=== PATIENT | female | born 1965 ===

== ENCOUNTER 2020-08-29 13:46 | Outpatient (REF) | payer OTHER, SELFPAY | END 2020-08-29 13:47 | disposition home or self-care (01) | LOC: HO.LNP 13:46 | PROVIDERS: PCP Internal Medicine Medical Oncology; Referring Provider Internal Medicine Medical Oncology; Visit Provider Advanced Practice Midwife | DX: Z01.419 Encounter for gynecological examination (general) (routine) without abnormal findings (principal); R30.0 Dysuria; N84.1 Polyp of cervix uteri | CPT/HCPCS: 87086; 87088; 87186; 99386 ==

== ENCOUNTER 2020-10-16 08:29 | Outpatient (REF) | payer OTHER, SELFPAY | END 2020-10-16 08:30 | disposition home or self-care (01) | LOC: HO.LAB 08:29 | PROVIDERS: Visit Provider Obstetrics & Gynecology | DX: N84.1 Polyp of cervix uteri (principal) | CPT/HCPCS: 88305 ==

== ENCOUNTER 2020-11-04 08:03 | Outpatient (REF) | payer OTHER, SELFPAY | END 2020-11-04 08:04 | disposition home or self-care (01) | LOC: HO.LAB 08:03 | PROVIDERS: Visit Provider Internal Medicine | DX: Z20.828 Contact with and (suspected) exposure to other viral communicable diseases (principal) | CPT/HCPCS: C9803; U0003 ==

== ENCOUNTER → 2020-12-04 15:37 | Outpatient (BNVA) | payer OTHER, SELFPAY | PROVIDERS: PCP Internal Medicine; Visit Provider Obstetrics & Gynecology ==

== ENCOUNTER 2020-12-14 10:27 | Outpatient (REF) | payer OTHER, SELFPAY ==
[2020-12-14 11:16] LABS: Hematocrit 33.6 % (37-47); Hemoglobin 10.4 g/dl (12.0-16.0); Mean Corpuscular Hemoglobin 25.5 pg (27.0-33.0); Mean Corpuscular Volume 82.4 fL (80-98); Mean Platelet Volume 11.9 fL (9.4-12.3); Platelet Count 207 X10*3/uL (160-400); Red Blood Count 4.08 X10*6/uL (4.20-5.50); Red Cell Distribution Width 15.3 % (11.0-16.0); White Blood Count 5.1 X10*3/uL (4.8-10.8)
[2020-12-14 12:02] LABS: HCG Quantitative < 2 mIU/mL; Thyroid Stimulating Hormone 0.76 uIU/mL (0.32-4.0)
[2020-12-15 09:32] LABS: Follicle Stimulating Hormone 42.5 mIU/mL; Lutenizing Hormone 24.9 mIU/mL
== END 2020-12-14 10:28 | disposition home or self-care (01) ==
LOC: HO.LAB 10:27
PROVIDERS: PCP Internal Medicine Medical Oncology; Visit Provider Obstetrics & Gynecology
DX: N92.0 Excessive and frequent menstruation with regular cycle (principal)
CPT/HCPCS: 36415; 83001; 83002; 84443; 84702; 85027

== ENCOUNTER 2020-12-16 12:44 | Outpatient (REF) | payer OTHER, SELFPAY ==
--- NOTE | 2020-12-16 12:48 | US_ITS ---
EXAMINATION: ULTRASOUND PELVIS COMPLETE CLINICAL INFORMATION: Excessive and frequent menses with regular cycle. COMPARISON: None TECHNIQUE: Transabdominal and transvaginal ultrasound of the pelvis is performed. FINDINGS: The uterus is anteverted, anteflexed measuring 7.7 cm in length, 4.2 cm in AP and 5.0 cm in transverse dimension. Endometrial thickness measures 0.44 cm. The cervix is unremarkable. The right ovary measures 2.0 x 1.1 x 1.1 cm and volume 1.3 mL. It appears unremarkable. The left ovary measures 2.8 x 1.1 x 2.0 cm and volume 3.2 mL. There is no free fluid in the cul-de-sac. US/US transvaginal IMPRESSION: Unremarkable uterus and ovaries.
--- NOTE | 2020-12-16 12:48 | US_ITS ---
EXAMINATION: ULTRASOUND PELVIS COMPLETE CLINICAL INFORMATION: Excessive and frequent menses with regular cycle. COMPARISON: None TECHNIQUE: Transabdominal and transvaginal ultrasound of the pelvis is performed. FINDINGS: The uterus is anteverted, anteflexed measuring 7.7 cm in length, 4.2 cm in AP and 5.0 cm in transverse dimension. Endometrial thickness measures 0.44 cm. The cervix is unremarkable. The right ovary measures 2.0 x 1.1 x 1.1 cm and volume 1.3 mL. It appears unremarkable. The left ovary measures 2.8 x 1.1 x 2.0 cm and volume 3.2 mL. There is no free fluid in the cul-de-sac. US/US pelvic complete IMPRESSION: Unremarkable uterus and ovaries.
== END 2020-12-16 12:45 | disposition home or self-care (01) ==
LOC: HO.US 12:44
PROVIDERS: Visit Provider Obstetrics & Gynecology
DX: N92.0 Excessive and frequent menstruation with regular cycle (principal)
CPT/HCPCS: 76830; 76856

== ENCOUNTER 2020-12-19 14:51 | Emergency (ER) | payer OTHER, SELFPAY ==
[2020-12-19 14:58] VITALS: BP 141/75; PULSE 114; RESP 20; TEMP 37.7; O2SAT 96; BMI 26.7
--- NOTE | 2020-12-19 15:01 | ECG_ITS ---
Test Reason : PALPITATIONS Blood Pressure : / mmHG Vent. Rate : 106 BPM Atrial Rate : 106 BPM P-R Int : 130 ms QRS Dur : 072 ms QT Int : 320 ms P-R-T Axes : 070 028 010 degrees QTc Int : 425 ms Sinus tachycardia Possible Left atrial enlargement Left ventricular hypertrophy with repolarization abnormality Abnormal ECG No previous ECGs available Referred By: Ange Coley Electronically Signed By:RICHARDSON MAHMOOD
--- NOTE | 2020-12-19 15:07 | ED.ARRPALP ---
HPI - Arrhythmia/Palpitations General Chief Complaint: Arrhythmia/Palpitations Stated Complaint: palpitations Time Seen by Provider: 12/19/20 15:01 Source: patient Mode of arrival: ambulatory Limitations: no limitations History of Present Illness HPI narrative: 55 y/o female with no known cardiac history presenting with intermittent palpitations that stated last night when she was laying down. She states last night she felt her chest pounding for about 1 hour. She was anxious, nervous and sweaty at the time. It resolved on its own and she was able to sleep normally. Today she went to work and was having recurrent episodes of palpitations along with new onset central chest pain that also comes and goes. This started this morning. Pain is non-radiating and aching in nature. She admits to new dry cough and headache. No N/V, abdominal pain, fever, chills or known COVID exposure. HR 100-110's on arrival with low grade temp of 99.9. Related Data Home Medications Medication Instructions Recorded Confirmed No Known Home Meds 10/16/20 10/16/20 Allergies Allergy/AdvReac Type Severity Reaction Status Date / Time amoxicillin [Amoxicillin] Allergy Mild SWELLING/VOMITING, Verified 12/04/20 15:38 syncope, stomach burning clavulanic acid Allergy Mild SWELLING/VO Verified 12/04/20 15:38 [From Augmentin] MITING doxycycline Allergy Unknown vomiting Verified 12/04/20 15:38 lightheadness loss of vision Penicillin Allergy Unknown burned Uncoded 10/16/20 08:34 stomach with vomiting Review of Systems Review of Systems: Constitutional: No Fever, No Chills ENT/Mouth: No sore throat Cardiovascular: + Chest Pain, No SOB, No Orthopnea, No Edema Respiratory: + Cough, No Sputum, No Wheezing, No dyspnea Gastrointestinal: No Nausea, No Vomiting, No Diarrhea, No abdominal Pain Genitourinary: No Dysuria, No Urinary Frequency, No Hematuria Musculoskeletal: No joint pain, No Myalgias Skin: No Skin Lesions, No rash Neuro: No Weakness, No Numbness, No Dizziness, No Headache Psych: + Anxiety/Panic, No Depression Heme/Lymph: No Bruising, No Lymphadenopathy Endocrine: No Polyuria, No Polydipsia PMFSH Past Medical History Medical History Hx of cyst of breast Family History Family History Paternal Uncle Prostate [place] Social History Social History (Updated 10/16/20 @ 08:36 by LORENE Granado) Alcohol intake: never Smoking Status: Never smoker Use of substances other than those prescribed or required for medical reasons: No Advance Directives: No Advance Directives Information Provided: Yes Current occupational status: employed 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 Oriented X3. No acute distress. Eyes: Pupils equal, round and reactive to light. ENT: Pharynx normal. Neck: Normal inspection. Neck supple. CVS: rapid rate, regular rhythm. no appreciable murmur. Pulses normal. Respiratory: No respiratory distress. Breath sounds normal. Abdomen: Soft and nontender. +BS x4 Skin: Skin warm and dry. Normal skin color. Normal skin turgor. No rashes. Extremities: No lower extremity edema. Negative Ran's sign. Neuro: Oriented X 3. No motor deficit. No sensory deficit. Course Course Course Narrative: 55 y/o female presenting with intermittent palpitations and chest pain. Sinus tachycardia on arrival with low grade fever, headache and cough. Concern for possible COVID-19. Will panculture, give Tylenol and IVF Reevaluation(s) Reevaluation #1: 15:50 - patients HR improved to 90's with IVF and Tylenol. Palpitations resolved. DDIMER and CXR are negative. Will continue to await medical workup. Suspect anxiety driving factor. Reevaluation #2: 16:16 - troponin and BNP are negative as well with normal electrolytes. Awaiting Viral PCR and UA. Anticipate d/c home once resulted. Patient is already feeling much better. Reevaluation #3: 16:40 - patient found to be COVID positive. She was counseled on her diagnosis and management. Warning signs and symptoms to return to the ER were discussed. Stable for discharge. MDM - Arrhythmia/Palpitations Differential Diagnosis Differential diagnosis: Likely palpitations, anxiety, sinus tachycardia, artial fibrillation, artial flutter, ventricular premature beats and supraventricular tachycardia Medical Records Attestation: I reviewed the patient's medical records. Lab Data Attestation: I reviewed the patient's lab results. Result diagrams: 12/19/20 15:16 12/19/20 15:16 Labs: Lab Results 12/19/20 12/19/20 12/19/20 Range/Units 15:16 15:16 15:16 WBC 5.3 (4.8-10.8) X10*3/uL RBC 4.22 (4.20-5.50) X10*6/uL Hgb 11.1 L (12.0-16.0) g/dl Hct 34.0 L (37-47) % MCV 80.6 (80-98) fL MCH 26.3 L (27.0-33.0) pg MCHC 32.6 (31.0-35.0) g/dl RDW 15.7 (11.0-16.0) % Plt Count 162 (160-400) X10*3/uL MPV 11.8 (9.4-12.3) fL Immature Gran % (Auto) 0.2 (0.0-0.4) % Neut % (Auto) 64.2 (45-73) % Lymph % (Auto) 26.4 (20-40) % [place] % (Auto) 8.6 (2-11) % Eos % (Auto) 0.4 (0-4) % Baso % (Auto) 0.2 (0-2) % Lymph # (Auto) 1.4 (1.2-4.9) X10*3/uL [place] # (Auto) 0.5 (0.1-1.2) X10*3/uL Eos # (Auto) 0.0 (0.0-0.4) X10*3/uL Baso # (Auto) 0.0 (0.0-0.2) X10*3/uL Abs Immat Gran (auto) 0.01 (0.00-0.03) X10*3/uL Absolute Neuts (auto) 3.4 (2.0-8.3) X10*3/uL Absolute Nucleated RBC 0.000 (0.0-0.012) X10*3/uL Nucleated RBC % (auto) 0.0 (0.0-0.2) /100WBC D-Dimer < 200 NG/ML Hold Blue Top SEE NOTE Sodium 135 (135-145) mmol/L Potassium 3.8 (3.3-5.1) mmol/l Chloride 99 (96-108) mmol/L Carbon Dioxide 26 (22-29) mmol/L Anion Gap 14 (12-20) BUN 10 (9-16) mg/dL Creatinine 0.84 (0.5-1.4) mg/dL Estim Creat Clear Calc 74.7 Estimated GFR > 60 Random Glucose 122 H (60-115) mg/dL Lactic Acid (0.5-2.0) mmol/L Calcium 8.9 (8.4-10.2) mg/dL Magnesium 1.7 (1.6-2.6) mg/dL Total Bilirubin 0.2 (0.0-1.0) mg/dL Direct Bilirubin < 0.2 (0.0-0.5) mg/dL AST 28 (5-31) U/L ALT 32 H (0-31) U/L Alkaline Phosphatase 68 (39-117) U/L Troponin I High Sens (<3.5-17.0) ng/L B-Natriuretic Peptide (<100) pg/mL Total Protein 7.8 (6.5-8.0) g/dL Albumin 4.5 (3.5-5.0) g/dL TSH 0.82 (0.32-4.0) mIU/mL Ethyl Alcohol mg/dL Coronavirus (PCR) (Negative) Influenza Type A (PCR) (Negative) Influenza Type B (PCR) (Negative) RSV RNA Qual (PCR) (Negative) 12/19/20 12/19/20 12/19/20 Range/Units 15:16 15:16 15:16 WBC (4.8-10.8) X10*3/uL RBC (4.20-5.50) X10*6/uL Hgb (12.0-16.0) g/dl Hct (37-47) % MCV (80-98) fL MCH (27.0-33.0) pg MCHC (31.0-35.0) g/dl RDW (11.0-16.0) % Plt Count (160-400) X10*3/uL MPV (9.4-12.3) fL Immature Gran % (Auto) (0.0-0.4) % Neut % (Auto) (45-73) % Lymph % (Auto) (20-40) % [place] % (Auto) (2-11) % Eos % (Auto) (0-4) % Baso % (Auto) (0-2) % Lymph # (Auto) (1.2-4.9) X10*3/uL [place] # (Auto) (0.1-1.2) X10*3/uL Eos # (Auto) (0.0-0.4) X10*3/uL Baso # (Auto) (0.0-0.2) X10*3/uL Abs Immat Gran (auto) (0.00-0.03) X10*3/uL Absolute Neuts (auto) (2.0-8.3) X10*3/uL Absolute Nucleated RBC (0.0-0.012) X10*3/uL Nucleated RBC % (auto) (0.0-0.2) /100WBC D-Dimer NG/ML Hold Blue Top Sodium (135-145) mmol/L Potassium (3.3-5.1) mmol/l Chloride (96-108) mmol/L Carbon Dioxide (22-29) mmol/L Anion Gap (12-20) BUN (9-16) mg/dL Creatinine (0.5-1.4) mg/dL Estim Creat Clear Calc Estimated GFR Random Glucose (60-115) mg/dL Lactic Acid (0.5-2.0) mmol/L Calcium (8.4-10.2) mg/dL Magnesium (1.6-2.6) mg/dL Total Bilirubin (0.0-1.0) mg/dL Direct Bilirubin (0.0-0.5) mg/dL AST (5-31) U/L ALT (0-31) U/L Alkaline Phosphatase (39-117) U/L Troponin I High Sens < 3.5 (<3.5-17.0) ng/L B-Natriuretic Peptide < 10 (<100) pg/mL Total Protein (6.5-8.0) g/dL Albumin (3.5-5.0) g/dL TSH Cancelled (0.32-4.0) mIU/mL Ethyl Alcohol < 10 mg/dL Coronavirus (PCR) (Negative) Influenza Type A (PCR) (Negative) Influenza Type B (PCR) (Negative) RSV RNA Qual (PCR) (Negative) 12/19/20 12/19/20 Range/Units 15:19 15:30 WBC (4.8-10.8) X10*3/uL RBC (4.20-5.50) X10*6/uL Hgb (12.0-16.0) g/dl Hct (37-47) % MCV (80-98) fL MCH (27.0-33.0) pg MCHC (31.0-35.0) g/dl RDW (11.0-16.0) % Plt Count (160-400) X10*3/uL MPV (9.4-12.3) fL Immature Gran % (Auto) (0.0-0.4) % Neut % (Auto) (45-73) % Lymph % (Auto) (20-40) % [place] % (Auto) (2-11) % Eos % (Auto) (0-4) % Baso % (Auto) (0-2) % Lymph # (Auto) (1.2-4.9) X10*3/uL [place] # (Auto) (0.1-1.2) X10*3/uL Eos # (Auto) (0.0-0.4) X10*3/uL Baso # (Auto) (0.0-0.2) X10*3/uL Abs Immat Gran (auto) (0.00-0.03) X10*3/uL Absolute Neuts (auto) (2.0-8.3) X10*3/uL Absolute Nucleated RBC (0.0-0.012) X10*3/uL Nucleated RBC % (auto) (0.0-0.2) /100WBC D-Dimer NG/ML Hold Blue Top Sodium (135-145) mmol/L Potassium (3.3-5.1) mmol/l Chloride (96-108) mmol/L Carbon Dioxide (22-29) mmol/L Anion Gap (12-20) BUN (9-16) mg/dL Creatinine (0.5-1.4) mg/dL Estim Creat Clear Calc Estimated GFR Random Glucose (60-115) mg/dL Lactic Acid 0.9 (0.5-2.0) mmol/L Calcium (8.4-10.2) mg/dL Magnesium (1.6-2.6) mg/dL Total Bilirubin (0.0-1.0) mg/dL Direct Bilirubin (0.0-0.5) mg/dL AST (5-31) U/L ALT (0-31) U/L Alkaline Phosphatase (39-117) U/L Troponin I High Sens (<3.5-17.0) ng/L B-Natriuretic Peptide (<100) pg/mL Total Protein (6.5-8.0) g/dL Albumin (3.5-5.0) g/dL TSH (0.32-4.0) mIU/mL Ethyl Alcohol mg/dL Coronavirus (PCR) POSITIVE A (Negative) Influenza Type A (PCR) NEGATIVE (Negative) Influenza Type B (PCR) NEGATIVE (Negative) RSV RNA Qual (PCR) NEGATIVE (Negative) ECG Data Attestation: I personally reviewed and interpreted this ECG as follows: Prior ECG tracings: not available for review Interpretation: sinus tachycardia, HR 106 bpm, normal NV interval, normal QTc, isolated t-wave inversion in lead V1 [place]ores [place] PE Heart rate > 100 p/min: 1.5 Score: 1.5 2-tier Risk: unlikely risk (5%) 3-tier Risk: low risk (3.4%) Critical Care Time Critical Care Time Critical Care Time: No Discharge Plan Discharge Clinical Impression: Palpitations Patient Disposition: Home, Self-Care Instructions: Heart Palpitations (ED), COVID-19 (Coronavirus Disease 2019) (ED) Additional Instructions: You were found to be COVID-19 POSITIVE today. Your chest x-ray and oxygen levels were normal. Your EKG and lab workup today were unremarkable. Rest. Drink plenty of fluids. Do not go out in public for the next 10-14 days. Take over the counter cold/flu medications as needed for your symptoms. Take Tylenol and/or Motrin as needed for fevers and body aches. Follow up with your doctor this week. If you shortness of breath worsens , if you develop difficulty breathing or any other concerning symptom come back to the ER for further evaluation. Recommend following up with your doctor. If you have recurrent palpitations and chest pain come back to the ER for further evaluation. Prescriptions: No Action No Known Home Meds RF: 0 Stand Alone Forms: Work/School Release
--- NOTE | 2020-12-19 15:12 | XR_ITS ---
EXAMINATION: XR CHEST CLINICAL INFORMATION: Cough, low-grade fever COMPARISON: Chest radiographs 05/09/2019 TECHNIQUE: Portable upright AP view of the chest was obtained. FINDINGS: The lungs are clear and there is no interval airspace consolidation or groundglass opacity or effusion. Linear density right apex possibly osseous is stable. The costophrenic sulci are clear. The heart is normal in size and the hilar and mediastinal contours are normal. No acute bony abnormality. XR/XR chest 1V IMPRESSION: Unremarkable examination.
[2020-12-19 15:25] LABS: MANUAL DIFF FLAG NO
[2020-12-19] MEDS: 0.9 % Sodium Chloride 1,000 ML 999 ML IVCONT (15:34)
[2020-12-19 15:39] LABS: Basophils Percent Auto 0.2 % (0-2); Eosinophils Percent Auto 0.4 % (0-4); Hemoglobin 11.1 g/dl (12.0-16.0); Imm Gran Abs Auto 0.01 X10*3/uL (0.00-0.03); Imm Gran Pct Auto 0.2 % (0.0-0.4); Lymphocytes Absolute Auto 1.4 X10*3/uL (1.2-4.9); Lymphocytes Percent Auto 26.4 % (20-40); Mean Corpuscular HGB Conc 32.6 g/dl (31.0-35.0); Mean Corpuscular Hemoglobin 26.3 pg (27.0-33.0); Mean Corpuscular Volume 80.6 fL (80-98); Mean Platelet Volume 11.8 fL (9.4-12.3); Monocytes Absolute Auto 0.5 X10*3/uL (0.1-1.2); Monocytes Percent Auto 8.6 % (2-11); Neutrophils Absolute Auto 3.4 X10*3/uL (2.0-8.3); Neutrophils Percent Auto 64.2 % (45-73); Platelet Count 162 X10*3/uL (160-400); Red Blood Count 4.22 X10*6/uL (4.20-5.50); Red Cell Distribution Width 15.7 % (11.0-16.0); White Blood Count 5.3 X10*3/uL (4.8-10.8)
[2020-12-19] MEDS: Acetaminophen 325 MG TABLET 975 MG PO (15:43)
[2020-12-19 15:47] LABS: D Dimer < 200 NG/ML
[2020-12-19 15:52] LABS: Lactic Acid 0.9 mmol/L (0.5-2.0)
[2020-12-19 15:54] LABS: Ethanol < 10 mg/dL
--- NOTE | 2020-12-19 15:54 | PC.NURSE ---
PT RESTING IN THE STRETCHER, NOT FEELING WELL THAT STARTED TODAY SOME DRY COUGH AND CHEST PAIN, NS ON THE MONITOR, LS CLEAR.
[2020-12-19 16:03] LABS: B Type Natriuretic Peptide < 10 pg/mL (<100); Troponin-I High Sensitivity < 3.5 ng/L (<3.5-17.0)
[2020-12-19 16:15] LABS: Alanine Aminotransferase 32 U/L (0-31); Albumin Level 4.5 g/dL (3.5-5.0); Alkaline Phosphatase 68 U/L (39-117); Anion Gap 14 (12-20); Aspartate Amino Transferase 28 U/L (5-31); Bilirubin Direct < 0.2 mg/dL (0.0-0.5); Bilirubin Total 0.2 mg/dL (0.0-1.0); Blood Urea Nitrogen 10 mg/dL (9-16); Calcium 8.9 mg/dL (8.4-10.2); Carbon Dioxide 26 mmol/L (22-29); Chloride 99 mmol/L (96-108); Creatinine Clr Calc Pharmacy 74.7; Estimated Glomerular Filt Rate > 60; Glucose Random 122 mg/dL (60-115); Magnesium 1.7 mg/dL (1.6-2.6); Potassium 3.8 mmol/l (3.3-5.1); Sodium 135 mmol/L (135-145); Total Protein 7.8 g/dL (6.5-8.0)
[2020-12-19 16:34] LABS: Influenza A PCR NEGATIVE (Negative); Influenza B PCR NEGATIVE (Negative); Resp Syncy Virus RNA Qual PCR NEGATIVE (Negative); SARS COV2 PCR INHOUSE POSITIVE (Negative)
[2020-12-19 16:35] LABS: TSH reflex Free T4 0.82 mIU/mL (0.32-4.0)
[2020-12-19 17:19] LABS: Glucose Urine UA NEG (NEG); Leukocyte Esterase Urine NEG (NEG); Nitrite Urine NEG (NEG); PH 6.5 (5.0-8.0); Specific Gravity - Urine <= 1.005 (1.005-1.025); Urine Blood NEG (NEG); Urine Ketones NEG (NEG); Urine Protein NEG (NEG-TRACE)
[2020-12-19 17:21] LABS: Appearance Urine CLEAR; Color Urine YELLOW
[2020-12-19 17:54] LABS: Amphetamine Screen Urine Not Detected (Not Detect); Barbiturates, Urine Not Detected (Not Detect); Benzodiazepines Screen Urine Not Detected (Not Detect); Cannabinoid Screen Urine Not Detected (Not Detect); Cocaine Screen Urine Not Detected (Not Detect); Opiate Screen Urine Not Detected (Not Detect); Phencyclidine Screen Urine Not Detected (Not Detect)
== END 2020-12-19 17:40 | disposition home or self-care (01) ==
PROVIDERS: Physician Assistant; Emergency Provider Emergency Medicine Emergency Medical Services; PCP Internal Medicine Medical Oncology
DX: R00.2 Palpitations (principal); R05 Cough; R51.9 Headache, unspecified; Z20.822 Contact with and (suspected) exposure to COVID-19
CPT/HCPCS: 0241U; 36415; 71045; 80048; 80076; 80307; 80320; 81003; 83605; 83735; 83880; 84443; 84484; 85025; 85379; 87040; 93005; 96360; 99284

== ENCOUNTER 2021-01-04 07:58 | Outpatient (REF) | payer OTHER, SELFPAY | END 2021-01-04 07:59 | disposition home or self-care (01) | LOC: HO.LAB 07:58 | PROVIDERS: Visit Provider Internal Medicine | DX: Z20.822 Contact with and (suspected) exposure to COVID-19 (principal) | CPT/HCPCS: 36415; C9803; U0003; U0005 ==

== ENCOUNTER 2021-01-21 15:22 | Outpatient (REF) | payer OTHER, SELFPAY | END 2021-01-21 15:23 | disposition home or self-care (01) | LOC: HO.LAB 15:22 | PROVIDERS: PCP Internal Medicine Medical Oncology; Visit Provider Internal Medicine | DX: Z20.822 Contact with and (suspected) exposure to COVID-19 (principal) | CPT/HCPCS: 36415; C9803; U0003; U0005 ==

== ENCOUNTER 2021-02-04 08:33 | Outpatient (REF) | payer OTHER, SELFPAY ==
[2021-02-06 19:12] LABS: HPV mRNA E6/E7 rflx Not Detected (Not Detected)
== END 2021-02-04 08:34 | disposition home or self-care (01) ==
LOC: HO.LAB 08:33
PROVIDERS: PCP Internal Medicine Medical Oncology; Visit Provider Obstetrics & Gynecology
DX: Z01.419 Encounter for gynecological examination (general) (routine) without abnormal findings (principal); Z11.51 Encounter for screening for human papillomavirus (HPV); N92.0 Excessive and frequent menstruation with regular cycle
CPT/HCPCS: 36415; 58100; 87624; 88142; 88305

== ENCOUNTER 2021-02-10 07:49 | Outpatient (REF) | payer OTHER, SELFPAY ==
[2021-02-10 08:09] LABS: MANUAL DIFF FLAG NO
[2021-02-10 08:19] LABS: Basophils Percent Auto 0.5 % (0-2); Eosinophils Absolute Auto 0.1 X10*3/uL (0.0-0.4); Eosinophils Percent Auto 1.6 % (0-4); Hematocrit 35.5 % (37-47); Hemoglobin 11.1 g/dl (12.0-16.0); Imm Gran Abs Auto 0.01 X10*3/uL (0.00-0.03); Imm Gran Pct Auto 0.2 % (0.0-0.4); Lymphocytes Absolute Auto 2.4 X10*3/uL (1.2-4.9); Lymphocytes Percent Auto 38.6 % (20-40); Mean Corpuscular HGB Conc 31.3 g/dl (31.0-35.0); Mean Corpuscular Hemoglobin 26.4 pg (27.0-33.0); Mean Corpuscular Volume 84.3 fL (80-98); Mean Platelet Volume 11.6 fL (9.4-12.3); Monocytes Absolute Auto 0.5 X10*3/uL (0.1-1.2); Monocytes Percent Auto 8.7 % (2-11); Neutrophils Absolute Auto 3.1 X10*3/uL (2.0-8.3); Neutrophils Percent Auto 50.4 % (45-73); Platelet Count 191 X10*3/uL (160-400); Red Blood Count 4.21 X10*6/uL (4.20-5.50); Red Cell Distribution Width 17.2 % (11.0-16.0); White Blood Count 6.2 X10*3/uL (4.8-10.8)
[2021-02-10 08:44] LABS: Alanine Aminotransferase 25 U/L (0-31); Albumin Level 4.3 g/dL (3.5-5.0); Alkaline Phosphatase 61 U/L (39-117); Anion Gap 11 (12-20); Aspartate Amino Transferase 22 U/L (5-31); Bilirubin Total 0.6 mg/dL (0.0-1.0); Blood Urea Nitrogen 12 mg/dL (9-16); Calcium 8.8 mg/dL (8.4-10.2); Carbon Dioxide 27 mmol/L (22-29); Chloride 105 mmol/L (96-108); Cholesterol 148 mg/dL; Estimated Glomerular Filt Rate > 60; Glucose Fasting 101 mg/dL (60-99); HDL Cholesterol 52 mg/dL; LDL Cholesterol Calculated 80 mg/dl; Potassium 4.3 mmol/L (3.3-5.1); Sodium 139 mmol/L (135-145); Total Protein 7.3 g/dL (6.5-8.0); Triglycerides 82 mg/dL
[2021-02-10 10:15] LABS: Erythrocyte Sedimentation Rate 14 MM/HR (0-20)
== END 2021-02-10 07:50 | disposition home or self-care (01) ==
LOC: HO.LAB 07:49
PROVIDERS: PCP Internal Medicine Medical Oncology; Visit Provider Internal Medicine Medical Oncology
DX: E66.3 Overweight (principal)
CPT/HCPCS: 36415; 80053; 80061; 85025; 85652

== ENCOUNTER → 2021-02-18 11:15 | Outpatient (BNVA) | payer OTHER, SELFPAY | PROVIDERS: PCP Internal Medicine Medical Oncology; Visit Provider Obstetrics & Gynecology ==

== ENCOUNTER 2021-04-02 13:37 | Outpatient (REF) | payer OTHER, SELFPAY ==
[2021-04-02 13:49] LABS: Glucose Urine UA NEG (NEG); Leukocyte Esterase Urine 1+ (NEG); Nitrite Urine NEG (NEG); UACC Culture Trigger YES; Urine Blood 3+ (NEG); Urine Ketones NEG (NEG); Urine Protein NEG (NEG-TRACE)
[2021-04-02 13:51] LABS: Appearance Urine HAZY; Color Urine YELLOW
[2021-04-02 14:27] LABS: Bacteria Urine 1+ /LPF; Mucus Urine 2+ /LPF; RBC Urine TNTC /HPF (0); Squamous Epithelial Cell Urine 2+ /LPF; UACC CULT YES
== END 2021-04-02 13:38 | disposition home or self-care (01) ==
LOC: HO.LNP 13:37
PROVIDERS: Visit Provider Internal Medicine Medical Oncology
DX: N39.0 Urinary tract infection, site not specified (principal); N39.9 Disorder of urinary system, unspecified
CPT/HCPCS: 81001; 87086; 87088; 87186

== ENCOUNTER 2021-04-02 13:44 | Outpatient (REF) | payer OTHER, SELFPAY ==
[2021-04-02 14:28] LABS: MANUAL DIFF FLAG NO
[2021-04-02 14:36] LABS: Basophils Percent Auto 0.6 % (0-2); Eosinophils Absolute Auto 0.1 X10*3/uL (0.0-0.4); Eosinophils Percent Auto 0.7 % (0-4); Hematocrit 35.1 % (37-47); Imm Gran Abs Auto 0.01 X10*3/uL (0.00-0.03); Imm Gran Pct Auto 0.1 % (0.0-0.4); Lymphocytes Absolute Auto 2.6 X10*3/uL (1.2-4.9); Lymphocytes Percent Auto 36.2 % (20-40); Mean Corpuscular HGB Conc 31.3 g/dl (31.0-35.0); Mean Corpuscular Hemoglobin 26.5 pg (27.0-33.0); Mean Corpuscular Volume 84.6 fL (80-98); Mean Platelet Volume 11.9 fL (9.4-12.3); Monocytes Absolute Auto 0.5 X10*3/uL (0.1-1.2); Monocytes Percent Auto 6.4 % (2-11); Neutrophils Absolute Auto 3.9 X10*3/uL (2.0-8.3); Platelet Count 194 X10*3/uL (160-400); Red Blood Count 4.15 X10*6/uL (4.20-5.50); Red Cell Distribution Width 15.8 % (11.0-16.0)
[2021-04-02 15:01] LABS: Alanine Aminotransferase 35 U/L (0-31); Albumin Level 4.4 g/dL (3.5-5.0); Alkaline Phosphatase 64 U/L (39-117); Anion Gap 11 (12-20); Aspartate Amino Transferase 30 U/L (5-31); Bilirubin Total 0.5 mg/dL (0.0-1.0); Blood Urea Nitrogen 11 mg/dL (9-16); Calcium 9.1 mg/dL (8.4-10.2); Carbon Dioxide 26 mmol/L (22-29); Chloride 107 mmol/L (96-108); Estimated Glomerular Filt Rate > 60; Glucose Random 90 mg/dL (60-115); Potassium 4.3 mmol/L (3.3-5.1); Sodium 140 mmol/L (135-145); Total Protein 7.5 g/dL (6.5-8.0)
[2021-04-02 15:21] LABS: HCG Quantitative < 2 mIU/mL; Thyroid Stimulating Hormone 1.02 uIU/mL (0.32-4.0)
[2021-04-02 15:30] LABS: Erythrocyte Sedimentation Rate 18 MM/HR (0-20)
[2021-04-03 05:12] LABS: Follicle Stimulating Hormone 13.2 mIU/mL; Lutenizing Hormone 9.7 mIU/mL
== END 2021-04-02 13:45 | disposition home or self-care (01) ==
LOC: HO.LAB 13:44
PROVIDERS: Obstetrics & Gynecology; PCP Internal Medicine Medical Oncology; Visit Provider Internal Medicine Medical Oncology
DX: R10.32 Left lower quadrant pain (principal); N92.0 Excessive and frequent menstruation with regular cycle; R39.9 Unspecified symptoms and signs involving the genitourinary system; N39.0 Urinary tract infection, site not specified; R30.0 Dysuria
CPT/HCPCS: 36415; 80053; 83001; 83002; 84443; 84702; 85025; 85652

== ENCOUNTER 2021-04-03 10:48 | Emergency (ER) | payer OTHER, SELFPAY ==
--- NOTE | ~2021-04-03 | CT_ITS ---
EXAMINATION: CT ABDOMEN AND PELVIS WITH CONTRAST CLINICAL INFORMATION: Left flank pain COMPARISON: May 15, 2012 TECHNIQUE: Multidetector volumetric images were obtained from the superior aspect of the liver through the pubic symphysis following administration 85 mL of Omnipaque 350 intravenous contrast. Sagittal and coronal reformatted images were obtained on the technologist's workstation. Oral contrast: No This CT examination was performed using dose optimization techniques as appropriate, variously including the following: *Automated exposure control *Adjustment of mA and/or kV according to patient size (this includes techniques or standardized protocols for targeted exams where dose is matched to indication/reason for exam; i.e. extremities or head) *Use of iterative reconstruction technique DLP: 536 mGy-cm FINDINGS: LUNG BASES: The visualized lung bases are unremarkable. No pleural or pericardial effusion. LIVER, GALLBLADDER, AND BILIARY TREE: The liver is normal in size, shape, and attenuation. No focal hepatic lesion or biliary ductal dilatation is present. The gallbladder is unremarkable with no evidence of radiopaque gallstones, gallbladder wall thickening, or obvious pericholecystic inflammatory changes. PANCREAS: Unremarkable. SPLEEN: Unremarkable. ADRENAL GLANDS: Unremarkable. KIDNEYS AND URETERS: The right kidney is normal in size, shape, and attenuation. No hydronephrosis, hydroureter, or calculi seen. No perinephric stranding. There is mild left hydronephrosis and hydroureter down to a 6 mm partially obstructing mid left ureteral calculus. BLADDER: Unremarkable. GASTROINTESTINAL TRACT: No dilated loops of large or small bowel are evident. No free air is identified. There is minimal free fluid. No pericolonic inflammatory change. The appendix appears unremarkable. ABDOMINAL WALL: No significant hernia is appreciated. LYMPH NODES: No lymphadenopathy appreciated. VASCULAR: Unremarkable. PELVIC VISCERA: There are bilateral adnexal cysts present the largest on the right measuring 3 cm in diameter. About the left perineum there is there is a 1.8 x 1.4 cm cyst. No inflammatory changes seen surrounding this. OSSEOUS STRUCTURES: No suspicious bony lesion identified. CT/CT abdomen pelvis w con IMPRESSION: Partial obstructing 6 mm mid left ureteral calculus with mild left hydronephrosis. Left perineum cyst.
[2021-04-03 11:11] VITALS: BP 137/50; PULSE 58; RESP 18; TEMP 36.8; O2SAT 98; BMI 28.8
--- NOTE | 2021-04-03 11:12 | ED_ITS ---
HPI - Abdominal Pain General Chief Complaint: Abdominal Pain Stated Complaint: abdominal pain Time Seen by Provider: 04/03/21 11:11 Source: patient Mode of arrival: ambulatory Limitations: no limitations History of Present Illness MD elicited complaint: flank pain Pertinent past history: kidney stones Onset (ago): day(s) (2) Pain Consistency: constant Location: L flank Severity: severe Quality: stabbing Radiation: LLQ Migration to: no migration Exacerbating factors: nothing Relieving factors: nothing Context: history of similar episodes Associated symptoms: nausea and vomiting Treatments prior to arrival: other (doctor started cipro yesterday) Related Data Home Medications Medication Instructions Recorded Confirmed cholecalciferol (vitamin D3) 50 50 mcg PO DAILY 02/04/21 02/18/21 mcg (2,000 unit) capsule Previous Rx's Medication Instructions Recorded ondansetron 4 mg PO Q8H PRN #20 tab 04/03/21 oxycodone 10 mg PO Q6H PRN #20 tab 04/03/21 prednisone 40 mg PO DAILY 4 Days #8 tab 04/03/21 tamsulosin 0.4 mg PO DAILY 5 Days #5 cap 04/03/21 Allergies Allergy/AdvReac Type Severity Reaction Status Date / Time amoxicillin [Amoxicillin] Allergy Mild SWELLING/VOMITING, Verified 02/18/21 11:16 syncope, stomach burning clavulanic acid Allergy Mild SWELLING/VO Verified 02/18/21 11:16 [From Augmentin] MITING doxycycline Allergy Unknown vomiting Verified 02/18/21 11:16 lightheadness loss of vision Penicillin Allergy Unknown burned Uncoded 10/16/20 08:34 stomach with vomiting Review of Systems Review of Systems Constitutional : No Fever, No Chills ENT/Mouth : No sore throat Eyes: No Eye Pain, No Swelling, No Redness Cardiovascular : No Chest Pain, No SOB Respiratory : No Cough, No Sputum, No Wheezing Gastrointestinal : positive Nausea, positive Vomiting, No Diarrhea, positive abdominal pain Genitourinary : positive Dysuria, positive urinary frequency, positive Hematuria, positive Flank Pain, positive hesitancy Musculoskeletal : No joint pain, No Myalgias Skin : No Skin Lesions, No rash Neuro : No Weakness, No Numbness, No Headache Psych : No Anxiety/Panic, No Depression Heme/Lymph: No Bruising, No Lymphadenopathy Endocrine : No Polyuria, No Polydipsia All other systems reviewed and are negative Physical Exam Vital Signs: Vital Signs: Last Vital Signs Temp 98.7 F 04/03/21 15: Pulse 77 04/03/21 15:26 Resp 18 04/03/21 15:28 BP 138/56 L 04/03/21 15:26 Pulse Ox 97 04/03/21 15:26 Body Mass Index 28.8 Appearance: Alert. Oriented X3. No acute distress. vomiting Eyes: Pupils equal, round and reactive to light. ENT: Pharynx normal. Neck: Normal inspection. Neck supple. CVS: Normal heart rate and rhythm. Pulses normal. Respiratory: No respiratory distress. Breath sounds normal. Abdomen: Soft and L sided flank pain noted Skin: Skin warm and dry. Normal skin color. Normal skin turgor. Extremities: No lower extremity edema. No calf ttp Neuro: Oriented X 3. No motor deficit. No sensory deficit. Course Course Course Narrative: urine negative able to tolerate PO, pain well controlled feels stable for outpatient management MDM - Abdominal Pain MDM Narrative Medical decision making narrative: 55 yo female with L flank pain started on cipro by PCP for possible UTI yesterday comes in with L flank pain n/v hx of stones at this time labs, CT scan for renal colic, IV morphine for pain ordered, dispo per results and findings. Lab Data Result diagrams: 04/03/21 12:03 04/03/21 12:03 Labs: Lab Results 04/03/21 04/03/21 04/03/21 Range/Units 12:03 12:03 12:03 WBC 8.1 (4.8-10.8) X10*3/uL RBC 4.03 L (4.20-5.50) X10*6/uL Hgb 10.8 L (12.0-16.0) g/dl Hct 34.0 L (37-47) % MCV 84.4 (80-98) fL MCH 26.8 L (27.0-33.0) pg MCHC 31.8 (31.0-35.0) g/dl RDW 15.4 (11.0-16.0) % Plt Count 174 (160-400) X10*3/uL MPV 11.4 (9.4-12.3) fL Immature Gran % (Auto) 0.4 (0.0-0.4) % Neut % (Auto) 72.4 (45-73) % Lymph % (Auto) 21.0 (20-40) % [place] % (Auto) 5.3 (2-11) % Eos % (Auto) 0.4 (0-4) % Baso % (Auto) 0.5 (0-2) % Lymph # (Auto) 1.7 (1.2-4.9) X10*3/uL [place] # (Auto) 0.4 (0.1-1.2) X10*3/uL Eos # (Auto) 0.0 (0.0-0.4) X10*3/uL Baso # (Auto) 0.0 (0.0-0.2) X10*3/uL Abs Immat Gran (auto) 0.03 (0.00-0.03) X10*3/uL Absolute Neuts (auto) 5.8 (2.0-8.3) X10*3/uL Absolute Nucleated RBC 0.000 (0.0-0.012) X10*3/uL Nucleated RBC % (auto) 0.0 (0.0-0.2) /100WBC Hold Blue Top SEE NOTE Sodium 140 (135-145) mmol/L Potassium 4.4 (3.3-5.1) mmol/L Chloride 105 (96-108) mmol/L Carbon Dioxide 27 (22-29) mmol/L Anion Gap 12 (12-20) BUN 11 (9-16) mg/dL Creatinine 0.76 (0.5-1.4) mg/dL Estim Creat Clear Calc 85.5 Estimated GFR > 60 Random Glucose 127 H D (60-115) mg/dL Calcium 9.3 (8.4-10.2) mg/dL Magnesium (1.6-2.6) mg/dL Total Bilirubin (0.0-1.0) mg/dL Direct Bilirubin (0.0-0.5) mg/dL AST (5-31) U/L ALT (0-31) U/L Alkaline Phosphatase (39-117) U/L Total Protein (6.5-8.0) g/dL Albumin (3.5-5.0) g/dL Lipase (8-78) U/L Urine Color Urine Appearance Urine pH (5.0-8.0) Ur Specific [place] (1.005-1.025) Urine Protein (NEG-TRACE) MG/DL Urine Glucose (UA) (NEG) MG/DL Urine Ketones (NEG) MG/DL Urine Blood (NEG) Urine Nitrite (NEG) Ur Leukocyte Esterase (NEG) Urine RBC (0) /HPF Urine WBC (0-4) /HPF Ur Squamous Epith Cells /LPF Urine Bacteria /LPF 04/03/21 04/03/21 Range/Units 12:03 15:29 WBC (4.8-10.8) X10*3/uL RBC (4.20-5.50) X10*6/uL Hgb (12.0-16.0) g/dl Hct (37-47) % MCV (80-98) fL MCH (27.0-33.0) pg MCHC (31.0-35.0) g/dl RDW (11.0-16.0) % Plt Count (160-400) X10*3/uL MPV (9.4-12.3) fL Immature Gran % (Auto) (0.0-0.4) % Neut % (Auto) (45-73) % Lymph % (Auto) (20-40) % [place] % (Auto) (2-11) % Eos % (Auto) (0-4) % Baso % (Auto) (0-2) % Lymph # (Auto) (1.2-4.9) X10*3/uL [place] # (Auto) (0.1-1.2) X10*3/uL Eos # (Auto) (0.0-0.4) X10*3/uL Baso # (Auto) (0.0-0.2) X10*3/uL Abs Immat Gran (auto) (0.00-0.03) X10*3/uL Absolute Neuts (auto) (2.0-8.3) X10*3/uL Absolute Nucleated RBC (0.0-0.012) X10*3/uL Nucleated RBC % (auto) (0.0-0.2) /100WBC Hold Blue Top Sodium (135-145) mmol/L Potassium (3.3-5.1) mmol/L Chloride (96-108) mmol/L Carbon Dioxide (22-29) mmol/L Anion Gap (12-20) BUN (9-16) mg/dL Creatinine (0.5-1.4) mg/dL Estim Creat Clear Calc Estimated GFR Random Glucose (60-115) mg/dL Calcium (8.4-10.2) mg/dL Magnesium 1.9 (1.6-2.6) mg/dL Total Bilirubin 0.6 (0.0-1.0) mg/dL Direct Bilirubin 0.2 (0.0-0.5) mg/dL AST 30 (5-31) U/L ALT 35 H (0-31) U/L Alkaline Phosphatase 62 (39-117) U/L Total Protein 7.3 (6.5-8.0) g/dL Albumin 4.3 (3.5-5.0) g/dL Lipase 11 (8-78) U/L Urine Color YELLOW Urine Appearance HAZY Urine pH 6.5 (5.0-8.0) Ur Specific [place] <= 1.005 (1.005-1.025) Urine Protein NEG (NEG-TRACE) MG/DL Urine Glucose (UA) NEG (NEG) MG/DL Urine Ketones 5 (NEG) MG/DL Urine Blood 3+ H (NEG) Urine Nitrite NEG (NEG) Ur Leukocyte Esterase NEG (NEG) Urine RBC TNTC H (0) /HPF Urine WBC 0-2 (0-4) /HPF Ur Squamous Epith Cells 2+ /LPF Urine Bacteria NONE /LPF Discharge Plan Discharge Clinical Impression: Ureterolithiasis Vomiting Qualifiers: Vomiting type: unspecified Vomiting Intractability: non-intractable Nausea presence: with nausea Qualified Code(s): R11.2 - Nausea with vomiting, unspecified Patient Disposition: Home, Self-Care Instructions: Ureteral Stones (ED) Additional Instructions: return to ED for any worsening symptoms or concerns Prescriptions: New prednisone 20 mg tablet 40 mg PO DAILY 4 Days Qty: 8 RF: 0 tamsulosin 0.4 mg capsule 0.4 mg PO DAILY 5 Days Qty: 5 RF: 0 ondansetron 4 mg tablet,disintegrating 4 mg PO Q8H PRN (Reason: nausea and vomiting) Qty: 20 RF: 0 oxycodone 10 mg tablet 10 mg PO Q6H PRN (Reason: pain) Qty: 20 RF: 0 No Action cholecalciferol (vitamin D3) 50 mcg (2,000 unit) capsule 50 mcg PO DAILY RF: 0 Referrals: Jules Chapman MD [Physician] - 2 days (if not better) Stand Alone Forms: Work/School Release [facility] Past Medical History Attestation statement: The following information was validated with the patient. 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
[2021-04-03 12:04] VITALS: RESP 20
[2021-04-03] MEDS: Ketorolac Tromethamine 30 MG/ML VIAL IVPUSH (12:04)
[2021-04-03] MEDS: Morphine Sulfate 4 MG/ML CARTRIDGE IVPUSH ×2 (12:04→15:28)
[2021-04-03] MEDS: 0.9 % Sodium Chloride 1,000 ML 999 ML IVCONT (12:04)
[2021-04-03] MEDS: ondansetron HCL 4 MG/2 ML VIAL IVPUSH (12:04)
[2021-04-03 12:12] LABS: MANUAL DIFF FLAG NO
[2021-04-03 12:18] LABS: Basophils Percent Auto 0.5 % (0-2); Eosinophils Percent Auto 0.4 % (0-4); Hemoglobin 10.8 g/dl (12.0-16.0); Imm Gran Abs Auto 0.03 X10*3/uL (0.00-0.03); Imm Gran Pct Auto 0.4 % (0.0-0.4); Lymphocytes Absolute Auto 1.7 X10*3/uL (1.2-4.9); Mean Corpuscular HGB Conc 31.8 g/dl (31.0-35.0); Mean Corpuscular Hemoglobin 26.8 pg (27.0-33.0); Mean Corpuscular Volume 84.4 fL (80-98); Mean Platelet Volume 11.4 fL (9.4-12.3); Monocytes Absolute Auto 0.4 X10*3/uL (0.1-1.2); Monocytes Percent Auto 5.3 % (2-11); Neutrophils Absolute Auto 5.8 X10*3/uL (2.0-8.3); Neutrophils Percent Auto 72.4 % (45-73); Platelet Count 174 X10*3/uL (160-400); Red Blood Count 4.03 X10*6/uL (4.20-5.50); Red Cell Distribution Width 15.4 % (11.0-16.0); White Blood Count 8.1 X10*3/uL (4.8-10.8)
[2021-04-03 12:37] LABS: Anion Gap 12 (12-20); Blood Urea Nitrogen 11 mg/dL (9-16); Calcium 9.3 mg/dL (8.4-10.2); Carbon Dioxide 27 mmol/L (22-29); Chloride 105 mmol/L (96-108); Creatinine Clr Calc Pharmacy 85.5; Estimated Glomerular Filt Rate > 60; Glucose Random 127 mg/dL (60-115); Potassium 4.4 mmol/L (3.3-5.1); Sodium 140 mmol/L (135-145)
[2021-04-03 12:41] LABS: Alanine Aminotransferase 35 U/L (0-31); Albumin Level 4.3 g/dL (3.5-5.0); Alkaline Phosphatase 62 U/L (39-117); Aspartate Amino Transferase 30 U/L (5-31); Bilirubin Direct 0.2 mg/dL (0.0-0.5); Bilirubin Total 0.6 mg/dL (0.0-1.0); Lipase 11 U/L (8-78); Magnesium 1.9 mg/dL (1.6-2.6); Total Protein 7.3 g/dL (6.5-8.0)
[2021-04-03] MEDS: iohexoL 350 MG/ML 100 ML INFUS..BTL IV (13:38)
[2021-04-03 15:26] VITALS: BP 138/56; PULSE 77; RESP 16; TEMP 37.1; O2SAT 97
[2021-04-03 15:28] VITALS: RESP 18
[2021-04-03] MEDS: methylPREDNISolone Sod Succ 125 MG/2 ML VIAL 60 MG IVPUSH (15:28)
[2021-04-03] MEDS: Tamsulosin HCL 0.4 MG CAPSULE PO (15:28)
[2021-04-03 15:47] LABS: Glucose Urine UA NEG (NEG); Leukocyte Esterase Urine NEG (NEG); Nitrite Urine NEG (NEG); PH 6.5 (5.0-8.0); Specific Gravity - Urine <= 1.005 (1.005-1.025); Urine Blood 3+ (NEG); Urine Ketones 5 MG/DL (NEG); Urine Protein NEG (NEG-TRACE)
[2021-04-03 15:49] LABS: Appearance Urine HAZY; Color Urine YELLOW
[2021-04-03 15:54] LABS: RBC Urine TNTC /HPF (0); Squamous Epithelial Cell Urine 2+ /LPF; WBC Urine 0-2 /HPF (0-4)
== END 2021-04-03 16:39 | disposition home or self-care (01) ==
PROVIDERS: Emergency Provider Emergency Medicine; PCP Internal Medicine Medical Oncology
DX: N20.1 Calculus of ureter (principal); R10.32 Left lower quadrant pain; R11.2 Nausea with vomiting, unspecified; Z79.899 Other long term (current) drug therapy
CPT/HCPCS: 36415; 74177; 80048; 80076; 81001; 83690; 83735; 85025; 96365; 96375; 99283; 99284; J1885; J2270; J2405; J2930; Q9967

== ENCOUNTER 2021-04-17 13:49 | Outpatient (REF) | payer OTHER, SELFPAY ==
--- NOTE | ~2021-04-17 | MM_ITS ---
EXAMINATION: MM DIAGNOSTIC DIGITAL BREAST TOMOSYNTHESIS, BILATERAL. CLINICAL INFORMATION: Right breast lump 6 o'clock position. The examination was originally scheduled as a screening study and ultrasound was not scheduled. The lifetime risk of breast cancer based on the Tyrer-Cuzick Model is 7.9%. COMPARISON: Mammography: 06/26/2020 and studies dating back to 10/06/2016. TECHNIQUE: Digital breast tomosynthesis is performed in both the craniocaudal and mediolateral oblique views along with computer-aided detection (CAD). Synthesized 2D images are generated from the tomosynthesis. FINDINGS: The breasts are extremely dense, which lowers the sensitivity of mammography (ACR BI-RADS breast composition Category d). There are innumerable calcifications seen bilaterally. No definite new more suspicious grouping of calcifications identified. Evaluation is limited to the very dense breast parenchyma present. No definite new abnormal dominant mass is seen. Stable circumscribed density seen about the lateral aspect of the left breast. Targeted ultrasound evaluation was not performed at this time due to scheduling issues. Results are provided to the patient at time of visit by the technologist. MM/MM tomosynthesis diagnostic BI IMPRESSION: Very dense breast parenchyma with no mammographic findings to suggest malignancy. Targeted right breast ultrasound to be performed. ASSESSMENT: BI-RADS 0: Incomplete - Need Additional Imaging Evaluation RECOMMENDATION: Right breast diagnostic ultrasound.
== END 2021-04-17 13:50 | disposition home or self-care (01) ==
LOC: HO.MAMMO 13:49
PROVIDERS: PCP Internal Medicine Medical Oncology; Visit Provider Internal Medicine Medical Oncology
DX: N63.15 Unspecified lump in the right breast, overlapping quadrants (principal)
CPT/HCPCS: 77062; 77066

== ENCOUNTER 2021-04-22 14:40 | Outpatient (REF) | payer OTHER, SELFPAY ==
--- NOTE | ~2021-04-22 | US_ITS ---
EXAMINATION: US DIAGNOSTIC ULTRASOUND BREAST, RIGHT CLINICAL INFORMATION: Breast lump 6:00 position. COMPARISON: Mammography of April 17, 2021 and breast ultrasound of June 26, 2020. TECHNIQUE: Ultrasound of the breast is performed with real-time harkins scale imaging and color Doppler. FINDINGS: There are numerous simple appearing cysts present. At the region of palpable abnormality 6:00 location 3 cm from the nipple there is a large cyst measuring approximately 3.2 x 2.3 x 1.2 cm in size with increased through sound transmission and smooth back wall and no internal vascularity. The cyst is wider than it is tall. There is no solid mass, architectural abnormality, duct ectasia, or edema in the soft tissue planes. Results are discussed with the patient at time of visit. US/US breast RT limited IMPRESSION: Palpable abnormality of the right breast corresponds to a simple cyst. ASSESSMENT: BI-RADS 2: Benign RECOMMENDATION: Routine annual mammography screening due in 12 months. This patient's information was entered into a reminder system with a target due date for their next mammogram.
== END 2021-04-22 14:41 | disposition home or self-care (01) ==
LOC: HO.MAMMO 14:40
PROVIDERS: Visit Provider Internal Medicine Medical Oncology
DX: N63.10 Unspecified lump in the right breast, unspecified quadrant (principal)
CPT/HCPCS: 76642

== ENCOUNTER → 2021-04-23 08:42 | Outpatient (BNVA) | payer OTHER, SELFPAY | PROVIDERS: PCP Internal Medicine Medical Oncology; Visit Provider Urology | DX: N23 Unspecified renal colic (principal) | CPT/HCPCS: 99202 ==

== ENCOUNTER → 2021-05-29 14:23 | Outpatient (BNVA) | payer OTHER, SELFPAY | PROVIDERS: PCP Internal Medicine Medical Oncology; Visit Provider Obstetrics & Gynecology | DX: N92.0 Excessive and frequent menstruation with regular cycle (principal) | CPT/HCPCS: 99212 ==

== ENCOUNTER 2021-06-03 14:09 | Outpatient (REF) | payer OTHER, SELFPAY ==
--- NOTE | ~2021-06-03 | XR_ITS ---
EXAMINATION: XR LUMBAR SPINE XR SACRUM COCCYX CLINICAL INFORMATION: Acute low back pain COMPARISON: CT abdomen and pelvis with contrast 04/03/2021. TECHNIQUE: The lumbar spine is imaged in 3 views. The sacrum and coccyx are imaged in 3 views. There are a total of 6 views. FINDINGS: There is normal lumbar segmentation with 5 nonrib-bearing lumbar vertebrae of normal height and lumbar lordosis. There is no lumbar vertebral compression, spondylolisthesis, or destructive process. No focal disc narrowing or erosive changes. There is borderline anterior vertebral spurring L4 and L5. The sacrum and coccyx show normal bony mineralization. There is no destructive process or periostitis. The SI joints show no subchondral sclerosis or erosive changes or ankylosis. XR/XR lumbar spine 2-3V IMPRESSION: Unremarkable lumbar spine, sacrum, and coccyx.
--- NOTE | ~2021-06-03 | XR_ITS ---
EXAMINATION: XR LUMBAR SPINE XR SACRUM COCCYX CLINICAL INFORMATION: Acute low back pain COMPARISON: CT abdomen and pelvis with contrast 04/03/2021. TECHNIQUE: The lumbar spine is imaged in 3 views. The sacrum and coccyx are imaged in 3 views. There are a total of 6 views. FINDINGS: There is normal lumbar segmentation with 5 nonrib-bearing lumbar vertebrae of normal height and lumbar lordosis. There is no lumbar vertebral compression, spondylolisthesis, or destructive process. No focal disc narrowing or erosive changes. There is borderline anterior vertebral spurring L4 and L5. The sacrum and coccyx show normal bony mineralization. There is no destructive process or periostitis. The SI joints show no subchondral sclerosis or erosive changes or ankylosis. XR/XR sacrum coccyx min 2V IMPRESSION: Unremarkable lumbar spine, sacrum, and coccyx.
== END 2021-06-03 14:10 | disposition home or self-care (01) ==
LOC: HO.XRAY 14:09
PROVIDERS: PCP Internal Medicine Medical Oncology; Visit Provider Internal Medicine Medical Oncology
DX: M54.5 Low back pain (principal)
CPT/HCPCS: 72100; 72220

== ENCOUNTER 2021-06-21 07:23 | Outpatient (REF) | payer OTHER, SELFPAY ==
[2021-06-21 07:48] LABS: MANUAL DIFF FLAG NO
[2021-06-21 07:50] LABS: Basophils Percent Auto 0.3 % (0-2); Hematocrit 36.2 % (37-47); Hemoglobin 11.4 g/dl (12.0-16.0); Imm Gran Abs Auto 0.03 X10*3/uL (0.00-0.03); Imm Gran Pct Auto 0.4 % (0.0-0.4); Lymphocytes Absolute Auto 1.2 X10*3/uL (1.2-4.9); Lymphocytes Percent Auto 15.7 % (20-40); Mean Corpuscular HGB Conc 31.5 g/dl (31.0-35.0); Mean Corpuscular Hemoglobin 26.1 pg (27.0-33.0); Mean Platelet Volume 10.8 fL (9.4-12.3); Monocytes Absolute Auto 0.4 X10*3/uL (0.1-1.2); Monocytes Percent Auto 5.1 % (2-11); Neutrophils Absolute Auto 6.2 X10*3/uL (2.0-8.3); Neutrophils Percent Auto 78.5 % (45-73); Platelet Count 202 X10*3/uL (160-400); Red Blood Count 4.36 X10*6/uL (4.20-5.50); White Blood Count 7.9 X10*3/uL (4.8-10.8)
[2021-06-21 08:16] LABS: Alanine Aminotransferase 49 U/L (0-31); Albumin Level 4.4 g/dL (3.5-5.0); Alkaline Phosphatase 59 U/L (39-117); Anion Gap 13 (12-20); Aspartate Amino Transferase 28 U/L (5-31); Bilirubin Total 0.3 mg/dL (0.0-1.0); Blood Urea Nitrogen 11 mg/dL (9-16); Calcium 9.7 mg/dL (8.4-10.2); Carbon Dioxide 26 mmol/L (22-29); Chloride 105 mmol/L (96-108); Cholesterol 155 mg/dL; Estimated Glomerular Filt Rate > 60; Glucose Fasting 130 mg/dL (60-99); HDL Cholesterol 50 mg/dL; LDL Cholesterol Calculated 92 mg/dl; Magnesium 1.9 mg/dL (1.6-2.6); Potassium 4.7 mmol/L (3.3-5.1); Sodium 139 mmol/L (135-145); Total Protein 7.3 g/dL (6.5-8.0); Triglycerides 69 mg/dL
== END 2021-06-21 07:24 | disposition home or self-care (01) ==
LOC: HO.LAB 07:23
PROVIDERS: PCP Internal Medicine Medical Oncology; Visit Provider Internal Medicine Medical Oncology
DX: R00.2 Palpitations (principal); I10 Essential (primary) hypertension
CPT/HCPCS: 36415; 80053; 80061; 83735; 85025

== ENCOUNTER 2021-06-24 13:40 | Outpatient (REF) | payer OTHER, SELFPAY ==
[2021-06-26 21:26] LABS: TS Negative Control Passed; TS Panel A 0; TS Panel B 0; TS Positive Control Passed; TSpotTB Negative (SeeBelow)
== END 2021-06-24 13:41 | disposition home or self-care (01) ==
LOC: HO.LAB 13:40
PROVIDERS: PCP Internal Medicine Medical Oncology; Visit Provider Internal Medicine Medical Oncology
DX: Z11.1 Encounter for screening for respiratory tuberculosis (principal)
CPT/HCPCS: 36415; 86481

== ENCOUNTER → 2021-07-02 13:51 | Outpatient (REF) | payer OTHER, SELFPAY ==
--- NOTE | 2021-07-02 14:00 | ECG_ITS ---
Hook-up date: 2021-07-02 14:04:00 Duration: 41:57:00 Test Indications: PALPITATIONS, VERTIGO Medications: [id number] QRS complexes 1 Ventricular ectopics which represent <1 % of total QRS comp. 102 Supraventricular ectopics which represent <1 % of total QRS comp. * Paced QRS complexs which represent % of total QRS comp. VENTRICULAR ECTOPY 1 Isolated 0 Bigeminal Cycles 0 Couplets 0 Runs 0 Beats in Runs * Beats LONGEST at * BPM at :: -- * Beats FASTEST at * BPM at :: -- SUPRAVENTRICULAR ECTOPY 98 Isolated 2 Couplets 0 Runs 0 Beats in Runs * Beats LONGEST at * BPM at :: -- * Beats FASTEST at * BPM at :: -- HEART RATES 57 MIN at 03:40:30 2021-07-03 89 AVG 149 MAX at 12:06:22 2021-07-03 LONGEST RR 1.2000 secs at 21:33:16 2021-07-02 S-T LEVELS Channel 1 - 128 mm at 14:04:00 2021-07-02 - 128 mm at 14:04:00 2021-07-02 Channel 2 - 128 mm at 14:04:00 2021-07-02 - 128 mm at 14:04:00 2021-07-02 Channel 3 - 128 mm at 03:32:31 -- - 128 mm at 03:32:31 Underlying rhythm is sinus; Average ventricular rate 89/min; range 57-149/min; About 35% of the time, ventricular rate>100/min (sinus tachycardia); Rare Premature atrial complexes ; Patient did not report any symptoms in the diary Referred By: Nguyễn Hallman Overread By: RICHARDSON MAHMOOD
== END ==
LOC: HO.CARD 13:51
PROVIDERS: Visit Provider Internal Medicine Medical Oncology
DX: R00.2 Palpitations (principal); R42 Dizziness and giddiness; I10 Essential (primary) hypertension
CPT/HCPCS: 93225; 93226

== ENCOUNTER 2021-09-02 14:37 | Outpatient (REF) | payer OTHER, SELFPAY ==
--- NOTE | ~2021-09-02 | XR_ITS ---
EXAMINATION: XR HAND, RIGHT CLINICAL INFORMATION: Right hand and thumb pain. COMPARISON: None TECHNIQUE: PA, lateral, and oblique views of the right hand. FINDINGS: The bones and soft tissues are normal. No fracture. Alignment is anatomic. Joint spaces are maintained. No erosions or soft tissue calcifications. XR/XR hand RT min 3V IMPRESSION: Normal right hand.
== END 2021-09-02 14:38 | disposition home or self-care (01) ==
LOC: HO.XRAY 14:37
PROVIDERS: PCP Internal Medicine Medical Oncology; Visit Provider Internal Medicine Medical Oncology
DX: M79.641 Pain in right hand (principal)
CPT/HCPCS: 73130

== ENCOUNTER 2021-09-12 08:17 | Outpatient (REF) | payer OTHER, SELFPAY ==
--- NOTE | ~2021-09-12 | MM_ITS ---
EXAMINATION: MM DIAGNOSTIC DIGITAL BREAST TOMOSYNTHESIS, RIGHT US DIAGNOSTIC ULTRASOUND BREAST, RIGHT CLINICAL INFORMATION: Palpable fullness lower inner right breast with right breast pain. The lifetime risk of breast cancer based on the Tyrer-Cuzick Model is 8%. COMPARISON: Mammography: 04/17/2021, 06/26/2020, 11/18/2018; right breast ultrasound 04/22/2021 TECHNIQUE: Digital breast tomosynthesis is performed in both the craniocaudal and mediolateral oblique views along with computer-aided detection (CAD). Synthesized 2D images are generated from the tomosynthesis. Ultrasound right breast is targeted to the lower and inner quadrants. Grayscale imaging and color Doppler are performed without and with harmonics. FINDINGS: The breasts are extremely dense, which lowers the sensitivity of mammography (ACR BI-RADS breast composition Category d). Parenchymal pattern is similar to prior exam. There is a oval smooth mass 6:00 position mid depth corresponding to the large cyst on prior and current ultrasound. There are no interval architectural changes. Again, there are diffuse scattered punctate calcifications. The axilla and skin contours are unremarkable. No skin thickening or coarsening of the Ja's ligaments. Ultrasound right breast demonstrates simple cyst 6:00 position 3 cm from nipple corresponding to the mass on mammography and measuring approximately 2.8 x 2.6 x 1.9 cm. Prior ultrasound measurements are 3.2 x 2.3 x 1.2 cm. There is also a simple cyst 3:00 position 5 cm from nipple corresponding to the palpable concern and tenderness medial breast and measuring 3.5 x 3.2 x 2.1 cm. There is no solid mass or architectural abnormality. Results are discussed with the patient at time of visit. Patient inquired about cyst aspiration. The largest cyst in area of palpable concern would be amenable to ultrasound-guided aspiration for symptomatic relief if clinically indicated. Results are called to medical affairs specialist (Mark) for Dr. Hallman on 09/12/2021. MM/MM tomosynthesis diagnostic RT IMPRESSION: Large simple cysts right breast 3:00 position 3.5 cm and 6:00 position 2.8 cm, respectively. ASSESSMENT: BI-RADS 2: Benign RECOMMENDATION: 1. Routine annual mammography screening. 2. If clinically indicated, the cyst(s) would be amenable to therapeutic ultrasound-guided aspiration for potential symptomatic relief. This patient's information was entered into a reminder system with a target due date for their next mammogram.
== END 2021-09-12 08:18 | disposition home or self-care (01) ==
LOC: HO.MAMMO 08:17
PROVIDERS: Visit Provider Internal Medicine Medical Oncology
DX: N64.4 Mastodynia (principal); N63.14 Unspecified lump in the right breast, lower inner quadrant; R42 Dizziness and giddiness
CPT/HCPCS: 76642; 77061; 77065

== ENCOUNTER 2021-09-15 07:41 | Outpatient (REF) | payer OTHER, SELFPAY ==
--- NOTE | ~2021-09-15 | US_ITS ---
EXAMINATION: ULTRASOUND GUIDED CYST ASPIRATION BREAST (2 SITES), RIGHT CLINICAL INFORMATION: 55-year-old with right breast pain. Dominant cyst on recent imaging 3:00 and 6:00 position for symptomatic aspiration. COMPARISON: Mammography and right breast ultrasound 09/12/2021 FINDINGS: Proper informed consent is obtained from the patient after discussion of the procedure, potential risks and complications, and alternatives. Patient was given an opportunity for questions. The patient appeared to understand. The patient consented to the procedure and signed the consent form. Hospital provided home energy consultant assisted in consent and during procedure. RIGHT BREAST CYST ASPIRATION: LOCATION: Right breast 3:00 GUIDANCE: Ultrasound-guided; aseptic technique. LESION: Simple cyst 3.5 cm. APPROACH: Caudal cranial. ANESTHESIA: 1.5 mL carbonated 1% lidocaine. NEEDLE: 23-gauge straight needle The anesthesia needle was used to puncture the cyst. The cyst resolved on puncture and aspiration. Approximately 16 mL non-viscous light harkins fluid aspirated and discarded as per local practice. RIGHT BREAST CYST ASPIRATION: LOCATION: Right breast 6:00 GUIDANCE: Ultrasound-guided; aseptic technique. LESION: Simple cyst 2.8 cm. APPROACH: Lateral medial. ANESTHESIA: 1.5 mL carbonated 1% lidocaine. NEEDLE: 21-gauge straight needle The anesthesia needle was used to puncture the cyst. The cyst resolved on puncture and aspiration. Approximately 6 ML nonviscous yellow fluid aspirated and discarded as per local practice. The patient tolerated the procedure well. No immediate complications. Home instructions reviewed with the patient. US/US breast cyst asp ea add IMPRESSION: Status post ultrasound-guided cyst aspiration right breast, 2 sites for trial of symptomatic relief. ASSESSMENT: BI-RADS 2: Benign RECOMMENDATION: 1. Patient may be followed and managed clinically as needed. 2. Otherwise, routine annual mammography screening. This patient's information was entered into a reminder system with a target due date for their next mammogram.
--- NOTE | ~2021-09-15 | US_ITS ---
EXAMINATION: ULTRASOUND GUIDED CYST ASPIRATION BREAST (2 SITES), RIGHT CLINICAL INFORMATION: 55-year-old with right breast pain. Dominant cyst on recent imaging 3:00 and 6:00 position for symptomatic aspiration. COMPARISON: Mammography and right breast ultrasound 09/12/2021 FINDINGS: Proper informed consent is obtained from the patient after discussion of the procedure, potential risks and complications, and alternatives. Patient was given an opportunity for questions. The patient appeared to understand. The patient consented to the procedure and signed the consent form. Hospital provided seismic interpreter assisted in consent and during procedure. RIGHT BREAST CYST ASPIRATION: LOCATION: Right breast 3:00 GUIDANCE: Ultrasound-guided; aseptic technique. LESION: Simple cyst 3.5 cm. APPROACH: Caudal cranial. ANESTHESIA: 1.5 mL carbonated 1% lidocaine. NEEDLE: 23-gauge straight needle The anesthesia needle was used to puncture the cyst. The cyst resolved on puncture and aspiration. Approximately 16 mL non-viscous light harkins fluid aspirated and discarded as per local practice. RIGHT BREAST CYST ASPIRATION: LOCATION: Right breast 6:00 GUIDANCE: Ultrasound-guided; aseptic technique. LESION: Simple cyst 2.8 cm. APPROACH: Lateral medial. ANESTHESIA: 1.5 mL carbonated 1% lidocaine. NEEDLE: 21-gauge straight needle The anesthesia needle was used to puncture the cyst. The cyst resolved on puncture and aspiration. Approximately 6 ML nonviscous yellow fluid aspirated and discarded as per local practice. The patient tolerated the procedure well. No immediate complications. Home instructions reviewed with the patient. US/US breast cyst asp RT IMPRESSION: Status post ultrasound-guided cyst aspiration right breast, 2 sites for trial of symptomatic relief. ASSESSMENT: BI-RADS 2: Benign RECOMMENDATION: 1. Patient may be followed and managed clinically as needed. 2. Otherwise, routine annual mammography screening. This patient's information was entered into a reminder system with a target due date for their next mammogram.
== END 2021-09-15 07:42 | disposition home or self-care (01) ==
LOC: HO.MAMMO 07:41
PROVIDERS: Visit Provider Internal Medicine Medical Oncology
DX: N60.01 Solitary cyst of right breast (principal)
CPT/HCPCS: 19000; 19001

== ENCOUNTER 2021-09-29 09:36 | Outpatient (REF) | payer OTHER, SELFPAY ==
[2021-09-29 14:40] LABS: CT PCR NOT DETECTED (Not Detect.); NG PCR NOT DETECTED (Not Detect.)
[2021-09-30 11:11] LABS: BV Int Neg Control Negative (Negative); BV Int Pos Control Positive (Positive)
== END 2021-09-29 09:37 | disposition home or self-care (01) ==
LOC: HO.LAB 09:36
PROVIDERS: PCP Internal Medicine Medical Oncology; Visit Provider Obstetrics & Gynecology
DX: B37.3 Candidiasis of vulva and vagina (principal); N95.0 Postmenopausal bleeding; Z87.891 Personal history of nicotine dependence
CPT/HCPCS: 87480; 87491; 87510; 87591; 87660; 99212

== ENCOUNTER 2021-10-14 13:14 | Outpatient (REF) | payer OTHER, SELFPAY ==
--- NOTE | ~2021-10-14 | US_ITS ---
EXAMINATION: US PELVIS US TRANSVAGINAL CLINICAL INFORMATION: Postmenopausal bleeding. COMPARISON: CT abdomen and pelvis 04/17/2021. TECHNIQUE: Ultrasound of the pelvis is performed using both transabdominal and transvaginal transducers along with Doppler. Transvaginal imaging is performed due to inadequate visualization transabdominally. FINDINGS: Uterus: The uterus is anteverted and measures 8.9 x 3.8 x 5.2 cm. The double wall endometrial thickness is 0.4 mm. The uterus is smooth in contour and has normal myometrial echogenicity. No visible fibroid. A nabothian cyst is present in the cervix. Adnexa: Both ovaries are visualized. There is normal color flow to the adnexa. There is no ovarian torsion. There is no pelvic ascites or fluid collection. Right ovary measures 2.3 x 1.7 x 1.4 cm for a volume of 2.9 mL. Left ovary measures 2.5 x 2.1 x 1.3 cm for a volume of 3.6 mL. This includes a complex 1.1 cm cyst. US/US pelvic and transvaginal IMPRESSION: Anteverted slightly heterogeneous uterus without discrete masses. Small 1 cm complex left ovarian cyst needs no further follow up.
--- NOTE | ~2021-10-14 | US_ITS ---
EXAMINATION: US RETROPERITONEAL LIMITED (RENAL ONLY) CLINICAL INFORMATION: Calculus of kidney. COMPARISON: Ultrasound abdomen 09/27/2019. CT abdomen and pelvis 04/03/2021. TECHNIQUE: Real-time imaging of the kidneys. FINDINGS: RIGHT KIDNEY: 11.0 x 3.9 x 5.9 cm (SAG x AP x TRV). The kidney is normal in size, contour, and echogenicity. Renal cortical thickness is normal. No calculi or focal parenchymal lesions. No hydronephrosis. LEFT KIDNEY: 12.2 x 5.9 x 4.6 cm (SAG x AP x TRV). The kidney is normal in size, contour, and echogenicity. Renal cortical thickness is normal. There is a 3 mm echogenic density in the midpole suggestive of a stone. No focal parenchymal lesions or hydronephrosis. The liver is echogenic probably representing fatty infiltration. US/US renal BI IMPRESSION: Small left renal stone. Normal right kidney.
== END 2021-10-14 13:15 | disposition home or self-care (01) ==
LOC: HO.US 13:14
PROVIDERS: PCP Internal Medicine Medical Oncology; Visit Provider Urology
DX: N20.0 Calculus of kidney (principal); N95.0 Postmenopausal bleeding
CPT/HCPCS: 76775; 76830; 76856

== ENCOUNTER 2021-10-28 09:43 | Outpatient (REF) | payer OTHER, SELFPAY ==
[2021-10-30 04:46] LABS: CA-125 8 U/mL (<35)
== END 2021-10-28 09:44 | disposition home or self-care (01) ==
LOC: HO.LAB 09:43
PROVIDERS: PCP Internal Medicine Medical Oncology; Visit Provider Obstetrics & Gynecology
DX: N83.299 Other ovarian cyst, unspecified side (principal); N95.0 Postmenopausal bleeding
CPT/HCPCS: 36415; 86304; 99212

== ENCOUNTER → 2021-11-04 13:46 | Outpatient (BNVA) | payer OTHER, SELFPAY | PROVIDERS: PCP Internal Medicine Medical Oncology ==

== ENCOUNTER 2022-01-17 08:43 | Outpatient (REF) | payer OTHER, SELFPAY ==
--- NOTE | ~2022-01-17 | XR_ITS ---
EXAMINATION: XR LUMBOSACRAL SPINE CLINICAL INFORMATION: Back pain COMPARISON: Previous x-ray May 2021 TECHNIQUE: Three views of the lumbosacral spine. FINDINGS: The vertebral bodies and posterior elements are normal. The disc spaces are preserved and the vertebral alignment is normal. The paraspinal soft tissues are normal. XR/XR lumbar spine 2-3V IMPRESSION: Unremarkable examination.
== END 2022-01-17 08:44 | disposition home or self-care (01) ==
LOC: HO.XRAY 08:43
PROVIDERS: PCP Internal Medicine Medical Oncology; Visit Provider Internal Medicine Medical Oncology
DX: M54.50 Low back pain, unspecified (principal)
CPT/HCPCS: 72100

== ENCOUNTER 2022-01-22 12:41 | Outpatient (REF) | payer OTHER, SELFPAY ==
--- NOTE | ~2022-01-22 | US_ITS ---
EXAMINATION: US PELVIS CLINICAL INFORMATION: Ovarian cyst. Cervical polyp removed 11/17/2020. COMPARISON: None TECHNIQUE: Ultrasound of the pelvis is performed using both transabdominal and transvaginal transducers along with Doppler. Transvaginal imaging is performed due to inadequate visualization transabdominally. FINDINGS: UTERUS: The uterus is anteverted, anteflexed and measures 7.7 x 4.0 x 4.5 cm. The double wall endometrial thickness is 0.3 cm. The uterus is smooth in contour and heterogeneous-appearing myometrium. No visible fibroid. There are small nabothian cysts. ADNEXA: Both ovaries are visualized. There is normal color flow to the adnexa. There is no ovarian torsion. There is no pelvic ascites or fluid collection. Right ovary measures 2.2 x 1.3 x 1.2 and volume 1.8 mL. Left ovary measures 1.9 x 1.1 x 1.3 cm and volume 1.4 mL. There is mild left adnexal fullness. No free fluid seen in the cul-de-sac. US/US pelvic and transvaginal IMPRESSION: Unremarkable uterus. Small nabothian cysts in the cervix. Unremarkable ovaries. Mild left adnexal fullness.
== END 2022-01-22 12:42 | disposition home or self-care (01) ==
LOC: HO.US 12:41
PROVIDERS: PCP Internal Medicine Medical Oncology; Visit Provider Obstetrics & Gynecology
DX: N83.299 Other ovarian cyst, unspecified side (principal)
CPT/HCPCS: 76830; 76856

== ENCOUNTER → 2022-02-03 13:36 | Outpatient (BNVA) | payer OTHER, SELFPAY | PROVIDERS: PCP Internal Medicine Medical Oncology ==

== ENCOUNTER → 2022-02-10 14:28 | Outpatient (BNVA) | payer OTHER, SELFPAY | PROVIDERS: PCP Internal Medicine Medical Oncology; Visit Provider Obstetrics & Gynecology | DX: Z13.89 Encounter for screening for other disorder (principal) ==

== ENCOUNTER 2022-02-21 11:13 | Emergency (ER) | payer OTHER, SELFPAY ==
[2022-02-21 11:16] VITALS: BP 158/80; PULSE 100; RESP 19; TEMP 36.6; O2SAT 98; BMI 28.5
--- NOTE | 2022-02-21 11:21 | ED.BACK ---
HPI - Back Pain/Injury General Chief Complaint: Back Pain/Injury Stated Complaint: Back pain Time Seen by Provider: 02/21/22 11:21 Source: patient Mode of arrival: ambulatory Limitations: no limitations History of Present Illness HPI Narrative: 56 y/o female presents to the ER for evaluation of left upper back pain for the last 4 days. She states the pain is sharp and comes and goes. It is worse with movement, laying the wrong way and worst when touch it. 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 She has been taking Tylenol with minimal relief. She denies SOB, chest pain, N/V/D or abdominal pain. The pain does not radiate. MD elicited complaint: back pain Onset (ago): day(s) (4) Timing: intermittent Severity: severe Pain scale (0-10): 9 Similar Symptoms Previously: No Quality: sharp, aching and spasming Location: left upper back Radiation: none Exacerbating factors: movement and other (palpation) Relieving factors: none Context: unknown Associated symptoms: denies other symptoms Treatments prior to arrival: acetaminophen Related Data Home Medications Medication Instructions Recorded Confirmed cholecalciferol (vitamin D3) 50 50 mcg PO DAILY 02/04/21 02/18/21 mcg (2,000 unit) capsule polyvinyl alcohol 1.4 % eye drops 1 drp OPHTHALMIC (EYE) TID 04/23/21 minocycline 50 mg capsule 0 mg PO BEDTIME 11/04/21 tacrolimus 0.1 % topical ointment 1 appl TOPICAL BID 11/04/21 (Protopic) Previous Rx's Medication Instructions Recorded clotrimazole-betamethasone 1 1 appl TOPICAL BID 5 Days #45 g 09/29/21 %-0.05 % topical cream terconazole 0.8 % vaginal cream 1 appful VAGINAL BEDTIME 3 Days 09/29/21 #20 g pyridoxine (vitamin B6) 100 mg 100 mg PO DAILY 90 Days #90 tab 02/03/22 tablet tolterodine 4 mg capsule,extended 4 mg PO DAILY #90 cap 02/13/22 release 24 hr cyclobenzaprine 10 mg tablet 10 mg PO TID PRN #10 tab 02/21/22 ibuprofen 600 mg tablet 600 mg PO Q8H PRN #10 tab 02/21/22 lidocaine 5 % topical patch 1 patch TOPICAL DAILY #15 ea 02/21/22 Allergies Allergy/AdvReac Type Severity Reaction Status Date / Time amoxicillin [Amoxicillin] Allergy Mild SWELLING/VOMITING, Verified 02/10/22 14:45 syncope, stomach burning clavulanic acid Allergy Mild SWELLING/VO Verified 02/03/22 13:37 [From Augmentin] MITING doxycycline Allergy Unknown vomiting Verified 02/03/22 13:37 lightheadness loss of vision Penicillin Allergy Unknown burned Uncoded 11/04/21 13:47 stomach with vomiting Review of Systems Review of Systems: Constitutional: No Fever, No Chills Cardiovascular: No Chest Pain, No SOB, No Orthopnea, No Edema Respiratory: No Cough, No Sputum, No Wheezing, No dyspnea Gastrointestinal: No Nausea, No Vomiting, No abdominal Pain Musculoskeletal: No joint pain, + Myalgias Skin: No Skin Lesions, No rash Neuro: No Weakness, No Numbness, No Dizziness, No Headache Psych: No Anxiety/Panic, No Depression Heme/Lymph: No Bruising, No Lymphadenopathy PMFSH Past Medical History Medical History Hx of cyst of breast OAB (overactive bladder) Renal calculi Renal colic Family History Family History Paternal Uncle Prostate [place] Social History Social History Alcohol intake: never Patient Tobacco Use Status: Former Tobacco user Advance Directives: No Advance Directives Information Provided: No Patient : No Current occupational status: employed 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 Oriented X3. No acute distress. HEENT: normal inspection CVS: Normal heart rate and rhythm. Pulses normal. Respiratory: No respiratory distress. Skin: Skin warm and dry. Normal skin color. Normal skin turgor. No rashes. Back: normal inspection. significant soft tissue tenderness and palpable spasm medial to the left scapula. no midline tenderness. normal spinal ROM Extremities: normal inspection x4, atraumatic, normal ROM Neuro: Oriented X 3. No motor deficit. No sensory deficit. Course Course Course Narrative: 56 y/o female presenting with atraumatic left upper back pain with tenderness and palpable spasm medial to the scapula. No cardiac symptoms or risk factors. Will treat for muscle spasm and have her follow up with her PCP for further management. Stable for d/c home. Critical Care Time Critical Care Time Critical Care Time: No Discharge Plan Discharge Clinical Impression: Acute left-sided thoracic back pain Patient Disposition: Home, Self-Care Instructions: Back Pain (ED) Additional Instructions: Your pain is due to muscle spasms. No bending, lifting or twisting. Use ice several times per day for 20 minutes at a time for the next 48 hours and then change to heat. Take medications as prescribed to help with pain and discomfort. Follow up with your Primary Care Doctor this week. If you develop new or worsening symptoms call 911 or come back to the ER for further evaluation. Prescriptions: New cyclobenzaprine 10 mg tablet 10 mg PO TID PRN (Reason: muscle spasm) Qty: 10 0RF lidocaine 5 % adhesive patch,medicated 1 patch topical DAILY Qty: 15 0RF Rx Instructions: leave on most painful area for up to 12 hrs ibuprofen 600 mg tablet 600 mg PO Q8H PRN (Reason: pain) Qty: 10 0RF No Action tolterodine 4 mg capsule,extended release 24hr 4 mg PO DAILY Qty: 90 1RF polyvinyl alcohol 1.4 % drops 1 drp ophthalmic (eye) TID 0RF cholecalciferol (vitamin D3) 50 mcg (2,000 unit) capsule 50 mcg PO DAILY 0RF minocycline 50 mg capsule 0 mg PO BEDTIME 0RF tacrolimus [Protopic] 0.1 % ointment 1 appl topical BID 0RF terconazole 0.8 % cream 1 appful vaginal BEDTIME 3 Days Qty: 20 0RF clotrimazole-betamethasone 1-0.05 % cream 1 appl topical BID 5 Days Qty: 45 0RF pyridoxine (vitamin B6) 100 mg tablet 100 mg PO DAILY 90 Days Qty: 90 1RF Referrals: Nguyễn Hallman MD [Primary Care Provider] - 5 days (follow up thoracic back pain and spasm) Stand Alone Forms: Work/School Release
[2022-02-21] MEDS: HYDROcodone Bit/Acetam 5/325 TABLET 1 TAB PO (11:36)
[2022-02-21] MEDS: Ketorolac Tromethamine 30 MG/ML VIAL IM (11:38)
[2022-02-21] MEDS: Lidocaine 4 % Patch ADH..PATCH 1 PATCH TRANSDERMA (11:38)
== END 2022-02-21 11:49 | disposition home or self-care (01) ==
PROVIDERS: Emergency Provider Emergency Medicine; PCP Internal Medicine Medical Oncology
DX: M54.6 Pain in thoracic spine (principal)
CPT/HCPCS: 96372; 99284; J1885

== ENCOUNTER 2022-04-21 14:45 | Outpatient (REF) | payer OTHER, SELFPAY ==
--- NOTE | ~2022-04-21 | US_ITS ---
EXAMINATION: US RETROPERITONEAL LIMITED (RENAL ONLY) CLINICAL INFORMATION: Calculus of kidney. COMPARISON: Renal ultrasound 10/14/2021. CT abdomen and pelvis 04/03/2021. Ultrasound abdomen complete 09/27/2019. TECHNIQUE: Real-time imaging of the kidneys. FINDINGS: RIGHT KIDNEY: 10.8 x 4.1 x 5.0 cm (SAG x AP x TRV). The kidney is normal in size, contour, and echogenicity. Renal cortical thickness is normal. No calculi or focal parenchymal lesions. No hydronephrosis. LEFT KIDNEY: 12.7 x 5.1 x 4.6 cm (SAG x AP x TRV). The kidney is normal in size, contour, and echogenicity. Renal cortical thickness is normal. No focal parenchymal lesions or hydronephrosis. There are echogenic non-obstructive stones, one in the upper pole measuring 0.5 x 0.4 cm and one in the midpole measuring 0.3 cm. US/US renal BI IMPRESSION: Two nonobstructive echogenic stones upper and midpole left kidney. The right kidney is unremarkable..
== END 2022-04-21 14:46 | disposition home or self-care (01) ==
LOC: HO.US 14:45
PROVIDERS: Visit Provider Urology
DX: N20.0 Calculus of kidney (principal)
CPT/HCPCS: 76775

== ENCOUNTER 2022-04-23 07:36 | Outpatient (REF) | payer OTHER, SELFPAY ==
--- NOTE | ~2022-04-23 | MM_ITS ---
EXAMINATION: MM SCREENING DIGITAL BREAST TOMOSYNTHESIS, BILATERAL CLINICAL INFORMATION: Screening. Asymptomatic. The lifetime risk of breast cancer based on the Tyrer-Cuzick Model is 7.1%. COMPARISON: Mammography: September 12, 2021 and studies dating back to October 06, 2016 TECHNIQUE: Digital breast tomosynthesis is performed in both the craniocaudal and mediolateral oblique views along with computer-aided detection (CAD). Synthesized 2D images are generated from the tomosynthesis. FINDINGS: The breasts are extremely dense, which lowers the sensitivity of mammography (ACR BI-RADS breast composition Category d). There are no significant masses, abnormal calcifications, or other abnormalities. There is multiplicity and bilaterality of scattered and grouped calcifications. MM/MM tomosynthesis screening BI IMPRESSION: There are no significant changes from prior study. ASSESSMENT: BI-RADS 1: Negative RECOMMENDATION: Routine annual mammography screening. This patient's information was entered into a reminder system with a target due date for their next mammogram.
== END 2022-04-23 07:37 | disposition home or self-care (01) ==
LOC: HO.MAMMO 07:36
PROVIDERS: PCP Internal Medicine Medical Oncology; Visit Provider Internal Medicine Medical Oncology
DX: Z12.31 Encounter for screening mammogram for malignant neoplasm of breast (principal)
CPT/HCPCS: 77063; 77067

== ENCOUNTER 2022-05-07 15:26 | Outpatient (REF) | payer OTHER, SELFPAY ==
[2022-05-07 18:44] LABS: CT PCR NOT DETECTED (Not Detect.); NG PCR NOT DETECTED (Not Detect.)
== END 2022-05-07 15:27 | disposition home or self-care (01) ==
LOC: HO.LAB 15:26
PROVIDERS: Visit Provider Obstetrics & Gynecology
DX: Z11.3 Encounter for screening for infections with a predominantly sexual mode of transmission (principal); N95.0 Postmenopausal bleeding
CPT/HCPCS: 87491; 87591; 99212

== ENCOUNTER 2022-05-28 06:56 | Outpatient (REF) | payer OTHER, SELFPAY ==
[2022-05-28 07:02] LABS: MANUAL DIFF FLAG NO
[2022-05-28 08:51] LABS: Basophils Percent Auto 0.7 % (0-2); Eosinophils Absolute Auto 0.1 X10*3/uL (0.0-0.4); Eosinophils Percent Auto 1.2 % (0-4); Hematocrit 38.3 % (37.0-47.0); Hemoglobin 12.3 g/dl (12.0-16.0); Imm Gran Abs Auto 0.02 X10*3/uL (0.00-0.03); Imm Gran Pct Auto 0.3 % (0.0-0.4); Lymphocytes Absolute Auto 2.4 X10*3/uL (1.2-4.9); Lymphocytes Percent Auto 40.4 % (20-40); Mean Corpuscular HGB Conc 32.1 g/dl (31.0-35.0); Mean Corpuscular Hemoglobin 27.5 pg (27.0-33.0); Mean Corpuscular Volume 85.7 fL (80.0-98.0); Mean Platelet Volume 12.5 fL (9.4-12.3); Monocytes Absolute Auto 0.5 X10*3/uL (0.1-1.2); Monocytes Percent Auto 7.7 % (2-11); Neutrophils Percent Auto 49.7 % (45-73); Platelet Count 186 X10*3/uL (160-400); Red Blood Count 4.47 X10*6/uL (4.20-5.50); Red Cell Distribution Width 14.2 % (11.0-16.0)
[2022-05-28 09:33] LABS: Erythrocyte Sedimentation Rate 9 MM/HR (0-20)
[2022-05-28 10:06] LABS: Alanine Aminotransferase 55 U/L (0-31); Albumin Level 4.2 g/dL (3.5-5.0); Alkaline Phosphatase 78 U/L (39-117); Anion Gap 12 (12-20); Aspartate Amino Transferase 42 U/L (5-31); Bilirubin Total 0.4 mg/dL (0.0-1.0); Blood Urea Nitrogen 12 mg/dL (9-16); Carbon Dioxide 25 mmol/L (22-29); Chloride 105 mmol/L (96-108); Cholesterol 140 mg/dL; Estimated Glomerular Filt Rate > 60; Glucose Random 94 mg/dL (60-115); HDL Cholesterol 40 mg/dL; LDL Cholesterol Calculated 78 mg/dl; Potassium 4.4 mmol/L (3.3-5.1); Sodium 138 mmol/L (135-145); Triglycerides 112 mg/dL
[2022-06-02 13:57] LABS: TS Negative Control Passed; TS Panel A 0; TS Panel B 4; TS Positive Control Passed; TSpotTB Negative (Negative)
== END 2022-05-28 06:57 | disposition home or self-care (01) ==
LOC: HO.LAB 06:56
PROVIDERS: PCP Internal Medicine Medical Oncology; Visit Provider Internal Medicine Medical Oncology
DX: E66.3 Overweight (principal); I10 Essential (primary) hypertension; Z11.1 Encounter for screening for respiratory tuberculosis
CPT/HCPCS: 36415; 80053; 80061; 85025; 85652; 86481

== ENCOUNTER 2022-06-05 05:49 | Day surgery (SDC) | payer OTHER, SELFPAY ==
--- NOTE | 2022-06-03 12:29 | P.CONAN_ITS ---
Documented by User: Cindy Delarosa NP 06/03/22 12:30 HPI - Anesthesia Eval Consult details Narrative: 56yo F for D&C Hysteroscopy PMFSH Active Problems Active Problems: All Active Problems (Updated 02/22/22 @ 00:01 by Mauricio Louis) OAB (overactive bladder) (Acute) Renal calculi (Acute) Complex ovarian cyst (Acute) Postmenopausal bleeding (Acute) Candidal vulvovaginitis (Acute) Renal colic (Acute) Screening mammogram, encounter for (Acute) Well woman exam (Acute) COVID-19 (Acute) Menorrhagia (Acute) Cervical polyp (Acute) Well woman exam with routine gynecological exam (Acute) Dysuria (Acute) Past Medical History Medical History Hx of cyst of breast OAB (overactive bladder) Renal calculi Renal colic Family History Family History Paternal Uncle Prostate CA Surgical History Surgical History H/O foot surgery Social History Social History Alcohol intake: never Patient Tobacco Use Status: Former Tobacco user Second Hand Smoke Exposure: No Use of substances other than those prescribed or required for medical reasons: No Are you DNR?: No Advance Directives: No Advance Directives Information Provided: Yes Advance Directives on File: No Current occupational status: employed 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 Sexual orientation: Straight/Heterosexual Gender identity: Female Meds Allergies Allergy/AdvReac Type Severity Reaction Status Date / Time amoxicillin [Amoxicillin] Allergy Mild SWELLING/VOMITING, Verified 05/07/22 15:03 syncope, stomach burning clavulanic acid Allergy Mild SWELLING/VO Verified 05/07/22 15:03 [From Augmentin] MITING doxycycline Allergy Unknown vomiting Verified 05/07/22 15:03 lightheadness loss of vision Penicillin Allergy Unknown burned Uncoded 05/07/22 11:15 stomach with vomiting Home Medications Medication Instructions Recorded Confirmed Last Taken Type cholecalciferol (vitamin D3) 50 50 mcg PO DAILY 02/04/21 05/07/22 Unknown History mcg (2,000 unit) capsule polyvinyl alcohol 1.4 % eye drops 1 drp ophthalmic (eye) TID 04/23/21 05/07/22 Unknown History minocycline 50 mg capsule 0 mg PO BEDTIME 11/04/21 05/07/22 Unknown History tacrolimus 0.1 % topical ointment 1 appl topical BID 11/04/21 05/07/22 Unknown History (Protopic) Exam Exam Date and Time: June 03, 2022 1229 Pertinent Lab Results Pertinent Lab Results: Laboratory Tests 05/28/22 05/28/22 07:01 07:01 WBC 6.0 Hgb 12.3 Hct 38.3 Plt Count 186 Sodium 138 Potassium 4.4 Chloride 105 Carbon Dioxide 25 BUN 12 Creatinine 0.73 Narrative Narrative: 2 Day Holter 06/2021 Underlying rhythm is sinus; Average ventricular rate 89/min; range 57-149/min; About 35% of the time, ventricular rate>100/min (sinus tachycardia); Rare Premature atrial complexes ; Patient did not report any symptoms in the diary Assessment and Plan Assessment Anesthesia Assessment: Chart Reviewed Documented by User: Antonia Hyatt MD 06/05/22 08:15 [facility] Active Problems Active Problems: All Active Problems (Updated 02/22/22 @ 00:01 by Background Missy) OAB (overactive bladder) (Acute) Renal calculi (Acute) Complex ovarian cyst (Acute) Postmenopausal bleeding (Acute) Candidal vulvovaginitis (Acute) Renal colic (Acute) Screening mammogram, encounter for (Acute) Well woman exam (Acute) COVID-19 (Acute) Menorrhagia (Acute) Cervical polyp (Acute) Well woman exam with routine gynecological exam (Acute) Dysuria (Acute) H/o palpitations Past Medical History Medical History Hx of cyst of breast OAB (overactive bladder) Renal calculi Renal colic Family History Family History Paternal Uncle Prostate CA Family history of problems with anesthesia: No Surgical History Surgical History H/O foot surgery History of Problems with Anesthesia: No Social History Social History Alcohol intake: never Patient Tobacco Use Status: Former Tobacco user Second Hand Smoke Exposure: No Use of substances other than those prescribed or required for medical reasons: No Are you DNR?: No Advance Directives: No Advance Directives Information Provided: Yes Advance Directives on File: No Current occupational status: employed 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 Sexual orientation: Straight/Heterosexual Gender identity: Female Meds Allergies Allergy/AdvReac Type Severity Reaction Status Date / Time amoxicillin [Amoxicillin] Allergy Mild SWELLING/VOMITING, Verified 05/07/22 15:03 syncope, stomach burning clavulanic acid Allergy Mild SWELLING/VO Verified 05/07/22 15:03 [From Augmentin] MITING doxycycline Allergy Unknown vomiting Verified 05/07/22 15:03 lightheadness loss of vision Penicillin Allergy Unknown burned Uncoded 05/07/22 11:15 stomach with vomiting Home Medications Medication Instructions Recorded Confirmed Last Taken Type cholecalciferol (vitamin D3) 50 50 mcg PO DAILY 02/04/21 05/07/22 Unknown History mcg (2,000 unit) capsule polyvinyl alcohol 1.4 % eye drops 1 drp ophthalmic (eye) TID 04/23/21 05/07/22 Unknown History minocycline 50 mg capsule 0 mg PO BEDTIME 11/04/21 05/07/22 Unknown History tacrolimus 0.1 % topical ointment 1 appl topical BID 11/04/21 05/07/22 Unknown History (Protopic) Exam Height,Weight and Vital Signs: Height 5 ft 4 in Weight 75.75 kg Vital Signs Temp Pulse Resp BP Pulse Ox O2 Del Method 06/05/22 06:22 97.0 F 62 16 147/66 H 98 Room Air Airway Mallampati Class: II TM Dist: >3cm Neck ROM: Full Loose/Missing/Broken Teeth: Yes (1 missing) Heart: RRR Lungs: CTAB Assessment and Plan Assessment Anesthesia Assessment: Anesthesia Plan Discussed Final Anesthetic Review Family History of Problems with Anesthesia: No History of Problems with Anesthesia: No NPO: Yes ASA Class: II Final Preanesthetic Review: No Changes in Pt Med Stat, Meds/Allgs Chart Reviewe d, Consent Obtained/Reviewed and Anes Risks/Benef Reviewed Patient Risk: Low Procedure Risk: Low Assessment/Block/Sedation in SS: Assess/Block/Sedation-SS Anesthetic Plan Anesthetic Plan: GA Disposition: Standard PACU
[2022-06-05] VITALS (11 sets, daily range): BP systolic 130–152; BP diastolic 66–83; PULSE 62–74; RESP 16–18; TEMP 36.1–36.7; O2SAT 94–100; BMI 28.6
[2022-06-05] MEDS: Lactated Ringers 1,000 ML 100 ML IVCONT (06:28)
--- NOTE | 2022-06-05 07:40 | MHC.SHP ---
Pre-Procedural Eval Section A Date of Service: 06/05/22 The patient is an INPATIENT: No Changes since office visit: No Cold of Flu in the past 2 weeks, No New Medical Problems, No Changes in Medication and No Patient answered all questions The History & Physical has been completed within 30 days and I have reviewed it.: Yes Section B Chief Complaint: bleeding Allergies: Allergies Allergy/AdvReac Type Severity Reaction Status Date / Time amoxicillin [Amoxicillin] Allergy Mild SWELLING/VOMITING, Verified 05/07/22 15:03 syncope, stomach burning clavulanic acid Allergy Mild SWELLING/VO Verified 05/07/22 15:03 [From Augmentin] MITING doxycycline Allergy Unknown vomiting Verified 05/07/22 15:03 lightheadness loss of vision Penicillin Allergy Unknown burned Uncoded 05/07/22 11:15 stomach with vomiting Plan Diagnosis/Plan: Unchanged I have reviewed the history and physical and performed a pertinent physical examination on my patient. No changes have occurred unless specified.
--- NOTE | 2022-06-05 08:30 | PM.OP ---
Brief Operative Note Date of Service: 06/05/22 Pre-op diagnosis: Postmenopausal bleeding Post-op diagnosis: same Procedure: Hysteroscopy D&C Surgeon: Deondre Chi MD Anesthesia: GLMA Was an Machine Maintenance Repairer used for this Procedure?: No Estimated blood loss (mL): 0 Pathology: other (Endometrial Scrapping) Condition: stable Disposition: PACU
--- NOTE | 2022-06-05 08:31 | P.OP_ITS ---
Operative Note Operative Note Date of Service: 06/05/22 Narrative: Preop Diagnosis: Post Menopausal bleeding Operation: Diagnostic Hysteroscopy, Dilataion & Curettage Post Op Diagnosis: Normal endometrial cavity QBL: Minimal Anesthesia: General LMA Surgeon: Deondre Chi MD Workers Compensation Analyst: None Complication: None Pathology: Endometrial Scrapings Procedure: The patient was put in the dorsal lithotomy position, scrubbed, and draped in the usual manner. A sterile speculum was inserted in the patient's vagina. The anterior lip of the cervix was grasped with a single tooth tenaculum. The cervix was dilated up to 5 mm, then the diagnostic hysteroscope was inserted in the patient's uterus. Inspection revealed Normal endometrial cavity. At the end of the procedure, all instruments were taken out of the patient uterine and vaginal cavity. The single tooth tenaculum was removed and homeostasis was assured using pressure,. The patient tolerated the procedure well and was transferred to the PACU in a stable condition.
[2022-06-05] MEDS: oxyCODONE HCl Immed Release 5 MG TABLET PO (08:46)
[2022-06-05] MEDS: Acetaminophen 325 MG TABLET 650 MG PO (08:46)
[2022-06-05] MEDS: fentaNYL citrate/PF 100 MCG/2 ML VIAL 25 MCG IVPUSH ×4 (08:46→09:01)
== END 2022-06-05 10:25 | disposition home or self-care (01) ==
PROVIDERS: PCP Internal Medicine Medical Oncology; Visit Provider Obstetrics & Gynecology
PROC: 0UDB8ZZ Extraction of Endometrium, Via Natural or Artificial Opening Endoscopic (ICD-10-PCS; CPT 58558; principal; 2022-06-05 07:30)
DX: N95.0 Postmenopausal bleeding (principal); N32.81 Overactive bladder; Z87.442 Personal history of urinary calculi; Z88.1 Allergy status to other antibiotic agents; Z87.891 Personal history of nicotine dependence; Z88.0 Allergy status to penicillin
CPT/HCPCS: 58558; 88305; J1100; J1885; J2405; J3010

== ENCOUNTER → 2022-06-18 11:14 | Outpatient (BNVA) | payer OTHER, SELFPAY | PROVIDERS: PCP Internal Medicine Medical Oncology; Visit Provider Obstetrics & Gynecology | DX: N95.0 Postmenopausal bleeding (principal); Z98.890 Other specified postprocedural states | CPT/HCPCS: 99212 ==

== ENCOUNTER 2022-06-23 13:57 | Outpatient (REF) | payer OTHER, SELFPAY ==
--- NOTE | ~2022-06-23 | XR_ITS ---
EXAMINATION: XR LUMBOSACRAL SPINE CLINICAL INFORMATION: Back pain COMPARISON: 01/17/2022 TECHNIQUE: Three views of the lumbosacral spine. FINDINGS: No fracture or subluxation. Vertebral body height and alignment maintained. Disc spaces are maintained. Tiny endplate osteophytes at the lower lumbar spine with mild facet arthropathy. The sacroiliac joints are symmetric. The visualized sacrum is intact. Normal bowel gas pattern. XR/XR lumbar spine 2-3V IMPRESSION: Mild degenerative change at the lower lumbar spine.
== END 2022-06-23 13:58 | disposition home or self-care (01) ==
LOC: HO.XRAY 13:57
PROVIDERS: PCP Internal Medicine Medical Oncology; Visit Provider Internal Medicine Medical Oncology
DX: M54.50 Low back pain, unspecified (principal)
CPT/HCPCS: 72100

== ENCOUNTER 2022-09-23 08:13 | Outpatient (REF) | payer OTHER, SELFPAY ==
--- NOTE | ~2022-09-23 | MM_ITS ---
EXAMINATION: MM DIAGNOSTIC DIGITAL BREAST TOMOSYNTHESIS, LEFT US TARGETED BREAST ULTRASOUND, LEFT CLINICAL INFORMATION: Left breast mass 2 cm above nipple. COMPARISON: Mammography: 04/23/2022 and studies dating back to 10/06/2016. TECHNIQUE: Digital breast tomosynthesis is performed in both the craniocaudal and mediolateral oblique views along with computer-aided detection (CAD). Synthesized 2D images are generated from the tomosynthesis. Targeted left breast ultrasound. FINDINGS: The breasts are extremely dense, which lowers the sensitivity of mammography (ACR BI-RADS breast composition Category d). There are no new significant masses, abnormal calcifications, or other abnormalities. Numerous scattered calcifications again seen. Targeted left breast ultrasound demonstrated at the 12 o'clock position approximately 3 cm from the nipple, an anechoic smoothly marginated structure with smooth back wall and increased through sound transmission representing a simple cyst. This measures approximately 2.1 x 2.4 x 1.9 cm in size. Results are discussed with the patient at time of visit. MM/MM tomosynthesis diagnostic LT IMPRESSION: Palpable abnormality of the left breast corresponds to a simple cyst. ASSESSMENT: BI-RADS 2: Benign. RECOMMENDATION: Routine annual mammography screening. This patient's information was entered into a reminder system with a target due date for their next mammogram.
== END 2022-09-23 08:14 | disposition home or self-care (01) ==
LOC: HO.MAMMO 08:13
PROVIDERS: PCP Internal Medicine Medical Oncology; Visit Provider Internal Medicine Medical Oncology
DX: N63.42 Unspecified lump in left breast, subareolar (principal)
CPT/HCPCS: 76642; 77061; 77065

== ENCOUNTER 2022-10-29 16:04 | Outpatient (REF) | payer OTHER, SELFPAY ==
--- NOTE | ~2022-10-29 | US_ITS ---
EXAMINATION: US RETROPERITONEAL LIMITED (RENAL ONLY) CLINICAL INFORMATION: Calculus of kidney. COMPARISON: Renal ultrasound 04/21/2022 and 10/14/2021. CT abdomen and pelvis 04/03/2021. TECHNIQUE: Real-time imaging of the kidneys. FINDINGS: RIGHT KIDNEY: 10.9 x 3.6 x 4.8 cm (SAG x AP x TRV). The kidney is normal in size, contour, and echogenicity. Renal cortical thickness is normal. No calculi or focal parenchymal lesions. No hydronephrosis. LEFT KIDNEY: 10.0 x 5.9 x 4.6 cm (SAG x AP x TRV). The kidney is normal in size, contour, and echogenicity. Renal cortical thickness is normal. 2 echogenic densities with artifact measuring 4 x 5 mm in the upper pole and 4 mm in the midpole suggestive of stones. No focal parenchymal lesions or hydronephrosis. US/US renal BI IMPRESSION: Small left renal stones..
== END 2022-10-29 16:05 | disposition home or self-care (01) ==
LOC: HO.US 16:04
DX: N20.0 Calculus of kidney (principal)
CPT/HCPCS: 76775

== ENCOUNTER → 2022-11-03 15:46 | Outpatient (REF) | payer OTHER, SELFPAY | LOC: HO.SL 15:46 | PROVIDERS: PCP Internal Medicine Medical Oncology; Visit Provider Internal Medicine Medical Oncology | DX: G47.33 Obstructive sleep apnea (adult) (pediatric) (principal) | CPT/HCPCS: 95806 ==

== ENCOUNTER 2022-11-19 15:22 | Outpatient (REF) | payer OTHER, SELFPAY ==
[2022-11-19 17:38] LABS: Urine Cytology See Pathology rpt
== END 2022-11-19 15:23 | disposition home or self-care (01) ==
LOC: HO.LAB 15:22
PROVIDERS: PCP Internal Medicine Medical Oncology; Visit Provider Nurse Practitioner Family
DX: R31.29 Other microscopic hematuria (principal); N39.0 Urinary tract infection, site not specified
CPT/HCPCS: 51798; 87086; 88112; 99212

== ENCOUNTER 2022-12-15 09:34 | Outpatient (REF) | payer OTHER, SELFPAY ==
--- NOTE | ~2022-12-15 | US_ITS ---
EXAMINATION: US ULTRASOUND-GUIDED CYST ASPIRATION BREAST, LEFT CLINICAL INFORMATION: Anterior left breast pain in the area of simple cyst. Request aspiration for symptomatic relief. COMPARISON: Mammography and left breast ultrasound 09/23/2022 FINDINGS: Proper informed consent is obtained from the patient after discussion of the procedure, potential risks and complications, and alternatives. Patient was given an opportunity for questions. The patient appeared to understand. The patient consented to the procedure and signed the consent form. LOCATION: Anterior 12:00 left breast GUIDANCE: Ultrasound-guided; aseptic technique. LESION: Simple cyst measuring 2.4 x 1.9 x 2.1 cm. APPROACH: Lateral medial ANESTHESIA: 5 mL carbonated 1% lidocaine NEEDLE: 21-gauge straight needle. ASPIRATION: 7 mL transparent nonviscous straw-colored fluid aspirated with prompt collapse of the cyst. Fluid discarded as per local practice. Pulmonary obstruction is reviewed with the patient. Patient to receive clinical follow-up with her PCP as needed. US/US breast cyst asp LT IMPRESSION: Status post left breast simple cyst aspiration for symptomatic relief mastodynia.
[2022-12-15] MEDS: Lidocaine HCl 1 % 20 ML VIAL 9 ML SUBCUT (10:47)
[2022-12-15] MEDS: Sodium Bicarbonate 8.4% 50 MEQ/50 ML VIAL SUBCUT (10:48)
== END 2022-12-15 09:35 | disposition home or self-care (01) ==
LOC: HO.MAMMO 09:34
PROVIDERS: Visit Provider Internal Medicine Medical Oncology
DX: N60.01 Solitary cyst of right breast (principal)
CPT/HCPCS: 19000

== ENCOUNTER → 2022-12-17 14:05 | Outpatient (BNVA) | payer OTHER, SELFPAY | PROVIDERS: PCP Internal Medicine Medical Oncology; Visit Provider Internal Medicine | DX: G47.33 Obstructive sleep apnea (adult) (pediatric) (principal); R06.83 Snoring; R40.0 Somnolence; R06.02 Shortness of breath | CPT/HCPCS: 99202 ==

== ENCOUNTER 2023-01-11 16:27 | Outpatient (REF) | payer OTHER, SELFPAY ==
--- NOTE | ~2023-01-11 | XR_ITS ---
EXAMINATION: XR SHOULDER, RIGHT CLINICAL INFORMATION: Right shoulder pain. COMPARISON: None TECHNIQUE: Three views of the right shoulder. FINDINGS: There is no evidence of acute fracture or dislocation of the right shoulder. Glenohumeral joint appears unremarkable. No subluxation of the humeral head is seen. No calcific tendinitis. Minimal spurring about the acromioclavicular joint is seen. No widening of the coracoclavicular space is seen. XR/XR shoulder RT min 2V IMPRESSION: No significant bony abnormality of the right shoulder identified.
== END 2023-01-11 16:28 | disposition home or self-care (01) ==
LOC: HO.HOSX 16:27
PROVIDERS: Visit Provider Physician Assistant
DX: M54.12 Radiculopathy, cervical region (principal)
CPT/HCPCS: 73030; 99212

== ENCOUNTER 2023-01-24 10:35 | Emergency (ER) | payer OTHER, SELFPAY ==
--- NOTE | ~2023-01-24 | US_ITS ---
EXAMINATION:US pelvic and transvaginal CLINICAL INFORMATION: Reason for Exam vaginal bleeding and pain, postmenopausal COMPARISON: Prior ultrasound from 2020 LMP: 01/22/2022 FINDINGS: UTERUS: The uterus is anteverted. Size: 7.5 x 3.4 x 4.8 cm. Uterine mass: There is no uterine mass. Cervix: There are nabothian cysts otherwise Grossly unremarkable. Endometrium: Endometrium is borderline thickened 4.5 mm not significantly changed from prior ultrasound of 2020. ADNEXA: Prominent vessel in the left adnexa probably varices. Right ovary: Normal in size. Left ovary: Normal in size. Exophytic structure probably dominant follicle 1.6 x 1.3 x 1.5 cm. Doppler exam: Normal Doppler flow identified in both ovaries. FREE FLUID: Trace amount of free fluid. OTHER FINDINGS: None US/US pelvic and transvaginal IMPRESSION: * Borderline thickened endometrium 4.5 mm, unchanged from prior ultrasound of 2020. * Prominent vessels in the left adnexa probably varices. Cannot rule out pelvic congestion. Please correlate clinically. * Dominant follicle left ovary 1.6 cm.
[2023-01-24 10:40] VITALS: BP 143/74; PULSE 72; RESP 18; TEMP 36.6; O2SAT 97; BMI 27.9
[2023-01-24 10:53] LABS: MANUAL DIFF FLAG NO
[2023-01-24 10:55] LABS: Basophils Absolute Auto 0.1 X10*3/uL (0.0-0.2); Eosinophils Absolute Auto 0.2 X10*3/uL (0.0-0.4); Eosinophils Percent Auto 3.1 % (0-4); Hematocrit 38.6 % (37.0-47.0); Hemoglobin 12.7 g/dl (12.0-16.0); Lymphocytes Absolute Auto 2.3 X10*3/uL (1.2-4.9); Lymphocytes Percent Auto 37.6 % (20-40); Mean Corpuscular HGB Conc 32.9 g/dl (31.0-35.0); Mean Corpuscular Hemoglobin 27.4 pg (27.0-33.0); Mean Corpuscular Volume 83.2 fL (80.0-98.0); Mean Platelet Volume 11.2 fL (9.4-12.3); Monocytes Absolute Auto 0.3 X10*3/uL (0.1-1.2); Monocytes Percent Auto 5.5 % (2-11); Neutrophils Absolute Auto 3.3 x10*3/uL (2.0-8.3); Neutrophils Percent Auto 52.8 % (45-73); Platelet Count 194 X10*3/uL (160-400); Red Blood Count 4.64 X10*6/uL (4.20-5.50); Red Cell Distribution Width 14.3 % (11.0-16.0); White Blood Count 6.2 X10*3/uL (4.8-10.8)
[2023-01-24 11:11] LABS: Alanine Aminotransferase 36 U/L (0-31); Albumin Level 4.2 g/dL (3.5-5.0); Alkaline Phosphatase 101 U/L (39-117); Anion Gap 10 (12-20); Aspartate Amino Transferase 28 U/L (5-31); Bilirubin Total 0.4 mg/dL (0.0-1.0); Blood Urea Nitrogen 9 mg/dL (9-16); Calcium 9.2 mg/dL (8.4-10.2); Carbon Dioxide 27 mmol/L (22-29); Chloride 107 mmol/L (96-108); Creatinine Clr Calc Pharmacy 85.8; Estimated Glomerular Filt Rate > 60; Glucose Fasting 106 mg/dL (60-99); Sodium 140 mmol/L (135-145); Total Protein 6.8 g/dL (6.5-8.0)
--- NOTE | 2023-01-24 11:36 | ED_ITS ---
HPI - Female Genitourinary General Chief complaint: Vaginal Bleeding Stated complaint: Vaginal bleeding Time Seen by Provider: 01/24/23 11:35 Source: patient Mode of arrival: ambulatory Limitations: no limitations History of Present Illness HPI Narrative: Cramping and bleeding for 2 days. No period for 1.5 years. No urinary symptoms. Patient with postmenopausal bleeding and menorrhagia in the past MD elicited complaint: vaginal bleeding Onset (ago): day(s) Quality of pain: cramping Vaginal bleeding: other (like a period) Related Data Home Medications Medication Instructions Recorded Confirmed cholecalciferol (vitamin D3) 50 50 mcg PO DAILY 02/04/21 11/19/22 mcg (2,000 unit) capsule polyvinyl alcohol 1.4 % eye drops 1 drp ophthalmic (eye) TID 04/23/21 11/19/22 minocycline 50 mg capsule 0 mg PO BEDTIME 11/04/21 11/19/22 tacrolimus 0.1 % topical ointment 1 appl topical BID 11/04/21 11/19/22 (Protopic) gabapentin 300 mg capsule 300 mg PO TID 12/17/22 Previous Rx's Medication Instructions Recorded clotrimazole-betamethasone 1 1 appl topical BID 5 days #45 grams 09/29/21 %-0.05 % topical cream cyclobenzaprine 10 mg tablet 10 mg PO TID PRN muscle spasm #10 02/21/22 tabs ibuprofen 600 mg tablet 600 mg PO Q8H PRN pain #10 tabs 02/21/22 lidocaine 5 % topical patch 1 patch topical DAILY #15 ea 02/21/22 tolterodine 4 mg capsule,extended 4 mg PO DAILY #90 caps 05/28/22 release 24 hr estradiol 0.01% (0.1 mg/gram) See Rx Instructions .Route DAILY 11/20/22 vaginal cream (Estrace) complicated uti 30 days #42.5 grams naproxen 500 mg tablet (Naprosyn) 500 mg PO BID #20 tabs 01/24/23 Allergies Allergy/AdvReac Type Severity Reaction Status Date / Time amoxicillin [Amoxicillin] Allergy Mild SWELLING/VOMITING, Verified 01/11/23 14:24 syncope, stomach burning clavulanic acid Allergy Mild SWELLING/VO Verified 01/11/23 14:24 [From Augmentin] MITING doxycycline Allergy Unknown vomiting Verified 01/11/23 14:24 lightheadness loss of vision Penicillin Allergy Unknown burned Uncoded 12/17/22 15:06 stomach with vomiting Review of Systems Neurologic: Denies Sensory deficit (Neuro) [facility] Past Medical History Medical History (Updated 01/24/23 @ 14:40 by Hector Martinez MD) Hx of cyst of breast OAB (overactive bladder) SHASHANK (obstructive sleep apnea) Renal calculi Renal colic Surgical History H/O foot surgery Family History Family History Paternal Uncle Prostate CA Social History Social History (Updated 12/17/22 @ 14:27 by LORENE Macias) Alcohol intake: never Patient Tobacco Use Status: Former Tobacco user Second Hand Smoke Exposure: No Advance Directives: No Advance Directives Information Provided: Yes Current occupational status: employed 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 Sexual orientation: Straight/Heterosexual Gender identity: Female Physical Exam Vital Signs: Vital Signs: Last Vital Signs Temp 97.0 F 01/24/23 11:50 Pulse 75 01/24/23 11:50 Resp 15 01/24/23 11:50 BP 145/61 H 01/24/23 11:50 Pulse Ox 98 01/24/23 11:50 O2 Del Method 01/24/23 11:50 BMI result Body Mass Index 27.9 Const: General: healthy appearing Nutritional Appearance: average body habitus Orientation/consciousness: oriented to person and patient oriented x3 Limitations: no limitations HEENT: Head: Yes normal to inspection Ears: external ears normal General nose exam: Normal external nose present Mouth: Normal oral and palatal mucosa present and oropharynx normal Throat: Yes posterior oropharynx normal Eyes: General: appearance normal, both eyes and all related structures Neck: Other: supple Neck: Yes normal visual inspection Chest: Chest palpation & inspection: normal inspection of the chest Resp: Auscultation: clear to auscultation bilaterally Cardio: Jugular venous distension: no JVD Rate: regular rate Rhythm: regular rhythm Heart sounds: S1 normal heart sound present and S2 normal heart sound present GI: Inspection: Yes normal to inspection Palpation (GI): Soft to palpation, nontender and No hepatosplenomegaly present Auscultation: normal bowel sounds : General: Yes no CVA tenderness Back/Spine/Pelvis: Back: no CVA tenderness Skin: General skin exam: no rashes or lesions noted Neuro: General: oriented to person and patient oriented x3 Cranial nerves: Yes CN's II-XII intact bilaterally Motor exam (neuro): 5/5 motor strength present throughout Sensory Exam: No Sensory deficit (Neuro) Extrem: General: Yes normal to inspection Psych: Appearance: grossly normal Course Reevaluation(s) Reevaluation #1: ultrasound show minimal thickness of endometrium, will dc on nsaids and have her follow up with tori Time: 14:33 Reevaluation #2: urine is contaminated will not treat Time: 14:37 Medications Administered Discontinued Medications Generic Name Dose Route Start Last Admin Trade Name Freq PRN Reason Stop Dose Admin Ketorolac Tromethamine 60 mg 01/24/23 12:01 01/24/23 12:25 Ketorolac Tromethamine 60 Mg/2 Ml Vial IM 01/24/23 12:02 60 mg ONCE ONE Administration Medical Decision Making Differential Diagnosis Differential Diagnoses: The differential diagnosis associated with the presentation includes (menorhagia, dysfunctional uterine bleeding, endometrial CA) Admission/Observation Consideration of admission/observation: Escalation of care including admission/observation considered (In a post menopausal female with vaginal bleeding admission was considered) Lab Data MDM Lab Attestation statement: I reviewed the patient's lab results. 01/24/23 10:48 01/24/23 10:48 Labs: Lab Results 01/24/23 01/24/23 01/24/23 Range/Units 10:48 10:48 12:02 WBC 6.2 (4.8-10.8) X10*3/uL RBC 4.64 (4.20-5.50) X10*6/uL Hgb 12.7 (12.0-16.0) g/dl Hct 38.6 (37.0-47.0) % MCV 83.2 (80.0-98.0) fL MCH 27.4 (27.0-33.0) pg MCHC 32.9 (31.0-35.0) g/dl RDW 14.3 (11.0-16.0) % Plt Count 194 (160-400) X10*3/uL MPV 11.2 (9.4-12.3) fL Immature Gran % (Auto) 0.0 (0.0-0.4) % Neut % (Auto) 52.8 (45-73) % Lymph % (Auto) 37.6 (20-40) % [place] % (Auto) 5.5 (2-11) % Eos % (Auto) 3.1 (0-4) % Baso % (Auto) 1.0 (0-2) % Lymph # (Auto) 2.3 (1.2-4.9) X10*3/uL [place] # (Auto) 0.3 (0.1-1.2) X10*3/uL Eos # (Auto) 0.2 (0.0-0.4) X10*3/uL Baso # (Auto) 0.1 (0.0-0.2) X10*3/uL Abs Immat Gran (auto) 0.00 (0.00-0.03) X10*3/uL Absolute Neuts (auto) 3.3 (2.0-8.3) x10*3/uL Absolute Nucleated RBC 0.000 (0.0-0.012) X10*3/uL Nucleated RBC % (auto) 0.0 (0.0-0.2) /100WBC Sodium 140 (135-145) mmol/L Potassium 4.0 (3.3-5.1) mmol/L Chloride 107 (96-108) mmol/L Carbon Dioxide 27 (22-29) mmol/L Anion Gap 10 L (12-20) BUN 9 (9-16) mg/dL Creatinine 0.73 (0.5-1.4) mg/dL Estim Creat Clear Calc 85.8 Estimated GFR > 60 Fasting Glucose 106 H (60-99) mg/dL Calcium 9.2 (8.4-10.2) mg/dL Total Bilirubin 0.4 (0.0-1.0) mg/dL AST 28 (5-31) U/L ALT 36 H (0-31) U/L Alkaline Phosphatase 101 (39-117) U/L Total Protein 6.8 (6.5-8.0) g/dL Albumin 4.2 (3.5-5.0) g/dL Urine Color Yellow Urine Appearance Clear Urine pH 6.5 (5.0-9.0) Ur Specific [place] <= 1.005 (1.005-1.025) Urine Protein Negative (Neg-Trace) mg/dL Urine Glucose (UA) Negative (Negative) mg/dL Urine Ketones Negative (Negative) mg/dL Urine Blood Large (3+) H (Negative) Urine Nitrite Negative (Negative) Ur Leukocyte Esterase Trace H (Negative) Urine RBC 3-5 H (0-2) /HPF Urine WBC 6-10 H (0-5) /HPF Ur Squamous Epith Cells 6-10 (0-2) /HPF Urine Bacteria None Seen (None Seen) Hyaline Casts 0-2 (0-2) /LPF Discharge Plan Discharge Clinical Impression: Dysfunctional uterine bleeding Patient Disposition: Home, Self-Care Instructions: Dysfunctional Uterine Bleeding (ED) Prescriptions: New naproxen [Naprosyn] 500 mg tablet 500 mg PO BID Qty: 20 0RF No Action tolterodine 4 mg capsule,extended release 24hr 4 mg PO DAILY Qty: 90 3RF estradiol [Estrace] 0.01 % (0.1 mg/gram) cream See Rx Instructions .Route DAILY 30 Days Qty: 42.5 1RF Rx Instructions: pea sized amount per urethra daily; cyclobenzaprine 10 mg tablet 10 mg PO TID PRN (Reason: muscle spasm) Qty: 10 0RF lidocaine 5 % adhesive patch,medicated 1 patch topical DAILY Qty: 15 0RF Rx Instructions: leave on most painful area for up to 12 hrs ibuprofen 600 mg tablet 600 mg PO Q8H PRN (Reason: pain) Qty: 10 0RF polyvinyl alcohol 1.4 % drops 1 drp ophthalmic (eye) TID cholecalciferol (vitamin D3) 50 mcg (2,000 unit) capsule 50 mcg PO DAILY minocycline 50 mg capsule 0 mg PO BEDTIME tacrolimus [Protopic] 0.1 % ointment 1 appl topical BID clotrimazole-betamethasone 1-0.05 % cream 1 appl topical BID 5 Days Qty: 45 0RF gabapentin 300 mg capsule 300 mg PO TID Referrals: Deondre Chi MD [Physician] - 5 days
[2023-01-24 11:50] VITALS: BP 145/61; PULSE 75; RESP 15; TEMP 36.1; O2SAT 98
[2023-01-24] MEDS: Ketorolac Tromethamine 60 MG/2 ML VIAL IM (12:25)
[2023-01-24 12:26] LABS: Appearance Urine Clear; Color Urine Yellow; Glucose Urine UA Negative (Negative); Leukocyte Esterase Urine Trace (Negative); Nitrite Urine Negative (Negative); PH 6.5 (5.0-9.0); Specific Gravity - Urine <= 1.005 (1.005-1.025); UMIC TRIGGER UACC YES; Urine Blood Large (3+) (Negative); Urine Ketones Negative (Negative); Urine Protein Negative (Neg-Trace)
--- NOTE | 2023-01-24 12:26 | PC.NURSE ---
pt a&ox3, vss, medicated per provider order for 9 pelvic pain, pt reports bleeding and cramping pain for 3 days. pt pending u/s.
[2023-01-24 12:42] LABS: Bacteria Urine None Seen (None Seen); Hyaline Casts Urine 0-2 /LPF (0-2); UACC Culture Trigger YES
== END 2023-01-24 15:23 | disposition home or self-care (01) ==
PROVIDERS: Emergency Provider Emergency Medicine; PCP Internal Medicine Medical Oncology
DX: N93.8 Other specified abnormal uterine and vaginal bleeding (principal); N95.0 Postmenopausal bleeding; R10.2 Pelvic and perineal pain; Z87.891 Personal history of nicotine dependence; Z79.899 Other long term (current) drug therapy
CPT/HCPCS: 36415; 76830; 76856; 80053; 81001; 85025; 87086; 96372; 99284; J1885

== ENCOUNTER 2023-02-02 14:02 | Outpatient (REF) | payer OTHER, SELFPAY | END 2023-02-02 14:03 | disposition home or self-care (01) | LOC: HO.LNP 14:02 | PROVIDERS: PCP Internal Medicine Medical Oncology; Visit Provider Obstetrics & Gynecology | DX: N95.0 Postmenopausal bleeding (principal); K52.9 Noninfective gastroenteritis and colitis, unspecified; R10.9 Unspecified abdominal pain | CPT/HCPCS: 58100; 88305; 99212 ==

== ENCOUNTER → 2023-04-06 07:55 | Outpatient (BNVA) | payer OTHER, SELFPAY | PROVIDERS: PCP Internal Medicine Medical Oncology; Visit Provider Obstetrics & Gynecology | DX: N95.0 Postmenopausal bleeding (principal) | CPT/HCPCS: 99212 ==

== ENCOUNTER → 2023-04-21 13:39 | Outpatient (BNVA) | payer OTHER, SELFPAY | PROVIDERS: PCP Internal Medicine Medical Oncology; Visit Provider Orthopaedic Surgery | DX: M77.12 Lateral epicondylitis, left elbow (principal); R20.0 Anesthesia of skin; R20.2 Paresthesia of skin | CPT/HCPCS: 20550; 20551; 99202; J1100 ==

== ENCOUNTER 2023-04-29 07:33 | Outpatient (REF) | payer OTHER, SELFPAY ==
--- NOTE | ~2023-04-29 | MM_ITS ---
EXAMINATION: MM SCREENING DIGITAL BREAST TOMOSYNTHESIS, BILATERAL CLINICAL INFORMATION: Screening. Asymptomatic. The lifetime risk of breast cancer based on the Tyrer-Cuzick Model is 7%. COMPARISON: Mammography: 09/23/2022, 04/23/2022, 09/12/2021, 04/07/2021, 06/26/2020; left breast ultrasound 09/23/2022; right breast ultrasound 09/15/2021, 09/12/2021. TECHNIQUE: Digital breast tomosynthesis is performed in both the craniocaudal and mediolateral oblique views along with computer-aided detection (CAD). Synthesized 2D images are generated from the tomosynthesis. Additional left CC view is provided. FINDINGS: The breasts are heterogeneously dense, which may obscure small masses (ACR BI-RADS breast composition Category c). There are no significant masses, abnormal calcifications, or other abnormalities. No developing density or architectural abnormality. Again, there are diffuse bilateral random punctate round calcifications. The bilateral axilla and skin contours are unremarkable. MM/MM tomosynthesis screening BI IMPRESSION: No mammographic evidence of malignancy. ASSESSMENT: BI-RADS 2: Benign RECOMMENDATION: Routine annual mammography screening. This patient's information was entered into a reminder system with a target due date for their next mammogram.
== END 2023-04-29 07:34 | disposition home or self-care (01) ==
LOC: HO.MAMMO 07:33
PROVIDERS: PCP Internal Medicine Medical Oncology; Visit Provider Internal Medicine Medical Oncology
DX: Z12.31 Encounter for screening mammogram for malignant neoplasm of breast (principal)
CPT/HCPCS: 77063; 77067

== ENCOUNTER 2023-05-06 07:50 | Outpatient (REF) | payer OTHER, SELFPAY ==
--- NOTE | 2023-05-06 | EMG_ITS ---
Left median and ulnar motor and sensory studies were performed. Left radial sensory study was performed and paraspinal muscles were tested with a needle. IMPRESSION: Mild to moderate left median neuropathy across carpal tunnel. MD CECILIA Alvarado/CLEMENTINA / [id number]
== END 2023-05-06 07:51 | disposition home or self-care (01) ==
LOC: HO.NEURO 07:50
PROVIDERS: PCP Internal Medicine Medical Oncology; Visit Provider Orthopaedic Surgery
DX: R20.2 Paresthesia of skin (principal); R20.0 Anesthesia of skin
CPT/HCPCS: 95886; 95909

== ENCOUNTER 2023-05-06 20:26 | Emergency (ER) | payer OTHER, SELFPAY ==
--- NOTE | ~2023-05-06 | XR_ITS ---
EXAMINATION: XR CHEST CLINICAL INFORMATION: Back pain. COMPARISON: Chest radiograph from 12/19/2020. TECHNIQUE: 2 views of the chest were obtained (PA and lateral). FINDINGS: The lungs are well expanded. No evidence of focal consolidation, pleural effusion, pulmonary edema, or pneumothorax. The cardiomediastinal silhouette is within normal limits. No acute osseous abnormalities. 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 Mild right convex curvature of the midthoracic spine. XR/XR chest 2V IMPRESSION: No radiographic evidence of acute pulmonary abnormalities.
[2023-05-06 21:29] VITALS: BP 154/70; PULSE 81; RESP 16; TEMP 36.7; O2SAT 98; BMI 27.8
--- NOTE | 2023-05-06 21:34 | ECG_ITS ---
Test Reason : Chest Pain Blood Pressure : / mmHG Vent. Rate : 076 BPM Atrial Rate : 076 BPM P-R Int : 146 ms QRS Dur : 074 ms QT Int : 392 ms P-R-T Axes : 063 005 023 degrees QTc Int : 441 ms Normal sinus rhythm Normal ECG When compared with ECG of 19-DEC-2020 15:06, No significant change was found Referred By: Generic ED Physician Electronically Signed By:Rj Gill
[2023-05-06 23:01] VITALS: BP 135/69; PULSE 59; RESP 17; TEMP 36.9; O2SAT 98
--- NOTE | 2023-05-06 23:59 | ED_ITS ---
HPI - General Adult General Chief complaint: General Medical Stated complaint: Back/spine pain Time Seen by Provider: 05/06/23 23:40 Source: patient Mode of arrival: ambulatory Limitations: no limitations History of Present Illness HPI narrative: 57 yold female with pmh of Shingles presents to the Right sided back burning pain that is similiar to pain when she had shingles on left side. Patient states right sided back pain for 2 days. patient states when she had shingles on the lefts side she had burning sensation for 4 days before rash appeared. patient denies any chest pain, shortness of breath, pleurisy, calf pain, fever, chills, nausea, vomitting, chest pain radiating to back, recent trauma, IV drug use, or urinary/bowel incontinence Related Data Home Medications Medication Instructions Recorded Confirmed cholecalciferol (vitamin D3) 50 50 mcg PO DAILY 02/04/21 11/19/22 mcg (2,000 unit) capsule polyvinyl alcohol 1.4 % eye drops 1 drp ophthalmic (eye) TID 04/23/21 11/19/22 minocycline 50 mg capsule 0 mg PO BEDTIME 11/04/21 11/19/22 tacrolimus 0.1 % topical ointment 1 appl topical BID 11/04/21 11/19/22 (Protopic) gabapentin 300 mg capsule 300 mg PO TID 12/17/22 Previous Rx's Medication Instructions Recorded clotrimazole-betamethasone 1 1 appl topical BID 5 days #45 grams 09/29/21 %-0.05 % topical cream ibuprofen 600 mg tablet 600 mg PO Q8H PRN pain #10 tabs 02/21/22 lidocaine 5 % topical patch 1 patch topical DAILY #15 ea 02/21/22 tolterodine 4 mg capsule,extended 4 mg PO DAILY #90 caps 05/28/22 release 24 hr estradiol 0.01% (0.1 mg/gram) See Rx Instructions .Route DAILY 11/20/22 vaginal cream (Estrace) complicated uti 30 days #42.5 grams naproxen 500 mg tablet (Naprosyn) 500 mg PO BID #20 tabs 01/24/23 oxycodone 5 mg capsule 5 mg PO TID PRN pain 3 days #9 caps 05/07/23 valacyclovir 1 gram tablet 1,000 mg PO TID 7 days #21 tabs 05/07/23 Allergies Allergy/AdvReac Type Severity Reaction Status Date / Time amoxicillin [Amoxicillin] Allergy Mild SWELLING/VOMITING, Verified 04/21/23 14:15 syncope, stomach burning clavulanic acid Allergy Mild SWELLING/VO Verified 04/21/23 14:15 [From Augmentin] MITING doxycycline Allergy Unknown vomiting Verified 04/21/23 14:15 lightheadness loss of vision Penicillin Allergy Unknown burned Uncoded 04/21/23 14:15 stomach with vomiting Review of Systems Review of Systems: right sided back pain Yes all other systems are reviewed and are negative [facility] Past Medical History Medical History Hx of cyst of breast OAB (overactive bladder) SHASHANK (obstructive sleep apnea) Renal calculi Renal colic Surgical History H/O foot surgery Family History Family History Paternal Uncle Prostate CA Social History Social History Alcohol intake: never Patient Tobacco Use Status: Former Tobacco user Second Hand Smoke Exposure: No Advance Directives: No Advance Directives Information Provided: Yes Current occupational status: employed 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 Sexual orientation: Straight/Heterosexual Gender identity: Female Physical Exam ED Vital Signs: Vital Signs - 24 hr 05/06/23 21:29 05/06/23 23:01 Temperature 98.1 F 98.4 F Pulse Rate 81 59 Respiratory Rate 16 17 Blood Pressure 154/70 H 135/69 Pulse Oximetry 98 98 Oxygen Delivery Method Room Air Room Air BMI result Body Mass Index 27.8 Const General: cooperative, healthy appearing, comfortable, no acute distress, well developed, alert, awake and Physically active Orientation/consciousness: oriented to person, oriented to place, oriented to time and patient oriented x3 HENMT Head: Yes normal to inspection, Yes No palpable skull fracture present, Yes normocephalic, Yes atraumatic and No abrasion Eyes General: appearance normal, both eyes and all related structures Neck Neck: Yes normal visual inspection, Yes full ROM, Yes no lymphadenopathy, Yes no meningeal signs, Yes trachea midline, Yes supple, No anterior neck swelling and No tender Chest Chest palpation & inspection: normal inspection of the chest and normal palpation of entire chest wall Resp Effort & Inspection: normal respiratory effort and able to speak in complete sentences Auscultation: clear to auscultation bilaterally Cardio Jugular venous distension: no JVD Heart sounds: S1 normal heart sound present and S2 normal heart sound present GI Inspection: Yes normal to inspection and No abdominal wall ecchymosis Palpation (GI): Soft to palpation, not firm, nontender, no guarding and not rigid Back/Spine/Pelvis Back/spine/pelvis image: 1. tenderness on palpation, but negative for any rash. Patient states pain is similiar to shingles in the past Skin General skin exam: no rashes or lesions noted and elasticity normal Neuro General: oriented to person, oriented to place, oriented to time, patient oriented x3, gait normal, tone normal, moves all extremities, Normal light touch and pain sensation, no meningeal signs, no focal motor deficits, CN's II-XI intact bilaterally and normal sensation to monofilament Extrem General: Yes normal to inspection and Yes full ROM Psych Appearance: grossly normal, well kempt and not disheveled Course Course Course Narrative: EKG and chest xray ordered in triage that was normal. due to age and EKG ordered cardiac labs were done althoug patient denies chest pain. History& physical exam mostl liekly shows early shingles. Medications Administered Discontinued Medications Generic Name Dose Route Start Last Admin Trade Name Freq PRN Reason Stop Dose Admin Oxycodone HCl 5 mg 05/06/23 23:55 05/07/23 00:08 Oxycodone Hcl Immed Release 5 Mg Tablet PO 05/06/23 23:56 5 mg ONCE ONE Administration Medical Decision Making Medical Decision Making [facility] Narrative: 57 yold female presents to the ED nerve shingles like pain on right back dermatome pattern without rash. patient denies any chest pain, chest pain radiating to the back, pleurisy, leg swelling, calf pain, recent long travel, recent surgery, or any recent trauma. Chest xray and EKG ordered from [employer] and are normal. Cardia work up normal. not suspecting PE, Spinal abscess, spinal fracure, scapula fracture, MD, Aortic dissection,. Differential Diagnosis Differential Diagnoses: The differential diagnosis associated with the presentation includes (shingles, spine radiculopathy, pneumonia, muscluar back pain, MD, PE, Aortic dissection) Admission/Observation Consideration of admission/observation: Escalation of care including admission/observation considered Lab Data MDM Lab Attestation statement: I reviewed the patient's lab results. 05/07/23 00:00 05/07/23 00:00 Labs: Lab Results 05/07/23 05/07/23 05/07/23 Range/Units 00:00 00:00 00:00 WBC 8.6 (4.8-10.8) X10*3/uL RBC 4.49 (4.20-5.50) X10*6/uL Hgb 12.6 (12.0-16.0) g/dl Hct 37.8 (37.0-47.0) % MCV 84.2 (80.0-98.0) fL MCH 28.1 (27.0-33.0) pg MCHC 33.3 (31.0-35.0) g/dl RDW 14.2 (11.0-16.0) % Plt Count 188 (160-400) X10*3/uL MPV 10.5 (9.4-12.3) fL Immature Gran % (Auto) 0.2 (0.0-0.4) % Neut % (Auto) 50.1 (45-73) % Lymph % (Auto) 40.6 H (20-40) % [place] % (Auto) 6.6 (2-11) % Eos % (Auto) 2.2 (0-4) % Baso % (Auto) 0.3 (0-2) % Lymph # (Auto) 3.5 (1.2-4.9) X10*3/uL [place] # (Auto) 0.6 (0.1-1.2) X10*3/uL Eos # (Auto) 0.2 (0.0-0.4) X10*3/uL Baso # (Auto) 0.0 (0.0-0.2) X10*3/uL Abs Immat Gran (auto) 0.02 (0.00-0.03) X10*3/uL Absolute Neuts (auto) 4.3 (2.0-8.3) x10*3/uL Absolute Nucleated RBC 0.000 (0.0-0.012) X10*3/uL Nucleated RBC % (auto) 0.0 (0.0-0.2) /100WBC PT 10.5 (10.0-13.1) SEC INR 0.9 (0.9-1.1) APTT 33.0 (26.0-36.4) SEC Sodium 140 (135-145) mmol/L Potassium 4.3 (3.3-5.1) mmol/L Chloride 105 (96-108) mmol/L Carbon Dioxide 27 (22-29) mmol/L Anion Gap 12 (12-20) BUN 13 (9-16) mg/dL Creatinine 0.78 (0.5-1.4) mg/dL Estim Creat Clear Calc 80.1 Estimated GFR > 60 Random Glucose 105 (60-115) mg/dL Calcium 9.6 (8.4-10.2) mg/dL Total Bilirubin 0.6 (0.0-1.0) mg/dL AST 24 (5-31) U/L ALT 45 H (0-31) U/L Alkaline Phosphatase 97 (39-117) U/L Troponin I High Sens (<3.5-17.0) ng/L Total Protein 6.8 (6.5-8.0) g/dL Albumin 4.0 (3.5-5.0) g/dL 05/07/23 Range/Units 00:00 WBC (4.8-10.8) X10*3/uL RBC (4.20-5.50) X10*6/uL Hgb (12.0-16.0) g/dl Hct (37.0-47.0) % MCV (80.0-98.0) fL MCH (27.0-33.0) pg MCHC (31.0-35.0) g/dl RDW (11.0-16.0) % Plt Count (160-400) X10*3/uL MPV (9.4-12.3) fL Immature Gran % (Auto) (0.0-0.4) % Neut % (Auto) (45-73) % Lymph % (Auto) (20-40) % [place] % (Auto) (2-11) % Eos % (Auto) (0-4) % Baso % (Auto) (0-2) % Lymph # (Auto) (1.2-4.9) X10*3/uL [place] # (Auto) (0.1-1.2) X10*3/uL Eos # (Auto) (0.0-0.4) X10*3/uL Baso # (Auto) (0.0-0.2) X10*3/uL Abs Immat Gran (auto) (0.00-0.03) X10*3/uL Absolute Neuts (auto) (2.0-8.3) x10*3/uL Absolute Nucleated RBC (0.0-0.012) X10*3/uL Nucleated RBC % (auto) (0.0-0.2) /100WBC PT (10.0-13.1) SEC INR (0.9-1.1) APTT (26.0-36.4) SEC Sodium (135-145) mmol/L Potassium (3.3-5.1) mmol/L Chloride (96-108) mmol/L Carbon Dioxide (22-29) mmol/L Anion Gap (12-20) BUN (9-16) mg/dL Creatinine (0.5-1.4) mg/dL Estim Creat Clear Calc Estimated GFR Random Glucose (60-115) mg/dL Calcium (8.4-10.2) mg/dL Total Bilirubin (0.0-1.0) mg/dL AST (5-31) U/L ALT (0-31) U/L Alkaline Phosphatase (39-117) U/L Troponin I High Sens < 2.7 (<3.5-17.0) ng/L Total Protein (6.5-8.0) g/dL Albumin (3.5-5.0) g/dL Independent Interpretation I performed an independent interpretation of an: EKG (normal sinus rhythm. VEnt rate 76, SC interval 146, QRS 74, and QTC 441. negative STEMI) and Plain X-Ray Radiology Impression Discussion of test interpretation with radiology: I have reviewed the radiologist's reading. Prescription Management I considered prescription management with: Pain Medication (valcyovir, oxycodone) Discharge Plan Discharge Clinical Impression: Neuralgia, Shingles Patient Disposition: Home, Self-Care Instructions: Shingles (ED), Paresthesia (ED) Additional Instructions: EKG, chest xray and labs normal. Early Shingles diagnosis. PLease follow up with PCP for re-evluation. Return to the ED for any fever, chills, nausea, vomtting, rash, chest pain, shortness of breath, chest pain radiating to back,chest pain on inspiraiton, leg swelling, calf pain, rash on nose/face, hea dache, vision changes, back pain, urinary/bowel incontinence or any other concerning symptoms. Please follow up with PCP. Prescriptions: New oxycodone 5 mg capsule 5 mg PO TID PRN (Reason: pain) 3 Days Qty: 9 0RF Rx Instructions: Partial Fill upon patient request. valacyclovir 1 gram tablet 1,000 mg PO TID 7 Days Qty: 21 0RF No Action tolterodine 4 mg capsule,extended release 24hr 4 mg PO DAILY Qty: 90 3RF estradiol [Estrace] 0.01 % (0.1 mg/gram) cream See Rx Instructions .Route DAILY 30 Days Qty: 42.5 1RF Rx Instructions: pea sized amount per urethra daily; lidocaine 5 % adhesive patch,medicated 1 patch topical DAILY Qty: 15 0RF Rx Instructions: leave on most painful area for up to 12 hrs ibuprofen 600 mg tablet 600 mg PO Q8H PRN (Reason: pain) Qty: 10 0RF naproxen [Naprosyn] 500 mg tablet 500 mg PO BID Qty: 20 0RF polyvinyl alcohol 1.4 % drops 1 drp ophthalmic (eye) TID cholecalciferol (vitamin D3) 50 mcg (2,000 unit) capsule 50 mcg PO DAILY minocycline 50 mg capsule 0 mg PO BEDTIME tacrolimus [Protopic] 0.1 % ointment 1 appl topical BID clotrimazole-betamethasone 1-0.05 % cream 1 appl topical BID 5 Days Qty: 45 0RF gabapentin 300 mg capsule 300 mg PO TID Stand Alone Forms: Work/School Release Interventions: ED Discharge Assessment Last Done: 05/07/23 01:47 Discharge Date/Time: 05/07/23 01:48 Print Language: Luxembourgish
[2023-05-07 00:06] LABS: MANUAL DIFF FLAG NO
[2023-05-07 00:07] LABS: Basophils Percent Auto 0.3 % (0-2); Eosinophils Absolute Auto 0.2 X10*3/uL (0.0-0.4); Eosinophils Percent Auto 2.2 % (0-4); Hematocrit 37.8 % (37.0-47.0); Hemoglobin 12.6 g/dl (12.0-16.0); Imm Gran Abs Auto 0.02 X10*3/uL (0.00-0.03); Imm Gran Pct Auto 0.2 % (0.0-0.4); Lymphocytes Absolute Auto 3.5 X10*3/uL (1.2-4.9); Lymphocytes Percent Auto 40.6 % (20-40); Mean Corpuscular HGB Conc 33.3 g/dl (31.0-35.0); Mean Corpuscular Hemoglobin 28.1 pg (27.0-33.0); Mean Corpuscular Volume 84.2 fL (80.0-98.0); Mean Platelet Volume 10.5 fL (9.4-12.3); Monocytes Absolute Auto 0.6 X10*3/uL (0.1-1.2); Monocytes Percent Auto 6.6 % (2-11); Neutrophils Absolute Auto 4.3 x10*3/uL (2.0-8.3); Neutrophils Percent Auto 50.1 % (45-73); Platelet Count 188 X10*3/uL (160-400); Red Blood Count 4.49 X10*6/uL (4.20-5.50); Red Cell Distribution Width 14.2 % (11.0-16.0); White Blood Count 8.6 X10*3/uL (4.8-10.8)
[2023-05-07] MEDS: oxyCODONE HCl Immed Release 5 MG TABLET PO (00:08)
[2023-05-07 00:12] LABS: INTERNATIONAL NORM RATIO 0.9 (0.9-1.1); Prothrombin Time 10.5 SEC (10.0-13.1)
[2023-05-07 00:27] LABS: Alanine Aminotransferase 45 U/L (0-31); Alkaline Phosphatase 97 U/L (39-117); Anion Gap 12 (12-20); Aspartate Amino Transferase 24 U/L (5-31); Bilirubin Total 0.6 mg/dL (0.0-1.0); Blood Urea Nitrogen 13 mg/dL (9-16); Calcium 9.6 mg/dL (8.4-10.2); Carbon Dioxide 27 mmol/L (22-29); Chloride 105 mmol/L (96-108); Creatinine Clr Calc Pharmacy 80.1; Estimated Glomerular Filt Rate > 60; Glucose Random 105 mg/dL (60-115); Potassium 4.3 mmol/L (3.3-5.1); Sodium 140 mmol/L (135-145); Total Protein 6.8 g/dL (6.5-8.0)
[2023-05-07 00:34] LABS: Troponin-I High Sensitivity < 2.7 ng/L (<3.5-17.0)
[2023-05-07 01:31] VITALS: BP 153/79; PULSE 80; RESP 18; O2SAT 95
== END 2023-05-07 01:48 | disposition home or self-care (01) ==
PROVIDERS: Physician Assistant; Emergency Provider Internal Medicine
DX: B02.29 Other postherpetic nervous system involvement (principal)
CPT/HCPCS: 36415; 71046; 80053; 84484; 85025; 85610; 85730; 93005; 99283; 99284

== ENCOUNTER 2023-05-11 13:47 | Outpatient (REF) | payer OTHER, SELFPAY ==
--- NOTE | ~2023-05-11 | US_ITS ---
EXAMINATION: US RETROPERITONEAL LIMITED (RENAL ONLY) CLINICAL INFORMATION: Unspecified renal colic. COMPARISON: Ultrasound retroperitoneal limited (renal only) 10/29/2022 and 04/21/2022. CT abdomen and pelvis with contrast 04/03/2021. TECHNIQUE: Real-time imaging of the kidneys. FINDINGS: RIGHT KIDNEY: 10.8 x 4.1 x 5.3 cm (SAG x AP x TRV). The kidney is normal in size, contour, and echogenicity. Renal cortical thickness is normal. No calculi or focal parenchymal lesions. No hydronephrosis. LEFT KIDNEY: 11.1 x 5.3 x 5.2 cm (SAG x AP x TRV). The kidney is normal in size, contour, and echogenicity. Renal cortical thickness is normal. No calculi or focal parenchymal lesions. No hydronephrosis. Couple midpole echogenic nonshadowing foci are seen. On previous study, 5 mm upper and 4 mm mid pole calculi were questioned. US/US renal BI IMPRESSION: No hydronephrosis bilaterally. Question nonobstructing, nonshadowing left midpole renal calculi.
== END 2023-05-11 13:48 | disposition home or self-care (01) ==
LOC: HO.US 13:47
PROVIDERS: PCP Internal Medicine Medical Oncology; Visit Provider Nurse Practitioner Family
DX: N23 Unspecified renal colic (principal); N20.0 Calculus of kidney
CPT/HCPCS: 76775

== ENCOUNTER 2023-05-13 09:01 | Outpatient (REF) | payer OTHER, SELFPAY ==
--- NOTE | ~2023-05-13 | FL_ITS ---
EXAMINATION: XR GI SERIES CLINICAL INFORMATION: Gastric pain. COMPARISON: None available. TECHNIQUE: Routine upper GI air-contrast study was performed. FINDINGS: Following oral administration of thick barium and effervescent granules, there is normal propagation of bolus from the oral cavity through the pharynx, esophagus into stomach. There is indentation of posterior upper thoracic esophageal wall is most likely from aberrant left subclavian artery. There is no obstruction. On placing patient supine and prone lying the course, caliber and peristalsis of the stomach, duodenal bulb and the sweep is normal. The mucosal pattern of the stomach and the duodenum is normal. FLUOROSCOPY TIME: 1.8 minute DOSE AREA PRODUCT: 22.307 uGy-m2 (microgray-meter squared) FL/FL upper GI series IMPRESSION: 1. There is indentation of posterior upper thoracic esophageal wall most likely from aberrant left subclavian artery. There is no obstruction. 2. Unremarkable stomach and duodenum.
== END 2023-05-13 09:02 | disposition home or self-care (01) ==
LOC: HO.XRAY 09:01
PROVIDERS: PCP Internal Medicine Medical Oncology; Visit Provider Internal Medicine Medical Oncology
DX: R10.9 Unspecified abdominal pain (principal); K25.9 Gastric ulcer, unspecified as acute or chronic, without hemorrhage or perforation; N75.0 Cyst of Bartholin's gland
CPT/HCPCS: 56420; 74240; 99212

== ENCOUNTER → 2023-05-20 14:07 | Outpatient (BNVA) | payer OTHER, SELFPAY | PROVIDERS: PCP Internal Medicine Medical Oncology; Visit Provider Nurse Practitioner Family | DX: N20.0 Calculus of kidney (principal); N32.81 Overactive bladder | CPT/HCPCS: 51798; 99212 ==

== ENCOUNTER 2023-06-29 08:42 | Outpatient (REF) | payer OTHER, SELFPAY ==
--- NOTE | ~2023-06-29 | MR_ITS ---
EXAMINATION: MR LUMBAR SPINE WITHOUT CONTRAST CLINICAL INFORMATION: Lower back pain. COMPARISON: Plain films of the lumbar spine 06/23/2022. CT scan of the abdomen and pelvis 04/03/2021. TECHNIQUE: MRI of the lumbar spine was obtained using routine sequences without contrast. FINDINGS: VERTEBRAL BODIES AND PARASPINAL STRUCTURES: There is anatomic alignment of the vertebral bodies. There is loss of signal from the discs at the levels of L4 on L5 and L5-S1 with mild loss of intervertebral disc height posteriorly at L5-S1. The vertebral bodies have normal height and contour, and no fractures are demonstrated. There are mild degenerative endplate contour changes with minimal edematous signal toward the right at L5-S1. Overall, marrow signal is homogenous. The visualized retroperitoneal structures are unremarkable. There is a 2.4 cm right adnexal cyst, which was present on prior imaging. Findings are overwhelmingly likely to represent a benign functional cyst and no followup imaging is recommended. CONUS MEDULLARIS AND CAUDA EQUINA: Normal, terminating at the level of L1. The lower thoracic spinal cord appears normal. The cauda equina nerve roots and filum terminale appear normal. SPINAL LEVELS: T12-L1: The facet joints appear normal bilaterally. Disc contour is normal. There is no central stenosis or foraminal narrowing. L1-L2: The facet joints appear normal bilaterally. Disc contour is normal. There is no central stenosis or foraminal narrowing. L2-L3: There is mild bilateral facet arthropathy. Disc contour is normal. There is no central stenosis or foraminal narrowing. L3-L4: There is mild to moderate bilateral facet arthropathy. There is a diffuse disc bulge with small inferior foraminal disc protrusions without exiting nerve root impingement. There is no central stenosis. L4-L5: There is moderate bilateral facet arthropathy with ligamenta flava hypertrophy and right greater than left facet joint effusions. There is a broad-based posterior disc protrusion with an annular fissure which is most prominent on the left and there is mild narrowing of the left subarticular recess. There is no central stenosis. There is no foraminal nerve root impingement. L5-S1: There is mild to moderate bilateral facet arthropathy. There is a central disc protrusion which is slightly more prominent on the left but there is no significant narrowing of the subarticular recesses, and there is no central stenosis. There is no foraminal nerve root impingement. MR/MR lumbar spine wo con IMPRESSION: 1. At L4-L5 there is moderate facet arthropathy and there is a broad-based posterior disc protrusion. There is mild narrowing of the left subarticular recess. There is no central stenosis or foraminal nerve root impingement. 2. At L5-S1 there is facet arthropathy and there is a central disc protrusion without significant narrowing of the subarticular recesses. There is no central stenosis or foraminal nerve root impingement. 3. Milder spondylitic and facet arthropathic changes are demonstrated at other levels as described above.
== END 2023-06-29 08:43 | disposition home or self-care (01) ==
LOC: HO.MRI 08:42
PROVIDERS: Visit Provider Internal Medicine Medical Oncology
DX: M54.59 Other low back pain (principal)
CPT/HCPCS: 72148

== ENCOUNTER 2023-08-17 15:28 | Outpatient (REF) | payer OTHER, SELFPAY | END 2023-08-17 15:29 | disposition home or self-care (01) | LOC: HO.LNP 15:28 | PROVIDERS: Visit Provider Obstetrics & Gynecology | DX: N39.0 Urinary tract infection, site not specified (principal); N75.0 Cyst of Bartholin's gland; N83.209 Unspecified ovarian cyst, unspecified side | CPT/HCPCS: 81002; 87086; 99212 ==

== ENCOUNTER 2023-08-17 15:28 | Outpatient (AMB) | payer OTHER, SELFPAY ==
--- NOTE | 2023-08-17 15:30 | A.OFFVIS_ITS ---
Intake Vital Signs 08/17/23 15:36 Height 5 ft 4 in Weight 160 lb 14.999 oz BMI 27.6 BP 148/92 H Intake Visit Reasons: bartholin cyst/catheter check follow up/DO NO RS Allergies amoxicillin [Amoxicillin] Allergy (Mild, Verified 05/20/23 14:28) SWELLING/VOMITING, syncope, stomach burning clavulanic acid [From Augmentin] Allergy (Mild, Verified 05/20/23 14:28) SWELLING/VOMITING doxycycline Allergy (Unknown, Verified 05/20/23 14:28) vomiting lightheadness loss of vision Penicillin Allergy (Unknown, Uncoded 05/20/23 14:28) burned stomach with vomiting HPI HPI Comments History of Present Illness Details Presenting for follow-up from I&D in word catheter insertion, the Word catheter fell off on its own since then the patient is doing well with no complaints , her Bartholin's gland cyst/enlargement has completely resolved with no additional concerns . The patient has been complaining over the last few days of burning on urination with urinary frequency The patient had a simple 1.6 cm ovarian cyst on ultrasound in 01/21. 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 Sexual orientation: Straight/Heterosexual Gender identity: Female Female Reproductive History Menstrual Age of Menarche: 14 Review of Systems Const All systems reviewed & are unremarkable except as noted in HPI and below Physical Exam Vital Signs: Last Vital Signs BP 148/92 H 08/17/23 15:36 BMI result Body Mass Index 27.6 General: Yes no CVA tenderness External Female Exam: normal external appearance and normal appearance of the urethra Speculum Exam - Vagina: normal appearance of the vagina, normal palpation, no lesions and no masses Speculum Exam - Cervix: normal appearance of the cervix, normal palpation, no lesions, no masses and nontender Bimanual exam- vagina & uterus: normal bimanual exam, normal palpation, uterine size normal, normal palpation, uterine shape normal, No Cervical tenderness present and non-tender Bimanual Exam- Adnexa, other: normal adnexae Back/Spine/Pelvis Back: no CVA tenderness Assessment & Plan Assessment & Plan (1) Bartholin's gland cyst: Code(s): N75.0 - Cyst of Bartholin's gland Plan: Urine dip done in the office was positive for leukocytes only, will send urine for culture. Instructions given the patient to call in case symptoms not improve within 48 hours, fever above 100.4, flank pain, nausea or vomiting. All questions answered, the patient verbalized understanding Discussed with the patient the finding on physical exam, normal bilateral Bartholin's gland with no evidence of enlargement. The patient was reassured. Instructions given the patient to call in case of recurrence of her Bartholin's gland (2) Ovarian cyst: Code(s): N83.209 - Unspecified ovarian cyst, unspecified side Plan: Will order a repeat ultrasound to follow on previous simple ovarian cyst seen in 01/21. Instructions given the patient to schedule a follow-up ultrasound appointment. Orders: Orders Urine Culture Today N39.0 - Urinary tract infection, site not specified US pelvic and transvaginal Today N83.209 - Unspecified ovarian cyst, unspecified side Coding Level of Care Code Est Pt Level 3 (18587) Diagnoses Bartholin's gland cyst N75.0 Ovarian cyst N83.209
[2023-08-17 15:36] VITALS: BP 148/92; BMI 27.6
== END 2023-08-17 15:58 | disposition home or self-care (01) ==
PROVIDERS: Visit Provider Obstetrics & Gynecology
DX: N75.0 Cyst of Bartholin's gland (principal); N83.209 Unspecified ovarian cyst, unspecified side; N39.0 Urinary tract infection, site not specified
CPT/HCPCS: 99213

== ENCOUNTER 2023-09-28 11:14 | Outpatient (REF) | payer OTHER, SELFPAY ==
--- NOTE | ~2023-09-28 | XR_ITS ---
EXAMINATION: XR SHOULDER, LEFT CLINICAL INFORMATION: Pain COMPARISON: None available. TECHNIQUE: Three views of the left shoulder. FINDINGS: No acute visible fracture or dislocation. 1 mm ossific focus along the superior margin of the greater tuberosity which may represent an element of calcific tendinosis of the supraspinatus tendon. Joint space alignment are otherwise maintained. Soft tissues are unremarkable. Visualized portions of the left chest are unremarkable. XR/XR shoulder LT min 2V IMPRESSION: 1. No acute visible fracture or dislocation. 2. 1 mm ossific focus along the superior margin of the greater tuberosity which may represent an element of calcific tendinosis of the supraspinatus tendon.
== END 2023-09-28 11:15 | disposition home or self-care (01) ==
LOC: HO.HOSX 11:14
PROVIDERS: Visit Provider Physician Assistant
DX: M77.12 Lateral epicondylitis, left elbow (principal); G56.02 Carpal tunnel syndrome, left upper limb; G56.22 Lesion of ulnar nerve, left upper limb
CPT/HCPCS: 73030; 99212

== ENCOUNTER 2023-09-28 15:14 | Outpatient (AMB) | payer OTHER, SELFPAY ==
--- NOTE | 2023-09-28 15:18 | A.OFFVIS_ITS ---
Intake Vital Signs 09/28/23 15:27 Height 5 ft 4 in Weight 160 lb BMI 27.5 Handedness Right Intake Visit Reasons: Pain on my left shoulder, down to my elbow. Intake Note: Yasmin is a 57 year old right hand dominant female who presents today for a evaluation of her left shoulder pain. No previous treatments to the shoulder. Patient reports her pain has been getting worse since last May. No hx of PT. Allergies amoxicillin [Amoxicillin] Allergy (Mild, Verified 09/28/23 15:24) SWELLING/VOMITING, syncope, stomach burning clavulanic acid [From Augmentin] Allergy (Mild, Verified 09/28/23 15:24) SWELLING/VOMITING doxycycline Allergy (Unknown, Verified 09/28/23 15:24) vomiting lightheadness loss of vision Penicillin Allergy (Unknown, Uncoded 05/20/23 14:28) burned stomach with vomiting HPI Pain on my left shoulder, down to my elbow. HPI Details 57-year-old right hand dominant female miryam adame presents in the office today for a follow up of left shoulder pain. While in the office today the patient reports she has had no prior treatment for her left shoulder. She claims her pain has increased since 05/2023. She denies participating in physical therapy. The patient mainly presents with a complaint of left elbow pain. She reports numbness, tingling, weakness, and tremoring in the bilateral upper extremities. She was given cortisone injection in the left elbow about 2 months ago and received a tennis elbow brace. 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 Sexual orientation: Straight/Heterosexual Gender identity: Female Female Reproductive History Menstrual Age of Menarche: 14 Review of Systems Const All systems reviewed & are unremarkable except as noted in HPI and below Physical Exam Vital Signs: BMI result Body Mass Index 27.5 Const General: cooperative, healthy appearing and no acute distress Resp Effort & Inspection: normal respiratory effort and able to speak in complete sentences Cardio Rate: regular rate Peripheral pulses: Peripheral pulses 2+ throughout GI Palpation (GI): Soft to palpation Skin Lesions: no lesions Rashes: no rashes Extrem Other: Left elbow: Normal to inspection. No ecchymosis, erythema, or edema. Tenderness to palpation lateral epicondyle. Pain with resisted wrist extension. NVI. Reports numbness, tingling, weakness, and tremoring in the bilateral upper extremities. Assessment & Plan Assessment & Plan (1) Left lateral epicondylitis: Code(s): M77.12 - Lateral epicondylitis, left elbow (2) Left carpal tunnel syndrome: Code(s): G56.02 - Carpal tunnel syndrome, left upper limb (3) Cubital tunnel syndrome on left: Code(s): G56.22 - Lesion of ulnar nerve, left upper limb Plan Ms. Acosta is a 57-year-old right hand dominant female who presents in the office today for a follow up of left shoulder pain. While in the office today the patient reports she has had no prior treatment for her left shoulder. She claims her pain has increased since 05/2023. She denies participating in physical therapy. The patient mainly presents with a complaint of left elbow pain. She reports numbness, tingling, weakness, and tremoring in the bilateral upper extremities. She was given cortisone injection in the left elbow about 2 months ago and received a tennis elbow brace. The patient reports numbness, tingling, weakness, and tremoring in the bilateral upper extremities. She had a nerve conduction study, which was significant for mild carpal and cubital tunnel of the left upper extremity. A referral was placed for the patient to follow up with Physiatry for further evaluation and treatment. Follow up with orthopedics will be PRN, or sooner if needed. X-rays of the left shoulder which were obtained while in the office today and were reviewed by me, Mely Bhat PA-C, revealed no acute fracture or disloca tion. Demonstrated mild calcific tendonitis. Orders: Orders XR shoulder LT min 2V 09/28/23 M25.519 - Pain in unspecified shoulder Patient Instructions: Scribed for Mely Bhat PA-C by Ange Hunter medical office technology instructor, on 09/28/2023 at 3:19 pm, EST. Coding Level of Care Code Est Pt Level 3 (96154) Diagnoses Left lateral epicondylitis M77.12 Left carpal tunnel syndrome G56.02 Cubital tunnel syndrome on left G56.22
[2023-09-28 15:27] VITALS: BMI 27.5
== END 2023-09-28 15:55 | disposition home or self-care (01) ==
PROVIDERS: PCP Internal Medicine Medical Oncology; Visit Provider Physician Assistant
DX: M77.12 Lateral epicondylitis, left elbow (principal); G56.02 Carpal tunnel syndrome, left upper limb; G56.22 Lesion of ulnar nerve, left upper limb
CPT/HCPCS: 99213

== ENCOUNTER 2023-11-02 14:17 | Outpatient (REF) | payer OTHER, SELFPAY ==
--- NOTE | ~2023-11-02 | US_ITS ---
EXAMINATION: US RETROPERITONEAL LIMITED (RENAL ONLY) CLINICAL INFORMATION: Calculus of kidney. COMPARISON: Ultrasound kidneys 05/11/2023 and 10/29/2022. CT abdomen and pelvis with contrast 04/03/2021. TECHNIQUE: Real-time imaging of the kidneys. FINDINGS: RIGHT KIDNEY: 9.7 x 4.0 x 5.3 cm (SAG x AP x TRV). The kidney is normal in size, contour, and echogenicity. Renal cortical thickness is normal. No calculi or focal parenchymal lesions. No hydronephrosis. LEFT KIDNEY: 11.4 x 4.7 x 5.0 cm (SAG x AP x TRV). The kidney is normal in size, contour, and echogenicity. Renal cortical thickness is normal. No calculi or focal parenchymal lesions. No hydronephrosis. US/US renal BI IMPRESSION: Normal renal ultrasound. No nephrolithiasis or hydronephrosis.
== END 2023-11-02 14:18 | disposition home or self-care (01) ==
LOC: HO.US 14:17
PROVIDERS: PCP Internal Medicine Medical Oncology; Visit Provider Nurse Practitioner Family
DX: N20.0 Calculus of kidney (principal)
CPT/HCPCS: 76775

== ENCOUNTER 2023-11-04 08:45 | Outpatient (AMB) | payer OTHER, SELFPAY ==
--- NOTE | 2023-11-04 08:52 | A.OFFVIS_ITS ---
Intake Vital Signs 11/04/23 09:02 Height 5 ft 4 in Weight 160 lb BMI 27.5 Intake Visit Reasons: Ov- Left upper extremity weakness Intake Note: Yasmin 58 yr old male presents today for a follow up visit for her Left lateral epicondylitis pain and bilateral CTS left currently worse than her right. Last seen with Mathew Boone. Hx of left elbow injection on 04/21/[address] Perrin and reports injection has helped improved her pain along with use of an elbow brace. EMG done. Allergies amoxicillin [Amoxicillin] Allergy (Mild, Verified 11/04/23 09:01) SWELLING/VOMITING, syncope, stomach burning clavulanic acid [From Augmentin] Allergy (Mild, Verified 11/04/23 09:01) SWELLING/VOMITING doxycycline Allergy (Unknown, Verified 11/04/23 09:01) vomiting lightheadness loss of vision Penicillin Allergy (Unknown, Uncoded 11/04/23 09:01) burned stomach with vomiting Medication List - Last Reconciled 11/04/23 by Mar Alvarado MD cholecalciferol (vitamin D3) 50 mcg PO DAILY estradiol 0.01%(0.1mg/gram) vaginally 3 times a week; pea sized amount to urethra 3 times a week 30 days ibuprofen 600 mg PO Q8H PRN polyvinyl alcohol 1.4% 1 drp ophthalmic (eye) TID pyridoxine (vitamin B6) 100 mg PO DAILY 90 days tolterodine ER 4 mg PO DAILY HPI HPI Comments History of Present Illness Details Numbness on tips of fingers, middle ones worse. Left elbow pain, thinks comes from the shoulder, goes to the fingers. Fingers on left feel swollen. Feels like a burning sensation. Fingers/hand feel shaky especially when carrying something or repetitive motion like scrubbing. This can also wake her up at night. No neck pain. On right side, just a little pain on right wrist. Also has left finger numbness as above. Treatment done so far: counterforce brace - wears when she has pain injection - left elbow 2-3 months No wrist surgery. Not sure if she want surgery for CTS due to work. [facility] Medical History (Updated 11/04/23 @ 09:26 by Mar Alvarado MD) Carpal tunnel syndrome of right wrist SHASHANK (obstructive sleep apnea) OAB (overactive bladder) Renal calculi Renal colic Hx of cyst of breast Surgical History H/O foot surgery Family History Paternal Uncle Prostate [place] Social History Alcohol intake: never Patient Tobacco Use Status: Former Tobacco user Second Hand Smoke Exposure: No Current occupational status: employed Current occupation: [employer] Sexual orientation: Straight/Heterosexual Gender identity: Female Female Reproductive History Menstrual Age of Menarche: 14 Review of Systems Const All systems reviewed & are unremarkable except as noted in HPI and below Physical Exam Vital Signs: BMI result Body Mass Index 27.5 Constitutional: Patient appears to be in no acute distress, well nourished and well developed. MSK: Inspection reveals appropriate head and neck positioning. No pain with palpation over the neck musculature. Cervical ROM was full. Spurling's sign negative. Bilateral shoulder ROM WNL. No ligamentous laxity or crepitance. No increased effusion. Hawkin's test is negative. Tender on left lateral epicondyle. Tender along left extensor tendons. Increased pain with resisted wrist extension. No tenderness on medial epicondyle. No intrinsic hand weakness noted. No atrophy noted. Aaliyah test negative. Carpal compression test positive bilateral. Tinel sign negative. Strength is 5/5 in all muscle groups tested. No increased tone noted. Neurological: Neurologic examination of the upper and lower extremities was nonfocal with intact sensation, muscle stretch reflexes and without focal motor deficits . Gonzalez?s negative bilaterally. Gait is non-antalgic without loss of balance. Results Reviewed Results Reviewed: I independently reviewed the results of the following: EMG done by Dr. Kumar 05/06/2023 showed at least a left moderate Carpal Tunnel Syndrome. Right side not done. I reviewed records from the following: Ortho Assessment & Plan Assessment & Plan (1) Left lateral epicondylitis: Code(s): M77.12 - Lateral epicondylitis, left elbow (2) Tennis elbow: Code(s): M77.10 - Lateral epicondylitis, unspecified elbow Qualifiers: Laterality: left Qualified Code(s): M77.12 - Lateral epicondylitis, left elbow (3) Left carpal tunnel syndrome: Code(s): G56.02 - Carpal tunnel syndrome, left upper limb (4) Numbness of right hand: Code(s): R20.0 - Anesthesia of skin Plan Left lateral epicondylitis/tennis elbow, chronic recurrent. Left Carpal Tunnel Syndrome seen on EMG. Hand numbness on right side most likely Carpal Tunnel Syndrome as well. For left elbow pain, we could repeat injection. Would prefer to do this on a day she does not have to do heavy lifting. We will schedule. Continue to wear a counterforce brace during the day. For left Carpal Tunnel Syndrome, patient does not think she can go for surgery at this time. We will give her wrist braces to wear at night. For right hand numbness, we will schedule for EMG. Also wear wrist braces at night. Assessment and plan discussed with patient, and patient was agreeable. All questions were answered thoroughly. Mar Alvarado MD, TIMA Board Certified, [place] Board of Physical Medicine and Rehabilitation (ABPMR) Board Certified, [place] Board of Electrodiagnostic Medicine (ABEM) Orders: Orders NE electromyogram (EMG) Today R20.0 - Anesthesia of skin NE nerve conduction velocity Today R20.0 - Anesthesia of skin Coding Level of Care Code New Pt Level 4 (26732) Diagnoses Left lateral epicondylitis M77.12 Lateral epicondylitis of left elbow M77.12 Laterality: left Left carpal tunnel syndrome G56.02 Numbness of right hand R20.0
[2023-11-04 09:02] VITALS: BMI 27.5
== END 2023-11-04 09:38 | disposition home or self-care (01) ==
PROVIDERS: Visit Provider Physical Medicine & Rehabilitation
DX: M77.12 Lateral epicondylitis, left elbow (principal); G56.02 Carpal tunnel syndrome, left upper limb; R20.0 Anesthesia of skin
CPT/HCPCS: 99204

== ENCOUNTER → 2023-11-04 08:45 | Outpatient (BNVA) | payer OTHER, SELFPAY | PROVIDERS: Visit Provider Physical Medicine & Rehabilitation | DX: M77.12 Lateral epicondylitis, left elbow (principal); G56.02 Carpal tunnel syndrome, left upper limb; R20.0 Anesthesia of skin | CPT/HCPCS: 99202 ==

== ENCOUNTER 2023-11-18 14:14 | Outpatient (REF) | payer OTHER, SELFPAY ==
--- NOTE | ~2023-11-18 | US_ITS ---
EXAMINATION: US PELVIS CLINICAL INFORMATION: Unspecified ovarian cysts, unspecified side Postmenopausal COMPARISON: Pelvic ultrasound 01/24/2023 TECHNIQUE: Ultrasound of the pelvis is performed using both transabdominal and transvaginal transducers along with Doppler. Transvaginal imaging is performed due to inadequate visualization transabdominally. FINDINGS: Uterus: The uterus is anteverted and measures 7.2 x 3.4 x 4.1 cm. No focal fibroid. The endometrial thickness is 0.3 cm. The uterus is smooth in contour and has normal myometrial echogenicity. No visible fibroid. Adnexa: Both ovaries are visualized. There is normal color flow to the adnexa. There is no ovarian torsion. Right ovary measures 1.6 x 0.8 x 1.1 cm. Volume 0.7 mL. The right ovary is normal in appearance. Left ovary measures 2.2 x 1.4 x 1.2 cm. Volume 1.9 mL. 1.5 x 0.7 x 0.8 cm simple left adnexal cyst is seen. This previously measured 1.6 x 1.3 x 1.5 cm. This could represent a paraovarian cyst. There is prominence of the vessels in the left adnexa which could represent pelvic congestion syndrome. US/US pelvic and transvaginal IMPRESSION: 1. Normal uterus and ovaries. 2. 1.5 cm simple left adnexal cyst may represent a paraovarian cyst. This is decreased in size since the prior study. 3. Question of pelvic congestion syndrome on the left.
== END 2023-11-18 14:15 | disposition home or self-care (01) ==
LOC: HO.US 14:14
PROVIDERS: Visit Provider Obstetrics & Gynecology
DX: N83.209 Unspecified ovarian cyst, unspecified side (principal)
CPT/HCPCS: 76830; 76856

== ENCOUNTER 2023-11-19 12:11 | Outpatient (AMB) | payer OTHER, SELFPAY ==
--- NOTE | 2023-11-19 12:24 | MHC.OFFVIS ---
Intake Vital Signs 11/19/23 12:28 Height 5 ft 4 in Weight 160 lb BMI 27.5 Intake Visit Reasons: OV, Injection Left elbow injection Intake Note: Yasmin 58 yr old female presents today for her left elbow injection. Consent signed. Allergies amoxicillin [Amoxicillin] Allergy (Mild, Verified 11/19/23 12:28) SWELLING/VOMITING, syncope, stomach burning clavulanic acid [From Augmentin] Allergy (Mild, Verified 11/19/23 12:28) SWELLING/VOMITING doxycycline Allergy (Unknown, Verified 11/19/23 12:28) vomiting lightheadness loss of vision Penicillin Allergy (Unknown, Uncoded 11/19/23 12:28) burned stomach with vomiting Medication List - Last Reconciled 11/19/23 by Mar Alvarado MD cholecalciferol (vitamin D3) 50 mcg PO DAILY estradiol 0.01%(0.1mg/gram) vaginally 3 times a week; pea sized amount to urethra 3 times a week 30 days ibuprofen 600 mg PO Q8H PRN polyvinyl alcohol 1.4% 1 drp ophthalmic (eye) TID pyridoxine (vitamin B6) 100 mg PO DAILY 90 days tolterodine ER 4 mg PO DAILY HPI HPI Comments History of Present Illness Details Here for scheduled injection PFSH Medical History (Updated 11/04/23 @ 09:26 by Mar Alvarado MD) Carpal tunnel syndrome of right wrist SHASHANK (obstructive sleep apnea) OAB (overactive bladder) Renal calculi Renal colic Hx of cyst of breast Surgical History H/O foot surgery Family History Paternal Uncle Prostate [place] Social History Alcohol intake: never Patient Tobacco Use Status: Former Tobacco user Second Hand Smoke Exposure: No Current occupational status: employed 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 Patient sits with supported left elbow on the table at right angle and forearm supinated. Tender area along common extensor tendon slightly distal to lateral epicondyle identified. Area prepped in sterile manner. 25 gauge 0.5 in. needle inserted at tender area, injecting solution containing 10 mg Kenalog and 0.75 mL 2% lidocaine. Patient tolerated procedure well without complications. [id number] Tendon Origin/Insertion Injection All charges added?: Procedure code (CPT) selection complete Assessment & Plan Assessment & Plan (1) Left lateral epicondylitis: Code(s): M77.12 - Lateral epicondylitis, left elbow Plan: Patient tolerated procedure well. Post injection instructions given. Assessment and plan discussed with patient, and patient was agreeable. All questions were answered thoroughly. Mar Alvarado MD, TIMA Board Certified, [place] [employer] and Rehabilitation (ABPMR) Board Certified, [place] Board [employer] Electrodiagnostic [employer] (ABEM) Orders: Orders AMB Injection-Tendon Today M77.12 - Lateral epicondylitis, left elbow Coding Level of Care Code Procedure Only Diagnoses Left lateral epicondylitis M77.12 CPT Codes Tendon Injection - Tendon Injection 2: [id number] Tendon Origin/Insertion Injection ([id number])
[2023-11-19 12:28] VITALS: BMI 27.5
== END 2023-11-19 12:31 | disposition home or self-care (01) ==
PROVIDERS: Visit Provider Physical Medicine & Rehabilitation
DX: M77.12 Lateral epicondylitis, left elbow (principal)
CPT/HCPCS: 20550

== ENCOUNTER → 2023-11-19 12:11 | Outpatient (BNVA) | payer OTHER, SELFPAY | PROVIDERS: Visit Provider Physical Medicine & Rehabilitation | DX: M77.12 Lateral epicondylitis, left elbow (principal) | CPT/HCPCS: 20550; J3301 ==

== ENCOUNTER 2023-11-26 15:30 | Outpatient (AMB) | payer OTHER, SELFPAY ==
--- NOTE | 2023-11-26 15:44 | A.OFFVIS_ITS ---
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 Hallman. She has a past medical history of carpal tunnel syndrome, obstructive sleep apnea, overactive bladder, and nephrolithiasis. She presents to the office today for a follow-up of her nephrolithiasis and overactive bladder. In discussion with the patient today she reports to be doing and feeling well. She reports having stopped her tolterodine and Estrace cream as she feels overactive bladder symptoms have since resolved and she does not find them bothersome at this time. Recent renal imaging results reviewed with the patient today. Bilateral kidneys with no calculi, lesions, and or hydronephrosis. When asked she denies urinary urgency, urinary frequency, incontinence, nocturia, hematuria, dysuria, foul smelling urine, changes to urinary stream, flank pain, fever, and or chills. She is happy with her current voiding parameters. In office urinalysis results reviewed with the patient today. PVR 0 mL. She reports compliance with vitamin B6 daily and is drinking plenty of water daily. She otherwise offers no issues or concerns at this time. 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 Sexual orientation: Straight/Heterosexual Gender identity: Female Female Reproductive History Menstrual Age of Menarche: 14 Review of Systems Eyes Reports no additional complaints ENT Reports no additional complaints Card Reports no additional complaints Resp Reports as per HPI GI Reports no additional complaints Reports as per HPI Musc Reports as per HPI Neuro Reports no additional complaints Psych Reports no additional complaints Endo Reports no additional complaints Elliot/Lymph Reports no additional complaints Aller/Immun Reports no additional complaints Physical Exam Const General: cooperative, healthy appearing, comfortable, no acute distress, well developed, alert and awake Orientation/consciousness: patient oriented x3 Limitations: no limitations HEENT Head: Yes normal to inspection, Yes normocephalic and Yes atraumatic Ears: hearing grossly normal bilaterally Eyes General: appearance normal, both eyes and all related structures Neck Neck: Yes normal visual inspection and Yes trachea midline Chest Chest palpation & inspection: normal inspection of the chest Resp Effort & Inspection: normal respiratory effort and able to speak in complete sentences Cardio Rate: regular rate GI Inspection: Yes normal to inspection General: Yes no CVA tenderness Back/Spine/Pelvis Back: no CVA tenderness Skin General skin exam: no rashes or lesions noted Neuro General: patient oriented x3 Extrem General: Yes normal to inspection Psych Appearance: grossly normal and well kempt Mental Status: mental status grossly normal Speech and movement: Normal speech and movement present and Clear speech present Affect: normal affect Attitude: cooperative Thought process: Normal thought process present Thought content: Normal thought content present Insight: Good insight present (Psych) Judgement: Good judgement present (Psych) Office Procedures Post Void Residual Post Residual Void Post Void Residual (PVR): 0 [id number] Void Residual by ultrasound Results AMB Urinalysis, Automated UA Leukoctes 0 Beverly/uL Last Edit by Wenceslao Oconnor on 11/26/23 16:07 UA Nitrite Negative Last Edit by Wenceslao Oconnor on 11/26/23 16:07 UA Urobilinogen 0.2 mg/dL Last Edit by Wenceslao Oconnor on 11/26/23 16:07 UA Protein 15 mg/dL Last Edit by Wenceslao Oconnor on 11/26/23 16:07 UA pH 6.0 Last Edit by Wenceslao Oconnor on 11/26/23 16:07 UA Blood 0 Jean-Paul/uL Last Edit by Wenceslao Oconnor on 11/26/23 16:07 UA Specific Haslett 1.025 Last Edit by Wenceslao Oconnor on 11/26/23 16:07 UA Ketone Negative Last Edit by Wenceslao Oconnor on 11/26/23 16:07 UA Bilirubin 0 mg/dL Last Edit by Wenceslao Oconnor on 11/26/23 16:07 UA Glucose 0 mg/dL Last Edit by Wenceslao Oconnor on 11/26/23 16:07 Results Reviewed Results Reviewed: Laboratory Last Values Urine pH (Auto) 6.0 11/26/23 15:45 Specific Haslett (Auto) 1.025 11/26/23 15:45 Urine Protein (Auto) 15 mg/dL 11/26/23 15:45 Glucose (UA)(Auto) 0 mg/dL 11/26/23 15:45 Urine Ketones (Auto) Negative 11/26/23 15:45 Urine Blood (Auto) 0 Jean-Paul/uL 11/26/23 15:45 Urine Nitrite (Auto) Negative 11/26/23 15:45 Urine Bilirubin (Auto) 0 mg/dL 11/26/23 15:45 Urine Urobilinogen (Auto) 0.2 mg/dL 11/26/23 15:45 Leukocyte Esterase (Auto) 0 Beverly/uL 11/26/23 15:45 Date of Service: 11/02/23 EXAMINATION: US RETROPERITONEAL LIMITED (RENAL ONLY) FINDINGS: RIGHT KIDNEY: 9.7 x 4.0 x 5.3 cm (SAG x AP x TRV). The kidney is normal in size, contour, and echogenicity. Renal cortical thickness is normal. No calculi or focal parenchymal lesions. No hydronephrosis. LEFT KIDNEY: 11.4 x 4.7 x 5.0 cm (SAG x AP x TRV). The kidney is normal in size, contour, and echogenicity. Renal cortical thickness is normal. No calculi or focal parenchymal lesions. No hydronephrosis. US/US renal BI IMPRESSION: Normal renal ultrasound. No nephrolithiasis or hydronephrosis. Assessment & Plan Assessment & Plan (1) Renal calculi: Code(s): N20.0 - Calculus of kidney (2) OAB (overactive bladder): Code(s): N32.81 - Overactive bladder Plan In office urinalysis results reviewed with the patient today; as noted above PVR 0 mL. Recent renal ultrasound results reviewed with the patient today; as noted above. Continue vitamin B6 as discussed and prescribed. Discussed and stressed the importance of drinking plenty of water daily. Discussed adding 1 oz of lemon juice to water daily. Patient denies any urological issues or concerns at this time. Patient is happy with current voiding parameters Patient otherwise denies any urinary issues or concerns at this time. Renal ultrasound in 6 months. Follow-up in 6 months with imaging to be completed prior; or sooner with any issues, concerns, and or questions. Orders: Orders US renal BI 6 Months N20.0 - Calculus of kidney AMB Urinalysis Automated 11/26/23 Z13.9 - Encounter for screening, unspecified AMB Post Void Residual by ultrasound 11/26/23 N32.81 - Overactive bladder Patient Instructions: The patient had an opportunity to ask questions regarding the treatment plan. All questions were answered. Physical exam, labs, and imaging were discussed and reviewed in detail. As well as risks, benefits, and discussion of treatment choices. No major barriers to understanding were identified. The patient expressed understanding and agreement with the above treatment plan. The patient was made aware they should contact our office by phone for worsening of their current condition, the appearance of new symptoms, or with any questions or concerns. Compliance is encouraged with any medications and follow up testing that is ordered. It is a privilege to be allowed the opportunity to participate in? your urological care.? Again, if you have any questions or concerns If you have any questions or concerns please do not hesitate to contact me. The office is [phone]. This note is constructed using voice recognition software. While every effort has been made to ensure accuracy pharmacogeneticist errors may have been included. Yours sincerely, YESICA Plunkett Coding Level of Care Code Est Pt Level 3 (21616) Diagnoses Renal calculi N20.0 OAB (overactive bladder) N32.81 CPT Codes Post Residual Void - PVR CPT Code: 50790-Gnkr Void Residual by ultrasound ([id number])
== END 2023-11-26 16:24 | disposition home or self-care (01) ==
PROVIDERS: PCP Internal Medicine Medical Oncology; Visit Provider Nurse Practitioner Family
DX: N20.0 Calculus of kidney (principal); N32.81 Overactive bladder
CPT/HCPCS: 99213

== ENCOUNTER → 2023-11-26 15:30 | Outpatient (BNVA) | payer OTHER, SELFPAY | PROVIDERS: PCP Internal Medicine Medical Oncology; Visit Provider Nurse Practitioner Family | DX: N20.0 Calculus of kidney (principal); N32.81 Overactive bladder | CPT/HCPCS: 51798; 81003; 99212 ==

== ENCOUNTER 2023-12-03 10:54 | Outpatient (REF) | payer OTHER, SELFPAY ==
[2023-12-03 12:21] LABS: Alanine Aminotransferase 31 U/L (0-31); Albumin Level 4.6 g/dL (3.5-5.0); Alkaline Phosphatase 94 U/L (39-117); Anion Gap 10 (12-20); Aspartate Amino Transferase 27 U/L (5-31); Bilirubin Total 0.4 mg/dL (0.0-1.0); Blood Urea Nitrogen 11 mg/dL (9-16); Carbon Dioxide 30 mmol/L (22-29); Chloride 105 mmol/L (96-108); Estimated Glomerular Filt Rate > 60; Glucose Random 81 mg/dL (60-115); Lactate Dehydrogenase 206 U/L (122-220); Sodium 141 mmol/L (135-145); Total Protein 7.7 g/dL (6.5-8.0)
[2023-12-07 05:33] LABS: Lyme Abs Screen <0.90 index
== END 2023-12-03 10:55 | disposition home or self-care (01) ==
LOC: HO.LAB 10:54
PROVIDERS: PCP Internal Medicine Medical Oncology; Visit Provider Internal Medicine Medical Oncology
DX: E66.3 Overweight (principal); W57.XXXA Bitten or stung by nonvenomous insect and other nonvenomous arthropods, initial encounter
CPT/HCPCS: 36415; 80053; 82550; 83615; 85025; 85652; 86617; 86618

== ENCOUNTER 2023-12-15 15:04 | Outpatient (REF) | payer OTHER, SELFPAY ==
--- NOTE | 2023-12-15 15:11 | EMG_ITS ---
Chief complaint: ?Right hand numbness EMG done by Dr. Kumar 05/06/2023 showed at least a left moderate Carpal Tunnel Syndrome.? Right side was not done. Reason for referral: Evaluate for Carpal Tunnel Syndrome Procedure done: ?Right upper extremity NCS/EMG Precautions and/or limitations: None The limb temperature was monitored continuously and remained between 32-36 degrees C during the performance of the NCS. Nerve Conduction Studies Anti Sensory Summary Table ?Stim Site NR Onset (ms) Norm Onset (ms) Peak (ms) Norm Peak (ms) O-P Amp (?V) Norm O-P Amp Site1 Site2 Delta-0 (ms) Dist (cm) Mario (m/s) Norm Mraio (m/s) Right Median Anti Sensory (2nd Digit) Wrist ? 4.1 5.5 <3.6 20.8 >10 Wrist 2nd Digit 4.1 14.0 34 Right Radial Anti Sensory (Thumb) Forearm ? 1.5 2.0 <3.1 16.5 Forearm Thumb 1.5 0.0 Right Ulnar Anti Sensory (5th Digit) Wrist ? 2.3 3.3 <3.7 43.9 >15.0 Wrist 5th Digit 2.3 14.0 61 Motor Summary Table ?Stim Site NR Onset (ms) Norm Onset (ms) O-P Amp (mV) Norm O-P Amp iAmp (mV) Amp (1st) (%) Site1 Site2 Delta-0 (ms) Dist (cm) Mario (m/s) Norm Mario (m/s) Right Median Motor (Abd Poll Brev) Wrist ? 5.2 <3.9 12.2 >4.5 14.1 100.0 Elbow Wrist 4.4 22.0 50 >45 Elbow ? 9.6 11.3 13.2 92.6 Right Ulnar Motor (Abd Dig Minimi) Wrist ? 2.7 <3.0 12.1 >5 14.1 100.0 B Elbow Wrist 3.4 20.0 59 >45 B Elbow ? 6.1 11.8 13.9 97.5 A Elbow B Elbow 1.2 10.0 83 >45 A Elbow ? 7.3 11.6 13.8 95.9 EMG ?Side Muscle Nerve Root Ins Act Fibs Psw Amp Dur Poly Recrt Int Pat Comment Right 1stDorInt Ulnar C8-T1 Nml Nml Nml Nml Nml 0 Nml Complete Right FlexCarRad Median C6-7 Nml Nml Nml Nml Nml 0 Nml Complete Right Biceps Musculocut C5-6 Nml Nml Nml Nml Nml 0 Nml Complete Right Triceps Radial C6-7-8 Nml Nml Nml Nml Nml 0 Nml Complete Right Deltoid Axillary C5-6 Nml Nml Nml Nml Nml 0 Nml Complete FINDINGS: Right median motor nerve showed prolonged distal latency, normal amplitude and normal conduction velocity. Right median sensory nerve showed prolonged peak latency. All other nerves tested were within normal. Concentric needle EMG was performed in selected muscles of the right upper extremity. Study did not reveal signs of electric abnormalities as shown in the table below. ? IMPRESSION: 1. This is an abnormal study. 2. There is electrodiagnostic evidence for right moderate-severe median neuropathy at the wrist, consistent with carpal tunnel syndrome. 3. There is no electrodiagnostic evidence for ulnar neuropathy, brachial plexopathy, or cervical radiculopathy. Thank you for your kind referral. Mar Alvarado MD, TIMA Board Certified, [place] [employer] and Rehabilitation (ABPMR) Board Certified, [place] Board [employer] Electrodiagnostic Medicine (ABEM) CODIN [id number] x 2 MTDD
== END 2023-12-15 15:05 | disposition home or self-care (01) ==
LOC: HO.NEURO 15:04
PROVIDERS: PCP Internal Medicine Medical Oncology; Visit Provider Physical Medicine & Rehabilitation
DX: R20.0 Anesthesia of skin (principal)
CPT/HCPCS: 95886; 95909

== ENCOUNTER → 2023-12-15 15:11 | Outpatient (BNV) | payer OTHER, SELFPAY | PROVIDERS: PCP Internal Medicine Medical Oncology; Visit Provider Physical Medicine & Rehabilitation | DX: G56.01 Carpal tunnel syndrome, right upper limb (principal) | CPT/HCPCS: 95886; 95909 ==

== ENCOUNTER 2024-02-29 09:42 | Outpatient (AMB) | payer OTHER, SELFPAY ==
[2024-02-29 10:14] VITALS: BMI 27.5
--- NOTE | 2024-02-29 10:14 | MHC.OFFVIS ---
Intake Vital Signs 02/29/24 10:14 Height 5 ft 4 in Weight 160 lb BMI 27.5 Intake Visit Reasons: O/V - CTS ? LT Intake Note: Yasmin 58 yr old female presents today for EMG review for her right hand. Last seen with Dr. Deluna. States she would like to discuss surgical intervention. Allergies amoxicillin [Amoxicillin] Allergy (Mild, Verified 02/29/24 10:15) SWELLING/VOMITING, syncope, stomach burning clavulanic acid [From Augmentin] Allergy (Mild, Verified 02/29/24 10:15) SWELLING/VOMITING doxycycline Allergy (Unknown, Verified 02/29/24 10:15) vomiting lightheadness loss of vision Penicillin Allergy (Unknown, Uncoded 02/29/24 10:15) burned stomach with vomiting HPI O/V - CTS ? LT HPI Details Yasmin is a 58 year old right hand dominant woman who returns for a NCS review of her bilateral hand numbness, R>L. She complains of numbness primarily in her thumb, index, and middle fingers bilaterally. Symptoms intermittent, but daily, worse at night She has difficulty with weakness and is unable to carry heavy items. 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 She complains of new right forearm & elbow pain. She has a hx of left lateral epiucondylitis, and a hx of relief from injections, her most recent was done by Dr. Deluna in 11/19/23. 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 Sexual orientation: Straight/Heterosexual Gender identity: Female Female Reproductive History Menstrual Age of Menarche: 14 Review of Systems Const All systems reviewed & are unremarkable except as noted in HPI and below Physical Exam Vital Signs: BMI result Body Mass Index 27.5 Const General: cooperative, healthy appearing and no acute distress Orientation/consciousness: patient oriented x3 HEENT Head: Yes normocephalic and Yes atraumatic Eyes EOM: EOMs intact bilaterally Resp Effort & Inspection: normal respiratory effort and able to speak in complete sentences Cardio Jugular venous distension: no JVD Skin General skin exam: turgor normal Rashes: no rashes Neuro General: patient oriented x3 Extrem Other: Evaluation of Bilateral Upper Extremity: The patient is alert, oriented, and in no acute distress Neuro: Median, Ulnar, Radial nerves motor and sensory intact and sensation is normal to the tips of all digits today in clinic No thenar or intrinsic wasting Good APB muscle belly firing and good finger cross Vascular: Cap refill brisk ROM: She can make a fist and extend all her digits TTP over the extensor origin just distal to right lateral epicondyle Pain referred to this area with resisted wrist extension, consistent with lateral epicondylitis Nerve Conduction study: Left side only IMPRESSION: Mild to moderate left median neuropathy across carpal tunnel. Lila Kumar MD 05/06/2023 Nerve Conduction study: Right side only IMPRESSION: 1. This is an abnormal study. 2. There is electrodiagnostic evidence for right moderate-severe median neuropathy at the wrist, consistent with carpal tunnel syndrome. 3. There is no electrodiagnostic evidence for ulnar neuropathy, brachial plexopathy, or cervical radiculopathy. Mar Alvarado MD, TIMA 12/16/23 Psych Appearance: grossly normal Affect: normal affect Attitude: cooperative Assessment & Plan Assessment & Plan (1) Carpal tunnel syndrome of right wrist: Code(s): G56.01 - Carpal tunnel syndrome, right upper limb (2) Left carpal tunnel syndrome: Code(s): G56.02 - Carpal tunnel syndrome, left upper limb (3) Left lateral epicondylitis: Code(s): M77.12 - Lateral epicondylitis, left elbow (4) Right lateral epicondylitis: Code(s): M77.11 - Lateral epicondylitis, right elbow Plan Assessment & Plan: 1. Right carpal tunnel syndrome, moderate-severe Symptoms intermittent, but daily, worse at night This is her primary complaint today I educated her about this condition I discussed operative and non-operative treatment options The patient would like to proceed with surgery, beginning with her right side The risks and benefits of operative treatment were discussed with the patient and the patient wishes to proceed with surgery. These risks include, but are not limited to risk of damage to blood vessels, nerves, tendons, infection, recurrence, incomplete relief of preoperative symptoms, persistent pain, possible need for further surgery and the risks associated with regional blocks and anesthesia. The plan is to take the patient to the operating room sometime in the next few weeks for the following procedures: 1. Right carpal tunnel release, under local All of the preoperative paperwork including the consent was reviewed today. All the patient's questions were answered. The patient understands that they will be contacted by our receptionist scheduler soon to schedule this procedure She denies Diabetes, blood thinners, asthma, heart, lung, kidney issues 2. Left carpal tunnel syndrome, mild-moderate Symptoms intermittent, but daily, worse at night 3. Left lateral epicondylitis, S/P repeat injections Date of injections: 11/19/23, 04/21/23 Scribed for Camila Perrin MD by Olegario Lopez, medical instrument technician, on [ ] at [ ], EST. Coding Level of Care Code Est Pt Level 4 (47284) Diagnoses Carpal tunnel syndrome of right wrist G56.01 Left carpal tunnel syndrome G56.02 Left lateral epicondylitis M77.12 Right lateral epicondylitis M77.11
== END 2024-02-29 10:42 | disposition home or self-care (01) ==
PROVIDERS: PCP Internal Medicine Medical Oncology; Visit Provider Orthopaedic Surgery
DX: G56.03 Carpal tunnel syndrome, bilateral upper limbs (principal); M77.12 Lateral epicondylitis, left elbow; M77.11 Lateral epicondylitis, right elbow
CPT/HCPCS: 99214

== ENCOUNTER → 2024-02-29 09:42 | Outpatient (BNVA) | payer OTHER, SELFPAY | PROVIDERS: PCP Internal Medicine Medical Oncology; Visit Provider Orthopaedic Surgery | DX: G56.03 Carpal tunnel syndrome, bilateral upper limbs (principal); M77.12 Lateral epicondylitis, left elbow; M77.11 Lateral epicondylitis, right elbow | CPT/HCPCS: 99212 ==

== ENCOUNTER 2024-03-07 15:29 | Outpatient (AMB) | payer OTHER, SELFPAY ==
[2024-03-07 15:50] VITALS: BP 132/72; BMI 27.5
--- NOTE | 2024-03-07 15:50 | MHC.OFFVIS ---
Intake Vital Signs 03/07/24 15:50 Height 5 ft 4 in Weight 160 lb BMI 27.5 BP 132/72 Intake Visit Reasons: US follow up Application Technician Required: No Allergies amoxicillin [Amoxicillin] Allergy (Mild, Verified 03/07/24 15:56) SWELLING/VOMITING, syncope, stomach burning clavulanic acid [From Augmentin] Allergy (Mild, Verified 03/07/24 15:56) SWELLING/VOMITING doxycycline Allergy (Unknown, Verified 03/07/24 15:56) vomiting lightheadness loss of vision Penicillin Allergy (Unknown, Uncoded 03/07/24 15:56) burned stomach with vomiting Is last menstrual period known: No Post menopausal: Yes Patient : No HPI HPI Comments History of Present Illness Details Presenting for ultrasound follow-up regarding adnexal cyst that was seen previously on pelvic ultrasound. Recent pelvic ultrasound showed the following: Uterus: The uterus is anteverted and measures 7.2 x 3.4 x 4.1 cm. No focal fibroid. The endometrial thickness is 0.3 cm. The uterus is smooth in contour and has normal myometrial echogenicity. No visible fibroid. Adnexa: Both ovaries are visualized. There is normal color flow to the adnexa. There is no ovarian torsion. Right ovary measures 1.6 x 0.8 x 1.1 cm. Volume 0.7 mL. The right ovary is normal in appearance. Left ovary measures 2.2 x 1.4 x 1.2 cm. Volume 1.9 mL. 1.5 x 0.7 x 0.8 cm simple left adnexal cyst is seen. This previously measured 1.6 x 1.3 x 1.5 cm. This could represent a paraovarian cyst. There is prominence of the vessels in the left adnexa which could represent pelvic congestion syndrome. 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 Sexual orientation: Straight/Heterosexual Gender identity: Female Female Reproductive History Menstrual Age of Menarche: 14 control method: none Review of Systems Const All systems reviewed & are unremarkable except as noted in HPI and below Reports as per HPI and Reports no additional complaints GI Reports no additional complaints Reports no additional complaints Physical Exam Vital Signs: Last Vital Signs BP 132/72 03/07/24 15:50 BMI result Body Mass Index 27.5 Assessment & Plan Assessment & Plan (1) Ovarian cyst: Code(s): N83.209 - Unspecified ovarian cyst, unspecified side Plan: Discussed with the patient the the finding on a pelvic ultrasound showing a simple ovarian cyst with no evidence of suspicious features, with a size of less than 10 cm. Discussed the patient the limitation of pelvic ultrasound to differentiate between benign and malignant ovarian cyst. Explained to the patient that pelvic Ultrasound characteristics of benign masses include simple appearance: thin, smooth murry; and the absence of solid components, septations, or internal blood flow on color Doppler ultrasound imaging. These simple cysts are highly likely to be benign in any age group. Studies have shown that spontaneous resolution occurs in more than 2/3 of cases. Simple cysts are almost always universally benign, regardless of menopausal status or cyst size, with malignancy rates in most series of 0?1% . CA 125, ovarian cancer serum marker test, is indicated to evaluate like with of malignancy and need for surgery. Elevated levels in combination with other findings can be useful to distinguish between benign and malignant adnexal masses. Specificity and positive predictive value of CA 125 levels are consistently higher in postmenopausal woman compared to premenopausal woman. Although CA 125 level measurement is Last valuable in predicting cancer risk in premenopausal woman thin in postmenopausal woman extreme values increase suspicion for a malignant process. The overall sensitivity of CA 125 in distinguish in benign from malignant adnexal mass ranges be 61-91 % and negative for active value ranges from 67-90%. Recommended CA 125 and repeat ultrasound in 12 months. Instructions given the patient to schedule a 12 months follow-up pelvic ultrasound with follow-up appointment afterwards. All questions answered, the patient verbalized understanding. Orders: Orders CA-125 Today N83.209 - Unspecified ovarian cyst, unspecified side US pelvic and transvaginal 11 Months N83.209 - Unspecified ovarian cyst, unspecified side Coding Level of Care Code Est Pt Level 3 (44677) Diagnoses Ovarian cyst N83.209
== END 2024-03-07 16:07 | disposition home or self-care (01) ==
LOC: HO.HWS 15:29
PROVIDERS: PCP Internal Medicine Medical Oncology; Visit Provider Obstetrics & Gynecology
DX: N83.209 Unspecified ovarian cyst, unspecified side (principal)
CPT/HCPCS: 99213

== ENCOUNTER 2024-03-07 15:29 | Outpatient (REF) | payer OTHER, SELFPAY ==
[2024-03-08 09:42] LABS: CA-125 9 U/mL (<35)
== END 2024-03-07 15:30 | disposition home or self-care (01) ==
LOC: HO.LAB 15:29
PROVIDERS: PCP Internal Medicine Medical Oncology; Visit Provider Obstetrics & Gynecology
DX: N83.209 Unspecified ovarian cyst, unspecified side (principal)
CPT/HCPCS: 36415; 86304; 99212

== ENCOUNTER 2024-03-23 12:45 | Day surgery (SDC) | payer OTHER, SELFPAY ==
--- NOTE | 2024-03-23 09:49 | W.PM.OPN ---
Operative Note Operative Note Date of Service: 03/23/24 Narrative: Preop diagnosis: 1. Right Carpal tunnel syndrome Postop diagnosis: same Procedure: 1. Right Carpal tunnel release Surgeon: Camila Perrin MD Anesthesia: local block using 1% lidocaine with epinephrine Findings: Thickened transverse carpal ligament. EBL: Less than 5 mL Specimens: None Complications: None Disposition: Brought to recovery room in stable condition Plan: Follow-up for 10-14 days for wound check and suture removal Indications: The patient is 58 years old, with right carpal tunnel syndrome that has been unresponsive to nonoperative management. The risks and benefits of operative treatment including but not limited to risk of damage to blood vessels, nerves, tendons, infection, persistent pain, persistent symptoms, or possible need for additional surgery were discussed with the patient and the patient wishes to proceed with surgery. Procedure: Once consent was obtained a local block was performed using a combination of 1% lidocaine with epinephrine. The patient was then brought back to the operating suite and placed on the operative table in supine position. The right upper extremity was prepped and draped in a standard surgical fashion. Once assured that we had a good block, a 2.0 cm longitudinal incision was made centered over the carpal tunnel. The incision was made through the skin to the subcutaneous tissues using a #15 blade. Dissection was made down to the level of the transverse carpal ligament with care being taken to protect the palmar cutaneous nerve. Once the transverse carpal ligament was clearly visualized, a longitudinal incision was made in the transverse carpal ligament 1st using a #15 blade, then using tenotomy scissors under direct visualization. Care was taken to look for and protect the motor branch of the median nerve when seen in this area. Once satisfied with our carpal tunnel release the wound was copiously irrigated with normal saline and hemostasis was obtained with a brief period of local pressure. The skin edges were reapproximated with some 5.0 nylon suture material and a sterile dressing was applied. The patient appears to have tolerated the procedure well and with no complications. All digits were well vascularized at the conclusion of the case.
[2024-03-23 13:10] VITALS: BMI 26.6
--- NOTE | 2024-03-23 14:08 | MHC.SHP ---
Pre-Procedural Eval Section A - 24 Hr Update-Section A only Date of Service: 03/23/24 The patient is an INPATIENT: No Changes since office visit: No Cold of Flu in the past 2 weeks, No New Medical Problems, No Changes in Medication and No Patient answered all questions The patient has been examined within 24 hours of the surgical procedure. The History & Physical has been completed within 30 days and I have reviewed it.: Yes Section B - Complete if H&P > 30 days Chief Complaint: Carpal tunnel syndrome, right upper limb Allergies: Allergies Allergy/AdvReac Type Severity Reaction Status Date / Time amoxicillin [Amoxicillin] Allergy Mild SWELLING/VOMITING, Verified 03/23/24 13:11 syncope, stomach burning clavulanic acid Allergy Mild SWELLING/VO Verified 03/23/24 13:11 [From Augmentin] MITING doxycycline Allergy Unknown vomiting Verified 03/23/24 13:11 lightheadness loss of vision Penicillin Allergy Unknown burned Uncoded 03/07/24 15:56 stomach with vomiting Plan I have reviewed the history and physical and performed a pertinent physical examination on my patient. No changes have occurred unless specified. Time Spent With Patient Time: Total time managing care of this patient today ____ minutes.
--- NOTE | 2024-03-23 16:04 | MHC.SHP ---
Pre-Procedural Eval Section A - 24 Hr Update-Section A only Date of Service: 03/23/24 The patient is an INPATIENT: No Changes since office visit: No Cold of Flu in the past 2 weeks, No New Medical Problems, No Changes in Medication and No Patient answered all questions The patient has been examined within 24 hours of the surgical procedure. The History & Physical has been completed within 30 days and I have reviewed it.: Yes Section B - Complete if H&P > 30 days Chief Complaint: Carpal tunnel syndrome, right upper limb Allergies: Allergies Allergy/AdvReac Type Severity Reaction Status Date / Time amoxicillin [Amoxicillin] Allergy Mild SWELLING/VOMITING, Verified 03/23/24 13:11 syncope, stomach burning clavulanic acid Allergy Mild SWELLING/VO Verified 03/23/24 13:11 [From Augmentin] MITING doxycycline Allergy Unknown vomiting Verified 03/23/24 13:11 lightheadness loss of vision Penicillin Allergy Unknown burned Uncoded 03/07/24 15:56 stomach with vomiting Exam Exam Comment: Right carpal tunnel syndrome Plan Diagnosis/Plan: Unchanged I have reviewed the history and physical and performed a pertinent physical examination on my patient. No changes have occurred unless specified. Time Spent With Patient Time: Total time managing care of this patient today ____ minutes.
[2024-03-23 17:00] VITALS: BP 147/66; PULSE 82; RESP 18; TEMP 37.2; O2SAT 99
== END 2024-03-23 17:00 | disposition home or self-care (01) ==
PROVIDERS: PCP Internal Medicine Medical Oncology; Visit Provider Orthopaedic Surgery
PROC: (CPT 64721; principal; 2024-03-23 14:50)
DX: G56.01 Carpal tunnel syndrome, right upper limb (principal); R20.0 Anesthesia of skin; M77.11 Lateral epicondylitis, right elbow; G47.33 Obstructive sleep apnea (adult) (pediatric); Z88.0 Allergy status to penicillin; Z88.1 Allergy status to other antibiotic agents; Z87.891 Personal history of nicotine dependence
CPT/HCPCS: 64721; J0171

== ENCOUNTER → 2024-03-23 12:45 | Outpatient (BNV) | payer OTHER, SELFPAY | PROVIDERS: PCP Internal Medicine Medical Oncology; Visit Provider Orthopaedic Surgery | DX: G56.01 Carpal tunnel syndrome, right upper limb (principal) | CPT/HCPCS: 64721 ==

== ENCOUNTER 2024-04-04 11:58 | Outpatient (AMB) | payer OTHER, SELFPAY ==
[2024-04-04 12:04] VITALS: BMI 26.6
--- NOTE | 2024-04-04 12:04 | A.OFFVIS_ITS ---
Vital Signs 04/04/24 12:04 Height 5 ft 4 in Weight 155 lb BMI 26.6 Intake Visit Reasons: PO-Rt CTR 03/23/24 Intake Note: Yasmin 58 yr old female presents today for her PO visit for her right hand CTR 03/23/24. States CTS have improved and is doing well. Sutures removed and steri strips applied. Allergies amoxicillin [Amoxicillin] Allergy (Mild, Verified 03/23/24 13:11) SWELLING/VOMITING, syncope, stomach burning clavulanic acid [From Augmentin] Allergy (Mild, Verified 03/23/24 13:11) SWELLING/VOMITING doxycycline Allergy (Unknown, Verified 03/23/24 13:11) vomiting lightheadness loss of vision Penicillin Allergy (Unknown, Uncoded 03/07/24 15:56) burned stomach with vomiting HPI HPI PO-Rt CTR 03/23/24: Details: Yasmin is a 58 year old right hand dominant woman who returns S/P right carpal tunnel release, DOS: 03/23/24 She says she is doing well and her right hand symptoms have resolved.. 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 She has a hx of left lateral epicondylitis, and a hx of relief from injections, her most recent was done by Dr. Deluna in 11/19/23. 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 Sutures removed and Steri-Strips applied She can make a fist and extend all her digits Normal sensation in the right median nerve distribution and small finger today. Cap refill is brisk Nerve Conduction study: Left side only IMPRESSION: Mild to moderate left median neuropathy across carpal tunnel. Lila Kumar MD 05/06/2023 Nerve Conduction study: Right side only IMPRESSION: 1. This is an abnormal study. 2. There is electrodiagnostic evidence for right moderate-severe median neuropathy at the wrist, consistent with carpal tunnel syndrome. 3. There is no electrodiagnostic evidence for ulnar neuropathy, brachial plexopathy, or cervical radiculopathy. Mar Alvarado MD, TIMA 12/16/23 Psych Appearance: grossly normal Affect: normal affect Attitude: cooperative Assessment & Plan Assessment & Plan (1) Carpal tunnel syndrome of right wrist: Code(s): G56.01 - Carpal tunnel syndrome, right upper limb Category: Medical (2) Left carpal tunnel syndrome: Code(s): G56.02 - Carpal tunnel syndrome, left upper limb Category: Medical (3) Left lateral epicondylitis: Code(s): M77.12 - Lateral epicondylitis, left elbow Category: Medical (4) Right lateral epicondylitis: Code(s): M77.11 - Lateral epicondylitis, right elbow Category: Medical Plan Assessment & Plan: 1. Right carpal tunnel syndrome, S/P release DOS: 03/23/24 Pre-operative symptoms intermittent, but daily, worse at night Now with normal sensation and excellent resolution of numbness and tingling The patient appears to be doing well post-operatively I educated her about the post-operative course I discussed activity modifications, she is to lift nothing heavier than a cellphone for the next two weeks She will perform gentle ROM exercises at home She should avoid any underwater activities for the next 5 days She should gently massage about the incision site to reduce the risk of hypersensitivity 2. Left carpal tunnel syndrome, mild-moderate Symptoms intermittent, but daily, worse at night I educated her about this condition I discussed operative and non-operative treatment options The patient would like to wait until her right hand is fully healed before considering surgery on the left side. She denies Diabetes, blood thinners, asthma, heart, lung, kidney issues 3. Left lateral epicondylitis, S/P repeat injections Date of injections: 11/19/23, 04/21/23 No complaints today We provided her with a note for work keeping her off until 4 weeks postop Scribed for Camila Perrin MD by Olegario Lopez, medical diagnostic radiographer, on [ ] at [ ], EST. Scribe Plan - Not visible on output: Scribed for Camila Perrin MD by Olegario Lopez, medical diagnostic radiographer, on [ ] at [ ], EST. Coding Level of Care Code Global (89918) Diagnoses Carpal tunnel syndrome of right wrist G56.01 Left carpal tunnel syndrome G56.02 Left lateral epicondylitis M77.12 Right lateral epicondylitis M77.11
== END 2024-04-04 12:41 | disposition home or self-care (01) ==
PROVIDERS: PCP Internal Medicine Medical Oncology; Visit Provider Orthopaedic Surgery
DX: G56.03 Carpal tunnel syndrome, bilateral upper limbs (principal); M77.12 Lateral epicondylitis, left elbow; M77.11 Lateral epicondylitis, right elbow
CPT/HCPCS: 99024

== ENCOUNTER → 2024-04-04 11:58 | Outpatient (BNVA) | payer OTHER, SELFPAY | PROVIDERS: PCP Internal Medicine Medical Oncology; Visit Provider Orthopaedic Surgery | DX: Z48.811 Encounter for surgical aftercare following surgery on the nervous system (principal); G56.02 Carpal tunnel syndrome, left upper limb; M77.12 Lateral epicondylitis, left elbow; M77.11 Lateral epicondylitis, right elbow | CPT/HCPCS: 99212 ==

== ENCOUNTER 2024-05-17 15:23 | Outpatient (AMB) | payer OTHER, SELFPAY ==
--- NOTE | 2024-05-17 15:59 | MHC.OFFVIS ---
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 Intake Note: c/o of dysuria Ux Design Manager Required: No Information Interpreted: non-clinical & clinical Clerical Dentist Assistant: Clerical Dentist Assistant Present (Laura PAULSON) Accompanied by: Self / Same As Patient Allergies amoxicillin [Amoxicillin] Allergy (Mild, Verified 05/17/24 16:12) SWELLING/VOMITING, syncope, stomach burning clavulanic acid [From Augmentin] Allergy (Mild, Verified 05/17/24 16:12) SWELLING/VOMITING doxycycline Allergy (Unknown, Verified 05/17/24 16:12) vomiting lightheadness loss of vision Penicillin Allergy (Unknown, Uncoded 05/17/24 16:12) burned stomach with vomiting Post menopausal: Yes HPI Comments Details: Presenting for annual exam. No complaints. 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 Sexual orientation: Straight/Heterosexual Gender identity: Female Female Reproductive History Menstrual Age of Menarche: 14 Menopause type: natural Date of last pap smear: 02/05/21 Date of Mammogram: 04/29/23 Review of Systems Const All systems reviewed & are unremarkable except as noted in HPI and below Card Reports as per HPI Resp Reports as per HPI GI Reports as per HPI and Reports no additional complaints Reports as per HPI Physical Exam Vital Signs: Last Vital Signs BP 130/82 05/17/24 16:00 BMI result Body Mass Index 26.5 Const General: cooperative, healthy appearing and comfortable Chest Chest palpation & inspection: normal inspection of the chest and normal palpation of entire chest wall Breast/axilla inspection: normal inspection of the breasts and normal inspection of the axillae Breast/axilla palpation: normal palpation of the breasts, normal palpation of the axillae and no axillary lymphadenopathy Resp Effort & Inspection: normal respiratory effort Auscultation: clear to auscultation bilaterally Percussion: percussion normal Cardio Palpation: normal PMI Rate: regular rate Rhythm: regular rhythm Heart sounds: no murmurs and no rubs Peripheral pulses: Peripheral pulses 2+ throughout GI Inspection: Yes normal to inspection Palpation (GI): Soft to palpation, nontender, no guarding, not rigid and No hepatosplenomegaly present Percussion: Yes normal to percussion Auscultation: normal bowel sounds Rectal Exam - Female: deferred General: Yes bladder normal to palpation External Female Exam: No lesion Speculum Exam - Vagina: normal appearance of the vagina, normal palpation, normal vaginal discharge and not erythematous Speculum Exam - Cervix: normal appearance of the cervix and normal palpation Bimanual exam- vagina & uterus: normal bimanual exam, normal palpation, uterine size normal, bladder normal to palpation, consistency normal and normal palpation Bimanual Exam- Adnexa, other: normal adnexae, no masses and no tenderness Assessment & Plan Assessment & Plan (1) Well woman exam: Code(s): Z01.419 - Encounter for gynecological examination (general) (routine) without abnormal findings Category: Medical Plan: Co testing not indicated this year. Counseled the patient about the recommended dietary allowance of 1200 mg of Calcium & 600 IU of vitamin D. Mammogram ordered The patient was instructed to perform monthly self-breast exams and schedule annual exam in a year. All questions answered and the patient verbalized understanding. Orders: Orders MM tomosynthesis screening BI Today Z12.31 - Encounter for screening mammogram for malignant neoplasm of breast Coding Level of Care Code Est Pt Prev Care 40-64y(48248) Diagnoses Well woman exam Z01.419
[2024-05-17 16:00] VITALS: BP 130/82; BMI 26.5
== END 2024-05-17 16:25 | disposition home or self-care (01) ==
LOC: HO.HWS 15:23
PROVIDERS: PCP Internal Medicine Medical Oncology; Visit Provider Obstetrics & Gynecology
DX: Z01.419 Encounter for gynecological examination (general) (routine) without abnormal findings (principal)
CPT/HCPCS: 99396

== ENCOUNTER → 2024-05-17 15:23 | Outpatient (BNVA) | payer OTHER, SELFPAY | PROVIDERS: PCP Internal Medicine Medical Oncology; Visit Provider Obstetrics & Gynecology | DX: Z01.419 Encounter for gynecological examination (general) (routine) without abnormal findings (principal) | CPT/HCPCS: 99396 ==

== ENCOUNTER 2024-05-24 14:50 | Outpatient (AMB) | payer OTHER, SELFPAY ==
--- NOTE | 2024-05-24 15:23 | A.OFFVIS_ITS ---
Vital Signs 05/24/24 15:26 Height 5 ft 4 in Weight 155 lb BMI 26.6 Handedness Right Intake Visit Reasons: Constant pain on my right wrist Intake Note: Yasmin is a 58 year old female right hand dominant who presents today post operatively s/p Right CPR 03/23/24. Patient reports she is have ongoing sharp pain in right wrist. She expresses she can not move her wrist without feeling pain on the volar aspect of her wrist. She is having difficulty with daily activities such as carrying groceries or holding the mop due to this pain. She expresses an 8 out of 10 pain when she does grasping activities causing her to have to release whatever she grabs. She is also complaining of pain in her left hand too but is avoiding surgery because of the pain she is having in the right wrist from surgery. Allergies amoxicillin [Amoxicillin] Allergy (Mild, Verified 05/24/24 15:26) SWELLING/VOMITING, syncope, stomach burning clavulanic acid [From Augmentin] Allergy (Mild, Verified 05/24/24 15:26) SWELLING/VOMITING doxycycline Allergy (Unknown, Verified 05/24/24 15:26) vomiting lightheadness loss of vision Penicillin Allergy (Unknown, Uncoded 05/24/24 15:26) burned stomach with vomiting HPI HPI Constant pain on my right wrist: Details: Yasmin is a 58 year old right hand dominant woman who returns with complaints of right wrist pain & hypersensitivity. She is S/P right carpal tunnel release, DOS: 03/23/24 She complains of pain over the right carpal tunnel incision site as well as just proximal and distal to the incision. She notes that she has been afraid to move her wrist very much for do very much with it. Now it bothers her with daily activities. She denies any new injury. She has a hx of left lateral epicondylitis, and a hx of relief from injections, her most recent was done by Dr. Deluna in 11/19/23. She says her elbow pain has improved since her carpal tunnel release and time off of work. 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 She can make a fist and extend all her digits Her incision is well healed with no evidence of infection. She does have some mild hypersensitivity over the carpal tunnel incision as well as just distal and proximal to the incision. This hypersensitivity is also to even light touch. She also has some mild wrist stiffness, as it appears she has been perhaps 2 careful not to use her right hand. Wrist ROM: Full pronosupination Flexion ~45 degrees limited by pain Extension ~45 degrees limited by pain Psych Appearance: grossly normal Affect: normal affect Attitude: cooperative Assessment & Plan Assessment & Plan (1) Stiffness of right wrist joint: Code(s): M25.631 - Stiffness of right wrist, not elsewhere classified Category: Medical (2) Hypersensitivity: Code(s): T78.40XA - Allergy, unspecified, initial encounter Category: Medical (3) Right wrist pain: Code(s): M25.531 - Pain in right wrist Category: Medical (4) History of carpal tunnel surgery of right wrist: Code(s): Z98.890 - Other specified postprocedural states Category: Surgical (5) Left carpal tunnel syndrome: Code(s): G56.02 - Carpal tunnel syndrome, left upper limb Category: Medical Plan Assessment & Plan: 1. Right wrist stiffness & hypersensitivity S/P carpal tunnel release DOS: 03/23/24 I educated her about this condition We showed her some exercises to work on wrist range of motion and also to work on massaging and frequently touching her surgical site to help decrease hypersensitivity. I ordered OT hand therapy to work on desensitization, ROM, and normalizing function She will work on ROM exercises at-home, 20x daily She will follow up in 4-5 weeks to see how she is doing. She may cancel this if she is doing well 2. Right carpal tunnel syndrome, S/P release DOS: 03/23/24 Pre-operative symptoms intermittent, but daily, worse at night Now with normal sensation and excellent resolution of numbness and tingling 3. Left carpal tunnel syndrome, mild-moderate Symptoms intermittent, but daily, worse at night I educated her about this condition I discussed operative and non-operative treatment options The patient would like to wait until her right hand is fully healed before considering surgery on the left side. She denies Diabetes, blood thinners, asthma, heart, lung, kidney issues 4. Left lateral epicondylitis, S/P repeat injections Date of injections: 11/19/23, 04/21/23 No complaints today Scribed for Camila Perrin MD by Olegario Lopez, medical appliance maker, on 05/24/24 at 3:45 PM, EST. Orders: Orders OT Evaluation and Treatment Today M25.631 - Stiffness of right wrist, not elsewhere classified, T78.40XA - Allergy, unspecified, initial encounter, Z98.890 - Other specified postprocedural states Scribe Plan - Not visible on output: Scribed for Camila Perrin MD by Olegario Lopez medical appliance maker, on [ ] at [ ], EST. Coding Level of Care Code Est Pt Level 3 (50315) Diagnoses Stiffness of right wrist joint M25.631 Hypersensitivity T78.40XA Right wrist pain M25.531 History of carpal tunnel surgery of right wrist Z98.890 Left carpal tunnel syndrome G56.02
[2024-05-24 15:26] VITALS: BMI 26.6
== END 2024-05-24 15:43 | disposition home or self-care (01) ==
PROVIDERS: PCP Internal Medicine Medical Oncology; Visit Provider Orthopaedic Surgery
DX: M25.631 Stiffness of right wrist, not elsewhere classified (principal); M25.531 Pain in right wrist; T78.40XA Allergy, unspecified, initial encounter; G56.03 Carpal tunnel syndrome, bilateral upper limbs
CPT/HCPCS: 99213

== ENCOUNTER → 2024-05-24 14:50 | Outpatient (BNVA) | payer OTHER, SELFPAY | PROVIDERS: PCP Internal Medicine Medical Oncology; Visit Provider Orthopaedic Surgery | DX: M25.531 Pain in right wrist (principal); M25.631 Stiffness of right wrist, not elsewhere classified; G56.02 Carpal tunnel syndrome, left upper limb; T78.40XA Allergy, unspecified, initial encounter; Z98.890 Other specified postprocedural states | CPT/HCPCS: 99212 ==

== ENCOUNTER 2024-05-25 14:07 | Outpatient (REF) | payer OTHER, SELFPAY ==
--- NOTE | ~2024-05-25 | US_ITS ---
EXAMINATION: US RETROPERITONEAL LIMITED (RENAL ONLY) CLINICAL INFORMATION: Calculus of kidney. COMPARISON: Renal ultrasound 11/02/2023 and 05/11/2023. CT abdomen and pelvis 04/03/2021. TECHNIQUE: Real-time imaging of the kidneys. FINDINGS: RIGHT KIDNEY: 10.7 x 5.0 x 5.7 cm (SAG x AP x TRV). The kidney is normal in size, contour, and echogenicity. Renal cortical thickness is normal. No calculi or focal parenchymal lesions. No hydronephrosis. LEFT KIDNEY: 12.2 x 4.8 x 5.7 cm (SAG x AP x TRV). The kidney is normal in size, contour, and echogenicity. Renal cortical thickness is normal. No focal parenchymal lesions or hydronephrosis. 0.2 x 0.2 x 0.2 cm mid to lower pole and 0.3 x 0.3 x 0.4 cm lower pole nonobstructing calculi are seen. US/US renal BI IMPRESSION: 1. Normal appearance of the right kidney. 2. 2 small nonobstructing calculi within the left kidney.
== END 2024-05-25 14:08 | disposition home or self-care (01) ==
LOC: HO.US 14:07
PROVIDERS: Visit Provider Nurse Practitioner Family
DX: N20.0 Calculus of kidney (principal)
CPT/HCPCS: 76775

== ENCOUNTER 2024-05-30 15:09 | Outpatient (REF) | payer OTHER, SELFPAY ==
--- NOTE | ~2024-05-30 | MM_ITS ---
EXAMINATION: MM SCREENING DIGITAL BREAST TOMOSYNTHESIS, BILATERAL CLINICAL INFORMATION: Screening. Asymptomatic. COMPARISON: Mammography: This study is compared with prior exams dating back to 2018. TECHNIQUE: Digital breast tomosynthesis is performed in both the craniocaudal and mediolateral oblique views along with computer-aided detection (CAD). Synthesized 2D images are generated from the tomosynthesis. FINDINGS: There are scattered areas of fibroglandular density (ACR BI-RADS breast composition Category b). There are no significant masses, abnormal calcifications, or other abnormalities. Scattered, unchanged, benign calcifications are present in each breast. MM/MM tomosynthesis screening BI IMPRESSION: No mammographic evidence of malignancy. ASSESSMENT: BI-RADS BI-RADS 2 - Benign Findings RECOMMENDATION: Routine annual mammography screening. 1 year F/U This examination should not preclude the clinical evaluation of a suspicious palpable abnormality. This patient's information was entered into a reminder system with a target due date for their next mammogram.
== END 2024-05-30 15:10 | disposition home or self-care (01) ==
LOC: HO.MAMMO 15:09
PROVIDERS: PCP Internal Medicine Medical Oncology; Visit Provider Obstetrics & Gynecology
DX: Z12.31 Encounter for screening mammogram for malignant neoplasm of breast (principal)
CPT/HCPCS: 77063; 77067

== ENCOUNTER → 2024-05-30 15:30 | Outpatient (BNV) | payer OTHER, SELFPAY | PROVIDERS: PCP Internal Medicine Medical Oncology; Visit Provider Radiology Diagnostic Radiology | DX: Z12.31 Encounter for screening mammogram for malignant neoplasm of breast (principal) | CPT/HCPCS: 77063; 77067 ==

== ENCOUNTER 2024-07-04 14:49 | Outpatient (AMB) | payer OTHER, SELFPAY ==
--- NOTE | 2024-07-04 14:53 | MHC.OFFVIS ---
Vital Signs 07/04/24 14:55 Height 5 ft 4 in Intake Visit Reasons: OV-Constant pain on my right wrist-follow up Intake Note: Yasmin is a 58 year old female right hand dominant who presents today post operatively s/p Right CTR 03/23/24. 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 She is working with therapy which is very helpful. She takes tylenol for her pain which helps as well as massage. Allergies amoxicillin [Amoxicillin] Allergy (Mild, Verified 05/24/24 15:26) SWELLING/VOMITING, syncope, stomach burning clavulanic acid [From Augmentin] Allergy (Mild, Verified 05/24/24 15:26) SWELLING/VOMITING doxycycline Allergy (Unknown, Verified 05/24/24 15:26) vomiting lightheadness loss of vision Penicillin Allergy (Unknown, Uncoded 05/24/24 15:26) burned stomach with vomiting HPI HPI OV-Constant pain on my right wrist-follow up: Details: Patient is a 58-year-old female presents for evaluation of right wrist pain, status post right carpal tunnel release, DOS 03/23/[address] Perrin. Today, the patient reports that she is feeling much better from last visit, but reports that she does still experience some pain both radial and ulnar to the incision site on the volar wrist. Patient reports that massage has helped to alleviate most of her pain. Patient says this has been working with occupational hand therapy, which she feels has helped her tremendously. Patient also reports normal sensation in the median nerve distribution of the right hand at this time. No other acute complaints or concerns. 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 Neuro: Median, ulnar, radial nerves motor and sensory intact and sensation is normal to the tips of all digits. Vascular: Cap refill brisk Pain: Mild Tenderness to palpation of the hook of the hamate and the pisiform of the right hand, improving from last visit No other tenderness to palpation noted ROM: Range of motion of the right hand full and intact Skin: Well-healed incision site on the volar aspect of the right wrist noted No lacerations, abrasions, open areas noted General: No ecchymosis, erythema, or evidence of infection. Psych: Appears grossly normal Affect normal Attitude cooperative Assessment & Plan Assessment & Plan (1) History of carpal tunnel surgery of right wrist: Code(s): Z98.890 - Other specified postprocedural states Category: Surgical (2) Right wrist pain: Code(s): M25.531 - Pain in right wrist Category: Medical Plan 1. Pain of right wrist status post right carpal tunnel release DOS 03/23/2024 Patient is educated that her pain is likely pillar pain, it condition commonly associated with carpal tunnel release involving soreness of the pisiform and the hook of the hamate secondary to release of the transverse carpal ligament Patient reports that massage and occupational therapy have helped her pain tremendously, and then she no longer requires any pain medication Patient should continue with occupational therapy for pain relief as well as improving range of motion and strength Patient is amenable to this plan Patient will follow-up as needed with any acute concerns 2. Carpal tunnel syndrome, left 3. Cubital tunnel syndrome, left Symptoms intermittent, not daily, worse at night Patient states that she would like to wait until she feels her right hand is fully healed to pursue operative treatment of carpal and cubital tunnel syndromes in the left Patient is advised that she should call us for discussion of surgery when her symptoms become intermittent, but daily Patient is amenable to this plan Patient will follow-up p.r.n. when she is ready to discuss operative treatment in the left side Coding Level of Care Code Est Pt Level 3 (31176) Diagnoses History of carpal tunnel surgery of right wrist Z98.890 Right wrist pain M25.537
== END 2024-07-04 15:09 | disposition home or self-care (01) ==
PROVIDERS: PCP Internal Medicine Medical Oncology
DX: G56.01 Carpal tunnel syndrome, right upper limb (principal); M25.531 Pain in right wrist
CPT/HCPCS: 99213

== ENCOUNTER → 2024-07-04 14:49 | Outpatient (BNVA) | payer OTHER, SELFPAY | PROVIDERS: PCP Internal Medicine Medical Oncology | DX: M25.531 Pain in right wrist (principal); Z98.890 Other specified postprocedural states | CPT/HCPCS: 99212 ==

== ENCOUNTER 2024-07-20 14:30 | Outpatient (RCR) | payer OTHER, SELFPAY ==
--- NOTE | 2024-06-15 12:41 | MHC.OT.OLE ---
[address] [phone] F: [phone] Occupational Therapy Lymphedema Evaluation Patient Name: Yasmin Acosta Diagnosis: (R)CTR Date of Onset: Attending Provider: Camila Perrin Prescribed Treatment: Follow Up Appointment: History of Current Condition: Patient is a 58 year old female s/p (R)CTR on 03/23 who reports wrist stiffness and difficulty with movement. 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 She reports numbness and tingling when performing heavy house hold tasks. Significant Medical History: Precautions/Contraindications: Patient Goals: Decrease the pain, increase wrist ROM Hand Dominance: Right Observations: Outcome Measures: Prior Level of Function and Occupation Living Situation: Family and/or Social Report: [facility] Support: DEV OPS ENGINEER worker (I)ADLs/IADLS Employment Status: Lives with an daughter 2nd floor apartment Leisure Activities/Hobbies: Current Level of Function and Occupation Self-Care and Home Care: min(A) ADLs/IADLs Employment Status: takes a Trazodone for sleeping Leisure Activites/Hobbies: Driving: Sleeping: Vision: Balance: Pain Assessment Pain Score: 6 Pain Scale Used: Numeric (0 - 10) Pain Location and Description: 4/10 at rest 6/10 during movement Aggravating Factors: Alleviating Factors: Skin and Soft Tissue Assessment Skin and Soft Tissue: Comments: Normal Nerve assessment Ulnar Nerve: Median Nerve: Right Impaired Radial Nerve: Comments: tingling with overuse, hypersensitivity to scar Sensory Assessment Temperature: Light Touch: Proprioception: Vibration: Comments: Edema Assessment Upper Extremity: WNL Lower Extremity: Comments: Dexterity Assessment Dexterity: Left Impaired Comments: Can perform finger opposition Functional Dexterity Test= WFL Special Tests Comments: AROM (PROM) Strength Lower Extremity Hip Flexion: Knee Flexion: Knee Extension: Ankle Dorsiflexion: Ankle Plantarflexion: Ankle Eversion: Ankle Inversion: Comments: Cervical Flexion: Extension: Lateral Flexion: Rotation: Comments: Shoulder Flexion: Extension: Abduction: Internal Rotation: External Rotation: Comments: Flexion: Extension: Abduction: Internal Rotation: External Rotation: Comments: Elbow Flexion: Extension: Forearm Pronation: Forearm Supination: Comments: Flexion: Extension: Forearm Pronation: Forearm Supination: Comments: Wrist Flexion: 35/63 Extension: 35/65 Ulnar Deviation: 20 Radial Deviation: 20 Comments: Flexion: Extension: Ulnar Deviation: Radial Deviation: Comments: Thumb Thumb CMC Flexion: Thumb MCP Flexion: Thumb IP Flexion: Radial Abduction: Palmar Abduction: Opposition: Comments: WFL Digits Index MCP: PIP: DIP: Long MCP: PIP: DIP: Ring MCP: PIP: DIP: Small MCP: PIP: DIP: Comments: WFL Gross Grasp: (R)24lbs., (L)53.5lbs. Lateral Pinch: 5 Two-Point Pinch: 3 Three-Jaw Brain: 6.5 Comments: Patient Education Primary Language: Kiswahili Time Cycle Operator Required: No Current Knowledge: Teaching Method: Education Needs Identified on Evaluation: How did patient/family demonstrate learning? Barriers to Learning: Readiness for Learning: Who was educated? Comments: Plan of Care Assessment: STG Duration: 2 weeks Short Term Goals: Patient will report decreased pain in (R) wrist from 6/10 to 4/10 pain during self care tasks Patient will increase active wrist flexion to 50* Patient will increase active wrist extension to 50* Patient will be (I) with scar massage Patient will increase (R)proof reader strength to 30lbs. for improved performance during self care tasks LTG Duration: 4 weeks Correction Goals: Patient will report decreased pain in (R) wrist from 0/10 pain during self care tasks Patient will increase active wrist flexion to 65* Patient will increase active wrist extension to 65* Patient will increase (R)proof reader strength to 40lbs. for improved performance during self care tasks Patient will be (I) with HEP Frequency and Duration: The patient will be seen 2x a week for 4 weeks Treatment Plan: Therapeutic Exercise Therapeutic Activity Home Exercise Program Patient Education Desensitization/Sensory Re-ed ADL Training Ultrasound Paraffin Fluidotherapy MHP Cold Packs Joint Mobilization Soft Tissue Mobilization Kinesiotaping Treatment Plan Comments: Continue with current POC 2x a week for 4 weeks Lymphedema Treatment Plan: Lymphedema Treatment Plan Comments: Electronically Signed By: PORTER Pyle/LINDSEY Wheeler Reviewed/agree with student documentation: Therapist: Please sign and return to therapist, thank you for your referral.
--- NOTE | 2024-09-21 09:53 | MHC.OT.DC ---
[address] [phone] F: [phone] Occupational Therapy Discharge Note Patient Name: Yasmin Acosta Provider: Camila Perrin Diagnosis: (R)CTR Date of Surgery: 03/23/24 Date of Evaluation: 06/13/24 Date of Discharge: Treatments to Date: 6 Cancellations to Date: No Shows to Date: Discharge Status: Visit Non-compliance Discharge Summary: Patient is discharged Electronically Signed By: Cindy Mclaughlin OTR/L, CLT Reviewed/agree with student documentation: Therapist: Please Sign and return to therapist, thank you for your referral.
== END 2024-09-21 09:54 | disposition home or self-care (01) ==
LOC: HO.OT 14:30
PROVIDERS: PCP Internal Medicine Medical Oncology; Visit Provider Orthopaedic Surgery
DX: M25.631 Stiffness of right wrist, not elsewhere classified (principal); T78.40XD Allergy, unspecified, subsequent encounter; Z98.890 Other specified postprocedural states
CPT/HCPCS: 97035; 97110; 97112; 97140; 97165

== ENCOUNTER 2024-07-27 14:33 | Outpatient (AMB) | payer OTHER, SELFPAY ==
--- NOTE | 2024-07-27 14:35 | A.OFFVIS_ITS ---
Intake Visit Reasons: 6m/US(set) Intake Note: Patient is present for follow up ultrasound/recurrent uti/kidney stone Imaging Completed: 05/25/24 Urology Medications: Vitamin B6 Blood Thinner: none PVR:0ml's Out Of School Hours Care Worker Required: No Accompanied by: Self / Same As Patient Allergies amoxicillin [Amoxicillin] Allergy (Mild, Verified 07/27/24 15:06) SWELLING/VOMITING, syncope, stomach burning clavulanic acid [From Augmentin] Allergy (Mild, Verified 07/27/24 15:06) SWELLING/VOMITING doxycycline Allergy (Unknown, Verified 07/27/24 15:06) vomiting lightheadness loss of vision Penicillin Allergy (Unknown, Uncoded 07/27/24 15:06) burned stomach with vomiting Medication List - Last Reconciled 07/27/24 by HUNG Plunkett-JAZ cholecalciferol (vitamin D3) 50 mcg PO DAILY cyclobenzaprine 10 mg PO TID ibuprofen 600 mg PO Q8H PRN meloxicam 15 mg PO DAILY polyvinyl alcohol 1.4% 1 drp ophthalmic (eye) TID pyridoxine (vitamin B6) 100 mg PO DAILY 90 days trazodone 50 mg PO BEDTIME HPI Comments Details: Yasmin is a very pleasant 58 year old female patient of Dr. Hallman. She has a past medical history of carpal tunnel syndrome, obstructive sleep apnea, overactive bladder, and nephrolithiasis. She presents to the office today for a follow-up of her nephrolithiasis and overactive bladder. In discussion with the patient today she reports to be doing and feeling well. She reports noting over the last 3-4 days to be having right-sided rib pain that radiates to her hip and right leg. She otherwise denies any bothersome urinary issues or concerns. Recent renal imaging results reviewed with the patient today. Right kidney with no calculi, lesions, and or hydronephrosis. Left kidney with no lesions or hydronephrosis. 2 mm and 4 mm lower pole nonobstructing calculi are seen. When asked she denies urinary urgency, urinary frequency, incontinence, nocturia, hematuria, dysuria, foul smelling urine, changes to urinary stream, flank pain, fever, and or chills. She is happy with her current voiding parameters. In office urinalysis results reviewed with the patient today. PVR 0 mL. She reports compliance with vitamin B6 daily and is drinking plenty of water daily. She otherwise offers no issues or concerns at this time. 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 Sexual orientation: Straight/Heterosexual Gender identity: Female Female Reproductive History Menstrual Age of Menarche: 14 Review of Systems Eyes Reports no additional complaints ENT Reports no additional complaints Card Reports no additional complaints Resp Reports as per HPI GI Reports no additional complaints Reports as per HPI Musc Reports as per HPI Neuro Reports no additional complaints Psych Reports no additional complaints Endo Reports no additional complaints Elliot/Lymph Reports no additional complaints Aller/Immun Reports no additional complaints Physical Exam Const General: cooperative, healthy appearing, comfortable, no acute distress, well developed, alert and awake Orientation/consciousness: patient oriented x3 Limitations: no limitations HEENT Head: Yes normal to inspection, Yes normocephalic and Yes atraumatic Ears: hearing grossly normal bilaterally Eyes General: appearance normal, both eyes and all related structures Neck Neck: Yes normal visual inspection and Yes trachea midline Chest Chest palpation & inspection: normal inspection of the chest Resp Effort & Inspection: normal respiratory effort and able to speak in complete sentences Cardio Rate: regular rate GI Inspection: Yes normal to inspection General: Yes no CVA tenderness Back/Spine/Pelvis Back: no CVA tenderness Skin General skin exam: no rashes or lesions noted Neuro General: patient oriented x3 Extrem General: Yes normal to inspection Psych Appearance: grossly normal and well kempt Mental Status: mental status grossly normal Speech and movement: Normal speech and movement present and Clear speech present Affect: normal affect Attitude: cooperative Thought process: Normal thought process present Thought content: Normal thought content present Insight: Fair insight present (Psych) Judgement: Fair judgement present (Psych) Office Procedures Post Void Residual Post Residual Void Post Void Residual (PVR): 0 [id number]-[id number] Void Residual by ultrasound Results AMB Urinalysis, Automated UA Leukoctes 0 Beverly/uL Last Edit by [employer] [place] on 07/27/24 14:53 UA Nitrite Last Edit by [employer] on 07/27/24 14:53 UA Urobilinogen 0.2 mg/dL Last Edit by [employer] on 07/27/24 14:53 UA Protein 15 mg/dL Last Edit by [employer] on 07/27/24 14:53 UA pH 06.0 Last Edit by [employer] on 07/27/24 14:53 UA Blood 0 Jean-Paul/uL Last Edit by [employer] on 07/27/24 14:53 UA Specific [place] 1.030 Last Edit by [employer] on 07/27/24 14:53 UA Ketone Negative Last Edit by [employer] on 07/27/24 14:53 UA Bilirubin 0 mg/dL Last Edit by [employer] on 07/27/24 14:53 UA Glucose 0 mg/dL Last Edit by [employer] on 07/27/24 14:53 Results Reviewed Results Reviewed: Laboratory Last Values Urine pH (Auto) 06.0 07/27/24 14:43 Specific [place] (Auto) 1.030 07/27/24 14:43 Urine Protein (Auto) 15 mg/dL 07/27/24 14:43 Glucose (UA)(Auto) 0 mg/dL 07/27/24 14:43 Urine Ketones (Auto) Negative 07/27/24 14:43 Urine Blood (Auto) 0 Jean-Paul/uL 07/27/24 14:43 Urine Bilirubin (Auto) 0 mg/dL 07/27/24 14:43 Urine Urobilinogen (Auto) 0.2 mg/dL 07/27/24 14:43 Leukocyte Esterase (Auto) 0 Beverly/uL 07/27/24 14:43 Date of Service: 05/25/24 EXAMINATION: US RETROPERITONEAL LIMITED (RENAL ONLY) FINDINGS: RIGHT KIDNEY: 10.7 x 5.0 x 5.7 cm (SAG x AP x TRV). The kidney is normal in size, contour, and echogenicity. Renal cortical thickness is normal. No calculi or focal parenchymal lesions. No hydronephrosis. LEFT KIDNEY: 12.2 x 4.8 x 5.7 cm (SAG x AP x TRV). The kidney is normal in size, contour, and echogenicity. Renal cortical thickness is normal. No focal parenchymal lesions or hydronephrosis. 0.2 x 0.2 x 0.2 cm mid to lower pole and 0.3 x 0.3 x 0.4 cm lower pole nonobstructing calculi are seen. IMPRESSION: 1. Normal appearance of the right kidney. 2. 2 small nonobstructing calculi within the left kidney. Assessment & Plan Assessment & Plan (1) Renal calculi: Code(s): N20.0 - Calculus of kidney Category: Medical Plan In office urinalysis results reviewed with the patient today; as noted above. PVR 0 mL. Patient currently denies any bothersome urinary issues. She reports be happy with current voiding parameters. Recent renal imaging results reviewed with the patient today; as noted above. Discussed, educated, and stressed the importance of adequate hydration relation to nephrolithiasis as well as overall health and well-being. Continue adding 1 oz of lemon juice to water daily. Continue vitamin B6. Will obtain renal ultrasound in 6 months. Follow-up in 6 months with imaging to be completed prior; or sooner with any issues, concerns, and or questions. Orders: Orders AMB Post Void Residual by ultrasound Today N39.0 - Urinary tract infection, site not specified US renal BI 6 Months N20.0 - Calculus of kidney AMB Urinalysis Automated Today Z13.9 - Encounter for screening, unspecified Patient Instructions: The patient had an opportunity to ask questions regarding the treatment plan. All questions were answered. Physical exam, labs, and imaging were discussed and reviewed in detail. As well as risks, benefits, and discussion of treatment choices. No major barriers to understanding were identified. The patient expressed understanding and agreement with the above treatment plan. The patient was made aware they should contact our office by phone for worsening of their current condition, the appearance of new symptoms, or with any questions or concerns. Compliance is encouraged with any medications and follow up testing that is ordered. It is a privilege to be allowed the opportunity to participate in? your urological care.? Again, if you have any questions or concerns If you have any questions or concerns please do not hesitate to contact me. The office is [phone]. This note is constructed using voice recognition software. While every effort has been made to ensure accuracy butcher errors may have been included. Yours sincerely, HUNG Plunkett-JAZ Coding Level of Care Code Est Pt Level 3 (81842) Diagnoses Renal calculi N20.0 CPT Codes Post Residual Void - PVR CPT Code: 76814-Jtzy Void Residual by ultrasound ([id number])
== END 2024-07-27 15:06 | disposition home or self-care (01) ==
PROVIDERS: PCP Internal Medicine Medical Oncology; Visit Provider Nurse Practitioner Family
DX: Z13.9 Encounter for screening, unspecified (principal); N20.0 Calculus of kidney
CPT/HCPCS: 99213

== ENCOUNTER → 2024-07-27 14:33 | Outpatient (BNVA) | payer OTHER, SELFPAY | PROVIDERS: PCP Internal Medicine Medical Oncology; Visit Provider Nurse Practitioner Family | DX: N20.0 Calculus of kidney (principal); N32.81 Overactive bladder | CPT/HCPCS: 51798; 81003; 99212 ==

== ENCOUNTER 2024-08-13 11:04 | Emergency (ER) | payer OTHER, SELFPAY ==
--- NOTE | ~2024-08-13 | XR_ITS ---
EXAMINATION: XR CHEST CLINICAL INFORMATION: Shortness of breath COMPARISON: Chest radiograph from 05/06/2023 TECHNIQUE: 2 views of the chest were obtained. FINDINGS: Redemonstrated radiopacities involving the right upper lung field and right medial lung base. No pneumothorax. Trachea is midline. Cardiac mediastinal silhouette stable. No large pleural effusion. Osseous structures are intact. Soft tissues are unremarkable. XR/XR chest 2V IMPRESSION: Redemonstrated radiopacities involving the right upper lung field and right medial lung base. Electronically signed by: Nj Delgadillo MD 08/13/2024 12:29 PM EDT
--- NOTE | 2024-08-13 11:06 | ECG_ITS ---
Test Reason : CHEST PAIN Blood Pressure : / mmHG Vent. Rate : 069 BPM Atrial Rate : 069 BPM P-R Int : 150 ms QRS Dur : 086 ms QT Int : 404 ms P-R-T Axes : 051 012 012 degrees QTc Int : 432 ms Sinus rhythm with Premature atrial complexes in a pattern of bigeminy Minimal voltage criteria for LVH, may be normal variant ( Nael product ) Borderline ECG When compared with ECG of 06-MAY-2023 21:34, Premature atrial complexes are now Present Referred By: Generic ED Physician Electronically Signed By:DALTON SEGURA
[2024-08-13 11:30] VITALS: BP 105/69; PULSE 70; RESP 16; TEMP 37.3; O2SAT 99; BMI 24.4
--- NOTE | 2024-08-13 11:30 | ED.CHESTPAIN ---
HPI - Chest Pain General Chief Complaint: Upper Respiratory Symptoms Stated Complaint: CP Time Seen by Provider: 08/13/24 13:37 Source: patient Mode of arrival: ambulatory Limitations: no limitations History of Present Illness ED Provider: Gildardo Damico pa-C HPI narrative: 58 year old female with lateral epidcondylitits, obstructive sleep apnea, asthma, Covid-19 ( last year) presents to the ED for URI symptoms. Patient states 4 days of coughing, chest congestion, and shortness of breath. Patient denies any calf pain, pleurisy, coughing up blood, recent long travel, recent surgery, or history of blood clots. Related Data Home Medications ?Medication ?Instructions ?Recorded ?Confirmed cholecalciferol (vitamin D3) 50 50 mcg PO DAILY 02/04/21 11/19/23 mcg (2,000 unit) capsule polyvinyl alcohol 1.4 % eye drops 1 drp ophthalmic (eye) TID 04/23/21 11/19/23 trazodone 50 mg tablet 50 mg PO BEDTIME 03/07/24 meloxicam 15 mg tablet 15 mg PO DAILY 05/24/24 cyclobenzaprine 10 mg tablet 10 mg PO TID 07/27/24 Previous Rx's ?Medication ?Instructions ?Recorded ibuprofen 600 mg tablet 600 mg PO Q8H PRN pain #10 tabs 02/21/22 pyridoxine (vitamin B6) 100 mg 100 mg PO DAILY 90 days #90 tabs 03/14/24 tablet prednisone 20 mg tablet 40 mg (2 x 20 mg) PO DAILY 5 days 08/13/24 #10 tabs Allergies Allergy/AdvReac Type Severity Reaction Status Date / Time amoxicillin [Amoxicillin] Allergy Mild SWELLING/VOMITING, Verified 08/13/24 11:31 syncope, stomach burning clavulanic acid Allergy Mild SWELLING/VO Verified 08/13/24 11:31 [From Augmentin] MITING doxycycline Allergy Unknown vomiting Verified 08/13/24 11:31 lightheadness loss of vision Penicillin Allergy Unknown burned Uncoded 07/27/24 15:06 stomach with vomiting Review of Systems Review of Systems: URI Symptoms Yes all other systems are reviewed and are negative PMFSH Past Medical History Medical History Carpal tunnel syndrome of right wrist SHASHANK (obstructive sleep apnea) OAB (overactive bladder) Renal calculi Renal colic Hx of cyst of breast Surgical History H/O foot surgery Family History Family History Paternal Uncle Prostate [place] Social History Social History Alcohol intake: never Patient Tobacco Use Status: Former Tobacco user Second Hand Smoke Exposure: No Advance Directives: No Advance Directives Information Provided: No Do you have a plan to hurt others: No Plan Current occupational status: employed 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 Sexual orientation: Straight/Heterosexual Gender identity: Female Physical Exam Vital Signs: Vital Signs: Last Vital Signs Temp 98.2 F 08/13/24 14:36 Pulse 88 08/13/24 14:36 Resp 20 08/13/24 14:36 BP 134/70 08/13/24 14:36 Pulse Ox 97 08/13/24 14:36 O2 Del Method Room Air 08/13/24 14:36 BMI result Body Mass Index 24.4 Const: General: cooperative, healthy appearing, comfortable, no acute distress, well developed, alert, awake and Physically active Orientation/consciousness: patient oriented x3 HEENT: Head: Yes normal to inspection, Yes No palpable skull fracture present, Yes normocephalic, Yes atraumatic and No abrasion Eyes: General: appearance normal, both eyes and all related structures Neck: Neck: Yes normal visual inspection, Yes full ROM, Yes no lymphadenopathy, Yes no meningeal signs, Yes trachea midline, Yes supple, No anterior neck swelling and No tender Chest: Chest palpation & inspection: normal inspection of the chest and normal palpation of entire chest wall Resp: Effort & Inspection: normal respiratory effort and able to speak in complete sentences Auscultation: clear to auscultation bilaterally Cardio: Jugular venous distension: no JVD Heart sounds: S1 normal heart sound present and S2 normal heart sound present GI: Inspection: Yes normal to inspection Palpation (GI): Soft to palpation, not firm, nontender, no guarding and not rigid : General: No CVA tenderness and Yes no CVA tenderness Back/Spine/Pelvis: Back: no CVA tenderness, No CVA tenderness and No back tenderness Skin: General skin exam: no rashes or lesions noted, elasticity normal and turgor normal Neuro: General: patient oriented x3, gait normal, tone normal, moves all extremities, Normal light touch and pain sensation, no meningeal signs, no focal motor deficits, CN's II-XI intact bilaterally and normal sensation to monofilament Extrem: Other: bilateral lower extremities negaitve for sweling, pitting edema, or calf tendrness. General: Yes normal to inspection, Yes full ROM and Yes capillary refill normal Psych: Appearance: grossly normal, well kempt and not disheveled Course Course Course Narrative: This is an RME performed by Dianne Boone CLOTH SHADER: Additional HPI, ROS, PE not included below will be deferred to primary provider. Patient is a 58-year-old female who presents emergency department for evaluation of 5 days with shortness of breath, used a friends nebulizer machine twice yesterday without much improvement. Having congestion. Diffuse anterior chest and back pain associated with cough. Reports tactile fever. She states that 2 days prior to her symptom onset she had brief contact with her sister who had tested positive for COVID-19. Patient did 2 home tests for COVID-19 which have been negative. Medical Decision Making Medical Decision Making [facility] Narrative: 58 yold female presents to ED for URI symptoms. Patient positive for COVID. X-ray shows opacity due to COVID. Patient's vital signs stable. Not suspecting PE or myocarditis. Not suspecting CHF. Not suspecting bacterial pneumonia. Patient not in any distress. Differential Diagnosis Differential Diagnoses: The differential diagnosis associated with the presentation includes (Covid, Influenza, strep, pneumonia) Admission/Observation Consideration of admission/observation: Escalation of care including admission/observation considered Lab Data [facility] Lab Attestation statement: I reviewed the patient's lab results. Labs: Lab Results 08/13/24 Range/Units 11:46 Influenza Type A (PCR) NEGATIVE (Negative) Influenza Type B (PCR) NEGATIVE (Negative) RSV RNA Qual (PCR) NEGATIVE (Negative) SARS-CoV-2 RNA (RT-PCR) POSITIVE A (Negative) Independent Interpretation I performed an independent interpretation of an: Plain X-Ray Radiology Impression Discussion of test interpretation with radiology: I have reviewed the radiologist's reading. Independent Historian Clinical information obtained from an independent historian. History obtained from or confirmed by: Other (patient) External Record Review External record reviewed: Other (Prior visits) Discharge Plan Discharge Clinical Impression: COVID-19 Patient Disposition: Home, Self-Care Instructions: COVID-19 (Coronavirus Disease 2019) (ED) Additional Instructions: Return to the ED for any chest pain, shortness of breath, coughing up blood, leg swelling, calf pain, chest pain inspiration, or any other concerning symptoms. Recommend follow up with primary care provider. Use your nebulizer and albuterol inhaler your have at home as needed Prescriptions: New prednisone 20 mg tablet 40 mg PO DAILY 5 Days Qty: 10 0RF No Action pyridoxine (vitamin B6) 100 mg tablet 100 mg PO DAILY 90 Days Qty: 90 1RF ibuprofen 600 mg tablet 600 mg PO Q8H PRN (Reason: pain) Qty: 10 0RF polyvinyl alcohol 1.4 % drops 1 drp ophthalmic (eye) TID cholecalciferol (vitamin D3) 50 mcg (2,000 unit) capsule 50 mcg PO DAILY cyclobenzaprine 10 mg tablet 10 mg PO TID meloxicam 15 mg tablet 15 mg PO DAILY trazodone 50 mg tablet 50 mg PO BEDTIME Stand Alone Forms: Work/School Release Interventions: ED Discharge Assessment Last Done: 08/13/24 14:36 Discharge Date/Time: 08/13/24 14:37 Print Language: Spanish
[2024-08-13 12:28] LABS: Influenza A PCR NEGATIVE (Negative); Influenza B PCR NEGATIVE (Negative); Resp Syncy Virus RNA Qual PCR NEGATIVE (Negative); SARS COV2 PCR INHOUSE POSITIVE (Negative)
[2024-08-13 14:36] VITALS: BP 134/70; PULSE 88; RESP 20; TEMP 36.8; O2SAT 97
== END 2024-08-13 14:37 | disposition home or self-care (01) ==
PROVIDERS: Nurse Practitioner Family; Emergency Provider Emergency Medicine; PCP Internal Medicine Medical Oncology
DX: U07.1 COVID-19 (principal); R05.9 Cough, unspecified; R09.89 Other specified symptoms and signs involving the circulatory and respiratory systems; R06.02 Shortness of breath; G47.33 Obstructive sleep apnea (adult) (pediatric); R07.89 Other chest pain; Z79.899 Other long term (current) drug therapy
CPT/HCPCS: 0241U; 71046; 93005; 99282; 99283

== ENCOUNTER 2024-09-07 14:03 | Outpatient (REF) | payer OTHER, SELFPAY ==
--- NOTE | ~2024-09-07 | XR_ITS ---
EXAMINATION: XR CHEST CLINICAL INFORMATION: Follow-up of lung opacities seen on the recent chest x-ray. COMPARISON: Chest x-rays of 08/13/2024, 05/06/2023, 12/19/2020 05/09/2019. TECHNIQUE: 2 views of the chest were obtained. FINDINGS: Right lateral apical faint opacity and appearance of the right medial lung bases do not appear to be significantly changed compared to multiple previous chest x-rays including chest x-ray of 05/09/2019. Right apical finding most probably represent pleural thickening with the parenchymal scarring. Stable left apical pleural thickening. No new focal airspace opacities, changes of congestion, pleural effusions or pneumothorax are seen. Cardiomediastinal silhouette is stable and normal. No abnormal tracheal deviation. Regional skeleton is intact. Visualized upper abdomen is unremarkable. XR/XR chest 2V IMPRESSION: Overall appearance of the lungs does not appear to be significantly changed compared to multiple previous x-rays including x-ray of 05/09/2019. No new airspace opacities are noted. No acute pulmonary process. Electronically signed by: Bharti Montes De Oca MD 09/07/2024 04:13 PM EDT
[2024-09-07 14:20] LABS: MANUAL DIFF FLAG NO
[2024-09-07 14:44] LABS: Basophils Absolute Auto 0.1 X10*3/uL (0.0-0.2); Basophils Percent Auto 0.9 % (0-2); Eosinophils Absolute Auto 0.2 X10*3/uL (0.0-0.4); Eosinophils Percent Auto 2.7 % (0-4); Hematocrit 36.7 % (37.0-47.0); Hemoglobin 12.4 g/dl (12.0-16.0); Imm Gran Abs Auto 0.01 X10*3/uL (0.00-0.03); Imm Gran Pct Auto 0.2 % (0.0-0.4); Lymphocytes Absolute Auto 2.7 X10*3/uL (1.2-4.9); Mean Corpuscular HGB Conc 33.8 g/dl (31.0-35.0); Mean Corpuscular Hemoglobin 28.9 pg (27.0-33.0); Mean Corpuscular Volume 85.5 fL (80.0-98.0); Mean Platelet Volume 11.6 fL (9.4-12.3); Monocytes Absolute Auto 0.5 X10*3/uL (0.1-1.2); Monocytes Percent Auto 7.1 % (2-11); Neutrophils Percent Auto 47.1 % (45-73); Platelet Count 168 X10*3/uL (160-400); Red Blood Count 4.29 X10*6/uL (4.20-5.50); Red Cell Distribution Width 13.8 % (11.0-16.0); White Blood Count 6.3 X10*3/uL (4.8-10.8)
[2024-09-07 15:16] LABS: Alanine Aminotransferase 31 U/L (0-31); Albumin Level 4.4 g/dL (3.5-5.0); Alkaline Phosphatase 92 U/L (39-117); Anion Gap 10 (12-20); Aspartate Amino Transferase 27 U/L (5-31); Bilirubin Total 0.5 mg/dL (0.0-1.0); Blood Urea Nitrogen 10 mg/dL (9-16); Calcium 9.4 mg/dL (8.4-10.2); Carbon Dioxide 29 mmol/L (22-29); Chloride 107 mmol/L (96-108); Estimated Glomerular Filt Rate > 60; Glucose Random 93 mg/dL (60-115); Lactate Dehydrogenase 229 U/L (122-220); Sodium 142 mmol/L (135-145); Total Protein 7.2 g/dL (6.5-8.0)
== END 2024-09-07 14:04 | disposition home or self-care (01) ==
LOC: HO.LAB 14:03
PROVIDERS: PCP Internal Medicine Medical Oncology; Visit Provider Internal Medicine Medical Oncology
DX: E66.3 Overweight (principal); R42 Dizziness and giddiness; U09.9 Post COVID-19 condition, unspecified; R91.8 Other nonspecific abnormal finding of lung field
CPT/HCPCS: 36415; 71046; 80053; 82550; 83615; 85025

== ENCOUNTER 2024-11-08 07:25 | Outpatient (AMB) | payer OTHER, SELFPAY ==
[2024-11-08 07:25] VITALS: BP 118/70; BMI 24.4
--- NOTE | 2024-11-08 07:25 | MHC.OFFVIS ---
Vital Signs 11/08/24 07:25 Height 5 ft 7 in Weight 156 lb BMI 24.4 BP 118/70 Intake Visit Reasons: Bartholin cyst Director Of Food And Beverage Services Required: No Information Interpreted: non-clinical & clinical Master Control Technician: Master Control Technician Present (Laura PAULSON) Accompanied by: Self / Same As Patient Allergies amoxicillin [Amoxicillin] Allergy (Mild, Verified 11/08/24 07:28) SWELLING/VOMITING, syncope, stomach burning clavulanic acid [From Augmentin] Allergy (Mild, Verified 11/08/24 07:28) SWELLING/VOMITING doxycycline Allergy (Unknown, Verified 11/08/24 07:28) vomiting lightheadness loss of vision Penicillin Allergy (Unknown, Uncoded 11/08/24 07:28) burned stomach with vomiting Post menopausal: Yes HPI Comments Details: Presenting complaining of left vulvar/inner vaginal wall pain that started 3 days ago not associated with any urinary symptoms no vaginal discharge or irritation no fever or chills. 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 Sexual orientation: Straight/Heterosexual Gender identity: Female Female Reproductive History Menstrual Age of Menarche: 14 Review of Systems Const All systems reviewed & are unremarkable except as noted in HPI and below Physical Exam Vital Signs: Last Vital Signs BP 118/70 11/08/24 07:25 BMI result Body Mass Index 24.4 General: Yes no CVA tenderness External Female Exam: normal external appearance and normal appearance of the urethra Speculum Exam - Vagina: normal appearance of the vagina, normal palpation, no lesions and no masses Speculum Exam - Cervix: normal appearance of the cervix, normal palpation, no lesions, no masses and nontender Bimanual exam- vagina & uterus: normal bimanual exam, normal palpation, uterine size normal, normal palpation, uterine shape normal, No Cervical tenderness present and non-tender Bimanual Exam- Adnexa, other: normal adnexae Back/Spine/Pelvis Back: no CVA tenderness Assessment & Plan Assessment & Plan (1) Vulvovaginal pain: Comment: Left side Code(s): R10.2 - Pelvic and perineal pain Category: Medical Plan: Discussed with the patient the finding pelvic exam no evidence of Bartholin gland swelling or any mass in the vagina and or vulva, will order pelvic MRI to rule out has occupying lesion in the lower vaginal canal/vulva. Instructions given to the patient to call or go to emergency room in case of swelling redness fever above 100.4 or worsening of her pain and to schedule a follow-up appointment in a week. All questions answered, the patient verbalized understanding Orders: Orders MR pelvis wo con Today R10.2 - Pelvic and perineal pain Coding Level of Care Code Est Pt Level 3 (97226) Diagnoses Vulvovaginal pain R10.2
== END 2024-11-08 07:44 | disposition home or self-care (01) ==
LOC: HO.HWS 07:25
PROVIDERS: PCP Internal Medicine Medical Oncology; Visit Provider Obstetrics & Gynecology
DX: R10.2 Pelvic and perineal pain (principal)
CPT/HCPCS: 99213

== ENCOUNTER → 2024-11-08 07:25 | Outpatient (BNVA) | payer OTHER, SELFPAY | PROVIDERS: PCP Internal Medicine Medical Oncology; Visit Provider Obstetrics & Gynecology | DX: R10.2 Pelvic and perineal pain (principal); N75.0 Cyst of Bartholin's gland | CPT/HCPCS: 99212 ==

== ENCOUNTER → 2024-11-15 07:31 | Outpatient (BNVA) | payer OTHER, SELFPAY | PROVIDERS: PCP Internal Medicine Medical Oncology; Visit Provider Obstetrics & Gynecology ==

== ENCOUNTER 2024-11-15 15:47 | Outpatient (REF) | payer OTHER, SELFPAY ==
--- NOTE | ~2024-11-15 | MR_ITS ---
EXAMINATION: MR PELVIS WITHOUT AND WITH CONTRAST CLINICAL INFORMATION: Pelvic and perineal pain COMPARISON: Ultrasound pelvis 11/18/2023. CT 04/03/2021. TECHNIQUE: MRI without and with intravenous administration of 7 mL of Gadavist is performed on the pelvis. FINDINGS: The uterus and adnexal structures appear normal. Pelvic vessels are prominent which can be a manifestation of pelvic congestion syndrome, a potential cause of chronic pelvic pain. Trace free pelvic fluid. There is a 9 x 5 mm left-sided Bartholin's gland cyst which has decreased in size when compared with the CT dated 04/03/2021. The urinary bladder appears normal. No adenopathy. Mild degenerative changes at the pubic symphysis. Hips and sacroiliac joints appear normal. No muscle strain or tear. MR/MR pelvis wo/w con IMPRESSION: 1. Prominent pelvic vessels which can be a manifestation of pelvic congestion syndrome, a potential cause of chronic pelvic pain. 2. Trace free pelvic fluid. 3. 9 x 5 mm left-sided Bartholin's gland cyst has decreased in size when compared with the CT dated 04/03/2021. Electronically signed by: Esteban Prado MD 11/19/2024 11:14 AM PATRICIA
[2024-11-15] MEDS: gadobutroL 7.5 ML VIAL IVPUSH (16:23)
== END 2024-11-15 15:48 | disposition home or self-care (01) ==
LOC: HO.MRI 15:47
PROVIDERS: PCP Internal Medicine Medical Oncology; Visit Provider Obstetrics & Gynecology
DX: R10.2 Pelvic and perineal pain (principal)
CPT/HCPCS: 72197; A9585

== ENCOUNTER 2024-11-21 07:44 | Outpatient (AMB) | payer OTHER, SELFPAY ==
--- NOTE | 2024-11-21 08:01 | A.OFFVIS_ITS ---
Intake Visit Reasons: Inj-Left elbow injection-last 09/28/23 Intake Note: Yasmin is a 59 year old right hand dominant female who presents today for a repeat injection for her left elbow, last injection 04/21/23. Patient reports her last injection gave her relief until a couple weeks ago. She has tried taking Tylenol and using lidocaine patches with mild relief. Allergies amoxicillin [Amoxicillin] Allergy (Mild, Verified 11/21/24 08:22) SWELLING/VOMITING, syncope, stomach burning clavulanic acid [From Augmentin] Allergy (Mild, Verified 11/21/24 08:22) SWELLING/VOMITING doxycycline Allergy (Unknown, Verified 11/21/24 08:22) vomiting lightheadness loss of vision Penicillin Allergy (Unknown, Uncoded 11/08/24 07:28) burned stomach with vomiting HPI HPI Inj-Left elbow injection-last 09/28/23: Details: 59-year-old ijsqf-lzfg-xnssegyd female who presents in the office today for a follow-up of left elbow pain. I last saw the patient in the office on 09/28/23 for left shoulder pain and left elbow pain. A referral was placed to follow up with Physiatry for further evaluation and treatment. While in the office today, the patient had her last cortisone injection in her left shoulder on 04/01/23. She reports her last injection gave her relief until a couple weeks ago. She has tried Tylenol and used lidocaine patches with mild relief. 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 No ecchymosis, erythema, or edema. Tenderness to palpation lateral epicondyle. Pain with resisted wrist extension. NVI. Office Procedures Joint Inj/Aspir; Non-Pain Clin Joint Injection/Drain Details: 1cc dexa 1cc 2% plain lido Prep: site was prepped using aseptic technique Approach Used: other (lateral) Procedure: The patient tolerated the procedure well, but had some pain with the injection and there was some relief with the local anesthesia Elbows, Wrist, Hands, Elbow Injection Medium joint : Left Elbow Coding Procedure code (CPT) selection complete Assessment & Plan Assessment & Plan (1) Left lateral epicondylitis: Code(s): M77.12 - Lateral epicondylitis, left elbow Category: Medical (2) Left carpal tunnel syndrome: Code(s): G56.02 - Carpal tunnel syndrome, left upper limb Category: Medical (3) Cubital tunnel syndrome on left: Code(s): G56.22 - Lesion of ulnar nerve, left upper limb Category: Medical Plan Ms. Acosta is a 59-year-old likne-yprm-iuydwjxp female who presents in the office today for a follow-up of left elbow pain. I last saw the patient in the office on 09/28/23 for left shoulder pain and left elbow pain. A referral was placed to follow up with Physiatry for further evaluation and treatment. While in the office today, the patient had her last cortisone injection in her left shoulder on 04/01/23. She reports her last injection gave her relief until a couple weeks ago. She has tried Tylenol and used lidocaine patches with mild relief. The patient was offered a cortisone injection in the left elbow with 1cc of Dexa and 1cc 2% plain lidocaine. The patient was explained the risks, benefits, and alternatives to receiving this injection. After receiving consent for the injection, the patient had the procedure done while in the office today. The patient tolerated the procedure well with no complication. Follow-up will be PRN, or sooner if needed. Patient Instructions: Scribed by erika Brown scribe, for [facility]S on 11/21/24 at 8:35 am EST. Coding Level of Care Code Est Pt Level 3 (99880) Diagnoses Left lateral epicondylitis M77.12 Left carpal tunnel syndrome G56.02 Cubital tunnel syndrome on left G56.22 CPT Codes Elbows, Wrist, Hands, - Elbow Injection Medium joint 01450: Left Elbow ([id number])
== END 2024-11-21 08:34 | disposition home or self-care (01) ==
PROVIDERS: PCP Internal Medicine Medical Oncology; Visit Provider Physician Assistant
DX: M77.12 Lateral epicondylitis, left elbow (principal); G56.02 Carpal tunnel syndrome, left upper limb; G56.22 Lesion of ulnar nerve, left upper limb
CPT/HCPCS: 20605; 99213

== ENCOUNTER → 2024-11-21 07:44 | Outpatient (BNVA) | payer OTHER, SELFPAY | PROVIDERS: PCP Internal Medicine Medical Oncology; Visit Provider Physician Assistant | DX: M77.12 Lateral epicondylitis, left elbow (principal); G56.02 Carpal tunnel syndrome, left upper limb; G56.22 Lesion of ulnar nerve, left upper limb | CPT/HCPCS: 20605; 99212; J1100; J2003 ==

== ENCOUNTER 2024-11-30 15:10 | Outpatient (AMB) | payer OTHER, SELFPAY ==
--- NOTE | 2024-11-30 15:12 | MHC.OFFVIS ---
Intake Visit Reasons: MRI results Mobile Sales Assistant: Mobile Sales Assistant Present (Anju) Accompanied by: Self / Same As Patient Allergies amoxicillin [Amoxicillin] Allergy (Mild, Verified 11/30/24 15:13) SWELLING/VOMITING, syncope, stomach burning clavulanic acid [From Augmentin] Allergy (Mild, Verified 11/30/24 15:13) SWELLING/VOMITING doxycycline Allergy (Unknown, Verified 11/30/24 15:13) vomiting lightheadness loss of vision Penicillin Allergy (Unknown, Uncoded 11/08/24 07:28) burned stomach with vomiting HPI Comments Details: Presenting for pelvic MRI follow-up which showed the following: IMPRESSION: 1. Prominent pelvic vessels which can be a manifestation of pelvic congestion syndrome, a potential cause of chronic pelvic pain. 2. Trace free pelvic fluid. 3. 9 x 5 mm left-sided Bartholin's gland cyst has decreased in size when compared with the CT dated 04/03/2021. 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 Sexual orientation: Straight/Heterosexual Gender identity: Female Female Reproductive History Menstrual Age of Menarche: 14 Review of Systems Const All systems reviewed & are unremarkable except as noted in HPI and below Reports as per HPI and Reports no additional complaints GI Reports no additional complaints Reports no additional complaints Physical Exam The patient declined pelvic exam at this point since she is asymptomatic Assessment & Plan Assessment & Plan (1) Bartholin's gland cyst: Code(s): N75.0 - Cyst of Bartholin's gland Category: Medical Plan: Discussed with the patient the finding on pelvic MRI , 5 x 9 mm Bartholin's gland cyst in addition to possible pelvic congestion syndrome. Since the patient is no pelvic pain , the finding of prominent vessels are not clinically significant . Since it was not clinically palpable on pelvic exam last visit, I offered the patient ultrasound guided I&D versus expectant management. All pros and cons, risks and benefits were discussed with the patient, the patient site to proceed with expectant management. Instructions given the patient to call in case of vulvar pain/swelling. All questions answered, the patient verbalized understanding Coding Level of Care Code Est Pt Level 3 (89906) Diagnoses Bartholin's gland cyst N75.0
== END 2024-11-30 15:20 | disposition home or self-care (01) ==
PROVIDERS: PCP Internal Medicine Medical Oncology; Visit Provider Obstetrics & Gynecology
DX: N75.0 Cyst of Bartholin's gland (principal)
CPT/HCPCS: 99213

== ENCOUNTER → 2024-11-30 15:10 | Outpatient (BNVA) | payer OTHER, SELFPAY | PROVIDERS: PCP Internal Medicine Medical Oncology; Visit Provider Obstetrics & Gynecology | DX: N75.0 Cyst of Bartholin's gland (principal) | CPT/HCPCS: 99212 ==

== ENCOUNTER 2025-01-09 15:20 | Outpatient (REF) | payer OTHER, SELFPAY ==
--- OUTSIDE RECORDS SUMMARY | 2025-01-09 16:03 | XMS_ITS ---
Author Organization Nguyễn Hallman III, MD Address [address] [place] [address] Care Team Providers Care Paperboard Box Maker Name Role Phone Nguyễn Hallman Primary Care Provider [phone] REASON FOR VISIT Message Encounters Encounter Location Date Provider Diagnosis Nguyễn Hallman III, MD [address] [place] [address] [place] [address] 11/10/2024 Nguyễn Hallman Plan Of Treatment Next Appt Details Provider Name:Nguyễn Hallman, 02/06/2025 02:00:00 PM, [address] [place] [address] [place], [address], Progress Notes * HARDINGDerrickJosephB:1965 ([age] yo F)Acc No.[id number]:11/10/2024 Patient:?Yasmin HARDING :1965???Age:59 Y???Sex:Female Address:[address] , [place], [address] * true * Date:? Generated for Caroli aime/Ravin/eTransmitting on:?01/09/2025 04:03 PM EST
--- OUTSIDE RECORDS SUMMARY | 2025-01-09 16:03 | XMS_ITS | Encounter Summary ---
Author Organization [employer] Address [address] [place] [address] Care Team Providers Care Wrecking Mechanic Name Role Phone Unavailable Primary Care Provider Unavailabl e Reason for Visit * Reason Comments Routine Cleaning Dental Exam Encounter Details Date Type Department Care Team ([facility] st Contact Info) Description 12/19/2024 3:00 PM EST Office Visit [facility] [address] [place] [address] Evie Lou Dental plaque (Primary Dx); Dental calculus; Encounter for dental examination; Periodontal disease Social History Tobacco Use Types Packs/Day Years Used Date Smoking Tobacco: Never Smokeless Tobacco: Never Comments Unknown Sex and Gender Information Value Date Recorded Sex Assigned at Female 09/28/2022 10:15 AM EDT Legal Sex Female 10:15 AM EDT Gender Identity Female 09/28/2022 10:15 AM EDT Sexual Orientation Straight 09/28/2022 10 :15 AM EDT documented as of this encounter Last Filed Vital Signs Vital Sign Reading Time Taken Comments Blood Pressure 136/84 12/19/2024 2:48 PM EST Pulse - - Temperature - - Respiratory Rate - - Oxygen Saturation - - Inhaled Oxygen Concentration - - Weight - - Height - - Body Mass Index - - documented in this encounter Progress Notes * Evie Lou - 12/19/2024 3:00 PM EST Patient ID: Yasmin Acosta is a 59 y.o. female. Time Out: Timeout Date: 12/19/24, Timeout Time: 1452 (prophy and exam adult dental) Location: [facility] Tooth: Maxilla and Mandible Procedure: Exam, X-rays, and Prophylaxis Verified the above with patient, anesthesiologist assistant certified, and provider. Confirmed via patient's chart, intraorally and by radiographs. Molded Parts Inspector: not applicable Medical Hx: Vitals: Blood pressure 136/84. Medications, Med Hx reviewed with patient and updated in chart. Treatment Provided Dental procedures in this visit D1110 - PROPHYLAXIS - ADULT Full (Completed) Service provider: Evie Lou [place] provider: Charla Hills DDS D0274 - BITEWINGS - 4 RADIOGRAPHIC IMAGES (Completed) Service provider: Evie Lou [place] provider: Charla Hills DDS D1330 - ORAL HYGIENE INSTRUCTIONS (Completed) Service provider: Evie Lou Billing provider: Charla Hills DDS D9450 - ADJUNCTIVE GENERAL SERVICES - PROFESSIONAL VISITS - CASE PRESENTATION, SUBSEQUENT TO DETAILED AND EXTENSIVE TREATMENT PLANNING (Completed) Service provider: Evie Lou Bill[place]on provider: Charla Hills DDS D0220 - INTRAORAL - PERIAPICAL FIRST RADIOGRAPHIC IMAGE (Completed) Service provider: Evie Lou Billing provider: Charla Hills DDS D0230 - INTRAORAL - PERIAPICAL EACH ADDITIONAL RADIOGRAPHIC IMAGE (Completed) Service provider: Evie Lou Billing provider: Charla Hills DDS D0230 - INTRAORAL - PERIAPICAL EACH ADDITIONAL RADIOGRAPHIC IMAGE (Completed) Service provider: Evie Lou Billing provider: Charla Hills DDS Instruments Used: Ultrasonic Scalers, Hand Scalers, and Prophy angle Fluoride: N/A Oral Cancer Screening: No lesions Head/Neck Exam: No Lesions Exam with Dr. Lerma - recommended 4 quads of SRP due to generalized radiographic bone loss and radiographic calculus present. Calculus: Moderate, Generalized, and Subgingival Plaque: Moderate and Generalized Stain: Moderate and Generalized Bleeding: Heavy and Generalized Gingiva: Perio Charting Completed, Bleeding on probing, Edematous, and Erythematous OH: Fair Perio Chart: Completed generalized 2-5 mm pocketing with localized 7 mm pocketing around tooth #7. Moderate bleeding upon probing heavy bleeding upon scaling generalized. Patient has generalized radiographic bone loss noted, with radiographic calculus noted. SRP is needed to help improve gingival health and stop periodontal disease from progressing. Recommended 3mrc once patient has SRP completed. Oral hygiene instructions provided to patient including brushing technique and flossing. Recommendations: Alto two times daily, modified hopper technique, Floss daily, Electric toothbrush, Soft bristle toothbrush, Alto Tongue Recall Frequency: 3 mo NV: SRP once approved Hygienist: Evie Lou RDH Cosigned by Charla Hills DDS at 12/19/2024 3:54 PM EST Associated attestation - Charla Hills DDS - 12/19/2024 3:54 PM EST I have reviewed the documentation and dental procedures made by the rendering provider, Evie Lou RDH , and approve their chart entries for this visit. Charla Hills DDS * Charla Hills DDS - 12/19/2024 3:00 PM EST Dental procedures in this visit D1110 - PROPHYLAXIS - ADULT Full (Completed) Service provider: Evie Lou Billlandon provider: Charla Hills DDS D0274 - BITEWINGS - 4 RADIOGRAPHIC IMAGES (Completed) Service provider: Evie Lou Bill[place]on provider: Charla Hills DDS D1330 - ORAL HYGIENE INSTRUCTIONS (Completed) Service provider: Evie Lou Billing provider: Charla Hills DDS D9450 - ADJUNCTIVE GENERAL SERVICES - PROFESSIONAL VISITS - CASE PRESENTATION, SUBSEQUENT TO DETAILED AND EXTENSIVE TREATMENT PLANNING (Completed) Service provider: Evie Lou Bill[place]on provider: Charla Hills DDS D0220 - INTRAORAL - PERIAPICAL FIRST RADIOGRAPHIC IMAGE (Completed) Service provider: Evie Lou Billing provider: Charla Hills DDS D0230 - INTRAORAL - PERIAPICAL EACH ADDITIONAL RADIOGRAPHIC IMAGE (Completed) Service provider: Evie Blevins provider: Charla Hills DDS D0230 - INTRAORAL - PERIAPICAL EACH ADDITIONAL RADIOGRAPHIC IMAGE (Completed) Service provider: Evie Lou Billing provider: Charla Hills DDS D0120 - PERIODIC ORAL EVALUATION - ESTABLISHED PATIENT (Completed) Service provider: Charla Hills DDS Billing provider: Charla Hills DDS D0180 - COMPREHENSIVE PERIODONTAL EVALUATION - NEW OR ESTABLISHED PATIENT (Completed) Service provider: Charla Hills DDS Billing provider: Charla Hills DDS Patient ID: Yasmin Acosta is a 59 y.o. female. Time Out: Timeout Date: 12/19/24, Timeout Time: 1452 (prophy and exam adult dental) Location: [facility] Tooth: Maxilla and Mandible Procedure: Exam, X-rays, and Prophylaxis Verified the above with patient, anesthesiologist assistant certified, and provider. Confirmed via patient's chart, intraorally and by radiographs. Molded Parts Inspector: not applicable Chief Complaint Patient presents with Routine Cleaning Dental Exam Medical Hx: Vitals: Blood pressure 136/84. Past Medical History: Diagnosis Date Chorioretinal scar, right Lattice degeneration, left Type 2 Riaz's syndrome Medications: Outpatient Encounter Medications as of 12/19/2024 Medication Sig Dispense Refill traZODone (Desyrel) 50 MG tablet Take by mouth at bedtime. chlorhexidine (Peridex) 0.12 % solution USE 15 ML IN THE MOUTH OR THROAT IF NEEDED IN THE MORNING, AT NOON, AND AT BEDTIME (PROPHYLAXIS) FOR UP TO 5 DAYS. SPIT OUT, DO NOT SWALLOW. (Patient not taking: Reported on 12/19/2024) 473 mL 0 chlorhexidine (Peridex) 0.12 % solution Use 15 mL in the mouth or throat if needed (for mouthwash 15 ml for 30 seconds, swish and spit) for up to 14 days. 473 mL 0 cyclobenzaprine (Flexeril) 10 MG tablet TAKE 1 TABLET BY MOUTH THREE TIMES A DAY NEEDED FOR 10 DAYS (Patient not taking: Reported on 12/19/2024) gabapentin (Neurontin) 300 MG capsule TAKE 1 CAPSULE BY MOUTH THREE TIMES A DAY 15 (Patient not taking: Reported on 12/19/2024) minocycline 50 MG capsule Take 50 mg by mouth in the morning. (Patient not taking: Reported on 12/19/2024) naproxen (Naprosyn) 500 MG tablet TAKE 1 TABLET ORALLY 2 TIMES A DAY (Patient not taking: Reported on 12/19/2024) nitrofurantoin (Macrodantin) 100 MG capsule TAKE 1 CAPSULE BY MOUTH TWICE A DAY FOR 7 DAYS WITH FOOD (Patient not taking: Reported on 12/19/2024) omeprazole (PriLOSEC) [address] capsule TAKE 1 CAPSULE BY MOUTH EVERY DAY 30 MINUTES BEFORE MORNING MEAL FOR 30 DAYS (Patient not taking: Reported on 12/19/2024) ondansetron (Zofran) 4 MG tablet 1 TABLET ORALLY EVERY 4 HOURS NEEDED FOR NAUSEA 7 DAYS (Patientnot taking: Reported on 12/19/2024) tolterodine LA (Detrol LA) 4 MG 24 hr capsule Take 4 mg by mouth in the morning. (Patient not taking: Reported on 12/19/2024) No facility-administered encounter medications on file as of 12/19/2024. Objective HPI Soft Tissue Exam No findings documented this visit Head and Neck Exam: Lymph Nodes, Lips, Palate, Buccal Mucosa, Floor of Mouth, Tongue, Tonsils, Alveolar Ridges, Oropharynx, Salivary Ducts, and Vestibules - no significant findings observed OCS: negative Dental Exam Radiographic Interpretation: Associated radiographs for today's visit were reviewed and finding(s) were discussed with the patient. Findings include: calculus, generalized bone loss, poor OH, plaque, rotated toot #26 Hard Tissue Exam: No decay Perio Dx: Generalized Chronic Periodontitis Stage: III Grade: B Reference tooth chart for additional findings. Oral Cancer Risk: Low Risk Oral Hygiene Instructions: Alto two times daily, modified hopper technique, Floss daily, Soft bristle toothbrush, Alto Tongue Caries Risk Assessment: Medium- one risk factor Assessment/Plan SRPs Patient tolerated procedure well, all questions answered and expressed understanding. Dismissed in good condition. NV: FLAVIAs Group Insurance Specialist: Evie Lou Dentist: Charla Hills DDS documented in this encounter Plan of Treatment Upcoming Encounters Date Type Department Care Team (Late st Contact Info) Description 07/03/2025 3:00 PM EDT Office Visit [facility] [address] [place] [address] Evie Lou Scheduled Orders Name Type Priority Associated Diagnoses Orde r Schedule LL LL PERIODONTAL SCALING AND ROOT PLANING - 4 OR MORE TEETH PER QUADRANT Dental Routine [address] arting 12/19/2024 UL UL PERIODONTAL SCALING AND ROOT PLANING - 4 OR MORE TEETH PER QUADRANT Dental Routine [address] arting 12/19/2024 LR LR PERIODONTAL SCALING AND ROOT PLANING - 4 OR MORE TEETH PER QUADRANT Dental Routine [address] arting 12/19/2024 UR UR PERIODONTAL SCALING AND ROOT PLANING - 4 OR MORE TEETH PER QUADRANT Dental Routine [address] arting 12/19/2024 PROPHYLAXIS - ADULT Dental Routine 1 Occ urrences starting 12/19/2024 documented as of this encounter Procedures Procedure Name Priority Date/Time Associated Diagnosis Comments Full PROPHYLAXIS - ADULT Routine 025 3:00 PM EST Dental plaque Dental calculus PERIODIC ORAL EVALUATION - ESTABLISHED PATIENT Routine 12/19/2024 3:00 PM EST Dental plaque Dental calculus Encounter for dental examination Periodontal disease ORAL HYGIENE INSTRUCTIONS Routine 2024 3:00 PM EST Dental plaque Dental calculus INTRAORAL - PERIAPICAL FIRST RADIOGRAPHIC IMAGE Routine 12/19/2024 3:00 PM EST INTRAORAL - PERIAPICAL EACH ADDITIONAL RADIOGRAPHIC IMAGE Routine 12/19/2024 3:00 PM EST INTRAORAL - PERIAPICAL EACH ADDITIONAL RADIOGRAPHIC IMAGE Routine 12/19/2024 3:00 PM EST COMPREHENSIVE PERIODONTAL EVALUATION - NEW OR ESTABLISHED PATIENT Routine 12/19/2024 3:00 PM EST Dental plaque Dental calculus Encounter for dental examination Periodontal disease ADJUNCTIVE GENERAL SERVICES - PROFESSIONAL VISITS - CASE PRESENTATION, SUBSEQUENT TO DETAILED AND EXTENSIVE TREATMENT PLANNING Routine 12/19/2024 3:00 PM EST BITEWINGS - 4 RADIOGRAPHIC IMAGES Routine 12/19/2024 3:00 PM EST documented in this encounter Visit Diagnoses Diagnosis Dental plaque- Primary Accretions on teeth Dental calculus Accretions on teeth Encounter for dental examination Periodontal disease Unspecified gingival and periodontal disease documented in this encounter
--- OUTSIDE RECORDS SUMMARY | 2025-01-09 16:03 | XMS_ITS ---
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 Name Role Phone Nguyễn Hallman Primary Care Provider [phone] Allergies Allergen (clinical drug ingredient) Drug/Non Drug Allergy documented on EMR Reaction Allergy Type Onset Date Status Penicillin Unknown Drug Allergy Active amoxicillin Amoxicillin Unknown Drug Allergy Act solis amoxicillin / clavulanate Augmentin Unknown Drug Allergy Active Reason For Referral Reason Consult and Treat Prolonged Vertigo effecting employment Diagnosis 1 Vertigo (R42) Referral Organization Nguyễn Hallman III, MD Referring Provider First Name Nguyễn Referring Provider Last Name Viji Referring Provider Speciality Internal M edicine Referred Provider [facility], [facility] Referred Provider Specialty Otolaryngolo gy General Notes Emily Mckeon 09/25/2024 11:34:10 AM > Faxed urgent referral and progress note, Emily Mckeon 09/27/2024 09:52:43 AM > Office has not booked appointment they have determined it non urgent Referral Priority Routine Referral Appointment Date 12/20/2024 REASON FOR VISIT Benign positional vertigo, Labyrinthitis, Hypertension, Sleep apnea, Tinnitus Medications Medication SIG (Take, Route, Frequency, Duration) Notes Start Date End Date Status Vitamin D3 Active Meclizine HCl 25 MG 1 tablet as needed O rally every 8 hrs 08/29/2024 Active Gabapentin 300 MG TAKE 1 CAPSULE BY MO [facility] THREE TIMES A DAY Active Ondansetron HCl 4 MG 1 tablet Orally staci ry 4 hours prn nausea 02/02/2023 Active dexAMETHasone 2 MG 1 tablet Orally ever y 12 hrs 04/06/2023 Active Cyclobenzaprine HCl 10 MG 1 tablet Orall y three times a day 02/08/2024 Active Meloxicam 15 MG TAKE 1 TABLET BY YAMEL TH EVERY DAY Active traZODone HCl 50 MG TAKE 1 TABLET BY YAMEL TH EVERY DAY AT BEDTIME NEEDED FOR 30 DAYS Active Omeprazole 20 MG 1 capsule Orally Onc e a day 12/28/2023 Active Cyclobenzaprine HCl 10 MG 1 tablet Orall y three times a day 03/14/2024 Active Social History Tobacco Use: Social History Observation Description Date Details (start date - stop date) Former Smoker NA - NA Tobacco Use/Smoking Question Answer Notes Patient is a former smoker How long has it been since you last smoked? > 10 years Additional Findings: Tobacco Non-User Ex-cigaret te smoker Vital Signs Temperature 98.3 degrees Fahrenheit 09/18/20 24 Heart Rate 103 /min 09/18/2024 Height 64 in 09/18/2024 Weight 157 lbs 09/18/2024 BMI 26.95 kg/m2 09/18/2024 Encounters Encounter Location Date Provider Diagnosis Nguyễn Hallman III, MD [address] [place] [address] [place] [address] 09/18/2024 Nguyễn Hallman Overweight E66.3 ; Vertigo R42 ; Former smoker Z87.891 and Tinnitus, bilateral H93.13 Assessments Encounter Date Diagnosis (ICD Code) Assessment Notes Treatment Notes Treatment Clinical Notes 09/18/2024 Overweight (ICD-10 - E66.3) Her rate remains slightly overweight. We discussed her weight loss strategy. We discussed lifestyle modification. 09/18/2024 Vertigo (ICD-10 - R42) She has had no benefit from meclizine. She has combination of intermittent tinnitus and vertigo. It is not clear if she has had any hearing loss as she is not clear on this point. I have ordered a CT scan of the head and referred her to ENT. 09/18/2024 Former smoker (ICD-10 - Z87.891) We have discussed a plan to prevent relapse in times of illness and distress. 09/18/2024 Tinnitus, bilateral (ICD-10 - H93.13) Because there is some hearing loss and vertigo associated she will see ENT if this does not resolve. Plan Of Treatment Medication Medication Name Sig Start Date Stop Date Notes Vitamin D3 Meclizine HCl 25 MG 1 tablet as needed O rally every 8 hrs 08/29/2024 Gabapentin 300 MG TAKE 1 CAPSULE BY MO [facility] THREE TIMES A DAY Ondansetron HCl 4 MG 1 tablet Orally staci ry 4 hours prn nausea 02/02/2023 dexAMETHasone 2 MG 1 tablet Orally every 12 hrs 04/06/2023 Cyclobenzaprine HCl 10 MG 1 tablet Orall y three times a day 02/08/2024 Meloxicam 15 MG TAKE 1 TABLET BY MOUTH EVERY DAY traZODone HCl 50 MG TAKE 1 TABLET BY YAMEL TH EVERY DAY AT BEDTIME NEEDED FOR 30 DAYS Omeprazole 20 MG 1 capsule Orally Once a day 12/28/2023 Cyclobenzaprine HCl 10 MG 1 tablet Orall y three times a day 03/14/2024 Referrals Referral Date Details 09/18/2024 09/18/2024, Consult and Treat Prolonged Vertigo effecting employment, of [employer], [facility] Next Appt Details Follow Up: As Scheduled, 21 days, Reason: OV, Annual Exam, Follow up on Vertigo and possible Labyrinthitis Provider Name:Nguyễn Hallman, 02/06/2025 02:00:00 PM, [address] [place] [address] [address] [place] [id number], [place], [id number], Progress Notes * Zuhair HARDINGB:1965 ([age] yo F)Acc No.[id number]:09/18/2024 Progress Notes Patient:?Derrick HARDINGa Provider:?Nguyễn Hallman MD :1965???Age:58 Y???Sex:Female D ate:09/18/2024 Address:[address] [place] [address] [place] [id number] Subjective: * Chief Complaints: * ???Benign positional vertigo LabyrinthitisHypertensionSleep apneaTinnitus * HPI: ???COVID-19 Screening:?Questions?Have you experienced fever, chills, cough, sore throat, shortness of breath, difficulty breathing, muscle aches, loss of taste or smell??No ?Have you been exposed to the virus within the last 10 days??No ?Have you travelled internationally in the last 10 days??No ?Have you been exposed to COVID-19 in the past??Yes ???:?The patient, a 58-year-old female, presented with a two-month history of vertigo. She described her symptoms as feeling heavy-headed and experiencing a loss of balance, particularly when walking or bending over. 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 The patient has not experienced any falls but feels more secure when touching a wall or holding onto something. She also reported feeling short of breath, which she had never experienced before. The patient has been taking meclizine for her vertigo, but it has not provided any relief. She has not had any imaging or seen an ear, nose, and throat specialist for her condition. * ROS:?General/Constitutional:?pain?only normal aches and pains.?Chills?denies.?Fatigue?admits.?Fever?denies.?ENT:?Decreased hearing?mild.?Respiratory:?Cough?denies.?Cardiovascular:?Chest pain with exertion?denies.?Dyspnea on exertion?denies.?Shortness of breath?denies.?Gastrointestinal:?Constipation?occasional.?Decreased appetite?denies.?Diarrhea?denies.?Heartburn?denies.?Nausea?denies.?Rectal bleeding?denies.?Vomiting?denies.?Hematology:?bruising?denies.?petechiae?denies.?Swollen glands?none have been noted.?Genitourinary:?Frequent urination?denies.?Musculoskeletal:?Muscle aches?denies.?Painful joints?denies.?Sciatica?denies.?Weakness?denies.?Skin:?Itching?denies.?Rash?denies.?Skin lesion(s)?denies.?Neurologic:?Difficulty speaking?denies.?Dizziness?that is associated with change in position.?Headache?denies.?Low back pain?denies.?Psychiatric:?Depressed mood?denies.? * Medical History:? * Surgical History:?tubal liga tion 1996aspiration of cyst right breast 09/2016colonoscopy, Dr. Nguyễn Adkins, [facility], negative 02/2019Endometrial biopsy, Dr. White, negative, and inactive 02/02/23Carpal tunnel Surgery, Right hand 03/23/2024No history * Hospitalization/Major Diagno stic Procedure:?Ureterolithiasis 03/2021No history * Family History:?Father: dece ased, bladder cancer, diagnosed with Cancer.?Mother: , diagnosed with DM.?Paternal Grand Father: .?Paternal Grand Mother: .?Maternal Grand Father: , diagnosed with DM.?Maternal Grand Mother: , diagnosed with DM.?2 son(s) , 2 daughter(s) - healthy. .? She is not aware of any family history of substance use disorder, mental illness or addiction. She is not aware of any family history of inherited cancer family syndrome. * Social History:?Tobacco Use:?Tobacco Use/Smoking?Patient is a?former smoker ?How long has it been since you last smoked??> 10 years ?Additional Findings: Tobacco Non-User?Ex-cigarette smoker ???She lives in [place]. She has 4 children, 2 sons and 2 daughters who are healthy and well. * Medications:?TakingMeloxicam 15 MG Tablet TAKE 1 TABLET BY MOUTH EVERY DAY traZODone HCl 50 MG Tablet TAKE 1 TABLET BY MOUTH EVERY DAY AT BEDTIME NEEDED FOR 30 DAYS Omeprazole 20 MG Capsule Delayed Release 1 capsule Orally Once a day dexAMETHasone 2 MG Tablet 1 tablet Orally every 12 hrs Gabapentin 300 MG Capsule TAKE 1 CAPSULE BY MOUTH THREE TIMES A DAY Ondansetron HCl 4 MG Tablet 1 tablet Orally every 4 hours prn nausea Vitamin D3 Meclizine HCl 25 MG Tablet 1 tablet as needed Orally every 8 hrs Cyclobenzaprine HCl 10 MG Tablet 1 tablet Orally three times a day Taking Meloxicam 15 MG Tablet TAKE 1 TABLET BY MOUTH EVERY DAY Taking traZODone HCl 50 MG Tablet TAKE 1 TABLET BY MOUTH EVERY DAY AT BEDTIME NEEDED FOR 30 DAYS Taking Omeprazole 20 MG Capsule Delayed Release 1 capsule Orally Once a day Taking dexAMETHasone 2 MG Tablet 1 tablet Orally every 12 hrs Taking Gabapentin 300 MG Capsule TAKE 1 CAPSULE BY MOUTH THREE TIMES A DAY Taking Ondansetron HCl 4 MG Tablet 1 tablet Orally every 4 hours prn nausea Taking Vitamin D3 Taking Meclizine HCl 25 MG Tablet 1 tablet as needed Orally every 8 hrs Taking Cyclobenzaprine HCl 10 MG Tablet 1 tablet Orally three times a day DiscontinuedCyclobenzaprine HCl 10 MG Tablet 1 tablet Orally three times a day , stop date 12/06/2024Medication List reviewed and reconciled with the patientDiscontinued Cyclobenzaprine HCl 10 MG Tablet 1 tablet Orally three times a day , stop date 12/06/2024Medication List reviewed and reconciled with the patient * Allergies:?AugmentinPenicill inAmoxicillinno[Allergies Verified] Objective: * Vitals:?Ht: 64, Wt: 157, BMI :26.95, BP: 053409, HR: 103, Temp: 98.3, Ht-cm: 162.56, Wt-k.21. * ???Past Orders: Imaging:XR chest 2V * Performed Date 09/07/2024 08/13/2024 02:22 PM 11:33 AM Order Date 09/07/2024 08/13/2024 * Examination: ???General Examination: ?GENERAL APPEARANCE:?pleasant, well nourished, well developed, in no acute distress, calm and relaxed, overweight, woman.?HEAD:?atraumatic, normocephalic.?EYES:?eomi, perrla, anicteric, conjugate.?EARS:?normal.?NOSE:?septum intact.?ORAL CAVITY:?normal, unremarkable.?NECK/THYROID:?no jugular venous distention, no carotid bruit, thyroid normal.?LYMPH NODES:?no enlarged lymph nodes,spleen normal.?SKIN:?no suspicious lesions, anicteric.?HEART:?no clicks, gallops, murmurs, or rubs, regular rhythm, S1, S2 normal, no s3, or vascular bruits.?LUNGS:?clear to auscultation .?BREASTS:?Not examined.?ABDOMEN:?bowel sounds normal, no ascites, no organomegaly, no mass.?RECTAL EXAM:?not examined.?MUSCULOSKELETAL:?extremities unremarkable, no clubbing, cyanosis or edema.?PERIPHERAL PULSES:?normal.?NEUROLOGIC:?alert and oriented, cranial nerves 2-12 grossly intact, deep tendon reflexes 2+ symmetrical, motor strength normal upper and lower extremities, sensory exam intact, The dizziness which is vertigo was reproduced precisely by the Barany maneuver.? Whether the head was rotated or flexed laterally in either direction the vertigo occurred..?PSYCH:?alert, oriented.? Assessment: * Assessment: 1.?Vertigo - R42 (Primary)?? ?Notes :She has had no benefit from meclizine.? She has combination of intermittent tinnitus and vertigo.? It is not clear if she has had any hearing loss as she is not clear on this point.? I have ordered a CT scan of the head and referred her to ENT.???2.?Overweight - E66.3???Notes :Her rate remains slightly overweight. We discussed her weight loss strategy. We discussed lifestyle modification.???3.?Former smoker - Z87.891???Notes :We have discussed a plan to prevent relapse in times of illness and distress.???4.?Tinnitus, bilateral - H93.13???Notes :Because there is some hearing loss and vertigo associated she will see ENT if this does not resolve.??? Plan: * Treatment: 2.?Overweight? Continue Cyclobenzaprine HCl Tablet, 10 MG, 1 tablet, Orally, three times a day.?? 3.?Others? Continue Cyclobenzaprine HCl Tablet, 10 MG, 1 tablet, Orally, three times a day;?Continue Meloxicam Tablet, 15 MG, TAKE 1 TABLET BY MOUTH EVERY DAY;?Continue traZODone HCl Tablet, 50 MG, TAKE 1 TABLET BY MOUTH EVERY DAY AT BEDTIME NEEDED FOR 30 DAYS;?Continue Omeprazole Capsule Delayed Release, 20 MG, 1 capsule, Orally, Once a day;?Continue dexAMETHasone Tablet, 2 MG, 1 tablet, Orally, every 12 hrs;?Continue Gabapentin Capsule, 300 MG, TAKE 1 CAPSULE BY MOUTH THREE TIMES A DAY;?Continue Ondansetron HCl Tablet, 4 MG, 1 tablet, Orally, every 4 hours prn nausea; Continue Vitamin D3;?Continue Meclizine HCl Tablet, 25 MG, 1 tablet as needed, Orally, every 8 hrs.?? * Procedure Codes:? * Preventive Medicine:? ??Counseling:?Care goal follow-up plan:?Counseling for abnormal BMI given?Yes ?Above Normal BMI Follow-up?Dietary management education, guidance, and counseling, Dietary needs education, Exercise promotion: strength training, Exercise promotion: stretching, Feeding regime, Giving encouragement to exercise, Lifestyle education regarding diet, Nutrition / feeding management, Nutrition therapy, Prescribed activity/exercise education, Prescribed diet education, Prescribed dietary intake, Special diet education, Weight monitoring , Intervention, Order not done: Medical or Other reason not done ?Smoking/Tobacco Use?Patient counseled on the dangers of tobacco use and urged to quit.?09/18/2024 * Follow Up:?As Scheduled, 21 days (Reason: OV, Annual Exam, Follow up on Vertigo and possible Labyrinthitis) * Images: * Sign off status: Completed true * Provider:?Nguyễn Hallman MD Date:?08/30 Generated for Printi ng/Fasujeyg/eTransmitting on:?01/09/2025 04:03 PM EST History and Physical Notes * HPI (History of Present Illness) Category Sub-Category Detail Notes COVID-19 Screening Questions Have you had any new onset fever, chills, cough, congestion, sore throat, shortness of breath, muscle aches?: No Have you been exposed to the virus withi n the last 10 days?: No Have you travelled internationally in last 10 days?: No Have you been exposed to COVID-19 in the past?: Yes Examination Category Sub-Category Detail Notes General Examination GENERAL APPEARANCE: pleasant , well nourished, well developed, in no acute distress, calm and relaxed, overweight, woman HEAD: atraumatic, normocep halic EYES: eomi, perrla, anicte ace, conjugate EARS: normal NOSE: septum intact NECK/THYROID: no jugular venous di stention, no carotid bruit, thyroid normal HEART: no clicks, gallops, murmurs, or rubs, regular rhythm, S1, S2 normal, no s3, or vascular bruits LUNGS: clear to auscultatio n ABDOMEN: bowel sounds normal, no ascites, no organomegaly, no mass NEUROLOGIC: alert and oriented, cranial nerves 2-12 grossly intact, deep tendon reflexes 2+ symmetrical, motor strength normal upper and lower extremities, sensory exam intact, The dizziness which is vertigo was reproduced precisely by the Barany maneuver. Whether the head was rotated or flexed laterally in either direction the vertigo occurred. SKIN: no suspicious lesion s, anicteric PERIPHERAL PULSES: normal BREASTS: Not examined MUSCULOSKELETAL: extremities unremark able, no clubbing, cyanosis or edema LYMPH NODES: no enlarged lymph no sierra,spleen normal RECTAL EXAM: not examined PSYCH: alert, oriented ORAL CAVITY: normal, unremarkable Consultation Request Notes Referral Date Referring Provider Referred Provider Not es 09/18/2024 Nguyễn Hallman Surgeons, of [facility], [facility] Consult and Treat Prolonged Vertigo effecting employment
--- OUTSIDE RECORDS SUMMARY | 2025-01-09 16:03 | XMS_ITS | Continuity of Care Document ---
Author Organization [facility] - [facility], [facility] Address [address] [place] [address] Care Team Providers Care Backup Operator Name Role Phone DALTON CLINTON Referring Provider [phone] Assessment Encounter Date Assessment Date Assessment LastModified by Organization Details LastModified Time 12/20/2024 12/20/2024 59-year-old female presents for evaluation of imbalance. Otologic exam is unremarkable. Cranial nerves grossly intact. Audiometric testing was obtained today showing sloping mild low-frequency hearing loss on the right side only. Given asymmetry would recommend an MRI of the IAC to rule out retrocochlear pathology. She would be a good candidate for amplification on the right side. She was given clearance for right sided amplification and [facility] provider sheet. Recommended repeat hearing test in 6 months to ensure stability. We discussed the possibility of vestibular rehabilitation for imbalance but she would like to see the results of the MRI first. Follow-up after MRI for review and further planning. Not available 12/20/2024 16:26:04 Plan of Treatment Reminders Order Date Submit Date Provider Last Modified By Organization Details Last Modified Time Details Appointments Hearing Test 2024 03:00P M Hearing Test Not available Not available Not available Establish ed 15 2024 03:30P M ALEKSANDER TEMPLETON PA-C Not available Not available Not available Lab None recorded. Referral None recorded. Procedures None recorded. Surgeries None recorded. Imaging MRI, brain + internal auditory canal, w/wo contrast 2024 025 [facility] ([facility]), [address] [place], [address], 12/25/2024 16:00:40 Medication Orders None recorded. Patient TargetsNo targets recorded. Patient InstructionsNo instructions recorded. Reason for Referral None Reported. Results Created Date Observation Date Name Description Value Unit Range Abnormal Flag Note LastModifiedBy Organization Detail LastModifiedTime 12/21/19 audio gram No observ ation record ed. BARCODE Not Available 2024 11:14:47 01/04/20 25 01/02/2025 MRI, brain + brain stem, w/wo contr ast [facility] Access ion Number : [id number] Patiotilio t Name: Yasmin Acosta Record Number : [id number] Date of : 1964 Date of Exam: 2024 Referr ing Physic justine: Aleksander Kenny [facility] d [address], [address] [facility], [facility] [place] [address] Exam: MR Brain (C-/C+ ) CPT 55694 Room Descri ption: [facility] Verio 3.0T MR Brain (C-/C+ ) CPT 18398 INDICA TION / CLINIC AL QUESTI ON: Sensor ineura l hearin g loss, bilate ral IAC's TECHNI QUE: Multip lanar, multis equenc e MRI of the brain was perfor med with and withou t intrav enous contra st. 15 mL Dotare m intrav enous contra st was admini stered . COMPAR COCO: None. FINDIN GS: IAC: There is no mass or abnorm al enhanc ement in the international banker al audito ry canals or cerebe llopon trinidad angles . Course and calibe r of the 7th and 8th crania l nerves is normal bilate rally. Fluid signal is preser debbie in the inner ear struct ures bilate rally. Brains tem demons trates normal signal . BRAIN and EXTRA- AXIAL SPACES : No signif icant abnorm ality of the visual ized portio ns of the brain and extra- axial spaces . EXTRAC RANIAL SOFT TISSUE S: Right mastoi d effusi on is noted. Nasoph arynge al contou r is symmet ace. Small mucous retent ion cyst is seen in the right maxill ana laura sinus. Visual ized portio ns of the extrac ranial soft tissue s are otherw ise unrema rkable . BONES: Visual ized marrow signal is preser debbie. IMPRES ZAKIYA: 1. No retroc ochlea r abnorm ality to explai n the patien t?s sympto ms. 2. Right mastoi d effusi on. Electr onical ly Signed By: Ryan Duran MD [email or web address] [facility] ([facility]) [address] [place], [address], 01/05/2025 09:25:10 01/04/20 25 01/02/2025 MRI, brain + inter nal audit ory canal , w/wo contr ast No observ ation record ed. [address] M[address] [place], [address], 01/05/2025 09:25:14 Result Notes None recorded. Problems Name Problem SNOMED Code Status Onset Date Resolution Date Notes Provider Name and Address Organization Details Recorded Time Sensorineural hearing loss of bilateral ears 646404684 Active 2024 Rocio hoffman [place] - [facility] 5 16:15:42 Dizziness and giddiness 507053813 Active 2024 ALEKSANDER TEMPLETON PA-C [address] [place] [address], [phone] - [facility] [place] 5 16:26:07 Problem Notes None recorded. Procedures Surgical History Date Name Laterality Status Provider Name and Address Organization Details Recorded Time 12/20/2024 Comp Audio with Tymps (11669 & 78943) completed Rocio Terrazas [place] [facility] 12/20/2024 16:15:32 Imaging Results None recorded. Procedure Notes None recorded. Medical Equipment None Reported. Medications Name Sig Start Date Stop Date Status Note LastModified by Organization Details LastModified Time cyclobenzapr ine 10 mg tablet TAKE 1 TABLET BY MOUTH THREE TIMES A DAY FOR 30 DAYS active Not Available Not Available Not Available trazodone 50 mg tablet TAKE 1 TABLET BY MOUTH EVERY DAY AT BEDTIME NEEDED FOR 30 DAYS active Not Available Not Available No t Available tolterodine ER 4 mg capsule,exte nded release 24 hr TAKE 1 CAPSULE BY MOUTH EVERY DAY active Not Available Not Available No t Available meloxicam 15 mg tablet TAKE 1 TABLET BY MOUTH EVERY DAY active Not Available Not Available No t Available prednisone 20 mg tablet TAKE 40MG ( 2 X 20MG) BY MOUTH DAILY FOR 5 DAYS active Not Available Not Available No t Available oxycodone-ac etaminophen 5 mg-325 mg tablet TAKE 1 TABLET BY MOUTH EVERY 6 HOURS NEEDED FOR PAIN active Not Available Not Available No t Available meclizine 25 mg tablet TAKE 1 TABLET BY MOUTH EVERY 8 HOURS NEEDED FOR 14 DAYS active Not Available Not Available No t Available omeprazole 20 mg capsule,ayaz yed release TAKE 1 CAPSULE BY MOUTH EVERY DAY FOR 30 DAYS active Not Available Not Available No t Available pyridoxine (vitamin B6) 100 mg tablet TAKE 1 TABLET BY MOUTH EVERY DAY active Not Available Not Available No t Available chlorhexidin e gluconate 0.12 % mouthwash PLEASE SEE ATTACHED FOR DETAILED DIRECTIONS active Not Available Not Available N ot Available Vitals None Recorded Social History None recorded. Functional Status None recorded. Mental Status None recorded. Family History Nothing Reported. Medical History No medical history recorded. Gynecological HistoryNo gynecological history recorded. Obstetrics History GPAL:G 0 P 0 0 0 0 Past Encounters Encounter ID Performer Location Encounter Start Date Encounter Closed Date Diagnosis/Indication Diagnosis SNOMED-CT Code Diagnosis ICD10 Code Diagnosis Note [id number] ALEKSANDER TEMPLETON PA-C [facility] of [address] [address] 12/20/2024 15:19:36 12/20/2024 16:22:11 Sensorineural hearing loss of bilateral ears 895715025 H90.3 Audiologic al evaluation results:Ri ght ear:{{Norm al Normal through 2 kHz Mild M oderate Mo derately-s evere Nadia re Profoun d Normal through 6 kHz#}} {{hearing hearing. s loping to a mild* slop ing to a moderate s loping to moderately severe slo ping to severe slo ping to profound f lat high frequency low frequency mid frequency cookie bite cross curve}} {{with sen sorineural hearing loss with* cond uctive hearing loss with mixed hearing loss with}} {{excellen t* good fa ir poor no measurable }} word recognitio n.Left ear:{{Norm al Normal through 2 kHz Mild M oderate Mo derately-s evere Nadia re Profoun d Mild riasing to WNL at 4kHz#}} {{hearing hearing. s loping to a mild slopi ng to a moderate s loping to moderately severe* sl oping to severe slo ping to profound f lat high frequency low frequency mid frequency cookie bite cross curve}} {{with sen sorineural hearing loss with* cond uctive hearing loss with mixed hearing loss with}} {{excellen t* good fa ir poor no measurable }} word recognitio n. Tympanomet ry:Right Ear:{{Type A Type As Type Ad Type C* Type C, shallow & rounded Ty pe B Type B with large volume Cou ld not maintain a hermetic seal}}Left Ear:{{Type A* Type As Type Ad Type C Type C, shallow & rounded Ty pe B Type B with large volume Cou ld not maintain a hermetic seal}} Dizziness and giddiness 191382122 R42 Health Concerns Section Related Observation LastModified by Organization Detai ls LastModified Time None Recorded Concern Status LastModified by Organization Details LastModified Time None Recorded Payers Encounter Date Sequence Insurance Name Policy Number Policy Staley Covered Member ID Staley Member ID Guarantor Name 12/20/2024 1 [facility] PLAN (MEDICAID HMO) [id number] Yasmin Acosta [id number] Yasmin Acosta Notes Date Note Type Note Provider Name and Address Organization Details Recorded Time 12/20/2024 text/html 59-year-old [place] presents for evaluation of imbalance. For the last 6 months she has been having progressive hearing loss on the right side with tinnitus. She describes it as a beeping and buzzing which improves with masking. She has also been having imbalance which she describes as a tilting sensation when she is walking or standing. No room spinning vertigo. She does not notice any fluctuation in hearing or tinnitus. ALEKSANDER TEMPLETON PA-C [address] [place] [address], [phone], [facility] - [facility] 12/20/2024 16:26:42 OBGyn Episode No OBEpisode recorded.
--- OUTSIDE RECORDS SUMMARY | 2025-01-09 16:03 | XMS_ITS | Encounter Summary ---
Author Organization [employer] Address [address] [facility] 7t [place] [address] Care Team Providers Care Supervisor Irrigation Name Role Phone Unavailable Primary Care Provider Unavailabl e Reason for Visit * Reason Comments Med Refill Encounter Details Date Type Department Care Team (Late Contact Info) Description 01/08/2025 Refill [facility] [address] [place] [address] Charla Hills DDS [address] [place] [address] Social History Tobacco Use Types Packs/Day Years Used Date Smoking Tobacco: Never Smokeless Tobacco: Never Comments Unknown Sex and Gender Information Value Date Recorded Sex Assigned at Female 09/28/2022 10:15 AM EDT Legal Sex Female 10:15 AM EDT Gender Identity Female 09/28/2022 10:15 AM EDT Sexual Orientation Straight 09/28/2022 10 :15 AM EDT documented as of this encounter Miscellaneous Notes * Telephone Encounter - Charla Hills DDS - 01/09/2025 9:32 AM EST Approving, but needs appt for additional refills. documented in this encounter Plan of Treatment Upcoming Encounters Date Type Department Care Team (Late Contact Info) Description 07/03/2025 3:00 PM EDT Office Visit [facility] [address] [place] [address] Carmine, Evie documented as of this encounter Visit Diagnoses Not on filedocumented in this encounter
--- OUTSIDE RECORDS SUMMARY | 2025-01-09 16:03 | XMS_ITS | Data Portability ---
Author Organization [place] - [facility], Allergy Address [address] [address] Care Team Providers Care Education Dean Name Role Phone DALTON CLINTON Referring Provider [phone] Assessment Encounter Date Assessment Date Assessment LastModified [...] after MRI for review and further planning. [email or web address] Not available 12/20/2024 16:26:04 Plan of Treatment [...] internal auditory canal, w/wo contrast [address] [facility] [address] [facility] [place], [address], 12/25/2024 16:00:40 Medication Orders None recorded. Patient TargetsNo targets recorded. Patient InstructionsNo instructions recorded. Reason for Referral None Reported. Results Created Date Observation Date Name Description Value Unit Range Abnormal Flag Note LastModifiedBy Organization Detail LastModifiedTime 12/21/19 audio gram No observ ation record ed. BARCODE Not Available 2024 11:14:47 01/04/20 25 01/02/2025 MRI, brain + brain stem, w/wo contr ast [facility] Access ion Number : [id number] Patiotilio t Name: Yasmin Acosta Record Number : [id number] Date of : 1964 Date of Exam: 2024 Referr ing Physic justine: Aleksander Kenny [facility] d [address], [address] [facility], [place] [address] Exam: MR Brain (C-/C+ ) CPT 99669 Room Descri ption: [facility] Verio 3.0T MR Brain (C-/C+ ) CPT 16352 INDICA TION / CLINIC AL QUESTI ON: [...] or abnorm al enhanc ement in the digital media intern al audito ry canals or cerebe llopon [...] onical ly Signed By: Ryan Duran MD [address] [facility] ([facility]) [address] [place], [address], 01/05/2025 09:25:10 01/04/20 25 01/02/2025 MRI, brain + inter nal audit ory canal , w/wo contr ast No observ ation record ed. [address] [place], [address], 01/05/2025 09:25:14 Result Notes None recorded. Problems Name Problem SNOMED Code Status Onset Date Resolution Date Notes Provider Name and Address Organization Details Recorded Time Sensorineural hearing loss of bilateral ears 433038301 Active 2024 Rocio hoffman [place] - [facility] [place] 16:15:42 Dizziness and giddiness 057496994 Active 2024 ALEKSANDER TEMPLETON PA-C [address] [place] [address], [phone] [facility] - [facility] [place] 16:26:07 Problem Notes None recorded. Procedures Surgical History Date Name Laterality Status Provider Name and Address Organization Details Recorded Time 12/20/2024 Comp Audio with Tymps (62405 & 35444) completed Rocio Terrazas [place] - [facility] [place] 12/20/2024 16:15:32 Imaging Results Imaging Date Name Status LastModified by Organiz ation Details LastModified Time 12/21/2024 audiogram completed BARCODE Information no t available 12/21/2024 11:14:47 01/02/2025 MRI, brain + brain stem, w/wo contrast completed [address] [facility] ([facility]) [address] [place], [address], 01/05/2025 09:25:10 01/02/2025 MRI, brain + internal auditory canal, w/wo contrast completed [address] Mri [address] [place], [address], 01/05/2025 09:25:14 Procedure Notes None recorded. Medical Equipment None [...] SNOMED-CT Code Diagnosis ICD10 Code Diagnosis Note [id number] ALEKSANDER TEMPLETON PA-C [facility] of [address] [address] 12/20/2024 15:19:36 12/20/2024 16:22:11 Sensorineural hearing loss of bilateral ears 378040998 H90.3 Audiologic al evaluation results:Ri ght ear:{{Norm [...] maintain a hermetic seal}} Dizziness and giddiness 709467195 R42 Health Concerns Section Related Observation LastModified by Organization Detai ls LastModified Time None Recorded Concern Status LastModified by Organization Details LastModified Time None Recorded Advance Directives Directive None Recorded Payers Encounter Date Sequence Insurance Name Policy Number Policy Staley Covered Member ID Staley Member ID Guarantor Name 12/20/2024 1 [facility] PLAN (MEDICAID HMO) [id number] Yasmin Acosta [id number] Yasmin Acosta Notes Date Note Type Note Provider Name and Address Organization Details Recorded Time 12/20/2024 text/html 59-year-old [place] presents for evaluation of imbalance. For [...] in hearing or tinnitus. ALEKSANDER TEMPLETON PA-C [address] [place] [address], [place], [address], [facility] - [facility] 12/20/2024 16:26:42 OBGyn Episode No OBEpisode recorded.
--- OUTSIDE RECORDS SUMMARY | 2025-01-09 16:03 | XMS_ITS | Encounter Summary ---
Author Organization [employer] Address [address] [facility] 7t [place] [address] Care Team Providers Care Product Safety Expert Name Role Phone Unavailable Primary Care Provider Unavailabl e Encounter Details Date Type Department Care Team (Latest Contact Info) Description 09/19/2021 Abstract [facility] CONVERSIONS Dental, Provider, DDS Social History Tobacco Use Types Packs/Day Years Used Date Smoking Tobacco: Never Assessed Comments Unknown Sex and Gender Information Value Date Recorded Sex Assigned at Female 09/28/2022 10:15 AM EDT Legal Sex Female 10:15 AM EDT Gender Identity Female 09/28/2022 10:15 AM EDT Sexual Orientation Straight 09/28/2022 10 :15 AM EDT documented as of this encounter Plan of Treatment Upcoming Encounters Date Type Department Care Team ( st Contact Info) Description 07/03/2025 3:00 PM EDT Office Visit [facility]ULT [facility] [address] [place] [address] Evie Lou documented as of this encounter Visit Diagnoses Not on filedocumented in this encounter
--- OUTSIDE RECORDS SUMMARY | 2025-01-09 16:04 | XMS_ITS | Clinical Summary ---
Author Organization [employer] Address [address] [facility] 7t [place] [address] Care Team Providers Care Procurement Director Name Role Phone Unavailable Primary Care Provider Unavailabl e Allergies Active Allergy Reactions Criticality Noted Date Comments Amoxicillin-Pot Clavulanate Unknown 04/08/20 23 Clavulanic Acid Anaphylaxis High 02/25/2018 Penicillins Anaphylaxis,Unknown High 02/25/2018 Medications cyclobenzaprin e (Flexeril) 10 MG tablet TAKE 1 TABLET BY MOUTH THREE TIMES A DAY NEEDED FOR 10 DAYS 04/06/20 23 Active gabapentin (Neurontin) 300 MG capsule TAKE 1 CAPSULE BY MOUTH THREE TIMES A DAY 15 01/05/20 23 Active naproxen (Naprosyn) 500 MG tablet TAKE 1 TABLET ORALLY 2 TIMES A DAY 01/24/20 23 Active minocycline 50 MG capsule Take 50 mg by mouth in the morning. 01/11/20 23 Active nitrofurantoin (Macrodantin) 100 MG capsule TAKE 1 CAPSULE BY MOUTH TWICE A DAY FOR 7 DAYS WITH FOOD 11/20/20 22 Active omeprazole (PriLOSEC) [address] capsule TAKE 1 CAPSULE BY MOUTH EVERY DAY 30 MINUTES BEFORE MORNING MEAL FOR 30 DAYS 03/05/20 23 Active ondansetron (Zofran) 4 MG tablet 1 TABLET ORALLY EVERY 4 HOURS NEEDED FOR NAUSEA 7 DAYS 02/03/20 23 Active tolterodine LA (Detrol LA) 4 MG 24 hr capsule Take 4 mg by mouth in the morning. 01/16/20 23 Active traZODone (Desyrel) 50 MG tablet Take by mouth at bedtime. Active chlorhexidine (Peridex) 0.12 % solution USE 15 ML IN THE MOUTH OR THROAT IF NEEDED IN THE MORNING, AT NOON, AND AT BEDTIME (PROPHYLAXIS) FOR UP TO 5 DAYS. SPIT OUT, DO NOT SWALLOW. 473 mL 06/08/20 24 Active Additional Information Patient not taking.Reported on 12/19/2024 chlorhexidine (Peridex) 0.12 % solution USE 15 ML IN THE MOUTH OR THROAT IF NEEDED FOR 30 SECONDS, SWISH AND SPIT FOR UP TO 14 DAYS. 473 mL 01/09/20 25 Active chlorhexidine (Peridex) 0.12 % solution Use 15 mL in the mouth or throat if needed (for mouthwash 15 ml for 30 seconds, swish and spit) for up to 14 days. 473 mL 12/19/19 25 025 Discontinued Active Problems No known active problems Encounters Date Type Department Care Team Description 01/08/2025 Refill [facility]ULT [facility] [address] [place] [address] Charla Hills DDS 12/19/2024 3:00 PM EST Office Visit [facility] [address] [place] [address] Evie Lou Dental plaque (Primary Dx); Dental calculus; Encounter for dental examination; Periodontal disease from Last 3 Months Family History Medical History Relation Name Comments Diabetes Mother Relation Name Status Comments Mother Social History Tobacco Use Types Packs/Day Years Used Date Smoking Tobacco: Never Smokeless Tobacco: Never Tobacco Cessation:Counseling Given: Not Answered Comments Unknown Sex and Gender Information Value Date Recorded Sex Assigned at Female 09/28/2022 10:15 AM EDT Legal Sex Female 10:15 AM EDT Gender Identity Female 09/28/2022 10:15 AM EDT Sexual Orientation Straight 09/28/2022 10 :15 AM EDT Last Filed Vital Signs Vital Sign Reading Time Taken Comments Blood Pressure 136/84 12/19/2024 2:48 PM EST Pulse 66 01/19/2024 2:43 PM EST Temperature - - Respiratory Rate - - Oxygen Saturation - - Inhaled Oxygen Concentration - - Weight - - Height - - Body Mass Index - - Plan of Treatment Upcoming Encounters Date Type Department Care Team (Late st Contact Info) Description 07/03/2025 3:00 PM EDT Office Visit [facility]ULT [facility] [address] [place] [address] Eive Lou Health Maintenance Due Date Last Done Comments CT Colonography 1967 Colonoscopy 1967 Colorectal Cancer Screening 1967 Depression Screening 1967 FIT DNA/Cologuard 1967 FIT 1967 FOBT 1967 HIV Screening 1967 SDOH Screening 1967 Sigmoidoscopy 1967 Alcohol/Substance Use Screening 1979 Hepatitis C Screening 1985 DTaP/Tdap/Td Vaccines (1 - Tdap) 1986 Hepatitis B Vaccines (1 of 3 - 19+ 3-dose series) 1986 Pap Smear 1988 Cervical Cancer Screening 1997 HPV/Cotest 1997 Mammogram 2007 Pneumococcal Vaccine: 50+ Years (1 of 1 - PCV) 2017 Zoster Vaccines (1 of 2) 2017 COVID-19 Vaccine (4 - season) 2024 02/20/2022, 08/01/2021, 07/04/2021 Influenza Vaccine (#1) 2024 11/18/2020 Dental Oral Exam 06/19/2025 12/19/2024, , 02/25/2018 Dental Prophylaxis 06/19/2025 12/19/2024, 0 01/19/2024, 09/19/2021, Additional history exists Dental X-Ray: Full Mouth 08/05/2025 022, 09/19/2021, 02/25/2018 Tobacco Screening 12/19/2025 12/19/2024 Dental X-Ray: Bitewings 12/20/2025 12/19/19 25, 01/19/2024, 09/19/2021, Additional history exists RSV Patients and Patients Aged 60 years or older (1 - 1-dose 75+ series) 2042 HIB Vaccines Aged Out No longer eligi ble based on patient's age to complete this topic HPV Vaccines Aged Out No longer eligi ble based on patient's age to complete this topic Hepatitis A Vaccines Aged Out No long er eligible based on patient's age to complete this topic IPV Vaccines Aged Out No longer eligi ble based on patient's age to complete this topic Meningococcal Vaccine Aged Out No lina snidy eligible based on patient's age to complete this topic RSV under 20 months Aged Out No longe r eligible based on patient's age to complete this topic Rotavirus Vaccines Aged Out No longer eligible based on patient's age to complete this topic Procedures Procedure Name Priority Date/Time Associated Diagnosis Comments COMPREHENSIVE PERIODONTAL EVALUATION - NEW OR ESTABLISHED PATIENT Routine 12/19/2024 3:00 PM EST Dental plaque Dental calculus Encounter for dental examination Periodontal disease PERIODIC ORAL EVALUATION - ESTABLISHED PATIENT Routine 12/19/2024 3:00 PM EST Dental plaque Dental calculus Encounter for dental examination Periodontal disease INTRAORAL - PERIAPICAL EACH ADDITIONAL RADIOGRAPHIC IMAGE Routine 12/19/2024 3:00 PM EST INTRAORAL - PERIAPICAL FIRST RADIOGRAPHIC IMAGE Routine 12/19/2024 3:00 PM EST ADJUNCTIVE GENERAL SERVICES - PROFESSIONAL VISITS - CASE PRESENTATION, SUBSEQUENT TO DETAILED AND EXTENSIVE TREATMENT PLANNING Routine 12/19/2024 3:00 PM EST ORAL HYGIENE INSTRUCTIONS Routine 2024 3:00 PM EST Dental plaque Dental calculus BITEWINGS - 4 RADIOGRAPHIC IMAGES Routine 12/19/2024 3:00 PM EST Full PROPHYLAXIS - ADULT Routine 025 3:00 PM EST Dental plaque Dental calculus INTRAORAL - PERIAPICAL EACH ADDITIONAL RADIOGRAPHIC IMAGE Routine 12/19/2024 3:00 PM EST PANORAMIC RADIOGRAPHIC IMAGE Routine 08/04/2022 12:00 AM EDT from Last 3 Months or Most Recently Relevant to Health Maintenance Insurance [facility] [employer] Member Subscriber Plan / Payer (Ef fective 2024-Present) Name:Yasmin Acosta Relation to Subscriber:Self Name:Yasmin Acosta Payer ID:Not on file Group ID:Not on file Type:Medicaid Address: [facility] [id number] [place] [address] [place], [place] [address]O PLAN * Guarantor: Yasmin Acosta Account Type Relation to Patient Date of Phone Billing Address Dental Self [address] [place] [address] [facility] ST[facility] ADULT
--- OUTSIDE RECORDS SUMMARY | 2025-01-09 16:04 | XMS_ITS ---
Author Organization Nguyễn Hallman III, MD Address [address] [place] [address] Care Team Providers Care Doctor Of Naprapathic Medicine Name Role Phone Nguyễn Hallman Primary Care Provider [phone] Allergies Allergen (clinical drug ingredient) Drug/Non Drug Allergy documented on EMR Reaction Allergy Type Onset Date Status Penicillin Unknown Drug Allergy Active amoxicillin Amoxicillin Unknown Drug Allergy Act solis amoxicillin / clavulanate Augmentin Unknown Drug Allergy Active REASON FOR VISIT annual Exam Medications Medication SIG (Take, Route, Frequency, Duration) Notes Start Date End Date Status Cyclobenzaprine HCl 10 MG 1 tablet Orall y three times a day 03/14/2024 Active Meclizine HCl 25 MG 1 tablet as needed O rally every 8 hrs 08/29/2024 Active Vitamin D3 Active Ondansetron HCl 4 MG 1 tablet Orally staci ry 4 hours prn nausea 02/02/2023 Active Gabapentin 300 MG TAKE 1 CAPSULE BY MO UTH THREE TIMES A DAY Active dexAMETHasone 2 MG 1 tablet Orally ever y 12 hrs 04/06/2023 Active Meloxicam 15 MG TAKE 1 TABLET BY YAMEL TH EVERY DAY Active Omeprazole 20 MG 1 capsule Orally Onc e a day 12/28/2023 Active traZODone HCl 50 MG TAKE 1 TABLET BY YAMEL TH EVERY DAY AT BEDTIME NEEDED FOR 30 DAYS Active Cyclobenzaprine HCl 10 MG 1 tablet Orall y three times a day 02/08/2024 Active Social History Tobacco Use: Social History Observation Description Date Details (start date - stop date) Former Smoker NA - NA Tobacco Use/Smoking Question Answer Notes Patient is a former smoker How long has it been since you last smoked? > 10 years Additional Findings: Tobacco Non-User Ex-cigaret te smoker Encounters Encounter Location Date Provider Diagnosis Nguyễn Hallman III, MD [address] [place] [address] [address] [place] [address] 10/18/2024 Nguyễn Hallman Overweight E66.3 Assessments Encounter Date Diagnosis (ICD Code) Assessment Notes Treatment Notes Treatment Clinical Notes 10/18/2024 Overweight (ICD-10 - E66.3) Her rate remains slightly overweight. We discussed her weight loss strategy. We discussed lifestyle modification. Plan Of Treatment Medication Medication Name Sig Start Date Stop Date Notes Cyclobenzaprine HCl 10 MG 1 tablet Orall y three times a day 03/14/2024 Meclizine HCl 25 MG 1 tablet as needed O rally every 8 hrs 08/29/2024 Vitamin D3 Ondansetron HCl 4 MG 1 tablet Orally staci ry 4 hours prn nausea 02/02/2023 Gabapentin 300 MG TAKE 1 CAPSULE BY MO UTH THREE TIMES A DAY dexAMETHasone 2 MG 1 tablet Orally every 12 hrs 04/06/2023 Meloxicam 15 MG TAKE 1 TABLET BY MOUTH EVERY DAY Omeprazole 20 MG 1 capsule Orally Once a day 12/28/2023 traZODone HCl 50 MG TAKE 1 TABLET BY YAMEL TH EVERY DAY AT BEDTIME NEEDED FOR 30 DAYS Cyclobenzaprine HCl 10 MG 1 tablet Orall y three times a day 02/08/2024 Next Appt Details Provider Name:Nguyễn Hallman, 02/06/2025 02:00:00 PM, [address] [place] [address] [address], [place], [address], Progress Notes * Zuhair HARDINGB:1965 ([age] yo F)Acc No.[id number]:10/18/2024 Progress Notes Patient:?Yasmin HARDING Provider:?Nguyễn Hallman MD :1965???Age:59 Y???Sex:Female D ate:10/18/2024 Address:[address] [place] [id number] Subjective: * Chief Complaints: * ???1. annual Exam. * HPI: ???COVID-19 Screening:?Questions?Have you had any new onset fever, chills, cough, congestion, sore throat, shortness of breath, muscle aches??No ?Have you been exposed to the virus within the last 10 days??No ?Have you travelled internationally in the last 10 days??No ?Have you been exposed to COVID-19 in the past??No * ROS:?General/Constitutional:?pain?only normal aches and pains.?Chills?denies.?Fatigue?admits.?Fever?denies.?ENT:?Decreased hearing?denies.?Respiratory:?Cough?denies.?Cardiovascular:?Chest pain with exertion?denies.?Dyspnea on exertion?denies.?Shortness of breath?denies.?Gastrointestinal:?Constipation?denies.?Decreased appetite?denies.?Diarrhea?denies.?Heartburn?denies.?Nausea?denies.?Rectal bleeding?denies.?Vomiting?denies.?Hematology:?bruising?denies.?petechiae?denies.?Swollen glands?none have been noted.?Genitourinary:?Frequent urination?denies.?Musculoskeletal:?Muscle aches?denies.?Painful joints?denies.?Sciatica?denies.?Weakness?denies.?Skin:?Itching?denies.?Rash?denies.?Skin lesion(s)?denies.?Neurologic:?Difficulty speaking?denies.?Dizziness?denies.?Headache?denies.?Low back pain?denies.?Psychiatric:?Depressed mood?denies.? * Medical History:?Nephrolithi asis, Chalazion of right eye, unspecified eyelid, Bilateral ovarian cysts, Adrenal cyst, Nephrolithiasis without obstruction, Hordeolum right lower eyelid, Overweight, Penicillin allergy, Bilateral carpal tunnel syndrome, Acne rosacea, Nodular dense breast tissue, bilateral, 4 para 4, Overweight, Former smoker, Herpes zoster left chest wall dermatome February 2022. * Surgical History:?tubal liga tion 1995, aspiration of cyst right breast 09/2016, colonoscopy, Dr. Nguyễn Adkins, [facility], negative 02/2019, Endometrial biopsy, Dr. White, negative, and inactive 02/02/23, Carpal tunnel Surgery, Right hand 03/23/2024, No history . * Hospitalization/Major Diagno stic Procedure:?Ureterolithiasis 03/2021, No history . * Family History:?Father: dece ased, bladder cancer, [...] Findings: Tobacco Non-User?Ex-cigarette smoker ???She lives in [place]. She has 4 children, 2 sons and 2 daughters who are healthy and well. * Medications:?Taking Meloxica m 15 MG Tablet TAKE 1 TABLET BY MOUTH EVERY DAY , Taking traZODone HCl 50 MG Tablet TAKE 1 TABLET BY MOUTH EVERY DAY AT BEDTIME NEEDED FOR 30 DAYS , Taking Omeprazole 20 MG Capsule Delayed Release 1 capsule Orally Once a day , Taking dexAMETHasone 2 MG Tablet 1 tablet Orally every 12 hrs , Taking Gabapentin 300 MG Capsule TAKE 1 CAPSULE BY MOUTH THREE TIMES A DAY , Taking Ondansetron HCl 4 MG Tablet 1 tablet Orally every 4 hours prn nausea , Taking Vitamin D3 , Taking Meclizine HCl 25 MG Tablet 1 tablet as needed Orally every 8 hrs , Taking Cyclobenzaprine HCl 10 MG Tablet 1 tablet Orally three times a day , Discontinued Cyclobenzaprine HCl 10 MG Tablet 1 tablet Orally three times a day , Medication List reviewed and reconciled with the patient * Allergies:?Augmentin, Penici llin, Amoxicillin. Objective: * Vitals:? * Examination: ???General Examination: ?GENERAL APPEARANCE:?pleasant, well nourished, well developed, in no acute distress, calm and relaxed.?HEAD:?atraumatic, normocephalic.?EYES:?eomi, perrla, anicteric, conjugate.?EARS:?normal.?NOSE:?septum intact.?ORAL CAVITY:?normal, unremarkable.?NECK/THYROID:?no jugular venous distention, no carotid bruit, thyroid normal.?LYMPH NODES:?no enlarged lymph nodes,spleen normal.?SKIN:?no suspicious lesions, anicteric.?HEART:?no clicks, gallops, murmurs, or rubs, regular rhythm, S1, S2 normal, no s3, or vascular bruits.?LUNGS:?clear to auscultation .?BREASTS:??no masses palpable bilaterally.?ABDOMEN:?bowel sounds normal, no ascites, no organomegaly, no mass.?RECTAL EXAM:?not examined.?MUSCULOSKELETAL:?extremities unremarkable, no clubbing, cyanosis or edema.?PERIPHERAL PULSES:?normal.?NEUROLOGIC:?alert and oriented, cranial nerves 2-12 grossly intact, deep tendon reflexes 2+ symmetrical, motor strength normal upper and lower extremities, sensory exam intact.?PSYCH:?alert, oriented.? Assessment: * Assessment: 1.?Overweight - E66.3???Note s :Her rate remains slightly overweight. We discussed her weight loss strategy. We discussed lifestyle modification.??? Plan: * Treatment: 2.?Others? Continue Cyclobenzaprine HCl Tablet, 10 MG, 1 [...] as needed, Orally, every 8 hrs.?? * Images: * The named appointment provid er may or may not be the originator of this progress note, and it is not deemed complete until electronically signed by the appointment provider. Sign off status: Pending * Provider:?Nguyễn Hallman MD Date:?09/30 Generated for Jojo salomon/Ravin/Anya on:?01/09/2025 04:03 PM EST History and Physical [...] been exposed to COVID-19 in the past?: No Examination Category Sub-Category Detail Notes General Examination GENERAL APPEARANCE: pleasant , well nourished, well developed, in no acute distress, calm and relaxed HEAD: atraumatic, normocep halic EYES: eomi, perrla, [...] normal upper and lower extremities, sensory exam intact SKIN: no suspicious lesion s, anicteric PERIPHERAL PULSES: normal BREASTS: no masses palpable b ilaterally MUSCULOSKELETAL: extremities unremark able, no clubbing, cyanosis or edema LYMPH NODES: no enlarged lymph no sierra,spleen normal RECTAL EXAM: not examined PSYCH: alert, oriented ORAL CAVITY: normal, unremarkable
--- OUTSIDE RECORDS SUMMARY | 2025-01-09 16:04 | XMS_ITS | Encounter Summary ---
Author Organization [employer] Address [address] [facility] 7t [place] [address] Care Team Providers Care Scientific Illustrator Name Role Phone Unavailable Primary Care Provider Unavailabl e Reason for Visit * Reason Comments Med Refill Encounter Details Date Type Department Care Team (Late st Contact Info) Description 06/07/2024 Refill [facility] ADULT DENTAL [address] [place] [address] Julian Odom DMD [address] [place] [address] Social History Tobacco Use Types Packs/Day Years [...] Telephone Encounter - Charla Hills DDS - 06/08/2024 8:09 AM EDT Approving, but needs appt for additional refills. documented in this encounter Plan of Treatment Upcoming Encounters Date Type Department Care Team (Late st Contact Info) Description 07/03/2025 3:00 PM EDT Office Visit [facility] ADULT DENTAL [address] [place] [address] Evie Lou documented as of this encounter Visit Diagnoses Not on filedocumented in this encounter
== END 2025-01-09 15:21 | disposition home or self-care (01) ==
LOC: HO.HAP 15:20
PROVIDERS: PCP Internal Medicine Medical Oncology; Visit Provider Otolaryngology
DX: Z46.1 Encounter for fitting and adjustment of hearing aid (principal); H90.41 Sensorineural hearing loss, unilateral, right ear, with unrestricted hearing on the contralateral side
CPT/HCPCS: 92590

== ENCOUNTER 2025-01-18 14:38 | Outpatient (REF) | payer OTHER, SELFPAY ==
--- OUTSIDE RECORDS SUMMARY | 2025-01-18 15:48 | XMS_ITS | Continuity of Care Document ---
Author Organization [facility] - [facility], [facility] Address [address] [place] [address] Care Team Providers Care Head Tennis Coach Name Role Phone DALTON CLINTON Referring Provider [phone] Assessment Encounter Date Assessment Date Assessment LastModified [...] after MRI for review and further planning. [email or web address] Not available 12/20/2024 16:26:04 Plan of Treatment [...] internal auditory canal, w/wo contrast 2024 025 [email or web address] [facility] ([facility]), [address] [place], [address], 12/25/2024 16:00:40 Medication Orders None recorded. Patient TargetsNo targets recorded. Patient InstructionsNo instructions recorded. Reason for Referral None Reported. Results Created Date Observation Date Name Description Value Unit Range Abnormal Flag Note LastModifiedBy Organization Detail LastModifiedTime 12/21/19 audio gram No observ ation record ed. BARCODE Not Available 2024 11:14:47 01/04/20 25 01/02/2025 MRI, brain + brain stem, w/wo contr ast [facility] Access ion Number : [id number] Patiotilio t Name: Yasmin Acosta Record Number : [id number] Date of : 1964 Date of Exam: 2024 Referr ing Physic justine: Aleksander Kenny [facility] d [address], [address] [facility], [facility] [place] [address] Exam: MR Brain (C-/C+ ) CPT 82276 Room Descri ption: [facility] Verio 3.0T MR Brain (C-/C+ ) CPT 61126 INDICA TION / CLINIC AL QUE[facility]I ON: [...] or abnorm al enhanc ement in the risk management intern al audito ry canals or cerebe [...] onical ly Signed By: Ryan Duran MD [email or web address] [facility] ([facility]) [address] [place], [address], 01/05/2025 09:25:10 01/04/20 25 01/02/2025 MRI, brain + inter nal audit ory canal , w/wo contr ast No observ ation record ed. [address] [place], [address], 01/05/2025 09:25:14 Result Notes None recorded. Problems Name Problem SNOMED Code Status Onset Date Resolution Date Notes Provider Name and Address Organization Details Recorded Time Sensorineural hearing loss of bilateral ears 775938006 Active 2024 Rocio hoffman [place] - [facility] 5 16:15:42 Dizziness and giddiness 163716478 Active 2024 ALEKSANDER TEMPLETON PA-C [address] [place] [address], [phone] [facility] - [facility] [place] 5 16:26:07 Problem Notes None recorded. Procedures Surgical History Date Name Laterality Status Provider Name and Address Organization Details Recorded Time 12/20/2024 Comp Audio with Tymps (19154 & 74206) completed Rocio Terrazas [place] [facility] 12/20/2024 16:15:32 Imaging Results None recorded. [...] SNOMED-CT Code Diagnosis ICD10 Code Diagnosis Note 13011 ALEKSANDER TEMPLETON PA-C [facility] of [address] [address] 12/20/2024 15:19:36 12/20/2024 16:22:11 Sensorineural hearing loss of bilateral ears 243292835 H90.3 Audiologic al evaluation results:Ri ght ear:{{Norm [...] maintain a hermetic seal}} Dizziness and giddiness [id number] R42 Health Concerns Section Related Observation LastModified by Organization Detai ls LastModified Time None Recorded Concern Status LastModified by Organization Details LastModified Time None Recorded Payers Encounter Date Sequence Insurance Name Policy Number Policy Staley Covered Member ID Staley Member ID Guarantor Name 12/20/2024 1 [facility] - HEALTH NET PLAN (MEDICAID HMO) [id number] Yasmin Acosta [id number] Yasmin Acosta Notes Date Note Type [...] in hearing or tinnitus. ALEKSANDER TEMPLETON PA-C [address] [place] [address], [phone], [facility] - [facility] 12/20/2024 16:26:42 OBGyn Episode No OBEpisode recorded.
--- OUTSIDE RECORDS SUMMARY | 2025-01-18 15:49 | XMS_ITS | Encounter Summary ---
Author Organization [employer] Address [address] [facility] 7t [place] [address] Care Team Providers Care Client Evaluator Name Role Phone Unavailable Primary Care Provider Unavailabl e Reason for Visit * Reason Comments Routine Cleaning Dental Exam Encounter Details Date Type Department Care Team ([facility] st Contact Info) Description 12/19/2024 3:00 PM EST Office Visit [facility] ADULT DENTAL [address] [place] [address] Evie Lou Dental plaque (Primary Dx); Dental [...] 1452 (prophy and exam adult dental) Location: [facility] Tooth: Maxilla and Mandible Procedure: Exam, X-rays, and Prophylaxis Verified the above with patient, autopsy assistant, and provider. Confirmed via patient's chart, intraorally and by radiographs. Manager Corporate Marketing: not applicable Medical Hx: Vitals: Blood pressure [...] patient including brushing technique and flossing. Recommendations: [place] two times daily, modified hopper technique, Floss daily, Electric toothbrush, Soft bristle toothbrush, [place] Tongue Recall Frequency: 3 mo NV: SRP [...] 1452 (prophy and exam adult dental) Location: [facility] Tooth: Maxilla and Mandible Procedure: Exam, X-rays, and Prophylaxis Verified the above with patient, autopsy assistant, and provider. Confirmed via patient's chart, intraorally and by radiographs. Manager Corporate Marketing: not applicable Chief Complaint Patient presents with [...] Cancer Risk: Low Risk Oral Hygiene Instructions: [place] two times daily, modified hopper technique, Floss daily, Soft bristle toothbrush, [place] Tongue Caries Risk Assessment: Medium- one risk factor Assessment/Plan SRPs Patient tolerated procedure well, all questions answered and expressed understanding. Dismissed in good condition. NV: FLAVIAs Real Estate Marketing Coordinator: Evie Lou Dentist: Charla Hills DDS documented in this encounter Plan of Treatment Upcoming Encounters Date Type Department Care Team (Late st Contact Info) Description 07/03/2025 3:00 PM EDT Office Visit [facility] ADULT DENTAL [address] [place] [address] Evie Lou Scheduled Orders Name Type Priority [...] calculus Encounter for dental examination Periodontal disease CASE PRESENTATION, DETAILED AND EXTENSIVE TREATMENT PLANNING Routine 12/19/2024 3:00 PM EST BITEWINGS - 4 RADIOGRAPHIC IMAGES Routine 12/19/2024 3:00 PM EST documented in this encounter Visit Diagnoses Diagnosis Dental plaque- Primary Accretions on teeth Dental calculus Accretions on teeth Encounter for dental examination Periodontal disease Unspecified gingival and periodontal disease documented in this encounter
--- OUTSIDE RECORDS SUMMARY | 2025-01-18 15:49 | XMS_ITS | Encounter Summary ---
Author Organization [employer] Address [address] [facility] 7t [place] [address] Care Team Providers Care Psychiatric Aide Name Role Phone Unavailable Primary Care Provider Unavailabl e Reason for Visit * Reason Comments Med Refill Encounter Details Date Type Department Care Team (Late st Contact Info) Description 06/07/2024 Refill [facility] ADULT DENTAL [address] [place] [address] Julian Odom DMD [address] [place] [address] Social History Tobacco Use Types Packs/Day Years [...] Description 07/03/2025 3:00 PM EDT Office Visit [facility] ADULT DENTAL [address] [place] [address] Evie Lou documented as of this encounter Visit Diagnoses Not on filedocumented in this encounter
--- OUTSIDE RECORDS SUMMARY | 2025-01-18 15:49 | XMS_ITS | Clinical Summary ---
Author Organization [employer] Address [address] [facility] 7t [place] [address] Care Team Providers Care Citrus Fruit Colorer Name Role Phone Unavailable Primary Care Provider [...] Type Department Care Team Description 01/08/2025 Refill [facility] ADULT DENTAL [address] [place] [address] Charla Hills DDS 12/19/2024 3:00 PM EST Office Visit [facility] ADULT DENTAL [address] [place] [address] Evie Lou Dental plaque (Primary Dx); Dental [...] Description 07/03/2025 3:00 PM EDT Office Visit [facility] ADULT DENTAL [address] [place] [address] Evie Lou Health Maintenance Due Date Last Done [...] topic Meningococcal Vaccine Aged Out No lina sindy eligible based on patient's age to complete [...] RADIOGRAPHIC IMAGE Routine 12/19/2024 3:00 PM EST CASE PRESENTATION, DETAILED AND EXTENSIVE TREATMENT PLANNING [...] Most Recently Relevant to Health Maintenance Insurance [facility] * Guarantor: Yasmin Acosta Account Type Relation to Patient Date of Phone Billing Address Dental Self [address] [place] [address] DENTAL-[facility] MEDICAID STAND ADULT
--- OUTSIDE RECORDS SUMMARY | 2025-01-18 15:49 | XMS_ITS ---
Author Organization Nguyễn Hallman III, MD Address [address] [facility] [place] [address] Care Team Providers Care Navy Senior Officer Name Role Phone Nguyễn Hallman Primary Care Provider Allergies Allergen (clinical drug ingredient) Drug/Non Drug [...] Internal M edicine Referred Provider [facility], [facility] Referred Provider Specialty Otolaryngolo gy General Notes [...] 300 MG TAKE 1 CAPSULE BY MO [facility] THREE TIMES A DAY Active Ondansetron [...] Date Provider Diagnosis Nguyễn Hallman III, MD [address] [place] [address] [place] [address] 09/18/2024 Nguyễn Hallman Overweight E66.3 ; Vertigo [...] and Treat Prolonged Vertigo effecting employment, of [employer], [facility] Surgeons Next Appt Details Follow Up: As Scheduled, 21 days, Reason: OV, Annual Exam, Follow up on Vertigo and possible Labyrinthitis Provider Name:Nguyễn Hallman, 02/06/2025 02:30:00 PM, [address] [place] [address] [address] [address], [place], [address], Progress Notes * Zuhair HARDINGB:1965 ([age] yo F)Acc No.[id number]:09/18/2024 Progress Notes Patient:?Derrick HARDINGa Provider:?Nguyễn Hallman MD :1965???Age:58 Y???Sex:Female D ate:09/18/2024 Address:[address] [place] [address] PAMELA [id number] Subjective: * Chief Complaints: * ???Benign positional [...] daily activities, 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 The patient has not experienced any falls [...] cyst right breast 09/2016colonoscopy, Dr. Nguyễn Adkins, [facility], negative 02/2019Endometrial biopsy, Dr. White, negative, and [...] Findings: Tobacco Non-User?Ex-cigarette smoker ???She lives in [place]. She has 4 children, 2 sons and [...] Vitals:?Ht: 64, Wt: 157, BMI :26.95, BP: 739965, HR: 103, Temp: 98.3, Ht-cm: 162.56, Wt-k.21. [...] Hallman MD Date:?08/30 Generated for Printi ng/Fasujeyg/eTransmitting on:?01/18/2025 03:48 PM EST History and Physical Notes * [...] es 09/18/2024 Nguyễn Hallman Surgeons, of [facility], [facility] Consult and Treat Prolonged Vertigo effecting employment
--- OUTSIDE RECORDS SUMMARY | 2025-01-18 15:49 | XMS_ITS | Encounter Summary ---
Author Organization [employer] Address [address] [facility] 7t [place] [address] Care Team Providers Care Map Plotter Name Role Phone Unavailable Primary Care Provider Unavailabl e Encounter Details Date Type Department Care Team (Latest Contact Info) Description 09/19/2021 Abstract [facility] CONVERSIONS Dental, Provider, DDS Social History [...] Description 07/03/2025 3:00 PM EDT Office Visit [facility] ADULT DENTAL [address] [place] [address] Evie Lou documented as of this encounter Visit Diagnoses Not on filedocumented in this encounter
--- OUTSIDE RECORDS SUMMARY | 2025-01-18 15:49 | XMS_ITS ---
Author Organization Nguyễn Hallman III, MD Address [address] [place] [address] Care Team Providers Care Estate Manager Name Role Phone Nguyễn Hallman Primary Care Provider REASON FOR VISIT Message Encounters Encounter Location Date Provider Diagnosis Nguyễn Hallman III, MD [address] [place] [address] [place] [address] 11/10/2024 Nguyễn Hallman Plan Of Treatment Next Appt Details Provider Name:Nguyễn Hallman, 02/06/2025 02:30:00 PM, [address] [place] [address] [place], [address], Progress Notes * HARDINGDerrickAndree:1965 ([age] yo F)Acc No.[id number]:11/10/2024 Patient:?Yasmin HARDING :1965???Age:59 Y???Sex:Female Address:[address] [facility] [facility] , [place], [address] * true * Date:? Generated for Caroli aime/Ravin/eTransmitting on:?01/18/2025 03:48 PM EST
--- OUTSIDE RECORDS SUMMARY | 2025-01-18 15:49 | XMS_ITS | Encounter Summary ---
Author Organization [facility] [employer] Address [address] [facility] 7t [place] [address] Care Team Providers Care Magnetic Doctor Name Role Phone Unavailable Primary Care Provider Unavailabl e Reason for Visit * Reason Comments Med Refill Encounter Details Date Type Department Care Team (Late Contact Info) Description 01/08/2025 Refill [facility] ADULT DENTAL [address] [place] [address] Charla Hills DDS [address] [place] [address] Social History Tobacco Use Types Packs/Day Years [...] Description 07/03/2025 3:00 PM EDT Office Visit [facility] ADULT DENTAL [address] [place] [address] Carmine, Evie documented as of this encounter Visit Diagnoses Not on filedocumented in this encounter
--- OUTSIDE RECORDS SUMMARY | 2025-01-18 15:49 | XMS_ITS ---
Author Organization Nguyễn Hallman III, MD Address [address] [place] [address] Care Team Providers Care Landing Scaler Name Role Phone Nguyễn Hallman Primary Care [...] Provider Diagnosis Nguyễn Hallman III, MD [address] [place] [address] [address] [place] [address] 10/18/2024 Nguyễn Hallman Overweight E66.3 Assessments Encounter [...] Details Provider Name:Nguyễn Hallman, 02/06/2025 02:30:00 PM, [address] [place] [address] [address], [place], [address], Progress Notes * Zuhair HARDINGB:1965 ([age] yo F)Acc No.[id number]:10/18/2024 Progress Notes Patient:?Yasmin HARDING Provider:?Nguyễn Hallman MD :1965???Age:59 Y???Sex:Female D ate:10/18/2024 Address:[address] [place] [address] Subjective: * Chief Complaints: * ???1. annual [...] right breast 09/2016, colonoscopy, Dr. Nguyễn Adkins, [facility], negative 02/2019, Endometrial biopsy, Dr. White, negative, [...] Findings: Tobacco Non-User?Ex-cigarette smoker ???She lives in [place]. She has 4 children, 2 sons and [...] Hallman MD Date:?09/30 Generated for Jojo salomon/Ravin/Anya on:?01/18/2025 03:49 PM EST History and Physical Notes * [...]
--- OUTSIDE RECORDS SUMMARY | 2025-01-18 15:49 | XMS_ITS | Data Portability ---
Author Organization [place] [facility], Allergy Address [address] [address] Care Team Providers Care University Dean Name Role Phone DALTON CLINTON Referring Provider [phone] Assessment Encounter Date Assessment Date Assessment LastModified [...] after MRI for review and further planning. [email or web address] Not available 12/20/2024 16:26:04 Plan of Treatment [...] internal auditory canal, w/wo contrast 2024 025 [email or web address] [facility] ([facility]), [address] [facility] [place], [address], 12/25/2024 16:00:40 Medication Orders None recorded. Patient TargetsNo targets recorded. Patient InstructionsNo instructions recorded. Reason for Referral None Reported. Results Created Date Observation Date Name Description Value Unit Range Abnormal Flag Note LastModifiedBy Organization Detail LastModifiedTime 12/21/19 audio gram No observ ation record ed. BARCODE Not Available 2024 11:14:47 01/04/20 25 01/02/2025 MRI, brain + brain stem, w/wo contr ast [facility] Access ion Number : [id number] Patiotilio t Name: Yasmin Acosta Record Number : [id number] Date of : 1964 Date of Exam: 2024 Referr ing Physic justine: Aleksander Kenny ENT Surgeo ns of Gayatri Jackson d [address], [address] [facility], [place] [address] Exam: MR Brain (C-/C+ ) CPT 48558 Room Descri ption: [facility] Verio 3.0T MR Brain (C-/C+ ) CPT 18521 INDICA TION / CLINIC AL QUESTI ON: [...] or 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 [address] [place], [address], 01/05/2025 09:25:14 Result Notes None recorded. Problems Name Problem SNOMED Code Status Onset Date Resolution Date Notes Provider Name and Address Organization Details Recorded Time Sensorineural hearing loss of bilateral ears 945162676 Active 2024 Rocio hoffman [place] - [facility] [place] 16:15:42 Dizziness and giddiness 641773439 Active 2024 ALEKSANDER [place] PA-C [address] [place] [address], [address] [facility] - [facility] [place] 16:26:07 Problem Notes None recorded. Procedures Surgical History Date Name Laterality Status Provider Name and Address Organization Details Recorded Time 12/20/2024 Comp Audio with Tymps (34004 & 15206) completed Rocio Terrazas [place] - [facility] [place] 12/20/2024 16:15:32 Imaging Results Imaging Date Name Status LastModified by Organiz ation Details LastModified Time 12/21/2024 audiogram completed BARCODE Information no t available 12/21/2024 11:14:47 01/02/2025 MRI, brain + brain stem, w/wo contrast completed [address] [facility] ([facility]) 80 [place], [address], 01/05/2025 09:25:10 01/02/2025 MRI, brain + internal auditory canal, w/wo contrast completed [address] Mri [address] [place], [address], 01/05/2025 09:25:14 Procedure Notes None recorded. Medical [...] SNOMED-CT Code Diagnosis ICD10 Code Diagnosis Note [id number] ALEKSANDER [place] PA-C ENTS of [address] [address] 12/20/2024 15:19:36 12/20/2024 16:22:11 Sensorineural hearing loss of bilateral ears 320192933 H90.3 Audiologic al evaluation results:Ri ght ear:{{Norm [...] maintain a hermetic seal}} Dizziness and giddiness 207239313 R42 Health Concerns Section Related Observation LastModified by Organization Detai ls LastModified Time None Recorded Concern Status LastModified by Organization Details LastModified Time None Recorded Advance Directives Directive None Recorded Payers Encounter Date Sequence Insurance Name Policy Number Policy Staley Covered Member ID Staley Member ID Guarantor Name 12/20/2024 1 [facility] PLAN (MEDICAID HMO) [id number] Yasmin Acosta [id number] Yasmin Acosta Notes Date Note Type [...] in hearing or tinnitus. ALEKSANDER [place] PA-C [address] [place] [address], [place], [address], [facility] - [facility] 12/20/2024 16:26:42 OBGyn Episode No OBEpisode recorded.
== END 2025-01-18 14:39 | disposition home or self-care (01) ==
LOC: HO.HAP 14:38
PROVIDERS: Visit Provider Internal Medicine Medical Oncology
DX: Z46.1 Encounter for fitting and adjustment of hearing aid (principal); H90.41 Sensorineural hearing loss, unilateral, right ear, with unrestricted hearing on the contralateral side
CPT/HCPCS: V5011; V5020; V5241; V5257

== ENCOUNTER 2025-02-06 14:43 | Outpatient (REF) | payer OTHER, SELFPAY ==
--- NOTE | ~2025-02-06 | US_ITS ---
EXAMINATION: US KIDNEY BILATERAL HISTORY: N20.0 - Calculus of kidney TECHNIQUE: Real-time grayscale ultrasound imaging of the kidneys was performed and images were reviewed. COMPARISON: Comparison is made with the prior examination dated 05/25/2024. FINDINGS: Right kidney: The right kidney measures 9.7 x 5.2 x 5.7 cm. Renal parenchymal echotexture and thickness are normal. There are no masses. Multiple nonobstructing calculi are identified, the largest of which is at the lower pole measuring 5 x 4 x 6 mm. There is no hydronephrosis. Left Kidney: The left kidney measures 11.3 x 6 x 4 x 4.7 cm. Renal parenchymal echotexture and thickness are normal. There are no masses. Multiple nonobstructing calculi are noted, the largest of which is in the interpolar region measuring 4 x 2 x 3 mm. There is no hydronephrosis. US/US renal BI IMPRESSION: Bilateral nephrolithiasis as described, without evidence of ureteral obstruction. Electronically signed by: Nguyễn Hernandez MD 02/06/2025 04:04 PM EDT
--- OUTSIDE RECORDS SUMMARY | 2025-02-06 18:02 | XMS_ITS | Data Portability ---
Author Organization [place] - [facility], Allergy Address [address] [address] Care Team Providers Care Cost Estimating Clerk Name Role Phone DALTON CLINTON Referring Provider [phone] Assessment Encounter Date Assessment Date Assessment LastModified [...] after MRI for review and further planning. [email or web address] Not available 12/20/2024 16:26:04 Plan of Treatment [...] internal auditory canal, w/wo contrast 2024 025 [facility] ([facility] [address] [facility] [place], [address], 12/25/2024 16:00:40 Medication Orders None recorded. Patient TargetsNo targets recorded. Patient InstructionsNo instructions recorded. Reason for Referral None Reported. Results Created Date Observation Date Name Description Value Unit Range Abnormal Flag Note LastModifiedBy Organization Detail LastModifiedTime 12/21/19 audio gram No observ ation record ed. BARCODE Not Available 2024 11:14:47 01/04/20 25 01/02/2025 MRI, brain + brain stem, w/wo contr ast [facility] Access ion Number : [id number] Patiotilio t Name: Yasmin Acosta Record Number : [id number] Date of : 1964 Date of Exam: 2024 Referr ing Physic justine: Aleksander Kenny ENT Surgeo ns of [place]atri [place] d [address], [address] [facility] 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 [address] [place], [address], 01/05/2025 09:25:14 Result Notes None recorded. Problems Name Problem SNOMED Code Status Onset Date Resolution Date Notes Provider Name and Address Organization Details Recorded Time Sensorineural hearing loss of bilateral ears 317914016 Active 2024 Rocio hoffman [place] - [facility] [place] 16:15:42 Dizziness and giddiness 504240153 Active 2024 ALEKSANDER [place] PA-C [address] [place] [address], [phone] [facility] - [facility] [place] 16:26:07 Problem Notes None recorded. Procedures Surgical History Date Name Laterality Status Provider Name and Address Organization Details Recorded Time 12/20/2024 Comp Audio with Tymps (13258 & 86632) completed Rocio Terrazas [place] - [facility] [place] 12/20/2024 16:15:32 Imaging Results Imaging Date Name Status LastModified by Organiz ation Details LastModified Time 12/21/2024 audiogram completed BAR[facility] Information no t available 12/21/2024 11:14:47 01/02/2025 MRI, brain + brain stem, w/wo contrast completed [address] [facility] ([facility]) 80 [place], [address], 01/05/2025 09:25:10 01/02/2025 MRI, brain + internal auditory canal, w/wo contrast completed [address] Mri [address] [place], [address], 01/05/2025 09:25:14 Procedure Notes None recorded. Medical [...] SNOMED-CT Code Diagnosis ICD10 Code Diagnosis Note [id number] ALEKSANDER [place] PA-C ENTS of [address] [address] 12/20/2024 15:19:36 12/20/2024 16:22:11 Sensorineural hearing loss of bilateral ears 288178546 H90.3 Audiologic al evaluation results:Ri ght ear:{{Norm [...] maintain a hermetic seal}} Dizziness and giddiness 089757105 R42 Health Concerns Section Related Observation LastModified by Organization Detai ls LastModified Time None Recorded Concern Status LastModified by Organization Details LastModified Time None Recorded Advance Directives Directive None Recorded Payers Encounter Date Sequence Insurance Name Policy Number Policy Staley Covered Member ID Staley Member ID Guarantor Name 12/20/2024 1 [facility] PLAN (MEDICAID HMO) [id number] Yasmin Acosta [id number] Yasmin Acosta Notes Date Note Type [...] in hearing or tinnitus. ALEKSANDER [place] PA-C [address] [place] [address], [place], [address], [facility] - [facility] 12/20/2024 16:26:42 OBGyn Episode No OBEpisode recorded.
--- OUTSIDE RECORDS SUMMARY | 2025-02-06 18:02 | XMS_ITS | Encounter Summary ---
Author Organization [employer] Address [address] [facility] 7t [place] [address] Care Team Providers Care Vegetable Harvest Machine Operator Name Role Phone Unavailable Primary Care Provider Unavailabl e Encounter Details Date Type Department Care Team (Latest Contact Info) Description 09/19/2021 Abstract [facility] CONVERSIONS Dental, Provider, DDS Social History Tobacco [...] Description 07/03/2025 3:00 PM EDT Office Visit [facility] ADULT DENTAL [address] [place] [address] Evie Lou documented as of this encounter Visit Diagnoses Not on filedocumented in this encounter
--- OUTSIDE RECORDS SUMMARY | 2025-02-06 18:02 | XMS_ITS | Clinical Summary ---
Author Organization [employer] Address 75 [facility] 7t [place] [address] Care Team Providers Care Pediatric Acute Care Unit Nurse Name Role Phone Unavailable Primary Care Provider [...] Type Department Care Team Description 01/08/2025 Refill [facility]ULT [facility]AL [address] [place] [address] Charla Hills DDS 12/19/2024 3:00 PM EST Office Visit [facility]ULT [facility] [address] [place] [address] Evie Lou Dental plaque (Primary Dx); Dental [...] Description 07/03/2025 3:00 PM EDT Office Visit [facility]ULT [facility] [address] [place] [address] Evie Lou Health Maintenance Due Date Last [...] Most Recently Relevant to Health Maintenance Insurance [facility], [facility] MCO PLAN * Guarantor: Yasmin Acosta Account Type Relation to Patient Date of Phone Billing Address Dental Self [address] [place] [address] DENTAL-[facility] MEDICAID STAND ADULT
--- OUTSIDE RECORDS SUMMARY | 2025-02-06 18:02 | XMS_ITS | Encounter Summary ---
Author Organization [employer] Address [address] [facility] 7t [place] [address] Care Team Providers Care Tobacco Blender Name Role Phone Unavailable Primary Care Provider Unavailabl e Reason for Visit * Reason Comments Med Refill Encounter Details Date Type Department Care Team (Late st Contact Info) Description 06/07/2024 Refill [facility] ADULT DENTAL [address] [place] [address] Julian Odom DMD [address] [place] [address] Social History Tobacco Use Types Packs/Day Years [...] Description 07/03/2025 3:00 PM EDT Office Visit [facility] ADULT DENTAL [address] [place] [address] Evie Lou documented as of this encounter Visit Diagnoses Not on filedocumented in this encounter
--- OUTSIDE RECORDS SUMMARY | 2025-02-06 18:02 | XMS_ITS | Encounter Summary ---
Author Organization [employer] Address [address] [facility] 7t [place] [address] Care Team Providers Care Domain Architect Name Role Phone Unavailable Primary Care Provider Unavailabl e Reason for Visit * Reason Comments Med Refill Encounter Details Date Type Department Care Team (Late st Contact Info) Description 01/08/2025 Refill [facility] ADULT DENTAL [address] [place] [address] Charla Hills DDS [address] [place] [address] Social History Tobacco Use Types Packs/Day Years [...] Description 07/03/2025 3:00 PM EDT Office Visit [facility] ADULT DENTAL [address] [place] [address] Acrmine, Evie documented as of this encounter Visit Diagnoses Not on filedocumented in this encounter
--- OUTSIDE RECORDS SUMMARY | 2025-02-06 18:02 | XMS_ITS ---
Author Organization Nguyễn Hallman III, MD Address [address] [facility] [address] Care Team Providers Care Body Rolling Machine Tender Name Role Phone Nguyễn Hallman Primary Care Provider [phone] REASON FOR VISIT Message Encounters Encounter Location Date Provider Diagnosis Nguyễn Hallman III, MD [address] [place] [address] [place] [address] 11/10/2024 Nguyễn Hallman Plan Of Treatment Next Appt Details Provider Name:Nguyễn Hallman, 03/13/2025 02:30:00 PM, [address] [place] [address] [place], [address], Progress Notes * MEAGHANDerrickAndree:1965 ([age] yo F)Acc No.[id number]:11/10/2024 Patient:?Yasmin HARDING :1965???Age:59 Y???Sex:Female Address:[address] [facility] [facility] [address] , [place], [address] * true * Date:? Generated for Printi aime/Ravin/eTransmitting on:?02/06/2025 03:21 PM EDT
--- OUTSIDE RECORDS SUMMARY | 2025-02-06 18:02 | XMS_ITS ---
Author Organization Nguyễn Hallman III, MD Address [address] [place] [address] Care Team Providers Care Weld Lay Out Worker Name Role Phone Nguyễn Hallman Primary Care [...] Date Provider Diagnosis Nguyễn Hallman III, MD [address] [place] [address] [address] [place] [address] 10/18/2024 Nguyễn Hallman Overweight E66.3 Assessments Encounter [...] HCl 50 MG TAKE 1 TABLET BY YAMLE TH EVERY DAY AT BEDTIME NEEDED FOR 30 DAYS Cyclobenzaprine HCl 10 MG 1 tablet Orall y three times a day 02/08/2024 Next Appt Details Provider Name:Nguyễn Hallman, 03/13/2025 02:30:00 PM, [address] [place] [address] [address], [place], [address], Progress Notes * Zuhair HARDINGB:1965 ([age] yo F)Acc No.[id number]:10/18/2024 Progress Notes Patient:?Yasmin HARDING Provider:?Nguyễn Hallman MD :1965???Age:59 Y???Sex:Female D ate:10/18/2024 Address:[address] [place] [address] Subjective: * Chief Complaints: * ???1. annual [...] right breast 09/2016, colonoscopy, Dr. Nguyễn Adkins, [facility], negative 02/2019, Endometrial biopsy, Dr. White, [...] Findings: Tobacco Non-User?Ex-cigarette smoker ???She lives in [place]. She has 4 children, 2 sons and [...] Provider:?Nguyễn Hallman MD Date:?09/30 Generated for Jojo saloomn/Ravin/Connoritting on:?02/06/2025 06:02 PM EDT History and Physical Notes * HPI (History [...]
--- OUTSIDE RECORDS SUMMARY | 2025-02-06 18:02 | XMS_ITS ---
Author Organization Nguyễn Hallman III, MD Address [address] [facility] [place] [address] Care Team Providers Care Apple Checker Name Role Phone Nguyễn Hallman Primary Care Provider Allergies Allergen (clinical drug ingredient) Drug/Non Drug Allergy documented on EMR Reaction Allergy Type Onset Date Status Penicillin Unknown Drug Allergy Active amoxicillin Amoxicillin Unknown Drug Allergy Act solis amoxicillin / clavulanate Augmentin Unknown Drug Allergy Active REASON FOR VISIT annual Exam Medications Medication SIG (Take, Route, Frequency, Duration) Notes Start Date End Date Status dexAMETHasone 2 MG 1 tablet Orally ever y 12 hrs 04/06/2023 Active Vitamin D3 Active Meclizine HCl 25 MG 1 tablet as needed O rally every 8 hrs 08/29/2024 Active Gabapentin 300 MG TAKE 1 CAPSULE BY MO UTH THREE TIMES A DAY Active Ondansetron HCl 4 MG 1 tablet Orally staci ry 4 hours prn nausea 02/02/2023 Active traZODone HCl 50 MG TAKE 1 TABLET BY YAMEL TH EVERY DAY AT BEDTIME NEEDED FOR 30 DAYS Active Omeprazole 20 MG 1 capsule Orally Onc e a day 12/28/2023 Active Meloxicam 15 MG TAKE 1 TABLET BY YAMEL TH EVERY DAY Active Cyclobenzaprine HCl 10 MG TAKE 1 TABLET BY MOUTH THREE TIMES A DAY FOR 30 DAYS Active Social History Tobacco Use: Social History Observation Description Date Details (start date - stop date) Former Smoker NA - NA Tobacco Use/Smoking Question Answer Notes Patient is a former smoker How long has it been since you last smoked? > 10 years Additional Findings: Tobacco Non-User Ex-cigaret te smoker Encounters Encounter Location Date Provider Diagnosis Nguyễn Hallman III, MD [address] [place] [address] [address] [place] [address] 02/06/2025 Nguyễn Hallman Plan Of Treatment Medication Medication Name Sig Start Date Stop Date Notes dexAMETHasone 2 MG 1 tablet Orally every 12 hrs 04/06/2023 Vitamin D3 Meclizine HCl 25 MG 1 tablet as needed O rally every 8 hrs 08/29/2024 Gabapentin 300 MG TAKE 1 CAPSULE BY MO UTH THREE TIMES A DAY Ondansetron HCl 4 MG 1 tablet Orally staci ry 4 hours prn nausea 02/02/2023 traZODone HCl 50 MG TAKE 1 TABLET BY YAMEL TH EVERY DAY AT BEDTIME NEEDED FOR 30 DAYS Omeprazole 20 MG 1 capsule Orally Once a day 12/28/2023 Meloxicam 15 MG TAKE 1 TABLET BY MOUTH EVERY DAY Cyclobenzaprine HCl 10 MG TAKE 1 TABLET BY MOUTH THREE TIMES A DAY FOR 30 DAYS Next Appt Details Provider Name:Nguyễn Hallman, 03/13/2025 02:30:00 PM, [address] [place] [address] [address], [place], [address], Progress Notes * HARDING ZuhairB:1965 ([age] yo F)Acc No.[id number]:02/06/2025 Progress Notes Patient:?Yasmin HARDING Provider:?Nguyễn Hallman MD :1965???Age:59 Y???Sex:Female D ate:02/06/2025 Address:[address] [place] [address] Subjective: * Chief Complaints: * ???1. annual Exam. * HPI: ???COVID-19 Screening:?Questions?Have you had any new onset fever, chills, cough, congestion, sore throat, shortness of breath, muscle aches??No * ROS:?General/Constitutional:?pain?only normal aches and pains.?Chills?denies.?Fatigue?admits.?Fever?denies.?ENT:?Decreased hearing?denies.?Respiratory:?Cough?denies.?Cardiovascular:?Chest [...] right breast 09/2016, colonoscopy, Dr. Nguyễn Adkins, [facility], negative 02/2019, Endometrial biopsy, Dr. White, [...] Findings: Tobacco Non-User?Ex-cigarette smoker ???She lives in [place]. She has 4 children, 2 sons and 2 daughters who are healthy and well. * Medications:?Taking traZODon e HCl 50 MG Tablet TAKE 1 TABLET [...] , Taking Cyclobenzaprine HCl 10 MG Tablet TAKE 1 TABLET BY MOUTH THREE TIMES A DAY FOR 30 DAYS , Taking Meloxicam 15 MG Tablet TAKE 1 TABLET BY MOUTH EVERY DAY , Medication List reviewed and reconciled with [...] lower extremities, sensory exam intact.?PSYCH:?alert, oriented.? Assessment: Plan: * Treatment: * Images: * The named appointment provid er may or may not be the originator of this progress note, and it is not deemed complete until electronically signed by the appointment provider. Sign off status: Pending * Provider:?Nguyễn Hallman MD Date:?01/27 Generated for Jojo salomon/Ravin/eTransmitting on:?02/06/2025 03:21 PM EDT History and Physical Notes * HPI (History of Present Illness) Category Sub-Category Detail Notes COVID-19 Screening Questions Have you had any new onset fever, chills, cough, congestion, sore throat, shortness of breath, muscle aches?: No Examination Category Sub-Category Detail Notes General [...]
== END 2025-02-06 14:44 | disposition home or self-care (01) ==
LOC: HO.US 14:43
PROVIDERS: PCP Internal Medicine Medical Oncology; Visit Provider Nurse Practitioner Family
DX: N20.0 Calculus of kidney (principal)
CPT/HCPCS: 76775

== ENCOUNTER → 2025-02-06 14:45 | Outpatient (BNV) | payer OTHER, SELFPAY | PROVIDERS: PCP Internal Medicine Medical Oncology; Visit Provider Radiology Diagnostic Radiology | DX: N20.0 Calculus of kidney (principal) | CPT/HCPCS: 76775 ==

== ENCOUNTER 2025-02-15 13:45 | Outpatient (REF) | payer OTHER, SELFPAY ==
--- NOTE | ~2025-02-15 | US_ITS ---
EXAMINATION: US PELVIS TRANSABDOMINAL AND TRANSVAGINAL HISTORY: N83.209 - Unspecified ovarian cyst, unspecified side COMPARISON: Comparison is made with the prior examination dated 11/18/2023. TECHNIQUE: Transabdominal and endovaginal real-time 2D harkins-scale ultrasound was performed. FINDINGS: Uterus: The uterus is normal in size, measuring 6.5 x 3.0 x 3.6 cm. Myometrium has a normal echotexture. No fibroids are identified. There is a 1.2 x 0.7 x 1.0 cm cyst of the vagina on the left which likely represents a Bartholin's gland cyst. Endometrium: The endometrial stripe measures 1 mm in thickness. Right ovary: The right ovary measures 1.6 x 1.2 x 1.1 cm. The right ovary is normal in size and echotexture. Left ovary: The left ovary measures 1.2 x 1.4 x 1.1 cm. The left ovary is normal in size and echotexture. Prominent vessels are noted in the left adnexa. Pelvic fluid: none. US/US pelvic and transvaginal IMPRESSION: 1.2 x 0.7 x 1.0 cm probable Bartholin's gland cyst of the vagina on the left. Otherwise unremarkable pelvic ultrasound. Electronically signed by: Nguyễn Hernandez MD 02/16/2025 07:13 AM EDT
--- OUTSIDE RECORDS SUMMARY | 2025-02-15 16:24 | XMS_ITS ---
Author Organization Nguyễn Hallman III, MD Address [address] [place] [address] Care Team Providers Care Postal Mail Carrier Name Role Phone Nguyễn Hallman Primary Care Provider [phone] Allergies Allergen (clinical drug ingredient) Drug/Non Drug [...] Date Provider Diagnosis Nguyễn Hallman III, MD [address] [place] [address] [address] [place] [address] 02/06/2025 Nguyễn Hallman Plan Of Treatment Medication [...] Details Provider Name:Nguyễn Hallman, 03/13/2025 02:30:00 PM, [address] [place] [address] [address], [place], [address], Progress Notes * HARDING ZuhairB:1965 ([age] yo F)Acc No.[id number]:02/06/2025 Progress Notes Patient:?Yasmin HARDING Provider:?Nguyễn Hallman MD :1965???Age:59 Y???Sex:Female D ate:02/06/2025 Address:[address] [place] [phone] Subjective: * Chief Complaints: * ???1. annual [...] right breast 09/2016, colonoscopy, Dr. Nguyễn Adkins, [facility], negative 02/2019, Endometrial biopsy, Dr. White, negative, [...] Findings: Tobacco Non-User?Ex-cigarette smoker ???She lives in [place]. She has 4 children, 2 sons and [...] Hallman MD Date:?01/27 Generated for Jojo salomon/Ravin/eTransmitting on:?02/15/2025 04:24 PM EDT History and Physical Notes * [...]
--- OUTSIDE RECORDS SUMMARY | 2025-02-15 16:24 | XMS_ITS | Encounter Summary ---
Author Organization [employer] Address [address] [facility] 7t [place] [address] Care Team Providers Care Criminal Investigator Customs Name Role Phone Unavailable Primary Care Provider Unavailabl e Reason for Visit * Reason Comments Med Refill Encounter Details Date Type Department Care Team (Late Contact Info) Description 01/08/2025 Refill [facility] ADULT DENTAL [address] [place] [address] Charla Hills DDS [address] [place] [address] Social History Tobacco Use Types Packs/Day Years [...] Description 07/03/2025 3:00 PM EDT Office Visit [facility] ADULT DENT[facility] [address] [place] [address] Carmine, Evie documented as of this encounter Visit Diagnoses Not on filedocumented in this encounter
--- OUTSIDE RECORDS SUMMARY | 2025-02-15 16:24 | XMS_ITS | Encounter Summary ---
Author Organization [employer] Address [address] [facility] 7t [place] [address] Care Team Providers Care Product Merchandiser Name Role Phone Unavailable Primary Care Provider Unavailabl e Encounter Details Date Type Department Care Team (Latest Contact Info) Description 09/19/2021 Abstract [facility] CONVERSIONS Dental, Provider, DDS Social [...] Description 07/03/2025 3:00 PM EDT Office Visit [facility] ADULT DENTAL [address] [place] [address] Evie Lou documented as of this encounter Visit Diagnoses Not on filedocumented in this encounter
--- OUTSIDE RECORDS SUMMARY | 2025-02-15 16:24 | XMS_ITS ---
Author Organization Nguyễn Hallman III, MD Address [address] [place] [address] Care Team Providers Care Food Analyst Name Role Phone Nguyễn Hallman Primary Care Provider REASON FOR VISIT Message Encounters Encounter Location Date Provider Diagnosis Nguyễn Hallman III, MD [address] [place] [address] [place] [address] 11/10/2024 Nguyễn Hallman Plan Of Treatment Next Appt Details Provider Name:Nguyễn Hallman, 03/13/2025 02:30:00 PM, [address] [place] [address] [place], [address], Progress Notes * MEAGHANDerrickAndree:1965 ([age] yo F)Acc No.[id number]:11/10/2024 Patient:?Yasmin HARDING :1965???Age:59 Y???Sex:Female Address:[address] [facility] [address] , [place], [address] * true * Date:? Generated for Printi aime/Ravin/eTransmitting on:?02/15/2025 04:24 PM EDT
--- OUTSIDE RECORDS SUMMARY | 2025-02-15 16:24 | XMS_ITS | Data Portability ---
Author Organization [place] [facility], Allergy Address [address] [address] Care Team Providers Care Stock Checkerer Name Role Phone DALTON CLINTON Referring Provider [phone] Assessment Encounter Date Assessment Date Assessment LastModified [...] after MRI for review and further planning. [email or web address] Not available 12/20/2024 16:26:04 Plan of Treatment [...] internal auditory canal, w/wo contrast 2024 025 [email or web address] [facility] ([facility]), [address] [facility], [place], [address], 12/25/2024 16:00:40 Medication Orders None recorded. Patient [...] MRI- [facility] Access ion Number : [id number] Patiotilio t Name: Yasmin Acosta Record Number : [id number] Date of : 1964 Date of Exam: 2024 Referr ing Physic justine: Aleksander Kenny [facility] d [address], [address] [facility], [place] [address] Exam: MR Brain (C-/C+ ) CPT 50453 Room Descri ption: [facility] Verio 3.0T MR Brain (C-/C+ ) CPT 78685 INDICA TION / CLINIC AL QUESTI ON: [...] or abnorm al enhanc ement in the chemist intern al audito ry canals or cerebe [...] onical ly Signed By: Ryan Duran MD [address] [facility] ([facility]) [address] [place], [address], 01/05/2025 09:25:10 01/04/20 25 01/02/2025 MRI, brain + inter nal audit ory canal , w/wo contr ast No observ ation record ed. [address] [place], [address], 01/05/2025 09:25:14 Result Notes None recorded. Problems Name Problem SNOMED Code Status Onset Date Resolution Date Notes Provider Name and Address Organization Details Recorded Time Sensorineural hearing loss of bilateral ears 464438810 Active 2024 Rocio hoffman [place] - [facility] 16:15:42 Dizziness and giddiness 900465971 Active 2024 ALEKSANDER TEMPLETON PA-C [address] [place] [address], [id number] [facility] - [facility] 16:26:07 Problem Notes None recorded. Procedures Surgical History Date Name Laterality Status Provider Name and Address Organization Details Recorded Time 12/20/2024 Comp Audio with Tymps (70597 & 21178) completed Rocio Terrazas [place] - [facility] 12/20/2024 16:15:32 Imaging Results Imaging Date Name Status LastModified by Organiz ation Details LastModified Time 12/21/2024 audiogram completed [facility] Information no t available 12/21/2024 11:14:47 01/02/2025 MRI, brain + brain stem, w/wo contrast completed [address] [facility] ([facility]) [address] [place], [address], 01/05/2025 09:25:10 01/02/2025 MRI, brain + internal auditory canal, w/wo contrast completed [address] Mri [address] [place], [address], 01/05/2025 09:25:14 Procedure Notes None recorded. Medical [...] SNOMED-CT Code Diagnosis ICD10 Code Diagnosis Note [id number] ALEKSANDER TEMPLETON PA-C [facility] [address] [address] 12/20/2024 15:19:36 12/20/2024 16:22:11 Sensorineural hearing loss of bilateral ears 945626076 H90.3 Audiologic al evaluation results:Ri ght ear:{{Norm [...] maintain a hermetic seal}} Dizziness and giddiness 797190730 R42 Health Concerns Section Related Observation LastModified by Organization Detai ls LastModified Time None Recorded Concern Status LastModified by Organization Details LastModified Time None Recorded Advance Directives Directive None Recorded Payers Encounter Date Sequence Insurance Name Policy Number Policy Staley Covered Member ID Staley Member ID Guarantor Name 12/20/2024 1 [facility] PLAN (MEDICAID HMO) [id number] Yasmin Acosta [id number] Yasmin Acosta Notes Date Note Type [...] in hearing or tinnitus. ALEKSANDER TEMPLETON PA-C [address] [place] [address], [place], [address], [facility] - [facility] 12/20/2024 16:26:42 OBGyn Episode No OBEpisode recorded.
--- OUTSIDE RECORDS SUMMARY | 2025-02-15 16:25 | XMS_ITS | Encounter Summary ---
Author Organization [employer] Address [address] [facility] 7t [place] [address] Care Team Providers Care Library Science Instructor Name Role Phone Unavailable Primary Care Provider Unavailabl e Reason for Visit * Reason Comments Med Refill Encounter Details Date Type Department Care Team (Late st Contact Info) Description 06/07/2024 Refill [facility] ADULT DENTAL [address] [place] [address] Julian Odom DMD [address] [place] [address] Social History Tobacco Use Types Packs/Day Years [...] Description 07/03/2025 3:00 PM EDT Office Visit [facility] ADULT DENTAL [address] [place] [address] Evie Lou documented as of this encounter Visit Diagnoses Not on filedocumented in this encounter
--- OUTSIDE RECORDS SUMMARY | 2025-02-15 16:25 | XMS_ITS ---
Author Organization Nguyễn Hallman III, MD Address [address] [facility] [facility] [place] [address] Care Team Providers Care Allopathic Doctor Name Role Phone Nguyễn Hallman Primary Care Provider [phone] Allergies Allergen (clinical drug ingredient) Drug/Non Drug [...] Date Provider Diagnosis Nguyễn Hallman III, MD [address] [place] [address] [address] [place] [address] 10/18/2024 Nguyễn Hallman Overweight E66.3 Assessments Encounter [...] Details Provider Name:Nguyễn Hallman, 03/13/2025 02:30:00 PM, [address] [place] [address] [address], [place], [address], Progress Notes * Zuhair HARDINGB:1965 ([age] yo F)Acc No.[id number]:10/18/2024 Progress Notes Patient:?Yasmin HARDING Provider:?Nguyễn Hallman MD :1965???Age:59 Y???Sex:Female D ate:10/18/2024 Address:[address] [place] [address] Subjective: * Chief Complaints: * ???1. annual [...] right breast 09/2016, colonoscopy, Dr. Nguyễn Adkins, [facility], negative 02/2019, Endometrial biopsy, Dr. White, [...] Findings: Tobacco Non-User?Ex-cigarette smoker ???She lives in [place]. She has 4 children, 2 sons and [...] Provider:?Nguyễn Hallman MD Date:?09/30 Generated for Jojo salomon/Ravin/Connoritting on:?02/15/2025 04:24 PM EDT History and Physical [...]
--- OUTSIDE RECORDS SUMMARY | 2025-02-15 16:25 | XMS_ITS | Clinical Summary ---
Author Organization [employer] Address [address] [facility] 7t [place] [address] Care Team Providers Care Fruit Canner Name Role Phone Unavailable Primary Care Provider Unavailabl e Allergies Active Allergy Reactions Criticality Noted Date Comments Amoxicillin-Pot Clavulanate Unknown 04/08/20 23 Clavulanic Acid Anaphylaxis High 02/25/2018 Penicillins Anaphylaxis,Unknown High 02/25/2018 Medications cyclobenzaprine (Flexeril) 10 MG tablet TAKE 1 TABLET BY MOUTH THREE TIMES A DAY NEEDED FOR 10 DAYS 3 Active gabapentin (Neurontin) 300 MG capsule TAKE 1 CAPSULE BY MOUTH THREE TIMES A DAY 15 3 Active naproxen (Naprosyn) 500 MG tablet TAKE 1 TABLET ORALLY 2 TIMES A DAY 3 Active minocycline 50 MG capsule Take 50 mg by mouth in the morning. 3 Active nitrofurantoin (Macrodantin) 100 MG capsule TAKE 1 CAPSULE BY MOUTH TWICE A DAY FOR 7 DAYS WITH FOOD 2 Active omeprazole (PriLOSEC) [address] capsule TAKE 1 CAPSULE BY MOUTH EVERY DAY 30 MINUTES BEFORE MORNING MEAL FOR 30 DAYS 3 Active ondansetron (Zofran) 4 MG tablet 1 TABLET ORALLY EVERY 4 HOURS NEEDED FOR NAUSEA 7 DAYS 3 Active tolterodine LA (Detrol LA) 4 MG 24 hr capsule Take 4 mg by mouth in the morning. 3 Active traZODone (Desyrel) 50 MG tablet Take by mouth at bedtime. Active chlorhexidine (Peridex) 0.12 % solution USE 15 ML IN THE MOUTH OR THROAT IF NEEDED IN THE MORNING, AT NOON, AND AT BEDTIME (PROPHYLAXIS) FOR UP TO 5 DAYS. SPIT OUT, DO NOT SWALLOW. 473 mL 4 Active Additional Information Patient not taking.Reported on 12/19/2024 chlorhexidine (Peridex) 0.12 % solution USE 15 ML IN THE MOUTH OR THROAT IF NEEDED FOR 30 SECONDS, SWISH AND SPIT FOR UP TO 14 DAYS. 473 mL 5 Active Active Problems No known active problems Encounters Date Type Department Care Team Description 01/08/2025 Refill [facility] ADULT DENTAL [address] [place] [address] Charla Hills, DDAbdirashid 12/19/2024 3:00 PM EST Office Visit [facility] ADULT DENTAL [address] [place] [address] Evie Lou Dental plaque (Primary Dx); Dental [...] Description 07/03/2025 3:00 PM EDT Office Visit [facility] ADULT DENTAL [address] [place] [address] Evie Lou Health Maintenance Due Date Last [...] Vaccines (1 of 2) 2017 COVID-19 Vaccine ( - season) 2024 02/20/2022, 08/01/2021, 07/04/2021 Influenza [...] Most Recently Relevant to Health Maintenance Insurance [facility] * Guarantor: Acosta, Yasmin Account Type Relation to Patient Date of Phone Billing Address Dental Self [address] [place] [address] DENTAL-[facility] MEDICAID STAND ADULT
== END 2025-02-15 13:46 | disposition home or self-care (01) ==
LOC: HO.US 13:45
PROVIDERS: PCP Internal Medicine Medical Oncology; Visit Provider Obstetrics & Gynecology
DX: N83.209 Unspecified ovarian cyst, unspecified side (principal)
CPT/HCPCS: 76830; 76856

== ENCOUNTER → 2025-02-15 13:46 | Outpatient (BNV) | payer OTHER, SELFPAY | PROVIDERS: PCP Internal Medicine Medical Oncology; Visit Provider Radiology Diagnostic Radiology | DX: N75.0 Cyst of Bartholin's gland (principal) | CPT/HCPCS: 76830; 76856 ==

== ENCOUNTER 2025-02-16 10:23 | Outpatient (AMB) | payer OTHER, SELFPAY ==
--- NOTE | 2025-02-16 11:01 | A.OFFVIS_ITS ---
Intake Visit Reasons: Bartholin cyst Die Maker Electronic: Die Maker Electronic Present (Laura Dueñas PENDING SALE TO [facility]) Accompanied by: Self / Same As Patient Allergies amoxicillin [Amoxicillin] Allergy (Mild, Verified 02/16/25 11:01) SWELLING/VOMITING, syncope, stomach burning clavulanic acid [From Augmentin] Allergy (Mild, Verified 02/16/25 11:01) SWELLING/VOMITING doxycycline Allergy (Unknown, Verified 02/16/25 11:01) vomiting lightheadness loss of vision Penicillin Allergy (Unknown, Uncoded 11/08/24 07:28) burned stomach with vomiting HPI Comments Details: Presenting for ultrasound follow-up done yesterday which showed the following: IMPRESSION: 1.2 x 0.7 x 1.0 cm probable Bartholin's gland cyst of the vagina on the left. Otherwise unremarkable pelvic ultrasound. The patient is complaining of left vulvar bump that is tender PFSH Medical History Carpal tunnel syndrome of right wrist SHASHANK (obstructive sleep apnea) OAB (overactive bladder) Renal calculi Renal colic Hx of cyst of breast Surgical History H/O foot surgery Family History Paternal Uncle Prostate CA Social History Alcohol intake: never Patient Tobacco Use Status: Former Tobacco user Second Hand Smoke Exposure: No Current occupational status: employed Current occupation: [employer] Sexual orientation: Straight/Heterosexual Gender identity: Female Female Reproductive History Menstrual Age of Menarche: 14 Review of Systems Const All systems reviewed & are unremarkable except as noted in HPI and below Physical Exam General: Yes no CVA tenderness External Female Exam: No normal external appearance (Left small Bartholin's gland cyst) and normal appearance of the urethra Speculum Exam - Vagina: normal appearance of the vagina, normal palpation, no lesions and no masses Speculum Exam - Cervix: normal appearance of the cervix, normal palpation, no lesions, no masses and nontender Bimanual exam- vagina & uterus: normal bimanual exam, normal palpation, uterine size normal, normal palpation, uterine shape normal, No Cervical tenderness present and non-tender Bimanual Exam- Adnexa, other: normal adnexae Back/Spine/Pelvis Back: no CVA tenderness Assessment & Plan Assessment & Plan (1) Bartholin's gland cyst: Code(s): N75.0 - Cyst of Bartholin's gland Category: Medical Plan: Discussed with the patient the finding on ultrasound and physical exam, left Bartholin's gland cyst, recommended I&D with a word catheter insertion. The patient would like to defer till Wednesday. Instructions given the patient to schedule an appointment on Wednesday for I&D and to call or go to emergency room in case of worsening of her pain and or swelling. All questions answered, the patient verbalized understanding and agreed with the plan. Coding Level of Care Code Est Pt Level 3 (63476) Diagnoses Bartholin's gland cyst N75.0
--- OUTSIDE RECORDS SUMMARY | 2025-02-16 12:25 | XMS_ITS | Encounter Summary ---
Author Organization [employer] Address [address] [facility] 7t [place] [address] Care Team Providers Care Sap Abap Developer Name Role Phone Unavailable Primary Care Provider Unavailabl e Reason for Visit * Reason Comments Med Refill Encounter Details Date Type Department Care Team (Late st Contact Info) Description 06/07/2024 Refill [facility] ADULT DENTAL [address] [place] [address] Julian Odom DMD [address] [place] [address] Social History Tobacco Use Types Packs/Day Years [...] 3:00 PM EDT Office Visit [facility] ADULT DENTAL [address] [place] [address] Evie Lou documented as of this encounter Visit Diagnoses Not on filedocumented in this encounter
--- OUTSIDE RECORDS SUMMARY | 2025-02-16 12:25 | XMS_ITS ---
Author Organization Nguyễn Hallman III, MD Address [address] [facility] [place] [address] Care Team Providers Care Hand Engraver Name Role Phone Nguyễn Hallman Primary Care [...] Date Provider Diagnosis Nguyễn Hallman III, MD [address] [place] [address] [address] [place] [address] 02/06/2025 Nguyễn Hallman Plan Of Treatment Medication [...] Details Provider Name:Nguyễn Hallman, 03/13/2025 02:30:00 PM, [address] [place] [address] [address], [place], [address], Progress Notes * HARDING ZuhairB:1965 ([age] yo F)Acc No.[id number]:02/06/2025 Progress Notes Patient:?Yasmin HARDING Provider:?Nguyễn Hallman MD :1965???Age:59 Y???Sex:Female D ate:02/06/2025 Address:[address] [place] [address] Subjective: * Chief Complaints: * ???1. annual [...] right breast 09/2016, colonoscopy, Dr. Nguyễn Adkins, [facility], negative 02/2019, Endometrial biopsy, Dr. White, [...] Findings: Tobacco Non-User?Ex-cigarette smoker ???She lives in [place]. She has 4 children, 2 sons and [...] Hallman MD Date:?01/27 Generated for Jojo salomon/Ravin/eTransmitting on:?02/16/2025 12:25 PM EDT History and Physical Notes * [...]
--- OUTSIDE RECORDS SUMMARY | 2025-02-16 12:25 | XMS_ITS | Encounter Summary ---
Author Organization [employer] Address [address] [facility] 7t [place] [address] Care Team Providers Care Review Engineer Name Role Phone Unavailable Primary Care Provider Unavailabl e Encounter Details Date Type Department Care Team (Latest Contact Info) Description 09/19/2021 Abstract [facility] CONVERSIONS Dental, Provider, DDS Social History [...] Description 07/03/2025 3:00 PM EDT Office Visit [facility] ADULT DENTAL [address] [place] [address] Evie Lou documented as of this encounter Visit Diagnoses Not on filedocumented in this encounter
--- OUTSIDE RECORDS SUMMARY | 2025-02-16 12:25 | XMS_ITS | Encounter Summary ---
Author Organization [employer] Address [address] [facility] 7t [place] [address] Care Team Providers Care Staff Sonographer Name Role Phone Unavailable Primary Care Provider Unavailabl e Reason for Visit * Reason Comments Med Refill Encounter Details Date Type Department Care Team (Late Contact Info) Description 01/08/2025 Refill [facility] ADULT DENTAL [address] [place] [address] Charla Hills DDS [address] [place] [address] Social History Tobacco Use Types Packs/Day Years [...] Description 07/03/2025 3:00 PM EDT Office Visit [facility] ADULT DENTAL [address] [place] [address] Carmine, Evie documented as of this encounter Visit Diagnoses Not on filedocumented in this encounter
--- OUTSIDE RECORDS SUMMARY | 2025-02-16 12:25 | XMS_ITS | Clinical Summary ---
Author Organization [employer] Address [address] [facility] 7t [place] [address] Care Team Providers Care Black Ash Burner Operator Name Role Phone Unavailable Primary Care [...] Type Department Care Team Description 01/08/2025 Refill [facility] ADULT DENTAL [address] [place] [address] Charla Hills, DDAbdirashid 12/19/2024 3:00 PM EST Office Visit [facility] ADULT DENTAL [address] [place] [address] Evie Lou Dental plaque (Primary Dx); Dental [...] 3:00 PM EDT Office Visit [facility] ADULT DENTAL [address] [place] [address] Evie Lou Health Maintenance Due Date Last [...] Most Recently Relevant to Health Maintenance Insurance [facility] * Guarantor: Acosta, Yasmin Account Type Relation to Patient Date of Phone Billing Address Dental Self [address] [place] [address] DENTAL-[facility] MEDICAID STAND ADULT
--- OUTSIDE RECORDS SUMMARY | 2025-02-16 12:25 | XMS_ITS ---
Author Organization Nguyễn Hallman III, MD Address [address] [facility] [place] [address] Care Team Providers Care Supervisor Edging Name Role Phone Nguyễn Hallman Primary Care Provider REASON FOR VISIT Message Encounters Encounter Location Date Provider Diagnosis Nguyễn Hallman III, MD [address] [place] [address] [place] [address] 11/10/2024 Nguyễn Hallman Plan Of Treatment Next Appt Details Provider Name:Nguyễn Hallman, 03/13/2025 02:30:00 PM, [address] [place] [address] [place], [address], Progress Notes * MEAGHANDerrickAndree:1965 ([age] yo F)Acc No.[id number]:11/10/2024 Patient:?Yasmin HARDING :1965???Age:59 Y???Sex:Female Address:[address] [address] , [place], [address] * true * Date:? Generated for Printi aime/Ravin/eTransmitting on:?02/16/2025 12:25 PM EDT
--- OUTSIDE RECORDS SUMMARY | 2025-02-16 12:25 | XMS_ITS ---
Author Organization Nguyễn Hallman III, MD Address [address] [facility] [place] [address] Care Team Providers Care Barbering Teacher Name Role Phone Nguyễn Hallman Primary Care [...] Date Provider Diagnosis Nguyễn Hallman III, MD [address] [place] [address] [address] [place] [address] 10/18/2024 Nguyễn Hallman Overweight E66.3 Assessments Encounter [...] Details Provider Name:Nguyễn Hallman, 03/13/2025 02:30:00 PM, [address] [place] [address] [address], [place], [address], Progress Notes * Zuhair HARDINGB:1965 ([age] yo F)Acc No.[id number]:10/18/2024 Progress Notes Patient:?Yasmin HARDING Provider:?Nguyễn Hallman MD :1965???Age:59 Y???Sex:Female D ate:10/18/2024 Address:[address] [place] [address] Subjective: * Chief Complaints: * ???1. annual [...] right breast 09/2016, colonoscopy, Dr. Nguyễn Adkins, [facility], negative 02/2019, Endometrial biopsy, Dr. White, negative, [...] Findings: Tobacco Non-User?Ex-cigarette smoker ???She lives in [place]. She has 4 children, 2 sons and [...] Hallman MD Date:?09/30 Generated for Jojo salomon/Ravin/Connoritting on:?02/16/2025 12:25 PM EDT History and Physical [...]
== END 2025-02-16 11:18 | disposition home or self-care (01) ==
PROVIDERS: PCP Internal Medicine Medical Oncology; Visit Provider Obstetrics & Gynecology
DX: N75.0 Cyst of Bartholin's gland (principal)
CPT/HCPCS: 99213

== ENCOUNTER → 2025-02-16 10:23 | Outpatient (BNVA) | payer OTHER, SELFPAY | PROVIDERS: PCP Internal Medicine Medical Oncology; Visit Provider Obstetrics & Gynecology | DX: N75.0 Cyst of Bartholin's gland (principal) | CPT/HCPCS: 99212 ==

== ENCOUNTER 2025-02-19 13:38 | Outpatient (AMB) | payer OTHER, SELFPAY ==
--- NOTE | 2025-02-19 13:39 | A.OFFVIS_ITS ---
Intake Visit Reasons: Bartholin Cyst Assistive Technology Trainer: Assistive Technology Trainer Present (Laura Dueñas [facility]) Accompanied by: Self / Same As Patient Allergies amoxicillin [Amoxicillin] Allergy (Mild, Verified 02/19/25 13:39) SWELLING/VOMITING, syncope, stomach burning clavulanic acid [From Augmentin] Allergy (Mild, Verified 02/19/25 13:39) SWELLING/VOMITING doxycycline Allergy (Unknown, Verified 02/19/25 13:39) vomiting lightheadness loss of vision Penicillin Allergy (Unknown, Uncoded 11/08/24 07:28) burned stomach with vomiting HPI Comments Details: Presenting for left Bartholin cyst I and D, complaining of left vulvar swelling and pain PFSH Medical History Carpal tunnel syndrome of right wrist SHASHANK (obstructive sleep apnea) OAB (overactive bladder) Renal calculi Renal colic Hx of cyst of breast Surgical History H/O foot surgery Family History Paternal Uncle Prostate CA Social History Alcohol intake: never Patient Tobacco Use Status: Former Tobacco user Second Hand Smoke Exposure: No Current occupational status: employed 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 Sexual orientation: Straight/Heterosexual Gender identity: Female Female Reproductive History Menstrual Age of Menarche: 14 Review of Systems Const All systems reviewed & are unremarkable except as noted in HPI and below Physical Exam General: Yes no CVA tenderness External Female Exam: normal appearance of the urethra and other (Left Bartholin's gland cyst 1 cm) Speculum Exam - Vagina: normal appearance of the vagina, normal palpation, no lesions and no masses Speculum Exam - Cervix: normal appearance of the cervix, normal palpation, no lesions, no masses and nontender Bimanual exam- vagina & uterus: normal bimanual exam, normal palpation, uterine size normal, normal palpation, uterine shape normal, No Cervical tenderness present and non-tender Bimanual Exam- Adnexa, other: normal adnexae Back/Spine/Pelvis Back: no CVA tenderness Office Procedures Incision/Drainage SUPERVISOR ACCOUNTING CLERKS Incision/Drainage SUPERVISOR ACCOUNTING CLERKS Details: Bartholin I & D with Word Catheter insertion Indication: Left labial Bartholin's gland cyst. Prep: the skin was cleaned with Betadine. Anesthesia: 3 cc of Xylocaine was used for anesthesia Guidance: palpation was used for guidance. Technique: a nicking incision was made in the skin, using an 11-blade to incise the cyst, and word catheter was advanced into the cyst cavity . Yield: 3 cc came out. The fluid was blood-tinged. Result: This substantially decompressed the swelling. Dressing: a clean dressing was placed. Tolerance: The patient tolerated the procedure well. Disposition: The patient was sent home in stable condition. Before the procedure was started d/w patient the procedure, alternatives (do nothing), & all the risks associated with the procedure (bleeding , infection, scar tissue development, chronic dyspareunia, injury to bladder, vessels, bowels, possible need for transfusion with all its risks) then patient signed the consent and At the end the patient was instructed to call if temp>100.4, abdominal/pelvic /perineal pain, n/v and schedule a follow-up appointment within 2 weeks 91151-A&D of Bartholin gland abscess All charges added?: Procedure code (CPT) selection complete Assessment & Plan Assessment & Plan (1) Bartholin's gland cyst: Code(s): N75.0 - Cyst of Bartholin's gland Category: Medical Plan: Bartholin's gland cyst I&D done, see procedure note Orders: Orders Incision & Drainage SUPERVISOR ACCOUNTING CLERKS Today N75.0 - Cyst of Bartholin's gland Coding Level of Care Code Procedure Only Diagnoses Bartholin's gland cyst N75.0 CPT Codes Incision/Drainage SUPERVISOR ACCOUNTING CLERKS - IDGYN2: 76480-K&D of Bartholin gland abscess ([id number])
== END 2025-02-19 14:12 | disposition home or self-care (01) ==
PROVIDERS: PCP Internal Medicine Medical Oncology; Visit Provider Obstetrics & Gynecology
DX: N75.0 Cyst of Bartholin's gland (principal)
CPT/HCPCS: 56420

== ENCOUNTER → 2025-02-19 13:38 | Outpatient (BNVA) | payer OTHER, SELFPAY | PROVIDERS: PCP Internal Medicine Medical Oncology; Visit Provider Obstetrics & Gynecology | DX: N75.0 Cyst of Bartholin's gland (principal) | CPT/HCPCS: 56420 ==

== ENCOUNTER 2025-02-20 16:21 | Outpatient (AMB) | payer OTHER, SELFPAY ==
--- NOTE | 2025-02-20 16:21 | A.OFFVIS_ITS ---
Intake Visit Reasons: 6m/US(set) Intake Note: Patient presents today for televisit follow up on: kidney stones and ultrasound results Urology Medications: Vitamin B6 Blood Thinner: none Title Coordinator Required: No Accompanied by: Self / Same As Patient Allergies amoxicillin [Amoxicillin] Allergy (Mild, Verified 02/20/25 18:26) SWELLING/VOMITING, syncope, stomach burning clavulanic acid [From Augmentin] Allergy (Mild, Verified 02/20/25 18:26) SWELLING/VOMITING doxycycline Allergy (Unknown, Verified 02/20/25 18:26) vomiting lightheadness loss of vision Penicillin Allergy (Unknown, Uncoded 02/20/25 18:26) burned stomach with vomiting HPI Comments Details: Yasmin is a very pleasant 59 year old female patient of Dr. Hallman. She has a past medical history of carpal tunnel syndrome, obstructive sleep apnea, overactive bladder, and nephrolithiasis. She is being followed up on today via video telehealth for her nephrolithiasis and overactive bladder. In discussion with the patient today she reports having had recent I&D procedure with Dr. Alon fair for Bartholin gland cyst. Recent renal imaging results reviewed with the patient today 02/20 bilateral kidneys with no masses or hydronephrosis. Multiple nonobstructing calculi in the right kidney largest measuring 5 mm. Left kidney with multiple nonobstructing calculi largest measuring 4 mm. When asked she reports noncompliance with vitamin B6. She does report attempting to drink plenty of water daily. She currently denies any bothersome urinary issues. She denies incontinence, nocturia, hematuria, dysuria, foul smelling urine, changes to urinary stream, flank pain, fever, and or chills. She is happy with her current voiding parameters. She does report noting urinary urgency and frequenc y at times however relates this to her increase in water consumption related to nephrolithiasis. She otherwise offers no issues or concerns at this time. 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 Sexual orientation: Straight/Heterosexual Gender identity: Female Female Reproductive History Menstrual Age of Menarche: 14 Review of Systems Const All systems reviewed & are unremarkable except as noted in HPI and below Physical Exam Const General: cooperative, healthy appearing, comfortable, no acute distress, well developed, alert and awake Orientation/consciousness: patient oriented x3 Resp Effort & Inspection: normal respiratory effort and able to speak in complete sentences Neuro General: patient oriented x3 Psych Appearance: grossly normal and well kempt Speech and movement: Clear speech present Affect: normal affect Attitude: cooperative Thought content: Normal thought content present Insight: Fair insight present (Psych) Judgement: Fair judgement present (Psych) Telehealth Telehealth Telehealth Platform: Telephone Location of provider rendering services: practice address Location of patient: address on file Patient Identification confirmed using: Name, : Yes Telehealth method: video Patient verbally consented to treatment: Yes Patient verbally consented to billing insurance company: Yes Patient informed of any privacy concerns related to visit: Yes Minutes spent on Phone/Video with Pt.: 15 Results Reviewed Results Reviewed: Date of Service: 02/06/25 Procedure(s): US renal BI FINDINGS: Right kidney: The right kidney measures 9.7 x 5.2 x 5.7 cm. Renal parenchymal echotexture and thickness are normal. There are no masses. Multiple nonobstructing calculi are identified, the largest of which is at the lower pole measuring 5 x 4 x 6 mm. There is no hydronephrosis. Left Kidney: The left kidney measures 11.3 x 6 x 4 x 4.7 cm. Renal parenchymal echotexture and thickness are normal. There are no masses. Multiple nonobstructing calculi are noted, the largest of which is in the interpolar region measuring 4 x 2 x 3 mm. There is no hydronephrosis. IMPRESSION: Bilateral nephrolithiasis as described, without evidence of ureteral obstruction. Assessment & Plan Assessment & Plan (1) Renal calculi: Code(s): N20.0 - Calculus of kidney Category: Medical Plan Recent renal imaging results reviewed with the patient today; as noted above. We discussed slight increase in stone burden and importance of adequate hydration in relation to nephrolithiasis. Will obtain Litholink for further assessment evaluation. We discussed importance of compliance with vitamin B6 as well as hydration. She currently denies any bothersome urinary issues. Follow-up in 3 months with Litholink to be completed prior; or sooner with any issues, concerns, and or questions. Orders: Orders URORISK 02/20/25 N20.0 - Calculus of kidney Patient Instructions: The patient had an opportunity to ask questions regarding the treatment plan. All questions were answered. Physical exam, labs, and imaging were discussed and reviewed in detail. As well as risks, benefits, and discussion of treatment choices. No major barriers to understanding were identified. The patient expressed understanding and agreement with the above treatment plan. The patient was made aware they should contact our office by phone for worsening of their current condition, the appearance of new symptoms, or with any questions or concerns. Compliance is encouraged with any medications and follow up testing that is ordered. It is a privilege to be allowed the opportunity to participate in? your urological care.? Again, if you have any questions or concerns If you have any questions or concerns please do not hesitate to contact me. The office is [phone]. This note is constructed using voice recognition software. While every effort has been made to ensure accuracy mental health technician errors may have been included. Yours sincerely, YESICA Plunkett Coding Level of Care Code Tele Est Pt Level 3 (91054) Diagnoses Renal calculi N20.0
--- OUTSIDE RECORDS SUMMARY | 2025-02-20 19:48 | XMS_ITS | Encounter Summary ---
Author Organization [employer] Address [address] [facility] [address] [place] [address] Care Team Providers Care Mill Washer Name Role Phone Unavailable Primary Care Provider Unavailabl e Encounter Details Date Type Department Care Team (Latest Contact Info) Description 09/19/2021 Abstract [facility] CONVERSIONS Dental, Provider, DDS Social History [...] Description 07/03/2025 3:00 PM EDT Office Visit [facility] ADULT DENTAL [address] [place] [address] Evie Lou documented as of this encounter Visit Diagnoses Not on filedocumented in this encounter
--- OUTSIDE RECORDS SUMMARY | 2025-02-20 19:48 | XMS_ITS | Encounter Summary ---
Author Organization [employer] Address [address] [facility] [address] [place] [address] Care Team Providers Care Quill Layer Name Role Phone Unavailable Primary Care Provider Unavailabl e Reason for Visit * Reason Comments Med Refill Encounter Details Date Type Department Care Team (Late st Contact Info) Description 06/07/2024 Refill [facility] ADULT DENTAL [address] [place] [address] Julian Odom DMD [address] [place] [address] Social History Tobacco Use Types Packs/Day Years [...] Description 07/03/2025 3:00 PM EDT Office Visit [facility] ADULT DENTAL [address] [place] [address] Evie Lou documented as of this encounter Visit Diagnoses Not on filedocumented in this encounter
--- OUTSIDE RECORDS SUMMARY | 2025-02-20 19:48 | XMS_ITS ---
Author Organization Nguyễn Hallman III, MD Address [address] [facility] [place] [address] Care Team Providers Care Director Of Science Name Role Phone Nguyễn Hallman Primary Care [...] Provider Diagnosis Nguyễn Hallman III, MD [address] [place] [address] [address] [place] [address] 02/06/2025 Nguyễn Hallman Plan Of Treatment Medication [...] Details Provider Name:Nguyễn Hallman, 03/13/2025 02:30:00 PM, [address] [place] [address] [address], [place], [address], Progress Notes * HARDING ZuhairB:1965 ([age] yo F)Acc No.[id number]:02/06/2025 Progress Notes Patient:?Yasmin HARDING Provider:?Nguyễn Hallman MD :1965???Age:59 Y???Sex:Female D ate:02/06/2025 Address:[address] [place] [id number] Subjective: * Chief Complaints: * ???1. annual [...] right breast 09/2016, colonoscopy, Dr. Nguyễn Adkins, [facility], negative 02/2019, Endometrial biopsy, Dr. White, negative, [...] Findings: Tobacco Non-User?Ex-cigarette smoker ???She lives in [place]. She has 4 children, 2 sons and [...] Hallman MD Date:?01/27 Generated for Jojo salomon/Ravin/eTransmitting on:?02/20/2025 07:47 PM EDT History and Physical Notes * [...]
--- OUTSIDE RECORDS SUMMARY | 2025-02-20 19:48 | XMS_ITS | Encounter Summary ---
Author Organization [employer] Address [address] [facility] [address] [place] [address] Care Team Providers Care Concrete Stone Fabricator Name Role Phone Unavailable Primary Care Provider Unavailabl e Reason for Visit * Reason Comments Med Refill Encounter Details Date Type Department Care Team (Late Contact Info) Description 01/08/2025 Refill [facility] ADULT DENTAL [address] [place] [address] Charla Hills DDS [address] [place] [address] Social History Tobacco Use Types Packs/Day Years [...] Description 07/03/2025 3:00 PM EDT Office Visit [facility] ADULT DENTAL [address] [place] [address] Carmine, Evie documented as of this encounter Visit Diagnoses Not on filedocumented in this encounter
--- OUTSIDE RECORDS SUMMARY | 2025-02-20 19:48 | XMS_ITS ---
Author Organization Nguyễn Hallman III, MD Address [address] [facility] [address] Care Team Providers Care Agricultural Mechanic Name Role Phone Nguyễn Hallman Primary Care [...] Date Provider Diagnosis Nguyễn Hallman III, MD [address] [place] [address] [address] [place] [address] 10/18/2024 Nguyễn Hallman Overweight E66.3 Assessments Encounter [...] Details Provider Name:Nguyễn Hallman, 03/13/2025 02:30:00 PM, [address] [place] [address] [address], [place], [address], Progress Notes * Zuhair HARDINGB:1965 ([age] yo F)Acc No.[id number]:10/18/2024 Progress Notes Patient:?Yasmin HARDING Provider:?Nguyễn Hallman MD :1965???Age:59 Y???Sex:Female D ate:10/18/2024 Address:[address] [place] [phone] Subjective: * Chief Complaints: * ???1. annual [...] right breast 09/2016, colonoscopy, Dr. Nguyễn Adkins, [facility], negative 02/2019, Endometrial biopsy, Dr. White, [...] Findings: Tobacco Non-User?Ex-cigarette smoker ???She lives in [place]. She has 4 children, 2 sons and [...] Hallman MD Date:?09/30 Generated for Jojo salomon/Ravin/Connoritting on:?02/20/2025 07:48 PM EDT History and Physical Notes * [...]
--- OUTSIDE RECORDS SUMMARY | 2025-02-20 19:48 | XMS_ITS | Clinical Summary ---
Author Organization [employer] Address [address] [facility] 7[address] [place] [address] Care Team Providers Care Diversity Manager Name Role Phone Unavailable Primary Care Provider [...] Type Department Care Team Description 01/08/2025 Refill [facility] ADULT DENTAL [address] [place] [address] Charla Hills, DDAbdirashid 12/19/2024 3:00 PM EST Office Visit [facility] ADULT DENTAL [address] [place] [address] Evie Lou Dental plaque (Primary Dx); Dental [...] Description 07/03/2025 3:00 PM EDT Office Visit [facility] ADULT DENTAL [address] [place] [address] Evie Lou Health Maintenance Due Date Last [...] Most Recently Relevant to Health Maintenance Insurance [facility] * Guarantor: Acosta, Yasmin Account Type Relation to Patient Date of Phone Billing Address Dental Self [address] [place] [address] DENTAL-[facility] MEDICAID STAND ADULT
--- OUTSIDE RECORDS SUMMARY | 2025-02-20 19:48 | XMS_ITS ---
Author Organization Nguyễn Hallman III, MD Address [address] [facility] [place] [address] Care Team Providers Care Manager Functional Name Role Phone Nguyễn Hallman Primary Care Provider REASON FOR VISIT Message Encounters Encounter Location Date Provider Diagnosis Nguyễn Hallman III, MD [address] [place] [address] [place] [address] 11/10/2024 Nguyễn Hallman Plan Of Treatment Next Appt Details Provider Name:Nguyễn Hallman, 03/13/2025 02:30:00 PM, [address] [place] [address] [place], [address], Progress Notes * MEAGHANDerrickAndree:1965 ([age] yo F)Acc No.[id number]:11/10/2024 Patient:?Yasmin HARDING :1965???Age:59 Y???Sex:Female Address:[address] , [place], [address] * true * Date:? Generated for Printi aime/Ravin/eTransmitting on:?02/20/2025 07:47 PM EDT
--- OUTSIDE RECORDS SUMMARY | 2025-02-20 19:48 | XMS_ITS | Data Portability ---
Author Organization [place] [facility], Allergy Address [address] [address] Care Team Providers Care Twister In Name Role Phone DALTON CLINTON Referring Provider [phone] Assessment Encounter Date Assessment Date Assessment LastModified [...] after MRI for review and further planning. [email or web address] Not available 12/20/2024 16:26:04 Plan of Treatment [...] internal auditory canal, w/wo contrast 2024 025 [email or web address] [facility] [address] [facility] [place], [address], 12/25/2024 16:00:40 Medication Orders None recorded. Patient TargetsNo targets recorded. Patient InstructionsNo instructions recorded. Reason for Referral None Reported. Results Created Date Observation Date Name Description Value Unit Range Abnormal Flag Note LastModifiedBy Organization Detail LastModifiedTime 12/21/19 audio gram No observ ation record ed. [facility] Not Available 2024 11:14:47 01/04/20 25 01/02/2025 MRI, brain + brain stem, w/wo contr ast [facility] Access ion Number : [id number] Pat[address] t Name: Yasmin Acosta Record Number : [id number] Date of : 1964 Date of Exam: 2024 Referr ing Physic justine: Aleksander Kenny [facility] Jackson d [address], [address] [facility] [address] Exam: MR Brain (C-/C+ ) CPT 48276 Room Descri ption: [facility] Verio 3.0T MR Brain (C-/C+ ) CPT 47501 INDICA TION / CLINIC [facility] ON: [...] or abnorm al enhanc ement in the programming intern al audito ry canals or cerebe [...] onical ly Signed By: Ryan Duran MD [address] [facility]) [address] [place], [address], 01/05/2025 09:25:10 01/04/20 25 01/02/2025 MRI, brain + inter nal audit ory canal , w/wo contr ast No observ ation record ed. [address] [place], [address], 01/05/2025 09:25:14 Result Notes None recorded. Problems Name Problem SNOMED Code Status Onset Date Resolution Date Notes Provider Name and Address Organization Details Recorded Time Sensorineural hearing loss of bilateral ears 655752892 Active 2024 Rocio hoffman [place] - [facility] 16:15:42 Dizziness and giddiness 647927943 Active 2024 ALEKSANDER TEMPLETON PA-C [address] [place] [address], [phone] - [facility] [place] [facility] 16:26:07 Problem Notes None recorded. Procedures Surgical History Date Name Laterality Status Provider Name and Address Organization Details Recorded Time 12/20/2024 Comp Audio with Tymps (58643 & 82665) completed Rocio Terrazas [place] - [facility] 12/20/2024 16:15:32 Imaging Results Imaging Date Name Status LastModified by Organiz ation Details LastModified Time 12/21/2024 audiogram completed [facility] Information no t available 12/21/2024 11:14:47 01/02/2025 MRI, brain + brain stem, w/wo contrast completed [address] [facility] [address] [place], [address], 01/05/2025 09:25:10 01/02/2025 MRI, brain + internal auditory canal, w/wo contrast completed [address] M[facility] [address] [place], [address], 01/05/2025 09:25:14 Procedure Notes None recorded. Medical [...] SNOMED-CT Code Diagnosis ICD10 Code Diagnosis Note [id number] ALEKSANDER TEMPLETON PA-C [facility] [address] [address] 12/20/2024 15:19:36 12/20/2024 16:22:11 Sensorineural hearing loss of bilateral ears 601606256 H90.3 Audiologic al evaluation results:Ri ght ear:{{Norm [...] maintain a hermetic seal}} Dizziness and giddiness [id number] R42 Health Concerns Section Related Observation LastModified by Organization Detai ls LastModified Time None Recorded Concern Status LastModified by Organization Details LastModified Time None Recorded Advance Directives Directive None Recorded Payers Encounter Date Sequence Insurance Name Policy Number Policy Staely Covered Member ID Staley Member ID Guarantor Name 12/20/2024 1 [facility] PLAN (MEDICAID HMO) [id number] Yasmin Acosta [id number] Yasmin Acosta Notes Date Note Type [...] in hearing or tinnitus. ALEKSANDER TEMPLETON PA-C [address] [place] [address], [place], [address], [facility] - [facility] 12/20/2024 16:26:42 OBGyn Episode No OBEpisode recorded.
== END 2025-02-20 17:00 | disposition home or self-care (01) ==
LOC: HO.HUSH 16:21
PROVIDERS: PCP Internal Medicine Medical Oncology; Visit Provider Nurse Practitioner Family
DX: N20.0 Calculus of kidney (principal)
CPT/HCPCS: 99213

== ENCOUNTER 2025-02-22 14:14 | Outpatient (REF) | payer OTHER, SELFPAY | END 2025-02-22 14:15 | disposition home or self-care (01) | LOC: HO.HAP 14:14 | PROVIDERS: PCP Internal Medicine Medical Oncology; Visit Provider Otolaryngology | DX: Z13.89 Encounter for screening for other disorder (principal) ==

== ENCOUNTER 2025-02-27 14:21 | Outpatient (AMB) | payer OTHER, SELFPAY ==
--- NOTE | 2025-02-27 14:27 | A.OFFVIS_ITS ---
Intake Visit Reasons: Bartholin cyst check Batching Operator: Batching Operator Present (Laura Rene) Accompanied by: Self / Same As Patient Allergies amoxicillin [Amoxicillin] Allergy (Mild, Verified 02/27/25 14:30) SWELLING/VOMITING, syncope, stomach burning clavulanic acid [From Augmentin] Allergy (Mild, Verified 02/27/25 14:30) SWELLING/VOMITING doxycycline Allergy (Unknown, Verified 02/27/25 14:30) vomiting lightheadness loss of vision Penicillin Allergy (Unknown, Uncoded 02/20/25 18:26) burned stomach with vomiting HPI Comments Details: Presenting for follow-up left Bartholin's gland cyst I and D, the word catheter slipped out, the patient is complaining of left vulvar discomfort. 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 Sexual orientation: Straight/Heterosexual Gender identity: Female Female Reproductive History Menstrual Age of Menarche: 14 Review of Systems Const All systems reviewed & are unremarkable except as noted in HPI and below Physical Exam General: Yes no CVA tenderness External Female Exam: normal external appearance, normal appearance of the urethra and other (No residual left Bartholin's gland enlarged) Speculum Exam - Vagina: normal appearance of the vagina, normal palpation, no lesions and no masses Speculum Exam - Cervix: normal appearance of the cervix, normal palpation, no lesions, no masses and nontender Bimanual exam- vagina & uterus: normal bimanual exam, normal palpation, uterine size normal, normal palpation, uterine shape normal, No Cervical tenderness present and non-tender Bimanual Exam- Adnexa, other: normal adnexae Back/Spine/Pelvis Back: no CVA tenderness Assessment & Plan Assessment & Plan (1) Bartholin's gland cyst: Comment: Status post I and D Code(s): N75.0 - Cyst of Bartholin's gland Category: Medical Plan: Discussed with the patient the recurrence rate after early word catheter sleeping out, signs symptoms of Bartholin's gland cyst recurrence were discussed with the patient, instructions given the patient to call in case of enlargement of the left vulva or pain. All questions answered, the patient verbalized understanding Coding Level of Care Code Est Pt Level 3 (96944) Diagnoses Bartholin's gland cyst N75.0
--- OUTSIDE RECORDS SUMMARY | 2025-02-27 17:09 | XMS_ITS ---
Author Organization Nguyễn Hallman III, MD Address [address] [facility] [place] [place] [address] Care Team Providers Care Cone Winder Name Role Phone Nguyễn Hallman Primary Care [...] Date Provider Diagnosis Nguyễn Hallman III, MD [address] [place] [address] [address] [place] [address] 02/06/2025 Nguyễn Hallman Plan Of Treatment Medication [...] Details Provider Name:Nguyễn Hallman, 03/13/2025 02:30:00 PM, [address] [place] [address] [address], [place], [address], Progress Notes * HARDING ZuhairB:1965 ([age] yo F)Acc No.[id number]:02/06/2025 Progress Notes Patient:?Yasmin HARDING Provider:?Nguyễn Hallman MD :1965???Age:59 Y???Sex:Female D ate:02/06/2025 Address:[address] [place] [phone] Subjective: * Chief Complaints: * ???1. annual [...] right breast 09/2016, colonoscopy, Dr. Nguyễn Adkins, [facility], negative 02/2019, Endometrial biopsy, Dr. White, [...] Findings: Tobacco Non-User?Ex-cigarette smoker ???She lives in [place]. She has 4 children, 2 sons and [...] Hallman MD Date:?01/27 Generated for Jojo salomon/Ravin/eTransmitting on:?02/27/2025 05:09 PM EDT History and Physical Notes * [...]
--- OUTSIDE RECORDS SUMMARY | 2025-02-27 17:10 | XMS_ITS ---
Author Organization Nguyễn Hallman III, MD Address [address] [facility] [place] [address] Care Team Providers Care Import Export Agent Name Role Phone Nguyễn Hallman Primary Care Provider [phone] Allergies Allergen (clinical drug ingredient) Drug/Non Drug [...] Date Provider Diagnosis Nguyễn Hallman III, MD [address] [place] [address] [address] [place] [address] 10/18/2024 Nguyễn Hallman Overweight E66.3 Assessments Encounter [...] Details Provider Name:Nguyễn Hallman, 03/13/2025 02:30:00 PM, [address] [place] [address] [address], [place], [address], Progress Notes * Zuhair HARDINGB:1965 ([age] yo F)Acc No.[id number]:10/18/2024 Progress Notes Patient:?Yasmin HARDING Provider:?Nguyễn Hallman MD :1965???Age:59 Y???Sex:Female D ate:10/18/2024 Address:[address] [place] [phone] Subjective: * Chief Complaints: * ???1. annual [...] right breast 09/2016, colonoscopy, Dr. Nguyễn Adkins, [facility], negative 02/2019, Endometrial biopsy, Dr. White, [...] Findings: Tobacco Non-User?Ex-cigarette smoker ???She lives in [place]. She has 4 children, 2 sons and [...] Hallman MD Date:?09/30 Generated for Jojo salomon/Ravin/Connoritting on:?02/27/2025 05:09 PM EDT History and Physical [...]
--- OUTSIDE RECORDS SUMMARY | 2025-02-27 17:10 | XMS_ITS ---
Author Organization Nguyễn Hallman III, MD Address [address] [facility] [place] [address] Care Team Providers Care Tree Trimmer Helper Name Role Phone Nguyễn Hallman Primary Care Provider [phone] REASON FOR VISIT Message Encounters Encounter Location Date Provider Diagnosis Nguyễn Hallman III, MD [address] [place] [address] [place] [address] 11/10/2024 Nguyễn Hallman Plan Of Treatment Next Appt Details Provider Name:Nguyễn Hallman, 03/13/2025 02:30:00 PM, [address] [place] [address] [place], [address], Progress Notes * MEAGHANDerrickJosephB:1965 ([age] yo F)Acc No.[id number]:11/10/2024 Patient:?Yasmin HARDING :1965???Age:59 Y???Sex:Female Address:[address] [facility] [address] , [place], [address] * true * Date:? Generated for Caroli aime/Ravin/eTransmitting on:?02/27/2025 05:09 PM EDT
== END 2025-02-27 14:50 | disposition home or self-care (01) ==
LOC: HO.HWS 14:21
PROVIDERS: PCP Internal Medicine Medical Oncology; Visit Provider Obstetrics & Gynecology
DX: N75.0 Cyst of Bartholin's gland (principal)
CPT/HCPCS: 99024

== ENCOUNTER → 2025-02-27 14:21 | Outpatient (BNVA) | payer OTHER, SELFPAY | PROVIDERS: PCP Internal Medicine Medical Oncology; Visit Provider Obstetrics & Gynecology | DX: N75.0 Cyst of Bartholin's gland (principal) | CPT/HCPCS: 99212 ==

== ENCOUNTER 2025-07-17 07:40 | Outpatient (REF) | payer OTHER, SELFPAY ==
--- OUTSIDE RECORDS SUMMARY | 2025-07-17 07:42 | XMS_ITS | Encounter Summary ---
Author Organization [employer] Address [address] [facility] 7t [place] [address] Care Team Providers Care Slubber Machine Operator Name Role Phone Unavailable Primary Care Provider Unavailabl e Reason for Visit * Reason Comments Med Refill Encounter Details Date Type Department Care Team (Late st Contact Info) Description 01/08/2025 Refill [facility] ADULT DENTAL [address] [place] [address] Charla Hills DDS [address] [place] [address] Social History Tobacco Use Types Packs/Day Years [...] Care Team (Late st Contact Info) Description 11/19/2025 1:00 PM EST Office Visit [facility] OPTOMETRY [address] [place] [address] Chelita Gonzalez, OD [address] [place] [address] documented as of this encounter Visit Diagnoses Not on filedocumented in this encounter
[2025-07-17 07:55] LABS: MANUAL DIFF FLAG NO
[2025-07-17 08:13] LABS: Hematocrit 37.9 % (37.0-47.0); Hemoglobin 12.6 g/dl (12.0-16.0); Imm Gran Abs Auto 0.01 X10*3/uL (0.00-0.03); Imm Gran Pct Auto 0.2 % (0.0-0.4); Lymphocytes Absolute Auto 2.4 X10*3/uL (1.2-4.9); Mean Corpuscular HGB Conc 33.2 g/dl (31.0-35.0); Mean Corpuscular Hemoglobin 28.4 pg (27.0-33.0); Mean Corpuscular Volume 85.6 fL (80.0-98.0); NRBC Abs Auto 0.000 X10*3/uL (0.0-0.012); NRBC Pct Auto 0.0 /100WBC (0.0-0.2); Platelet Count 179 X10*3/uL (160-400); Red Blood Count 4.43 X10*6/uL (4.20-5.50); White Blood Count 5.5 X10*3/uL (4.8-10.8)
[2025-07-17 08:48] LABS: Alanine Aminotransferase 29 U/L (0-31); Albumin Level 4.4 g/dL (3.5-5.0); Alkaline Phosphatase 85 U/L (39-117); Anion Gap 10 (12-20); Blood Urea Nitrogen 14 mg/dL (9-16); Calcium 9.4 mg/dL (8.4-10.2); Carbon Dioxide 29 mmol/L (22-29); Chloride 105 mmol/L (96-108); Cholesterol 168 mg/dL (<200); Estimated Glomerular Filt Rate > 60; HDL Cholesterol 46 mg/dL (>40); Potassium 4.2 mmol/L (3.3-5.1); Sodium 140 mmol/L (135-145); Total Protein 7.0 g/dL (6.5-8.0); Triglycerides 112 mg/dL (<150)
[2025-07-17 09:00] LABS: Aspartate Amino Transferase 28 U/L (5-31)
== END 2025-07-17 07:41 | disposition home or self-care (01) ==
LOC: HO.LAB 07:40
PROVIDERS: PCP Internal Medicine Medical Oncology; Visit Provider Internal Medicine Medical Oncology
DX: E66.3 Overweight (principal); E55.9 Vitamin D deficiency, unspecified
CPT/HCPCS: 36415; 80053; 80061; 82306; 85025

== ENCOUNTER 2025-07-31 09:12 | Outpatient (REF) | payer OTHER, SELFPAY ==
--- NOTE | ~2025-07-31 | MM_ITS ---
EXAMINATION: MM SCREENING DIGITAL BREAST TOMOSYNTHESIS, BILATERAL CLINICAL INFORMATION: Screening. Asymptomatic. COMPARISON: Mammography: Comparison is made with available priors TECHNIQUE: Digital breast mammography with tomosynthesis is performed in both the craniocaudal and mediolateral oblique views along with computer-aided detection (CAD). FINDINGS: There are scattered areas of fibroglandular density (ACR BI-RADS breast composition Category b). Right breast postsurgical changes. There are no significant masses, abnormal calcifications, or other abnormalities. MM/MM tomosynthesis screening BI IMPRESSION: No mammographic evidence of malignancy. ASSESSMENT: BI-RADS BI-RADS 2 - Benign Findings RECOMMENDATION: Routine annual mammography screening. 1 year F/U This examination should not preclude the clinical evaluation of a suspicious palpable abnormality. This patient's information was entered into a reminder system with a target due date for their next mammogram. Electronically signed by: Nano Avendaño DO 08/03/2025 08:55 AM EDT
--- OUTSIDE RECORDS SUMMARY | 2025-07-31 10:06 | XMS_ITS | Encounter Summary ---
Author Organization [employer] Address [address] [facility] 7t [place] [address] Care Team Providers Care Office Automation Technician Name Role Phone Unavailable Primary Care Provider Unavailabl e Reason for Visit * Reason Comments Med Refill Encounter Details Date Type Department Care Team (Late st Contact Info) Description 06/07/2024 Refill [facility] ADULT DENTAL [address] [place] [address] Julian Odom, DMD [address] [place] [address] Social History Tobacco Use Types Packs/Day Years [...] Description 11/19/2025 1:00 PM EST Office Visit [facility] OPTOMETRY [address] [place] [address] Chelita Gonzalez, OD [address] [place] [address] documented as of this encounter Visit Diagnoses Not on filedocumented in this encounter
--- OUTSIDE RECORDS SUMMARY | 2025-07-31 10:06 | XMS_ITS | Encounter Summary ---
Author Organization [employer] Address [address] [facility] [address] 7[address] [place] [address] Care Team Providers Care Candy Forming Machine Operator Name Role Phone Unavailable Primary Care Provider Unavailabl e Encounter Details Date Type Department Care Team (Latest Contact Info) Description 09/19/2021 Abstract [facility] CONVERSIONS Dental, Provider, DDS Social History [...] Description 11/19/2025 1:00 PM EST Office Visit [facility] OPTOMETRY [address] [place] [address] Carlos, Chelita, OD [address] [place] [address] documented as of this encounter Visit Diagnoses Not on filedocumented in this encounter
--- OUTSIDE RECORDS SUMMARY | 2025-07-31 10:06 | XMS_ITS | Encounter Summary ---
Author Organization [employer] Address [address] [facility] [address]t [place] [address] Care Team Providers Care Clinical Project Coordinator Name Role Phone Unavailable Primary Care Provider Unavailabl e Reason for Visit * Reason Comments Med Refill Encounter Details Date Type Department Care Team (Late st Contact Info) Description 01/08/2025 Refill [facility] ADULT DENTAL [address] [place] [address] Charla Hills DDS [address] [place] [address] Social History Tobacco Use Types Packs/Day Years [...] Description 11/19/2025 1:00 PM EST Office Visit [facility] OPTOMETRY [address] [place] [address] CarlosChelita frye, OD [address] [place] [address] documented as of this encounter Visit Diagnoses Not on filedocumented in this encounter
--- OUTSIDE RECORDS SUMMARY | 2025-07-31 10:06 | XMS_ITS | Clinical Summary ---
Author Organization [employer] Address [address] [facility] 7t [place] [address] Care Team Providers Care Information Systems Security Analyst Name Role Phone Unavailable Primary Care Provider [...] Active Active Problems No known active problems Family History Medical History Relation Name Comments [...] Description 11/19/2025 1:00 PM EST Office Visit [facility] OPTOMETRY [address] [place] [address] Carlos, Chelita, OD [address] [place] [address] Health Maintenance Due Date Last Done Comments CT Colonography 1965 Colonoscopy 1967 Colorectal Cancer Screening 1965 Depression Screening 1967 FIT DNA/Cologuard 1967 FIT 1965 FOBT 1965 HIV Screening 1965 SDOH Screening 1965 Sigmoidoscopy 1965 Disability Screening 1967 Alcohol/Substance Use Screening 1979 Hepatitis C Screening 1985 DTaP/Tdap/Td Vaccines (1 - Tdap) 1986 Hepatitis B Vaccines (1 of 3 - 19+ 3-dose series) 1986 Pap Smear 1988 Cervical Cancer Screening 1997 HPV/Cotest 1997 Mammogram 2007 Pneumococcal Vaccine: 50+ Years (1 of 1 - PCV) 2017 Zoster Vaccines (1 of 2) 2017 COVID-19 Vaccine (4 - season) 2024 02/20/2022, 08/01/2021, 07/04/2021 Dental Oral Exam 06/19/2025 12/19/2024, , 02/25/2018 Dental Prophylaxis 06/19/2025 12/19/2024, 0 01/19/2024, 09/19/2021, Additional history exists Influenza Vaccine (#1) 2025 11/18/2020 Dental X-Ray: Full Mouth 08/05/2025 022, 09/19/2021, 02/25/2018 Tobacco Screening 12/19/2025 12/19/2024 Dental X-Ray: Bitewings 12/20/2025 12/19/19, 01/19/2024, 09/19/2021, Additional history exists RSV Patients [...] patient's age to complete this topic Meningococcal B Vaccine Aged Out No l onger eligible based on patient's age to complete [...] RADIOGRAPHIC IMAGES Routine 12/19/2024 3:00 PM EST PERIODIC ORAL EVALUATION - ESTABLISHED PATIENT Routine 12/19/2024 3:00 PM EST Dental plaque Dental calculus Encounter for dental examination Periodontal disease PANORAMIC RADIOGRAPHIC IMAGE Routine 08/04/2022 12:00 AM EDT from Last 3 Months or Most Recently Relevant to Health Maintenance Insurance [facility] * Guarantor: Yasmin Acosta Account Type Relation to Patient Date of Phone Billing Address Dental Self [address] [place] [address] DENTAL-[facility] MEDICAID STAND ADULT
== END 2025-07-31 09:13 | disposition home or self-care (01) ==
LOC: HO.MAMMO 09:12
PROVIDERS: PCP Internal Medicine Medical Oncology; Visit Provider Internal Medicine Medical Oncology
DX: Z12.31 Encounter for screening mammogram for malignant neoplasm of breast (principal)
CPT/HCPCS: 77063; 77067

== ENCOUNTER → 2025-07-31 09:45 | Outpatient (BNV) | payer OTHER, SELFPAY | PROVIDERS: PCP Internal Medicine Medical Oncology; Visit Provider Internal Medicine | DX: Z12.31 Encounter for screening mammogram for malignant neoplasm of breast (principal) | CPT/HCPCS: 77063; 77067 ==

== ENCOUNTER 2025-08-01 13:34 | Outpatient (AMB) | payer OTHER, SELFPAY ==
--- NOTE | 2025-08-01 13:37 | A.OFFVIS_ITS ---
Vital Signs 08/01/25 13:56 Height 5 ft 4 in Weight 153 lb BMI 26.3 Handedness Right Intake Visit Reasons: OV: B/L CTS s/p Rt CTR DOS: 03/23/24, OV: Left hand CTS Intake Note: Yasmin is a 59 year old female right hand dominant who presents today for a follow up of her bilateral upper extremities. Patient is status post right carpal tunnel release, DOS: 03/23/24 w/ Dr Perrin. She expresses she is having pain with palpation on the scar of her right CTR, if she touches this area she reports it feels like electricity or a taser and the current goes through her hand. She says she keeps her hand very still and squeezes her right wrist until this resolves. Her right thumb get stuck she says so she some times pulls or presses on at the base of the thumb to release this. She said she was in OT for this however they weren't able to work on the area due to pain. Her hand turns hot when she has these symptoms. Due to this she is having fear to do her left CTR. Allergies amoxicillin (Amoxicillin) Allergy (Mild, Verified 02/27/25 14:30) SWELLING/VOMITING, syncope, stomach burning clavulanic acid (From Augmentin) Allergy (Mild, Verified 02/27/25 14:30) SWELLING/VOMITING doxycycline Allergy (Unknown, Verified 02/27/25 14:30) vomiting lightheadness loss of vision Penicillin Allergy (Unknown, Uncoded 02/20/25 18:26) burned stomach with vomiting HPI HPI OV: Left hand CTS: Details: Yasmin is a 59 year old female right hand dominant who presents today for a follow up of her bilateral upper extremities. Patient is status post right carpal tunnel release, DOS: 03/23/24 w/ Dr Perrin. She expresses she is having pain with palpation on the scar of her right CTR, if she touches this area she reports it feels like electricity or a taser and the current goes through her hand. Patient reports that this is even with very gentle touch to the incision site. She says she keeps her hand very still and squeezes her right wrist until this resolves. Her right thumb get stuck she says so she some times pulls or presses on at the base of the thumb to release this. She said she was in OT for this however they weren't able to work on the area due to pain. Her hand turns hot when she has these symptoms. Due to this she is having fear to do her left CTR. Of note, the patient is also complaining of significant pain in the medial aspect of the left elbow, particularly over the medial epicondyle. Patient reports that this is worst with lifting or repetitive activity. 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 Neuro: Median, ulnar, radial nerves motor and sensory intact and sensation is normal to the tips of all digits. Vascular: Cap refill brisk Pain: Very significant tenderness to extremely gentle palpation of the carpal tunnel incision of the right wrist No other tenderness to palpation of the right hand or wrist noted Tenderness to palpation of the medial epicondyle of the left elbow Positive reverse Cozen's test on the left ROM: Range of motion of the right hand full and intact Range of motion of the left elbow full and intact Skin: Well-healed incision site on the volar aspect of the right wrist noted No lacerations, abrasions, open areas noted General: No ecchymosis, erythema, or evidence of infection. Psych: Appears grossly normal Affect normal Attitude cooperative Assessment & Plan Assessment & Plan (1) History of carpal tunnel surgery of right wrist: Code(s): Z98.890 - Other specified postprocedural states Category: Surgical Plan 1. Status post right carpal tunnel release 2. hypersensitivity Patient is referred to occupational therapy for desensitization of the incision site on the right wrist, as I feel that she has developed a significant hypersensitivity reaction and will benefit from this tremendously Patient is educated that she should begin touching and rubbing the incision site throughout the course of the day with different textures and temperatures in order to desensitize the nerves to normal sensation Patient understands this and is amenable to this plan 3. Medial epicondylitis of the left elbow Patient is educated about this condition Patient is educated about the treatment options available Patient is also referred to occupational therapy for this issue, as this is the best treatment for medial epicondylitis Patient understands this and is amenable to this plan Patient understands that if 6-8 weeks after starting OT she is not experiencing any relief, she can call us for repeat evaluation and discussion of further treatment, including injections Patient understands this Follow-up as needed Orders: Orders OT Evaluation and Treatment 08/01/25 M77.02 - Medial epicondylitis, left elbow, Z98.890 - Other specified postprocedural states Coding Level of Care Code Est Pt Level 3 (06710) Diagnoses History of carpal tunnel surgery of right wrist Z98.890
[2025-08-01 13:56] VITALS: BMI 26.3
--- OUTSIDE RECORDS SUMMARY | 2025-08-01 15:48 | XMS_ITS | Clinical Summary ---
Author Organization [employer] Address [address] [facility] 7t [place] [address] Care Team Providers Care Home Coordinator Name Role Phone Unavailable Primary Care [...] Description 11/19/2025 1:00 PM EST Office Visit [facility] OPTOMETRY [address] [place] [address] Carlos, Chelita, OD [address] [place] [address] Health Maintenance Due Date Last Done Comments [...] Most Recently Relevant to Health Maintenance Insurance [facility] * Guarantor: Yasmin Acosta Account Type Relation to Patient Date of Phone Billing Address Dental Self [address] [place] [address] DENTAL-[facility] MEDICAID STAND ADULT
--- OUTSIDE RECORDS SUMMARY | 2025-08-01 15:48 | XMS_ITS | Encounter Summary ---
Author Organization [employer] Address [address] [facility] 7t [place] [address] Care Team Providers Care Vehicle Calibration Engineer Name Role Phone Unavailable Primary Care Provider Unavailabl e Reason for Visit * Reason Comments Med Refill Encounter Details Date Type Department Care Team (Late st Contact Info) Description 06/07/2024 Refill [facility] ADULT DENTAL [address] [place] [address] Julian Odom, DMD [address] [place] [address] Social History Tobacco Use Types Packs/Day Years [...] Description 11/19/2025 1:00 PM EST Office Visit [facility] OPTOMETRY [address] [place] [address] Chelita Gonzalez, OD [address] [place] [address] documented as of this encounter Visit Diagnoses Not on filedocumented in this encounter
--- OUTSIDE RECORDS SUMMARY | 2025-08-01 15:48 | XMS_ITS | Encounter Summary ---
Author Organization [employer] Address [address] [facility] [address] [place] [address] Care Team Providers Care Legal Investigator Name Role Phone Unavailable Primary Care Provider Unavailabl e Encounter Details Date Type Department Care Team (Latest Contact Info) Description 09/19/2021 Abstract [facility] CONVERSIONS Dental, Provider, DDS Social History [...] Description 11/19/2025 1:00 PM EST Office Visit [facility] OPTOMETRY [address] [place] [address] Carlos, Chelita, OD [address] [place] [address] documented as of this encounter Visit Diagnoses Not on filedocumented in this encounter
--- OUTSIDE RECORDS SUMMARY | 2025-08-01 15:48 | XMS_ITS | Encounter Summary ---
Author Organization [employer] Address [address] [facility] [address]t [place] [address] Care Team Providers Care Continuous Miner Name Role Phone Unavailable Primary Care Provider Unavailabl e Reason for Visit * Reason Comments Med Refill Encounter Details Date Type Department Care Team (Late st Contact Info) Description 01/08/2025 Refill [facility] ADULT DENTAL [address] [place] [address] Charla Hills DDS [address] [place] [address] Social History Tobacco Use Types Packs/Day Years [...] Description 11/19/2025 1:00 PM EST Office Visit [facility] OPTOMETRY [address] [place] [address] CarlosChelita frye, OD [address] [place] [address] documented as of this encounter Visit Diagnoses Not on filedocumented in this encounter
== END 2025-08-01 14:15 | disposition home or self-care (01) ==
PROVIDERS: PCP Internal Medicine Medical Oncology
DX: Z47.89 Encounter for other orthopedic aftercare (principal); G56.01 Carpal tunnel syndrome, right upper limb
CPT/HCPCS: 99213

== ENCOUNTER → 2025-08-01 13:34 | Outpatient (BNVA) | payer OTHER, SELFPAY | PROVIDERS: PCP Internal Medicine Medical Oncology | DX: M77.02 Medial epicondylitis, left elbow (principal); Z98.890 Other specified postprocedural states | CPT/HCPCS: 99212 ==

== ENCOUNTER 2025-08-07 15:54 | Outpatient (AMB) | payer OTHER, SELFPAY ==
--- NOTE | 2025-08-07 15:54 | MHC.OFFVIS ---
Intake Visit Reasons: 3M/[facility] Intake Note: Patient is present for 3M/ [facility] Urology Medication:NONE Antibiotic Allergy:AMOXICILLIN,DOXYCYCLINE,PENICILLIN,AUGMENTIN Blood Thinner:NONE Panel Instrument Repairer Required: No Allergies amoxicillin (Amoxicillin) Allergy (Mild, Verified 08/07/25 16:27) SWELLING/VOMITING, syncope, stomach burning clavulanic acid (From Augmentin) Allergy (Mild, Verified 08/07/25 16:27) SWELLING/VOMITING doxycycline Allergy (Unknown, Verified 08/07/25 16:27) vomiting lightheadness loss of vision Penicillin Allergy (Unknown, Uncoded 08/07/25 16:27) burned stomach with vomiting Medication List - Last Reconciled 08/07/25 by YESICA Plunkett cholecalciferol (vitamin D3) 50 mcg PO DAILY cyclobenzaprine 10 mg PO TID meloxicam 15 mg PO DAILY pyridoxine (vitamin B6) 100 mg PO DAILY 90 days HPI Comments Details: Yasmin is a very pleasant 59 year old female patient of Dr. Hallman. She has a past medical history of carpal tunnel syndrome, obstructive sleep apnea, overactive bladder, and nephrolithiasis. She is being followed up on today via video telehealth for her nephrolithiasis and overactive bladder. In discussion with the patient today she reports to be doing and feeling well. She denies having had any bothersome urinary issues or concerns since her last office visit here. Recent [facility] results were reviewed with the patient today. 07/23 low urine volume of 1.1 L. as well as high urine pH. We did discuss at length the importance of adequate hydration in relation to nephrolithiasis as well as overall health and well-being. When asked she reports drinking a proximally 16-20 oz of water a day. We did discuss correlation of in sufficient water intake with nephrolithiasis. When asked she reports noncompliance with vitamin B6. She does report attempting to drink plenty of water daily. She currently denies any bothersome urinary issues. She denies incontinence, nocturia, hematuria, dysuria, foul smelling urine, changes to urinary stream, flank pain, fever, and or chills. She is happy with her current voiding parameters. She does report noting urinary urgency and frequency at times however does not find this bothersome. She otherwise offers no issues or concerns at this time. 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 Sexual orientation: Straight/Heterosexual Gender identity: Female Female Reproductive History Menstrual Age of Menarche: 14 Review of Systems Const All systems reviewed & are unremarkable except as noted in HPI and below Physical Exam Const General: cooperative, healthy appearing, comfortable, no acute distress, well developed, alert and awake Orientation/consciousness: patient oriented x3 Resp Effort & Inspection: normal respiratory effort and able to speak in complete sentences Neuro General: patient oriented x3 Psych Appearance: grossly normal and well kempt Speech and movement: Clear speech present Affect: normal affect Attitude: cooperative Thought content: Normal thought content present Insight: Fair insight present (Psych) Judgement: Fair judgement present (Psych) Telehealth Telehealth Telehealth Platform: Telephone Location of provider rendering services: practice address Location of patient: address on file Patient Identification confirmed using: Name, : Yes Telehealth method: video Patient verbally consented to treatment: Yes Patient verbally consented to billing insurance company: Yes Patient informed of any privacy concerns related to visit: Yes Minutes spent on Phone/Video with Pt.: 15 Assessment & Plan Assessment & Plan (1) Renal calculi: Code(s): N20.0 - Calculus of kidney Category: Medical Plan Recent [facility] results reviewed with the patient today; as noted above. We discussed at length the importance of adequate hydration relation to nephrolithiasis as well as overall health and well-being. Start vitamin B6 as discussed and prescribed. We also discussed adding 1 oz of lemon juice to water daily. She currently denies any bothersome urinary issues or concerns. She reports be happy with current voiding parameters. Will obtain renal ultrasound in 3 months. Will obtain [facility] in 3 months. Follow-up in 3 months with labs in [facility]; or sooner with any issues, concerns, and or questions. Orders: Orders US renal BI 3 Months N20.0 - Calculus of kidney Medications: New pyridoxine (vitamin B6) 100 mg PO DAILY 90 tabs 1RF 90 days Patient Instructions: The patient had an opportunity to ask questions regarding the treatment plan. All questions were answered. Physical exam, labs, and imaging were discussed and reviewed in detail. As well as risks, benefits, and discussion of treatment choices. No major barriers to understanding were identified. The patient expressed understanding and agreement with the above treatment plan. The patient was made aware they should contact our office by phone for worsening of their current condition, the appearance of new symptoms, or with any questions or concerns. Compliance is encouraged with any medications and follow up testing that is ordered. It is a privilege to be allowed the opportunity to participate in? your urological care.? Again, if you have any questions or concerns If you have any questions or concerns please do not hesitate to contact me. The office is [phone]. This note is constructed using voice recognition software. While every effort has been made to ensure accuracy door fitter errors may have been included. Yours sincerely, YESICA Plunkett Coding Level of Care Code Tele Est Pt Level 3 (55884) Diagnoses Renal calculi N20.0
--- OUTSIDE RECORDS SUMMARY | 2025-08-07 18:02 | XMS_ITS | Encounter Summary ---
Author Organization [employer] Address [address] [place] [address] Care Team Providers Care Tent Worker Name Role Phone Unavailable Primary Care Provider Unavailabl e Reason for Visit * Reason Comments Med Refill Encounter Details Date Type Department Care Team (Late st Contact Info) Description 01/08/2025 Refill [facility]ULT DENTAL [address] [place] [address] Charla Hills DDS [address] [place] [address] Social History Tobacco Use Types Packs/Day Years [...] Description 11/19/2025 1:00 PM EST Office Visit [facility] OPTOMETRY [address] [place] [address] CarlosChelita frye, OD [address] [place] [address] documented as of this encounter Visit Diagnoses Not on filedocumented in this encounter
--- OUTSIDE RECORDS SUMMARY | 2025-08-07 18:02 | XMS_ITS | Clinical Summary ---
Author Organization [employer] Address [address] [place] [address] Care Team Providers Care Tester Compressed Gases Name Role Phone Unavailable Primary Care Provider [...] Description 11/19/2025 1:00 PM EST Office Visit [facility] OPTOMETRY [address] [place] [address] Carlos, Chelita, OD [address] [place] [address] Health Maintenance Due Date Last Done Comments [...] 2017 Zoster Vaccines (1 of 2) 2017 Dental Oral Exam 06/19/2025 12/19/2024, , 02/25/2018 Dental Prophylaxis 06/19/2025 12/19/2024, 0 01/19/2024, 09/19/2021, Additional history exists COVID-19 Vaccine ( season) 2025 02/20/2022, 08/01/2021, 07/04/2021 Influenza Vaccine (#1) 2025 11/18/2020 Dental X-Ray: [...] Most Recently Relevant to Health Maintenance Insurance [facility] * Guarantor: Yasmin Acosta Account Type Relation to Patient Date of Phone Billing Address Dental Self [address] [place] [address] DENTAL-[facility] MEDICAID STAND ADULT
--- OUTSIDE RECORDS SUMMARY | 2025-08-07 18:02 | XMS_ITS | Encounter Summary ---
Author Organization [employer] Address [address] [place] [address] Care Team Providers Care Ticket Scheduler Name Role Phone Unavailable Primary Care Provider Unavailabl e Encounter Details Date Type Department Care Team (Latest Contact Info) Description 09/19/2021 Abstract [facility] CONVERSIONS Dental, Provider, DDS Social History [...] Description 11/19/2025 1:00 PM EST Office Visit [facility] OPTOMETRY [address] [place] [address] Carlos, Chelita, OD [address] [place] [address] documented as of this encounter Visit Diagnoses Not on filedocumented in this encounter
--- OUTSIDE RECORDS SUMMARY | 2025-08-07 18:02 | XMS_ITS | Encounter Summary ---
Author Organization [employer] Address [address] [place] [address] Care Team Providers Care Manager Of Environmental Services Name Role Phone Unavailable Primary Care Provider Unavailabl e Reason for Visit * Reason Comments Med Refill Encounter Details Date Type Department Care Team (Late st Contact Info) Description 06/07/2024 Refill [facility] ADULT DENTAL [address] [place] [address] Julian Odom, DMD [address] [place] [address] Social History Tobacco Use Types Packs/Day Years [...] Description 11/19/2025 1:00 PM EST Office Visit [facility] OPTOMETRY [address] [place] [address] Chelita Gonzalez, OD [address] [place] [address] documented as of this encounter Visit Diagnoses Not on filedocumented in this encounter
== END 2025-08-07 16:50 | disposition home or self-care (01) ==
LOC: HO.HUSH 15:54
PROVIDERS: PCP Internal Medicine Medical Oncology; Visit Provider Nurse Practitioner Family
DX: N20.0 Calculus of kidney (principal)
CPT/HCPCS: 99213